=== PATIENT | female | born 1945 | race African-American/Black ===

== ENCOUNTER 2020-03-08 10:22 | Outpatient (CLI) | payer MEDICARE, SELFPAY ==
[2020-03-08 12:00] LABS: Magnesium 2.2 mg/dL (1.6-2.3)
[2020-03-08 12:52] LABS: Free T4 Free Thyroxine 1.04 ng/mL (0.78-2.19)
== END 2020-03-08 10:23 | disposition home or self-care (01) ==
LOC: ANHLAB 10:26
PROVIDERS: PCP Family Medicine; Visit Provider Internal Medicine Cardiovascular Disease
DX: I48.0 Paroxysmal atrial fibrillation (principal); I44.7 Left bundle-branch block, unspecified; I49.3 Ventricular premature depolarization
CPT/HCPCS: 36415; 83735; 84439

== ENCOUNTER 2020-04-05 01:03 | Outpatient (CLI) | payer MEDICARE, MEDICAID, SELFPAY ==
[2020-04-05 18:32] LABS: SARS-CoV-2 RNA PCR Negative
== END 2020-04-05 01:04 | disposition home or self-care (01) ==
LOC: ANHCOVIDDT 01:06
PROVIDERS: PCP Family Medicine; Visit Provider Internal Medicine Gastroenterology
DX: Z01.812 Encounter for preprocedural laboratory examination (principal); Z20.828 Contact with and (suspected) exposure to other viral communicable diseases
CPT/HCPCS: 87635; C9803; U0003

== ENCOUNTER 2020-04-07 01:31 | Day surgery (SDC) | payer MEDICARE, MEDICAID, SELFPAY ==
[2020-03-27 13:25] VITALS: BMI 34.3
[2020-04-07 07:36] VITALS: BP 159/88; PULSE 87; RESP 20; TEMP 36.6; O2SAT 97
[2020-04-07] MEDS: LACTATED RINGERS 1,000 ML 150 ML IV CONT (07:48)
--- NOTE | 2020-04-07 08:26 | PM.HPGS ---
History of Present Illness History of Present Illness Consent: Risks, benefits, and alternatives have been discussed and questions answered. Patient agrees to proceed with procedure. Chief complaint: neoplasm screening Narrative: Kiki Garcia is a 74 year old female here for screening colonoscopy, last one 2013 Review of Systems Constitutional: Constitutional: Denies headache(s) and Denies weakness Eyes: Eyes: Denies blurry vision ENT: Reports Normal hearing present, Denies headache(s) and Denies neck pain Cardiovascular: Cardiovascular: Denies chest pain and Denies dyspnea Respiratory: Respiratory: Denies dyspnea Gastrointestinal: Gastrointestinal: Reports no additional gastrointestinal complaints Genitourinary: Genitourinary: Denies dysuria Musculoskeletal: Musculoskeletal: Denies neck pain Integumentary/Breasts: Skin/Breast: Denies dry skin Neurologic: Reports Normal hearing present, Denies headache(s) and Denies weakness Psychiatric: Psychiatric: Denies anxiety Endocrine: Endocrine: Denies change in body appearance Hematologic/Lymphatic: Hematologic/Lymphatic: Denies easy bleeding Allergic/Immunologic: Allergic/Immunologic: Denies urticaria PMFSH Past Medical History Medical History (Updated 03/06/20 @ 13:39 by Tessa Horner APN-Tommy) Abnormality of gait Back pain with history of spinal surgery Benign essential HTN Chronic constipation Colon polyp Constipation by delayed colonic transit Encounter for screening colonoscopy GERD (gastroesophageal reflux disease) Lumbar spondylosis Obesity (BMI 30.0-34.9) PVC (premature ventricular contraction) Surgical History Surgical History History of back surgery Family History Family History Grandparent Carcinoma of colon Social History Social History Social History: Divorce Smoking status: Never smoker Second hand tobacco smoke exposure: No Alcohol intake: never Substance use: never Substance use type: does not use Living arrangements: with family Gender identity (if verbalized by the patient): Female Spiritual care concerns: No Meds Home Medications and Allergies Home Medications Medication Instructions Recorded Confirmed Type B-complex with vitamin C 1 tablet PO DAILY 01/17/20 03/27/20 History acetaminophen 650 mg 650 mg PO Q12H PRN 01/17/20 03/27/20 History tablet,extended release amlodipine 10 mg tablet 10 mg PO DAILY 01/17/20 03/27/20 History aspirin 325 mg tablet,delayed 325 mg PO DAILY 01/17/20 03/27/20 History release linaclotide 290 mcg capsule 290 mcg PO DAILY PRN 01/17/20 03/27/20 History meclizine 12.5 mg tablet 12.5 mg PO BID PRN 01/17/20 03/27/20 History metoprolol succinate 100 mg 100 mg PO DAILY 01/17/20 03/27/20 History tablet,extended release 24 hr omeprazole 40 mg capsule,delayed 40 mg PO DAILY 01/17/20 03/27/20 History release telmisartan 80 mg tablet 80 mg PO DAILY 01/17/20 03/27/20 History ergocalciferol (vitamin D2) 1,250 1,250 mcg PO WEEKLY #12 cap 02/06/20 03/27/20 Rx mcg (50,000 unit) capsule Allergies Allergy/AdvReac Type Severity Reaction Status Date / Time ibuprofen [From Motrin] Allergy Mild itch and Verified 04/07/20 07:34 hives NSAIDS (Non-Steroidal Allergy Mild itch and Verified 04/07/20 07:34 Anti-Inflamma hives Vital Signs Vital Signs - 24 hr 04/07/20 07:36 Temperature 97.9 F Pulse Rate 87 Respiratory Rate 20 Blood Pressure 159/88 H Pulse Oximetry 97 Exam Const: General: comfortable and no acute distress HENMT: General nose exam: Normal nares present Eyes: General: appearance normal, both eyes and all related structures Neck: Neck: no JVD Resp: Auscultation: clear to auscultation bilaterally Cardio: Rate: regular rate Rhythm: regu
--- NOTE | 2020-04-07 08:27 | WPDANESEPPF ---
Anes - Initial Pre Proc Eval Procedure: Operation Date: 04/07/20 09:00 Proposed Procedures p Screening Colonoscopy - Codey Reyes MD Date/Time: 04/07/20 08:27 Surgeon: Codey Reyes MD Pre Op Diagnosis: neoplasm screening Patient Data Age: 74 Gender: F Height: 5 ft 5.5 in Weight: 95 kg Last Vital Signs Temp 97.9 F 04/07/20 07:36 Pulse 87 04/07/20 07:36 Resp 20 04/07/20 07:36 BP 159/88 H 04/07/20 07:36 Pulse Ox 97 04/07/20 07:36 Allergies Allergy/AdvReac Type Severity Reaction Status Date / Time ibuprofen [From Motrin] Allergy Mild itch and Verified 04/07/20 07:34 hives NSAIDS (Non-Steroidal Allergy Mild itch and Verified 04/07/20 07:34 Anti-Inflamma hives Home Medications Medication Instructions Recorded Confirmed Type B-complex with vitamin C 1 tablet PO DAILY 01/17/20 03/27/20 History acetaminophen 650 mg 650 mg PO Q12H PRN 01/17/20 03/27/20 History tablet,extended release amlodipine 10 mg tablet 10 mg PO DAILY 01/17/20 03/27/20 History aspirin 325 mg tablet,delayed 325 mg PO DAILY 01/17/20 03/27/20 History release linaclotide 290 mcg capsule 290 mcg PO DAILY PRN 01/17/20 03/27/20 History meclizine 12.5 mg tablet 12.5 mg PO BID PRN 01/17/20 03/27/20 History metoprolol succinate 100 mg 100 mg PO DAILY 01/17/20 03/27/20 History tablet,extended release 24 hr omeprazole 40 mg capsule,delayed 40 mg PO DAILY 01/17/20 03/27/20 History release telmisartan 80 mg tablet 80 mg PO DAILY 01/17/20 03/27/20 History ergocalciferol (vitamin D2) 1,250 1,250 mcg PO WEEKLY #12 cap 02/06/20 03/27/20 Rx mcg (50,000 unit) capsule Patient hx anesthesia problems: none Family hx anesthesia problems: none PMFSH Past Medical History Medical History (Updated 03/06/20 @ 13:39 by TessaWILBERT Cassidy) Abnormality of gait Back pain with history of spinal surgery Benign essential HTN Chronic constipation Colon polyp Constipation by delayed colonic transit Encounter for screening colonoscopy GERD (gastroesophageal reflux disease) Lumbar spondylosis Obesity (BMI 30.0-34.9) PVC (premature ventricular contraction) Surgical History Surgical History History of back surgery Family History Family History Grandparent Carcinoma of colon Social History Social History Social History: Divorce Smoking status: Never smoker Second hand tobacco smoke exposure: No Alcohol intake: never Substance use: never Substance use type: does not use Living arrangements: with family Gender identity (if verbalized by the patient): Female Spiritual care concerns: No Anes - Eval Final PreProcedure Day of Procedure 04/07/20 08:27 Patient weight: overweight Heart: regular rate and rhythm Lungs: clear to auscultation Airway: Mallampati scale class III Neurological: alert and oriented Last oral intake: >/= 8 hours ASA classification: III Emergent: no Anesthetic plan: proceed Anesthesia type and monitoring: general GIVS and standard monitoring Informed Consent: The patient's anesthetic plan and its attendant risks and benefits were discussed with the patient/family/POA. Questions were solicited and answers provided to the satisfaction of the patient/family/POA.
[2020-04-07 09:06] VITALS: BP 134/111; PULSE 84; RESP 22; O2SAT 97
[2020-04-07 09:16] VITALS: BP 148/69; PULSE 75; RESP 13; O2SAT 97
[2020-04-07 09:26] VITALS: BP 156/71; PULSE 74; RESP 20; O2SAT 97
[2020-04-07 09:36] VITALS: BP 144/100; PULSE 73; RESP 24; O2SAT 99
== END 2020-04-07 09:59 | disposition home or self-care (01) ==
PROVIDERS: PCP Family Medicine; Visit Provider Internal Medicine Gastroenterology
PROC: 0DJD8ZZ Inspection of Lower Intestinal Tract, Via Natural or Artificial Opening Endoscopic (ICD-10-PCS; CPT 45378; principal; 2020-04-07 09:00)
DX: Z12.11 Encounter for screening for malignant neoplasm of colon (principal); D12.2 Benign neoplasm of ascending colon; K57.30 Diverticulosis of large intestine without perforation or abscess without bleeding; K64.8 Other hemorrhoids; I10 Essential (primary) hypertension; K59.09 Other constipation; K59.01 Slow transit constipation; M47.816 Spondylosis without myelopathy or radiculopathy, lumbar region; K21.9 Gastro-esophageal reflux disease without esophagitis; I49.3 Ventricular premature depolarization
CPT/HCPCS: 45390; 88305; J2704; J7120

== ENCOUNTER 2020-04-08 17:17 | Observation (INO) | payer MEDICARE, MEDICAID, SELFPAY ==
[2020-04-08 17:22] VITALS: BP 146/95; PULSE 103; RESP 16; TEMP 36.9; O2SAT 96
[2020-04-08 17:43] LABS: Basophils Percent Auto 0.3 % (0.2-1.2); Eosinophils Absolute Auto 0.2 K/mm3 (0-0.3); Eosinophils Percent Auto 1.4 % (0-4.4); Hematocrit 35.6 % (37.0-47.0); Hemoglobin 11.6 g/dL (12.0-15.0); Immature Granulocyte Absolute 0.04 K/mm3 (0.00-0.031); Immature Granulocyte Percent A 0.3 % (0-0.5); Lymphocytes Absolute Auto 3.64 K/mm3 (0.9-3.2); Lymphocytes Percent Auto 31.7 % (18.3-44.2); Mean Corpuscular HGB Conc 32.6 g/dl (32-36); Mean Corpuscular Hemoglobin 29.4 pg (26-34); Mean Corpuscular Volume 90.1 fl (80-100); Mean Platelet Volume 11.3 fl (7.4-10.4); Monocytes Absolute Auto 0.6 K/mm3 (0.1-0.6); Neutrophils Percent Auto 61.3 % (45.5-73.1); Platelet Count Result 259 k/mm3 (150-375); Red Blood Count 3.95 M/mm3 (4.2-5.4); Red Cell Distribution Width 14.4 % (11.5-14.5); White Blood Count 11.5 K/mm3 (4.5-10.0)
[2020-04-08 17:57] LABS: Alanine Aminotransferase 13 U/L (4-35); Albumin Level 3.9 g/dL (3.5-5.1); Alkaline Phosphatase 54 U/L (38-126); Anion Gap 8 mmol/L (8-16); Aspartate Amino Transferase 21 U/L (14-36); Bilirubin,Total 0.1 mg/dL (0.2-1.3); Blood Urea Nitrogen 16 mg/dL (7-17); Calcium 8.8 mg/dL (8.4-10.2); Carbon Dioxide 28 mmol/L (22-30); Chloride 105 mmol/L (98-107); Estimated CRCL calculation 59 ml/min; Estimated Glomerular Filt Rate > 60; Glucose 109 mg/dL (65-105); Potassium 3.8 mmol/L (3.4-5.0); Sodium 141 mmol/L (137-145)
[2020-04-08 18:10] LABS: INR 0.9; Prothrombin Time 13.2 Seconds (11.1-14.7)
[2020-04-08 18:11] LABS: Partial Thromboplastin Time 25.2 SECONDS (22.3-36.8)
--- NOTE | 2020-04-08 19:07 | ED.GENADULT ---
HPI - General Adult General Chief complaint: GI Bleed Stated complaint: rectal bleeding, surgery yesterday Time Seen by Provider: 04/08/20 19:01 Source: patient History of Present Illness HPI narrative: Patient is a 74 y/o complaining of heavy rectal bleeding starting 3-4 hours ago. She states that she was sitting on the commode and noticed bright red blood. She then had another episode of rectal bleed. She states she had a colonoscopy and polypectomy yesterday, which may have lead to her bleeding. She has some weakness. She denies abdominal pain, vomiting or diarrhea. Related Data Home Medications Medication Instructions Recorded Confirmed B-complex with vitamin C 1 tablet PO DAILY 01/17/20 04/08/20 acetaminophen 650 mg 650 mg PO Q12H PRN 01/17/20 04/08/20 tablet,extended release amlodipine 10 mg tablet 10 mg PO DAILY 01/17/20 04/08/20 linaclotide 290 mcg capsule 290 mcg PO DAILY PRN 01/17/20 04/08/20 meclizine 12.5 mg tablet 12.5 mg PO BID PRN 01/17/20 04/08/20 metoprolol succinate 100 mg 100 mg PO DAILY 01/17/20 04/08/20 tablet,extended release 24 hr omeprazole 40 mg capsule,delayed 40 mg PO DAILY 01/17/20 04/08/20 release telmisartan 80 mg tablet 80 mg PO DAILY 01/17/20 04/08/20 Adult Low Dose Aspirin 81 mg PO DAILY 04/08/20 04/08/20 Allergies Allergy/AdvReac Type Severity Reaction Status Date / Time ibuprofen [From Motrin] Allergy Mild itch and Verified 04/08/20 22:24 hives Review of Systems Constitutional: Constitutional: Denies chills, Denies fever(s), Denies headache(s) and Denies weakness Eyes: Eyes: Denies blurry vision ENT: Denies headache(s) and Denies neck pain Cardiovascular: Cardiovascular: Denies chest pain and Denies dyspnea Respiratory: Respiratory: Denies cough and Denies dyspnea Gastrointestinal: Gastrointestinal: Denies abdominal pain, Reports hematochezia, Denies diarrhea, Denies nausea and Denies vomiting Genitourinary: Genitourinary: Denies hematuria and Denies dysuria Musculoskeletal: Musculoskeletal: Denies back pain and Denies neck pain Neurologic: Denies headache(s) and Denies weakness [facility] Past Medical History Medical History Abnormality of gait Back pain with history of spinal surgery Benign essential HTN Chronic constipation Colon polyp Constipation by delayed colonic transit Encounter for screening colonoscopy GERD (gastroesophageal reflux disease) Lumbar spondylosis Obesity (BMI 30.0-34.9) PVC (premature ventricular contraction) Surgical History Surgical History History of back surgery Family History Family History Grandparent Carcinoma of colon Social History Social History Social History: Divorce Smoking status: Never smoker Second hand tobacco smoke exposure: No Alcohol intake: former Substance use: never Substance use type: does not use Gender identity (if verbalized by the patient): Female Spiritual care concerns: No Exam Const: General: no acute distress and well developed Orientation/consciousness: oriented to person, oriented to place, oriented to time and patient oriented x3 HENMT: Head: normocephalic Ears: external ears normal General nose exam: Normal external nose present Eyes: General: appearance normal, both eyes and all related structures Conjunctivae: conjunctivae normal Neck: Neck: normal visual inspection and full ROM Chest: Chest palpation & inspection: normal inspection of the chest and no tenderness Resp: Effort & Inspection: normal respiratory effort Auscultation: clear to auscultation bilaterally Cardio: Rate: regular rate Rhythm: regular rhythm GI: GI Palp: No abdominal tenderness and Yes Soft to palpation Skin: General skin exam: normal color and turgor normal Neuro: G
[2020-04-08 19:43] VITALS: BP 179/103; BP 179/113; BP 195/96; PULSE 86; PULSE 88
[2020-04-08 20:12] LABS: Hematocrit 33.6 % (37.0-47.0); Hemoglobin 11.1 g/dL (12.0-15.0)
[2020-04-08 21:30] VITALS: BP 139/104; BP 155/91; PULSE 89; PULSE 91; RESP 18; RESP 20; TEMP 36.3; TEMP 36.7; O2SAT 96; O2SAT 98
--- NOTE | 2020-04-08 21:30 | PC.NURSE ---
This patient, Kiki Garcia, was admitted to [facility] Surg Room 323-01. Patient/family oriented to hospital policies and general routines including ID bracelet, bed and alarms, visiting hours, pain management, procedures, bathroom and other care routines, personal items, smoking policy, room service/diet, and visiting hours. Information on how to activate the Rapid Response Team has been discussed. Patient/Family are encouraged to report perceived risks to care and to ask questions if they do not understand what they are told or what they should do.
[2020-04-09] VITALS: PULSE 83
[2020-04-09 01:52] LABS: Hematocrit 33.4 % (37.0-47.0); Hemoglobin 10.9 g/dL (12.0-15.0)
[2020-04-09 04:00] VITALS: PULSE 83
[2020-04-09 06:00] VITALS: BP 154/69; PULSE 81; RESP 20; TEMP 36.5; O2SAT 100
[2020-04-09 06:55] LABS: Hemoglobin 11.1 g/dL (12.0-15.0)
[2020-04-09 08:00] VITALS: PULSE 70
[2020-04-09 11:38] VITALS: PULSE 70
[2020-04-09] MEDS: amLODIPine BESYLATE 5 MG TABLET 10 MG PO (11:38)
[2020-04-09] MEDS: METOPROLOL SUCCINATE EXT REL 100 MG TABCR PO (11:38)
[2020-04-09] MEDS: TELMISARTAN 40 MG TABLET 80 MG PO (11:38)
[2020-04-09] MEDS: PANTOPRAZOLE SODIUM IV 40 MG VIAL IV PUSH (11:39)
--- NOTE | 2020-04-09 12:48 | WPDGICN ---
Assessment and Plan Assessment and plan (1) Post-polypectomy bleeding: Status: Acute Assessment and Plan: large polyp removed 2 days ago in piece-meal but also deployed clipsx3, I did not see active bleeding after polypectomy. Hb now stable and apparently no more bleeding now. ok to start soft diet and if no more bleeding and she is hemodynamically stable then ok to go home with soft diet for next 2-3 days she will need a colonoscopy in 1 year again to reassess area (2) Rectal bleeding: Code(s): K62.5 - Hemorrhage of anus and rectum Status: Acute Assessment and Plan: hb stable this also was discussed with her daughter by phone. avoid to use any aspirin, nsaid's for 7 days (3) Chronic constipation: Code(s): K59.09 - Other constipation Status: Acute (4) GERD (gastroesophageal reflux disease): Code(s): K21.9 - Gastro-esophageal reflux disease without esophagitis Status: Acute (5) Benign essential HTN: Code(s): I10 - Essential (primary) hypertension Status: Acute GI Consult Note Consult date/time: 04/09/20 12:48 HPI: Kiki Garcia is a 74 year old female with history of AFIB, PVC, LBBB, lumbar spondylosis, constipation who had a colonoscopy by me on 04/07 as outpatient and found a large polyp in ascending colon 2-2.5cm, removed in piecemeal then deployed three clips to prevent delayed bleeding, also had non-bleeding diverticulosis and small hemorrhoids (path report showed adenoma polyp). Yesterday she had two episodes of rectal bleeding, large amount that filled up toilet, denies abdominal pain or fever, then came to ER and admitted for observation. Hb 11.6 and has been relatively stable, she denies any more bleeding since last night. Review of Systems Constitutional: Constitutional: Denies headache(s) and Denies weakness Eyes: Eyes: Denies blurry vision ENT: Reports Normal hearing present, Denies headache(s) and Denies neck pain Cardiovascular: Cardiovascular: Denies chest pain and Denies dyspnea Respiratory: Respiratory: Denies dyspnea Gastrointestinal: Gastrointestinal: Reports no additional gastrointestinal complaints Genitourinary: Genitourinary: Denies dysuria Musculoskeletal: Musculoskeletal: Denies neck pain Integumentary/Breasts: Skin/Breast: Denies dry skin Neurologic: Reports Normal hearing present, Denies headache(s) and Denies weakness Psychiatric: Psychiatric: Denies anxiety Endocrine: Endocrine: Denies change in body appearance Hematologic/Lymphatic: Hematologic/Lymphatic: Denies easy bleeding Allergic/Immunologic: Allergic/Immunologic: Denies urticaria PMFSH Past Medical History Medical History Abnormality of gait Back pain with history of spinal surgery Benign essential HTN Chronic constipation Colon polyp Constipation by delayed colonic transit Encounter for screening colonoscopy GERD (gastroesophageal reflux disease) Lumbar spondylosis Obesity (BMI 30.0-34.9) PVC (premature ventricular contraction) Surgical History Surgical History History of back surgery Family History Family History Grandparent Carcinoma of colon Social History Social History Social History: Divorce Smoking status: Never smoker Second hand tobacco smoke exposure: No Alcohol intake: former Substance use: never Substance use type: does not use Gender identity (if verbalized by the patient): Female Spiritual care concerns: No Meds Home Medications and Allergies Home Medications Medication Instructions Recorded Confirmed Type B-complex with vitamin C 1 tablet PO DAILY 01/17/20 04/08/20 History acetaminophen 650 mg 650 mg PO Q12H PRN 01/17/20 04/08/20 History tablet,extended release amlodipine
--- NOTE | 2020-04-09 13:24 | PM.SD ---
Same Day Admit/Disch: HPI History of Present Illness Chief complaint: rectal bleeding Narrative: Date of Placement to OBS status: 04/08/20 Date and time Patient Seen: 04/09/20 1200 Date of Discharge 04/09/20 The supervising physician for this short stay summary is Dr David Barragan. Ms. Garcia is a very pleasant 74yo F with history of paroxysmal atrial fibrillation, chronic constipation, hypertension, osteoarthritis who presented to the ED for evaluation of rectal bleeding. She had a colonoscopy by Dr. Jimenez 04/07/20 at which time he resected a large polyp, also noted were nonbleeding diverticula and small nonbleeding internal hemorrhoids. She describes that yesterday afternoon she felt the urge to have a bowel movement and once she got to the bathroom she passed a large amount of bright red blood in the toilet. She felt a bit dizzy after this and presented to the ED for evaluation. She has had no further bowel movements or bleeding since that time. Hgb is stable at 11.1. She is hemodynamically stable. She has been seen by Dr. Jimenez this morning who has also agreed with plan for discharge today. Patient was instructed to hold her aspirin and avoid other NSAIDs through Tuesday. Instructed to repeat blood work and follow-up with PCP within 1-2 weeks. We discussed that she may notice a little more bleeding with bowel movements which should resolve on its own and she was educated on return to ER instructions. She verbalizes understanding and is agreeable with plan for discharge today. [facility] Past Medical History Medical History (Updated 04/09/20 @ 18:57 by Breanna March PA-C) Abnormality of gait Back pain with history of spinal surgery Benign essential HTN Chronic constipation Colon polyp Constipation by delayed colonic transit Encounter for screening colonoscopy GERD (gastroesophageal reflux disease) Lumbar spondylosis Obesity (BMI 30.0-34.9) Post-polypectomy bleeding PVC (premature ventricular contraction) Surgical History Surgical History History of back surgery Laminectomy 2017 History of hemorrhoidectomy History of hysterectomy Family History Family History (Updated 04/09/20 @ 18:51 by Breanna March PA-C) Grandparent Carcinoma of colon Mother Acute myocardial infarction Father Acute myocardial infarction Sibling Lung cancer Social History Social History (Updated 04/09/20 @ 18:53 by Breanna March PA-C) Social History: Ms. Garcia lives at home in [place] with her daughter. 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 She denies alcohol, tobacco, or other substance use. She designates her daughter, Luz Maria, to be her surrogate decision maker. PCP: Dr Mia Recinos Code Status: Full Code Smoking status: Never smoker Second hand tobacco smoke exposure: No Alcohol intake: former Substance use: never Substance use type: does not use Gender identity (if verbalized by the patient): Female Spiritual care concerns: No Same Day Admit/Disch: Med Pre-admit Medications Home Medications Medication Instructions Recorded Confirmed Type B-complex with vitamin C 1 tablet PO DAILY 01/17/20 04/08/20 History acetaminophen 650 mg 650 mg PO Q12H PRN 01/17/20 04/08/20 History tablet,extended release amlodipine 10 mg tablet 10 mg PO DAILY 01/17/20 04/08/20 History linaclotide 290 mcg capsule 290 mcg PO DAILY PRN 01/17/20 04/08/20 History meclizine 12.5 mg tablet 12.5 mg PO BID PRN 01/17/20 04/08/20 History metoprolol succinate 100 mg 100 mg PO DAILY 01/17/20 04/08/20 History tablet,extended release 24 hr omeprazole 40 mg capsule,delayed 40 mg PO DAILY 01/17/20 04/08/20 History release telmisartan 80 mg tablet 80 mg PO DAILY 01/17/20 04/08/20 History ergocalciferol (vitamin D2) 1,250 1,250 mcg PO WEEKLY #12 cap 02/06/20 04/08/20 Rx mcg (50,000 unit) capsule Adult Low Dose Aspirin 81 mg PO DAILY 04/08/20
== END 2020-04-09 15:50 | disposition home or self-care (01) ==
LOC: ANHED 19:19 → ANH3MEDSUR 23:41
PROVIDERS: Admitting Provider Internal Medicine; Emergency Provider Emergency Medicine; PCP Family Medicine; Visit Provider Internal Medicine
DX: K91.840 Postprocedural hemorrhage of a digestive system organ or structure following a digestive system procedure (principal); K62.5 Hemorrhage of anus and rectum; K59.09 Other constipation; K21.9 Gastro-esophageal reflux disease without esophagitis; I10 Essential (primary) hypertension; R53.1 Weakness; I49.3 Ventricular premature depolarization; M47.816 Spondylosis without myelopathy or radiculopathy, lumbar region; E66.9 Obesity, unspecified; Z68.34 Body mass index [BMI] 34.0-34.9, adult; Z98.890 Other specified postprocedural states; Z79.899 Other long term (current) drug therapy; Z79.82 Long term (current) use of aspirin; Z86.010 Personal history of colon polyps
CPT/HCPCS: 36415; 80053; 85014; 85018; 85025; 85610; 85730; 86850; 86900; 86901; 96374; 99285; A9270; C9113; G0378

== ENCOUNTER 2020-04-17 09:48 | Outpatient (CLI) | payer MEDICARE, MEDICAID, SELFPAY ==
[2020-04-17 10:38] LABS: Basophils Percent Auto 0.3 % (0.2-1.2); Eosinophils Absolute Auto 0.2 K/mm3 (0-0.3); Eosinophils Percent Auto 2.7 % (0-4.4); Hematocrit 32.6 % (37.0-47.0); Hemoglobin 10.6 g/dL (12.0-15.0); Immature Granulocyte Absolute 0.02 K/mm3 (0.00-0.031); Immature Granulocyte Percent A 0.2 % (0-0.5); Lymphocytes Absolute Auto 2.43 K/mm3 (0.9-3.2); Lymphocytes Percent Auto 28.2 % (18.3-44.2); Mean Corpuscular HGB Conc 32.5 g/dl (32-36); Mean Corpuscular Hemoglobin 29.2 pg (26-34); Mean Corpuscular Volume 89.8 fl (80-100); Mean Platelet Volume 11.5 fl (7.4-10.4); Monocytes Absolute Auto 0.4 K/mm3 (0.1-0.6); Neutrophils Absolute Auto 5.5 K/mm3 (1.3-6.7); Neutrophils Percent Auto 63.6 % (45.5-73.1); Platelet Count Result 254 k/mm3 (150-375); Red Blood Count 3.63 M/mm3 (4.2-5.4); Red Cell Distribution Width 14.6 % (11.5-14.5); White Blood Count 8.6 K/mm3 (4.5-10.0)
== END 2020-04-17 09:49 | disposition home or self-care (01) ==
LOC: ANHLAB 09:56
PROVIDERS: PCP Family Medicine; Visit Provider Physician Assistant
DX: K51.411 Inflammatory polyps of colon with rectal bleeding (principal); Z98.890 Other specified postprocedural states
CPT/HCPCS: 36415; 85025

== ENCOUNTER 2020-06-28 07:42 | Outpatient (CLI) | payer MEDICARE, MEDICAID, SELFPAY ==
--- NOTE | ~2020-06-28 | MR_ITS ---
EXAMINATION: MR lumbar spine wo [facility] EXAM DATE: 06/28/2020 08:45 INDICATION: M47.816 - Spondylosis without myelopathy or radiculopathy, lumbar region . History of charlie k surgery. TECHNIQUE: Multi-sequential, multiplanar MR images of the lumbar spine were obtained without contrast . Sagittal T1, T2, T2 fat saturation images. Axial T2 weighted images. There is no prior study for comparison. FINDINGS: There is mild thoracolumbar dextroscoliosis and lumbar levoscoliosis. There is 3 mm retroli sthesis L3 on L4. Mild to moderate disc disease L2-3 and L3-4, mild at the other lumbar levels. The c onus medullaris terminates at the L1/2 level and has normal signal intensity and morphology. Surgica l changes posterior to L4-5 level. Several small vertebral body hemangiomata. Paraspinal soft tissue is unremarkable. Level by level evaluation: T12-L1: There is a mild to moderate diffuse disc bulge. Facet arthropathy: Mild to moderate. Neural foraminal stenosis: Mild bilateral. Central canal stenosis: Mild. L1-L2: There is a mild diffuse disc bulge. Facet arthropathy: Moderate. Neural foraminal stenosis: Moderate left. Central canal stenosis: Mild. L2-L3: There is a moderate diffuse disc bulge. Facet arthropathy: Moderate to severe . Ligamentum flavum enlargement. Neural foraminal stenosis: Moderate left, mild to moderate right. Central canal stenosis: Mild to moderate. L3-L4: There is a moderate diffuse disc bulge. Facet arthropathy: Severe right, moderate left. Neural foraminal stenosis: Moderate to severe right, moderate left. Central canal stenosis: Moderate. L4-L5: There is a moderate diffuse disc bulge. Facet arthropathy: Severe bilateral. Neural foraminal stenosis: Moderate bilateral. Central canal stenosis: Mild to moderate, posterior laminotomy decompression. L5-S1: There is a mild to moderate diffuse disc bulge. Facet arthropathy: Moderate. Neural foraminal stenosis: Moderate bilateral. Central canal stenosis: Mild. IMPRESSION: 1. Mild to moderate thoracolumbar scoliosis. 2. Overall moderate lumbar spondylosis. Reviewed, dictated and finalized at location A. ARIAL DIRECTOR
== END 2020-06-28 07:43 | disposition home or self-care (01) ==
PROVIDERS: PCP Family Medicine; Visit Provider Family Medicine
DX: M47.817 Spondylosis without myelopathy or radiculopathy, lumbosacral region (principal); M48.07 Spinal stenosis, lumbosacral region; M47.815 Spondylosis without myelopathy or radiculopathy, thoracolumbar region; M48.05 Spinal stenosis, thoracolumbar region; M41.9 Scoliosis, unspecified
CPT/HCPCS: 72148

== ENCOUNTER 2020-09-12 11:57 | Outpatient (CLI) | payer MEDICARE, MEDICAID, SELFPAY ==
--- NOTE | ~2020-09-12 | US_ITS ---
EXAMINATION: US venous doppler LE RT DATE: 09/12/2020 12:44 INDICATION: TECHNIQUE: Chowdary scale images without and with compression and Doppler images of the right lower extre mity veins were obtained. COMPARISON: None FINDINGS: The right common femoral vein, profunda femoral vein, femoral vein, popliteal vein, peronea l trunk, posterior tibial veins, and greater saphenous vein are patent. IMPRESSION: 1. Patent right lower extremity veins. No evidence of deep venous thrombosis. Reviewed, dictated and finalized at location A.
== END 2020-09-12 11:58 | disposition home or self-care (01) ==
PROVIDERS: PCP Family Medicine; Visit Provider Internal Medicine Cardiovascular Disease
DX: M79.604 Pain in right leg (principal)
CPT/HCPCS: 93971

== ENCOUNTER → 2020-09-25 08:53 | Outpatient (CLI) | payer MEDICARE, MEDICAID, SELFPAY ==
[2020-09-25 16:57] LABS: SARS-CoV-2 RNA PCR Negative
== END ==
PROVIDERS: PCP Family Medicine; Visit Provider Physician Assistant
DX: R68.89 Other general symptoms and signs (principal); Z20.822 Contact with and (suspected) exposure to COVID-19
CPT/HCPCS: C9803; U0003; U0005

== ENCOUNTER 2020-10-17 16:00 | Outpatient (CLI) | payer MEDICARE, MEDICAID, SELFPAY ==
--- NOTE | 2020-10-22 16:22 | WPDHOMESLEEP ---
Sleep Study - Home Unattended Date of Study: 10/17/20 Ordering Provider: Leonel Pinto MD Interpreting Provider: Yoli Brandon MD Home Sleep Study Type: Apnea Link Air Height: 1.65 m Weight: 95.254 kg Body Mass Index: 34.9 Neck Circumference (inches): 16 [place]: 7 Reason for Sleep Study Obstructive sleep apnea Sleep History Marion Garcia is a 75 year old female with paroxysmal atrial fibrillation and a history of Obstructive sleep apnea diagnosed 2018 in [place] at [facility], was placed on APAP 5-15 cm and felt better using it with less daytime fatigue and hypersomnolence. She moved to this area in 2019. She has problems with her APAP missing some parts and not working properly. She currently snores, she wakes herself up grunting and has daytime sleepiness with fatigue. She has no morning headaches. She reports a 4 lb weight loss since her last study. She wakes up during the night. She frequently awakens from sleep feeling short of breath. She frequently awakens at night with heartburn, belching and coughing. She always snores loudly enough that others complain. She constantly has trouble sleeping with a cold. She frequently wakes up gasping for breath at night. She frequently has breathing problems at night observed by others. She rarely sweats excessively at night. She frequently notices her heart pounding or beating irregularly night. She occasionally falls asleep during the day, occasionally falls asleep involuntarily. She never falls asleep while driving. She does not have loss of muscle tone with strong emotion. She does not have daytime difficulties due to excessive sleepiness. She does not feel paralyzed on waking or falling asleep. She rarely has vivid dreamlike scenes upon awakening or falling asleep. She never feels afraid to go to sleep. She occasionally has nightmares. She occasionally remembers her dreams. She rarely feels sad, depressed or anxious. She does not have muscular tension. She does not notice parts her body jerking. She rarely kicks at night. She rarely has crawling and aching feelings in her legs at night. She frequently has leg pain during the night. She does not have morning jaw pain and does not grind her teeth during sleep. She occasionally has bothered by pain during the day and occasionally awakened by pain at night. She occasionally wakes up feeling stiff in the morning with sore achy muscles rarely wakes up with pain in the neck and spine. She has fatigue, palpitations, memory problems and she takes antacids regularly. Normal bedtime is 7:00 p.m. falling asleep within 1 hour typically waking 4 or more times at night to urinate and she will also watch TV while she is awake. She wakes at 6:00 a.m. She estimates getting 9 hours or more of sleep at night. She takes naps in the afternoon or evening. A short nap is not refreshing. She is drowsy in the morning. She feels better in the afternoon compared other times a day. Habits: No tobacco. She drinks caffeine, coffee and sodas. No alcohol or recreational drugs. [facility] Past Medical History Medical History Abnormality of gait Back pain with history of spinal surgery Benign essential HTN Chronic constipation Colon polyp Constipation by delayed colonic transit Encounter for screening colonoscopy GERD (gastroesophageal reflux disease) Lumbar spondylosis Obesity (BMI 30.0-34.9) Post-polypectomy bleeding PVC (premature ventricular contraction) Surgical History Surgical History History of back surgery Laminectomy 2017 History of hemorrhoidectomy History of hysterectomy Family History Family History Grandparent Carcinoma of colon Mother Acute myocardial infarction Father Acute myocardial infarction Sibling Lung cancer Social Histor
[2020-10-22 16:24] VITALS: BMI 34.9
== END 2020-10-17 16:08 | disposition home or self-care (01) ==
LOC: ANHCSM 10-20 10:02
PROVIDERS: PCP Family Medicine; Visit Provider Internal Medicine Pulmonary Disease
DX: G47.33 Obstructive sleep apnea (adult) (pediatric) (principal); Z68.34 Body mass index [BMI] 34.0-34.9, adult
CPT/HCPCS: 95806

== ENCOUNTER 2020-12-08 09:23 | Outpatient (CLI) | payer MEDICARE, SELFPAY ==
[2020-12-08 09:54] LABS: Basophils Percent Auto 0.5 % (0.2-1.2); Eosinophils Absolute Auto 0.1 K/mm3 (0-0.3); Eosinophils Percent Auto 1.6 % (0-4.4); Hematocrit 41.1 % (37.0-47.0); Hemoglobin 12.8 g/dL (12.0-15.0); Immature Granulocyte Absolute 0.02 K/mm3 (0.00-0.031); Immature Granulocyte Percent A 0.3 % (0-0.5); Lymphocytes Absolute Auto 2.41 K/mm3 (0.9-3.2); Lymphocytes Percent Auto 30.3 % (18.3-44.2); Mean Corpuscular HGB Conc 31.1 g/dl (32-36); Mean Corpuscular Hemoglobin 28.4 pg (26-34); Mean Corpuscular Volume 91.1 fl (80-100); Monocytes Absolute Auto 0.4 K/mm3 (0.1-0.6); Monocytes Percent Auto 4.4 % (2.6-8.5); Neutrophils Percent Auto 62.9 % (45.5-73.1); Platelet Count Result 240 k/mm3 (150-375); Red Blood Count 4.51 M/mm3 (4.2-5.4); Red Cell Distribution Width 14.5 % (11.5-14.5)
[2020-12-08 10:09] LABS: Alanine Aminotransferase 13 U/L (4-35); Albumin Level 4.1 g/dL (3.5-5.1); Alkaline Phosphatase 58 U/L (38-126); Anion Gap 6 mmol/L (8-16); Aspartate Amino Transferase 20 U/L (14-36); Bilirubin,Total 0.4 mg/dL (0.2-1.3); Blood Urea Nitrogen 8 mg/dL (7-17); Calcium 9.3 mg/dL (8.4-10.2); Carbon Dioxide 28 mmol/L (22-30); Chloride 106 mmol/L (98-107); Cholesterol 230 mg/dL (0-200); Estimated Glomerular Filt Rate > 60; Glucose 106 mg/dL (65-110); HDL Direct 78 mg/dL; Sodium 140 mmol/L (137-145); Triglycerides 81 mg/dL (<150)
[2020-12-08 10:19] LABS: LDL Cholesterol Direct 115 mg/dL
[2020-12-11 11:40] LABS: Vitamin D 1,25 (OH)2 Total 74 pg/mL (18-72); Vitamin D2 1,25 (OH)2 38 pg/mL; Vitamin D3 1,25 (OH)2 36 pg/mL
== END 2020-12-08 09:24 | disposition home or self-care (01) ==
LOC: ANHLAB 09:30
PROVIDERS: PCP Family Medicine; Visit Provider Family Medicine
DX: E55.9 Vitamin D deficiency, unspecified (principal); I10 Essential (primary) hypertension; I48.91 Unspecified atrial fibrillation; I48.92 Unspecified atrial flutter; E78.2 Mixed hyperlipidemia
CPT/HCPCS: 36415; 80053; 80061; 82652; 84443; 85025

== ENCOUNTER 2020-12-11 09:59 | Outpatient (CLI) | payer MEDICARE, SELFPAY ==
--- NOTE | ~2020-12-11 | US_ITS ---
EXAMINATION: US carotid duplex BI DATE: 12/11/2020 10:36 INDICATION: Other specified symptoms and signs involving the circulatory and respiratory systems TECHNIQUE: Grayscale, color Doppler, and pulsed Doppler images of the cervical carotid arteries were obtained. The degree of vessel stenosis is placed in one of the following categories: normal, <50%, 5 0-69%, >=70% but less than near-occlusion, near-occlusion, or total occlusion. Note that percent sten osis relative to normal distal artery lumen diameter is indirectly measured from velocity measurement s as described by Noam, et al. Radiology 2003; 229:[id number]. COMPARISON: None. FINDINGS: RIGHT: The right common carotid artery (CCA) peak systolic velocity (PSV) is 48 cm/s. The right internal car otid artery (ICA) PSV is 72 cm/s. The right ICA end-diastolic velocity (EDV) is 22 cm/s. The right IC A/CCA PSV ratio is 1.5. Grayscale and color Doppler images yield an estimate of <50% diameter reducti on from plaque in the ICA. The external carotid artery (ECA) PSV is 73 cm/s. There is antegrade flow in the right vertebral artery. LEFT: The left CCA PSV is 50 cm/s. The left ICA PSV is 99 cm/s. The left ICA EDV is 23 cm/s. The left ICA/C CA PSV ratio is 2.0. Grayscale and color Doppler images yield an estimate of <50% diameter reduction from plaque in the ICA. The ECA PSV is 67 cm/s. There is antegrade flow in the left vertebral artery. IMPRESSION: 1. <50% stenosis in the right internal carotid artery. 2. <50% stenosis in the left internal carotid artery. 3. Intermittent cardiac arrhythmia is present, potentially related to vagal stimulation. Correlate wi th EKG. Reviewed, dictated and finalized at location A. IMPRESSION: 1. <50% stenosis in the right internal carotid artery. 2. <50% stenosis in the left internal carotid artery. 3. Intermittent cardiac arrhythmia is present, potentially related to vagal sti mulation. Correlate with EKG.
== END 2020-12-11 10:00 | disposition home or self-care (01) ==
LOC: ANHIMG 10:01
PROVIDERS: PCP Family Medicine; Visit Provider Family Medicine
DX: R09.89 Other specified symptoms and signs involving the circulatory and respiratory systems (principal); I65.23 Occlusion and stenosis of bilateral carotid arteries; I49.8 Other specified cardiac arrhythmias
CPT/HCPCS: 93880

== ENCOUNTER 2021-06-28 16:25 | Inpatient (IN) | payer MEDICARE, MEDICAID, SELFPAY ==
[2021-06-28] VITALS (17 sets, daily range): BP systolic 100–133; BP diastolic 77–105; PULSE 36–130; RESP 0–31; TEMP 36.2–36.3; O2SAT 95–99; BMI 33.4
--- NOTE | ~2021-06-28 | US_ITS ---
EXAMINATION: US venous doppler [facility] DATE: 06/29/2021 12:27 INDICATION: Lower limb pain with Homans sign. Atrial fibrillation. TECHNIQUE: Grayscale ultrasound images without and with compression and Doppler ultrasound images of the bilateral lower extremity veins were obtained. COMPARISON: None. FINDINGS: Noncompressible deep venous thrombosis in the right posterior tibial vein. The visualized portions of right common femoral vein, profunda (deep) femoral vein, femoral vein, popliteal vein, peroneal vein s, gastrocnemius vein and greater saphenous vein outflow are patent. Noncompressible deep venous thrombosis in the left posterior tibial vein. The visualized portions of left common femoral vein, profunda femoral vein, femoral vein, popliteal vein, peroneal veins, gastro cnemius vein and greater saphenous vein outflow are patent. IMPRESSION: 1. [id number] deep venous thrombosis at the bilateral posterior tibial veins. Reviewed, dictated and finalized at location A. ING CAPTAIN IMPRESSION: 1. [id number] deep venous thrombosis at the bilateral posterior tibial vei ns.
--- NOTE | ~2021-06-28 | CT_ITS ---
EXAMINATION: CTA chest abdomen pelvis DATE: 06/28/2021 18:19 INDICATION: Shortness of breath. Aneurysm . Metastatic disease. TECHNIQUE: Computed tomographic angiography (CTA) of the chest, abdomen, and pelvis was performed wit hout and with 100 mL Omnipaque-350 intravenous contrast. Volume-rendered 3D-reconstructions of the ao rta and large arteries were constructed by the technologist on a separate workstation. Automated expo sure control and iterative reconstruction technique were employed. The dose-length product was 1328.8 5 mGy-cm. COMPARISON: None FINDINGS: Chest: Mild mosaic attenuation in the bilateral lower lobes consistent with mild dependent atelectasis with small subsegmental regions of air trapping consistent with small airway disease. 3 mm nodule in the s uperior segment of the right lower lobe. No pneumonia, pulmonary edema, pleural effusion or pneumotho rax. Cardiomegaly. Atherosclerotic coronary artery calcifications. Moderate-sized pericardial effusio n. Small sliding-type hiatal hernia. Thoracic aorta is normal in caliber with no aneurysm or dissecti on. No pathologically enlarged thoracic lymphadenopathy. Multinodular goiter with intrathoracic exten adela of a 7.1 x 5.3 x 4.5 cm predominantly cystic mass arising from the lower pole of the right thyro id lobe which accounts for the mass of concern on the prior radiograph. Mild thoracic spondylosis wit h bridging osteophytes at multiple levels consistent with diffuse idiopathic skeletal hyperostosis (D PACO). Abdomen and pelvis: Liver, gallbladder, spleen, pancreas and bilateral adrenal glands are normal. 1.4 similar left renal cyst. Small focus of cortical scarring at the right kidney. There are a few diverticula along the catina cending colon without adjacent inflammatory change to suggest diverticulitis. Normal small bowel and appendix. Bladder is normal. No free intraperitoneal gas or fluid. No pathologically enlarged abdomin al or pelvic lymphadenopathy. Mild atherosclerotic disease along the normal caliber abdominal aorta. No significant stenosis, aneurysm or dissection. Mild S-shaped curvature of the lumbar spine with mod erate spondylosis. IMPRESSION: 1. Multinodular goiter with 7.1 x 5.3 x 4.5 cm predominantly cystic right thyroid mass which extends into the superior mediastinum accounting for the opacity of concern on prior radiographs. 2. Cardiomegaly and moderate-sized pericardial effusion. Reviewed, dictated and finalized at location A. MODEL MAKER IMPRESSION: 1. Multinodular goiter with 7.1 x 5.3 x 4.5 cm predominantly cystic right thyro id mass which extends into the superior mediastinum accounting for the opacity of concern on prior radiographs. 2. Cardiomegaly and moderate-sized pericardial effusion.
--- NOTE | ~2021-06-28 | XR_ITS ---
EXAMINATION: XR chest 2V DATE: 06/28/2021 17:20 INDICATION: Shortness of breath. TECHNIQUE: frontal and lateral views of the chest were obtained. COMPARISON: None FINDINGS: Mild linear atelectasis/scarring at the right costophrenic angle. No other airspace opacities, pulmon anna edema, pleural effusion or pneumothorax. Mild cardiac Megaly. Mediastinal widening particularly o n the right which exerts mass effect upon the trachea. IMPRESSION: 1. Mediastinal widening with right paratracheal mass. Differential would include goiter, primary gilbert gnancy, metastatic disease, lymphoma, aneurysm or tortuous vasculature. Recommend contrast-enhanced C T of the chest for further evaluation. 2. Mild cardiomegaly. Reviewed, dictated and finalized at location A. ME TAX ADJUSTER IMPRESSION: 1. Mediastinal widening with right paratracheal mass. Differential would includ e goiter, primary malignancy, metastatic disease, lymphoma, aneurysm or tortuou s vasculature. Recommend contrast-enhanced CT of the chest for further evaluati on. 2. Mild cardiomegaly.
--- NOTE | 2021-06-28 16:49 | ECG_ITS ---
Measurements Intervals [place] Rate: 126 P: VT: 0 QRS: -34 QRSD: 151 T: 124 QT: 343 QTc: 497 Interpretive Statements ATRIAL FIBRILLATION WITH RAPID VENTRICULAR RESPONSE LEFT AXIS DEVIATION LEFT BUNDLE BRANCH BLOCK ABNORMAL ECG Electronically Signed On 06-28-2021 17:05:34 ANIMAL HERDER by Arnaldo Huizar D.O.
--- NOTE | 2021-06-28 16:55 | ED.SOB ---
HPI - SOB/Dyspnea General Chief Complaint: Shortness of Breath/Dyspnea Stated Complaint: sob Time Seen by Provider: 06/28/21 16:54 History of Present Illness HPI Narrative: 76 year old female presents to the ER with complaints of acute onset of exertional dyspnea she states she noticed this am. Reports having difficulty walking from bedroom to bathroom d/t shortness of breath. Patient has a known history of a-fib, which she says has been managed with metoprolol and ASA. Patient admits to being non-complaint with her metoprolol, stating she occasionally forgets to take the medication. Has taken her metoprolol today, but did not take it the past couple of days. 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 Related Data Home Medications Medication Instructions Recorded Confirmed B-complex with vitamin C 1 tablet PO DAILY 01/17/20 04/23/21 Adult Low Dose Aspirin 81 mg PO DAILY 04/08/20 04/23/21 Allergies Allergy/AdvReac Type Severity Reaction Status Date / Time ibuprofen [From Motrin] Allergy Mild itch and Verified 04/23/21 09:28 hives Review of Systems Review of Systems: CONSTITUTIONAL: Denies fever, chills, or sweats. EYES: Denies visual changes, redness, or discharge. ENT: Denies rhinorrhea, congestion, sore throat, or otalgia. CARDIOVASCULAR: Denies chest pain, palpitations, or edema. RESPIRATORY: Reports dyspnea. GASTROINTESTINAL: Denies abdominal pain, nausea, vomiting, or diarrhea. GENITOURINARY: Denies dysuria or hematuria. SKIN: Denies rash or itching. MUSCULOSKELETAL: Denies back pain, joint pain, or myalgia. NEUROLOGIC: Denies headache, numbness, dizziness, or weakness. PSYCHIATRIC: Denies anxiety or depression. [facility] Past Medical History Medical History Abnormality of gait Back pain with history of spinal surgery Benign essential HTN Chronic constipation Colon polyp Constipation by delayed colonic transit Encounter for screening colonoscopy GERD (gastroesophageal reflux disease) Lumbar spondylosis Obesity (BMI 30.0-34.9) Post-polypectomy bleeding PVC (premature ventricular contraction) Surgical History Surgical History History of back surgery Laminectomy 2017 History of hemorrhoidectomy History of hysterectomy Family History Family History Grandparent Carcinoma of colon Mother Acute myocardial infarction Father Acute myocardial infarction Sibling Lung cancer Social History Social History Social History: Ms. Garcia lives at home in [place] with her daughter. 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 She denies alcohol, tobacco, or other substance use. She designates her daughter, Luz Maria, to be her surrogate decision maker. PCP: Dr Mia Recinos Code Status: Full Code Smoking status: Never smoker Second hand tobacco smoke exposure: No Alcohol intake: never Substance use: never Substance use type: does not use Gender identity (if verbalized by the patient): Female Sexual Orientation (if Verbalized by the Patient): Straight or Heterosexual Spiritual care concerns: No Exam Narrative: GENERAL: Well-appearing, well-nourished, and in no acute distress. HEAD: Normocephalic, atraumatic. EYES: PERRLA and EOMI. ENT: Nares clear, no rhinorrhea or epistaxis. Mucous membranes moist. Oropharynx without tonsillar hypertrophy exudate or other lesions. Bilateral TMs pearly hillman nonbulging NECK: Supple. No adenopathy or masses. No carotid bruits or JVD CHEST: Clear to auscultation. No respiratory distress. No wheezes rales or rhonchi HEART: irregular tachycardic rhythm. No murmur heard. Normal peripheral pulses. ABDOMEN: Soft, nontender, nondistended, normal active bowel sounds. EXTREMITIES: Normal range of motion. No edema. SKIN: Warm, dry, no rash. N
[2021-06-28 17:00] LABS: Basophils Absolute Auto 0.1 K/mm3 (0.0-0.1); Basophils Percent Auto 0.4 % (0.2-1.2); Eosinophils Absolute Auto 0.2 K/mm3 (0-0.3); Eosinophils Percent Auto 1.5 % (0-4.4); Hematocrit 37.3 % (37.0-47.0); Hemoglobin 12.2 g/dL (12.0-15.0); Immature Granulocyte Absolute 0.03 K/mm3 (0.00-0.031); Immature Granulocyte Percent A 0.3 % (0-0.5); Lymphocytes Absolute Auto 3.36 K/mm3 (0.9-3.2); Lymphocytes Percent Auto 28.9 % (18.3-44.2); Mean Corpuscular HGB Conc 32.7 g/dl (32-36); Mean Corpuscular Hemoglobin 30.4 pg (26-34); Mean Platelet Volume 12.1 fl (7.4-10.4); Monocytes Absolute Auto 0.7 K/mm3 (0.1-0.6); Monocytes Percent Auto 5.6 % (2.6-8.5); Neutrophils Absolute Auto 7.4 K/mm3 (1.3-6.7); Neutrophils Percent Auto 63.3 % (45.5-73.1); Platelet Count Result 268 k/mm3 (150-375); Red Blood Count 4.01 M/mm3 (4.2-5.4); Red Cell Distribution Width 14.8 % (11.5-14.5); White Blood Count 11.6 K/mm3 (4.5-10.0)
[2021-06-28 17:13] LABS: Alanine Aminotransferase 14 U/L (4-35); Alkaline Phosphatase 53 U/L (38-126); Anion Gap 7 mmol/L (8-16); Aspartate Amino Transferase 22 U/L (14-36); Bilirubin,Total 0.2 mg/dL (0.2-1.3); Blood Urea Nitrogen 15 mg/dL (7-17); Calcium 9.2 mg/dL (8.4-10.2); Carbon Dioxide 24 mmol/L (22-30); Chloride 107 mmol/L (98-107); Estimated CRCL calculation 52 ml/min; Estimated Glomerular Filt Rate > 60; Glucose 121 mg/dL (65-110); Potassium 3.5 mmol/L (3.4-5.0); Sodium 138 mmol/L (137-145)
--- NOTE | 2021-06-28 19:26 | PM.IMHP ---
H&P: HPI History of Present Illness Date/Time: 06/28/21 19:26 Chief Complaint: Shortness of breath. Narrative: This is a 76-year-old female with past medical history significant for endothoracic goiter, atrial fibrillation, GERD, degenerative joint disease, grade 1 diastolic heart failure, normal systolic function as per echocardiogram from March of 2020 according to records. 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 Yanez in this area. Patient also has not been using her BiPAP machine however according to records is CPAP machine has been without it for over a year. Patient presents to the emergency room with complaints of shortness of breath with minimal exertion at and at rest as well patient uses 3-4 pillows at nighttime due to shortness of breath when laying flat has had some dizziness denies any palpitations, flutter feeling, no syncope or near syncope, no diaphoresis, no chest pain ,no nausea, no vomiting, no abdominal pain, has had some pedal edema, denies any fevers, any rigors, any chills. Preliminary workup was significant for atrial fibrillation with rapid ventricular response on EKG. Patient is been admitted for further evaluation, management and treatment. Review of Systems Review of Systems: Shortness of breath, dizziness, fatigue, PND, orthopnea. Constitutional: Constitutional: Denies chills, Reports fatigue, Denies fever(s), Denies malaise and Denies weakness Eyes: Eyes: Denies change in vision ENT: Denies dysphagia, Reports dizziness, Denies nasal congestion, Denies nasal discharge, Denies nasal obstruction and Denies odynophagia Cardiovascular: Cardiovascular: Denies irregular heart rhythm, Reports leg edema, Reports lightheadedness, Denies radiating jaw, neck or arm pain, Denies palpitations, Reports dyspnea on exertion, Reports orthopnea and Reports paroxysmal nocturnal dyspnea Respiratory: Respiratory: Denies cough, Denies excessive phlegm production and Denies wheezing Gastrointestinal: Gastrointestinal: Denies abdominal pain, Denies dyspepsia, Denies heartburn, Denies diarrhea, Denies nausea and Denies vomiting Genitourinary: Genitourinary: Denies dysuria Musculoskeletal: Musculoskeletal: Denies arthralgias Integumentary/Breasts: Skin/Breast: Denies rash Neurologic: Denies focal weakness and Denies Sensory deficit (Neuro) Psychiatric: Psychiatric: Reports no additional psychiatric complaints and Reports as per HPI Endocrine: Endocrine: Denies cold intolerance, Denies deepening of the voice, Reports fatigue, Denies flushing, Denies heat intolerance, Denies polyphagia, Denies polydipsia and Denies palpitations Hematologic/Lymphatic: Hematologic/Lymphatic: Reports no additional hematologic/lymphatic complaints and Reports as per HPI Allergic/Immunologic: Allergic/Immunologic: Reports no additional allergic/immunologic complaints and Reports as per HPI PMFSH Past Medical History Medical History Abnormality of gait Back pain with history of spinal surgery Benign essential HTN Chronic constipation Colon polyp Constipation by delayed colonic transit Encounter for screening colonoscopy GERD (gastroesophageal reflux disease) Lumbar spondylosis Obesity (BMI 30.0-34.9) Post-polypectomy bleeding PVC (premature ventricular contraction) Surgical History Surgical History History of back surgery Laminectomy 2017 History of hemorrhoidectomy History of hysterectomy Family History Family History Grandparent Carcinoma of colon Mother Acute myocardial infarction Father Acute myocardial infarction Sibling Lung cancer Social History Social History Social History: Ms. Jose brizuela
[2021-06-28] MEDS: dilTIAZem HCl INJ 25 MG/5 ML VIAL 10 MG IV PUSH (19:55)
[2021-06-28] MEDS: dilTIAZem 100 MG/100 ML 100 MG/100 ML BAG IV CONT (19:55)
--- NOTE | 2021-06-28 20:24 | PC.NURSE ---
Patient given food tray and drink.
[2021-06-28 20:52] LABS: SARS-CoV-2 RNA PCR Negative
--- NOTE | 2021-06-28 22:06 | PC.NURSE ---
Patient care report called to JAYCEE Kauffman. All questions answered at this time.
[2021-06-29] VITALS (13 sets, daily range): BP systolic 96–146; BP diastolic 71–86; PULSE 60–133; RESP 16–20; TEMP 36.2–37.2; O2SAT 94–97
--- NOTE | 2021-06-29 | ECHO_ITS ---
Patient Info Name: Kiki Garcia Age: 76 years : 1945 Gender: Female Ht: 66 in Wt: 207 lbs BSA: 2.13 m2 HR: 111 bpm BP: 133 / 85 mmHg Heart Rhythm: Atrial Fibrillation Technical Quality: Fair Exam Date: 06/29/2021 9:32 AM Exam Location: [facility] Patient Status: Inpatient Admit Date: 06/28/2021 Staff Ordering Physician: Katlyn Yeboah MD Coil Cleaner: Bia Mark RDCS Attending Provider: Katlyn Yeboah MD Referring Physician: Edilia APRRA; Exam Type: CA echo doppler color flow Study Info Indications I48.1 - Persistent atrial fibrillation R06.02 - Shortness of breath Complete two-dimensional, color flow and Doppler transthoracic echocardiogram is performed. Summary 1. Complete two-dimensional, color flow and Doppler transthoracic echocardiogram is performed. 2. Left ventricular chamber dimension is mildly enlarged. 3. Left ventricular systolic function is mildly reduced, estimated at 40-45%. 4. There is mild concentric increased left ventricular wall thickness. 5. Left ventricular septal wall motion is abnormal with septal motion related to bundle branch block. 6. Left atrial chamber dimension is moderately enlarged. 7. There is mild aortic valve sclerosis. 8. There is mild mitral valve regurgitation. 9. Technically somewhat challenging exam. 10. Atrial fibrillation. Left Ventricle Left ventricular chamber dimension is mildly enlarged. Left ventricular systolic function is mildly reduced, estimated at 40-45%. There is mild concentric increased left ventricular wall thickness. Left ventricular septal wall motion is abnormal with septal motion related to bundle branch block. The left ventricular diastolic function is indeterminate. Right Ventricle Right ventricular chamber dimension is normal. Left Atria Left atrial chamber dimension is moderately enlarged. Right Atria Right atrial chamber dimension is mildly enlarged. Aortic Valve The aortic valve is trileaflet. There is mild aortic valve sclerosis. Pulmonic Valve The pulmonic valve is not well visualized. Mitral Valve The mitral valve has normal leaflets. There is mild mitral valve regurgitation. Tricuspid Valve The tricuspid valve leaflets are normal. Pericardium/Pleural The pericardium appears normal. Aorta The aortic root size at the sinus of Valsalva is normal. Left Ventricular Outflow Tract Name Value Normal LVOT 2D LVOT Diameter 2.0 cm LVOT Doppler LVOT Peak Gradient 4 mmHg LVOT Mean Gradient 2 mmHg LVOT VTI 17 cm LVOT VTI/AV VTI Ratio 0.6 LVOT Stroke Volume 54 ml Pulmonic Valve Name Value Normal RVOT Doppler RVOT Peak Gradient 1 mmHg PV Doppler
[2021-06-29 01:46] LABS: Troponin I 0.064 ng/mL (0.000-0.034)
[2021-06-29 02:07] LABS: NT Pro B Type Natriuretic Pept 3800 pg/mL (5-100)
--- NOTE | 2021-06-29 04:23 | PCRCNOTE ---
Bipap ordered for patient nocturnally. Therapist spoke with pt about wearing bipap and pt refused. Pt stated she has not worn her home unit in over 1 year and she would not wear one here.
--- NOTE | 2021-06-29 04:49 | ADMGEN ---
This patient, Kiki Garcia, was admitted to IMU Room 205-06/28 at approx 2300. Patient/family oriented to hospital policies and general routines including ID bracelet, bed and alarms, visiting hours, pain management, procedures, bathroom and other care routines, personal items, smoking policy, room service/diet, and visiting hours. Information on how to activate the Rapid Response Team has been discussed. Patient/Family are encouraged to report perceived risks to care and to ask questions if they do not understand what they are told or what they should do.
[2021-06-29 09:21] LABS: Basophils Percent Auto 0.3 % (0.2-1.2); Eosinophils Absolute Auto 0.1 K/mm3 (0-0.3); Eosinophils Percent Auto 0.6 % (0-4.4); Hematocrit 35.4 % (37.0-47.0); Hemoglobin 11.5 g/dL (12.0-15.0); Immature Granulocyte Absolute 0.05 K/mm3 (0.00-0.031); Immature Granulocyte Percent A 0.4 % (0-0.5); Lymphocytes Absolute Auto 1.83 K/mm3 (0.9-3.2); Lymphocytes Percent Auto 14.9 % (18.3-44.2); Mean Corpuscular HGB Conc 32.5 g/dl (32-36); Mean Corpuscular Hemoglobin 29.7 pg (26-34); Mean Corpuscular Volume 91.5 fl (80-100); Mean Platelet Volume 12.1 fl (7.4-10.4); Monocytes Absolute Auto 0.6 K/mm3 (0.1-0.6); Monocytes Percent Auto 5.1 % (2.6-8.5); Neutrophils Absolute Auto 9.7 K/mm3 (1.3-6.7); Neutrophils Percent Auto 78.7 % (45.5-73.1); Platelet Count Result 231 k/mm3 (150-375); Red Blood Count 3.87 M/mm3 (4.2-5.4); Red Cell Distribution Width 14.7 % (11.5-14.5); White Blood Count 12.3 K/mm3 (4.5-10.0)
[2021-06-29 09:35] LABS: Alanine Aminotransferase 23 U/L (4-35); Albumin Level 3.8 g/dL (3.5-5.1); Alkaline Phosphatase 59 U/L (38-126); Anion Gap 9 mmol/L (8-16); Aspartate Amino Transferase 30 U/L (14-36); Bilirubin,Total 0.5 mg/dL (0.2-1.3); Blood Urea Nitrogen 10 mg/dL (7-17); Calcium 9.1 mg/dL (8.4-10.2); Carbon Dioxide 25 mmol/L (22-30); Chloride 107 mmol/L (98-107); Estimated CRCL calculation 58 ml/min; Estimated Glomerular Filt Rate > 60; Glucose 133 mg/dL (65-110); Magnesium 1.9 mg/dL (1.6-2.3); Potassium 3.2 mmol/L (3.4-5.0); Sodium 141 mmol/L (137-145)
[2021-06-29] MEDS: APIXABAN 5 MG TABLET PO (09:58)
[2021-06-29] MEDS: METOPROLOL SUCCINATE EXT REL 100 MG TABCR PO (09:58)
[2021-06-29] MEDS: PANTOPRAZOLE 40 MG TABLET PO ×2 (09:58→21:04)
[2021-06-29 09:59] LABS: Troponin I 0.051 ng/mL (0.000-0.034)
--- NOTE | 2021-06-29 11:00 | PM.CNPUL ---
Assessment and Plan Assessment and plan (1) Atrial fibrillation with rapid ventricular response: Code(s): I48.91 - Unspecified atrial fibrillation Status: Acute (2) Goiter, non-toxic: Code(s): E04.9 - Nontoxic goiter, unspecified Status: Acute Assessment and Plan: Patient has a large intrathoracic goiter with possible tracheal compression. We will obtain flow volume loop on an outpatient basis. (3) WENDY (obstructive sleep apnea): Code(s): G47.33 - Obstructive sleep apnea (adult) (pediatric) Status: Acute Assessment and Plan: this 76-year-old female has had known history of obstructive sleep apnea, which on last apnea leading in October of 2020 she had mild apnea hypopnea index of 14, desaturation 87%. The patient has been non compliant with CPAP treatment. In the past she had refused CPAP titration in the sleep lab. She is supposed to be on APAP 6 cm to 16 cm water pressure. The patient stated that she has not be using the CPAP at night because there is device malfunctioning. Her CPAP device is relatively new as is her sleep apnea diagnosis. Paroxysmal AFib is probably related to untreated sleep disordered breathing. (4) Obesity (BMI 30.0-34.9): Code(s): E66.9 - Obesity, unspecified Status: Acute (5) Lung nodule: Code(s): R91.1 - Solitary pulmonary nodule Status: Acute Assessment and Plan: Patient has a small lung nodule and right lung, measuring less than 4 mm in diameter. She will need repeat chest CT in approximately 1 year. History of Present Illness History of Present Illness Consult date: 06/29/21 Chief complaint: exertional dyspnea, a-fib with RVR Narrative: This 76-year-old female presented with several day history of progressively increasing shortness of breath. The patient has multiple medical problems including history of left ventricular diastolic dysfunction grade 1, history of paroxysmal atrial fibrillation, intrathoracic goiter, GERD, and history of obstructive sleep apnea. The patient has had shortness of breath which has gotten worse over the last several days. She had no fever chills cough wheezing hemoptysis chest pain or palpitations. She has noted increasing lower extremity edema. On admission she was found to have atrial fibrillation with rapid ventricular response. patient has history of obstructive sleep apnea diagnosed in 2018 at [facility] in [place]. The patient is supposed to be on APAP 6 cm to 16 cm water pressure. Patient stated that she has not be using a CPAP over the last year. She has had daytime sleepiness and fatigue. Review of Systems Review of Systems: Patient reports no significant weight changes. She has had chronic orthopnea. She has had history of GERD. She has had history of constipation. She has had some urinary continence. She has joint pain related to DJD. She has had chronic lower extremity edema. The remainder of the 12 point system review is negative [facility] Past Medical History Medical History Abnormality of gait Back pain with history of spinal surgery Benign essential HTN Chronic constipation Colon polyp Constipation by delayed colonic transit Encounter for screening colonoscopy GERD (gastroesophageal reflux disease) Lumbar spondylosis Obesity (BMI 30.0-34.9) Post-polypectomy bleeding PVC (premature ventricular contraction) Surgical History Surgical History History of back surgery Laminectomy 2017 History of hemorrhoidectomy History of hysterectomy Family History Family History Grandparent Carcinoma of colon Mother Acute myocardial infarction Father Acute myocardial infarction Sibling Lung cancer Social History Social History (Reviewed 06/28/21 @ 17:04 by Joseph Johnson AP
--- NOTE | 2021-06-29 16:58 | PM.IMPN ---
Progress Note: A&P Assessment and Plan (1) Atrial fibrillation with rapid ventricular response: Code(s): I48.91 - Unspecified atrial fibrillation Status: Acute Assessment and Plan: Patient presents initially with shortness of breath and found to have AFib with RVR. She has been noncompliant with her metoprolol. She is not on long-term anticoagulation except for aspirin. Her [id number] score is 3. She was started on diltiazem drip. Patient was admitted to IMU. Metoprolol resumed this morning. Echocardiogram shows EF of 40-45%, left ventricular septal wall motion abnormality felt related to the bundle branch block and mild valvular disease. Diastolic function is indeterminate. Heart rate became better controlled so the diltiazem drip was stopped. She was started on Eliquis. Heart rate has increased this afternoon to 120-140 range. Will adjust her medications. Will continue to hold amlodipine to provide more blood pressure to work with. Cardiology has been consulted. (2) Elevated troponin: Code(s): R77.8 - Other specified abnormalities of plasma proteins Status: Acute Assessment and Plan: Troponin elevated 0.064 and already trending downward. EKG shows AFib with RVR, left axis deviation and left bundle branch block. The left bundle branch block is chronic. She had a exercise Lexiscan stress test last September. The myocardial perfusion imaging was abnormal but felt to be breast attenuation; EF was 47%. Overall no significant ischemia noted. Fell the elevated troponins related to the AFib with RVR. (3) DVT (deep venous thrombosis): Code(s): I82.409 - Acute embolism and thrombosis of unspecified deep veins of unspecified lower extremity Status: Acute Assessment and Plan: Patient with complaints of right calf pain with a positive Homans sign. Lower extremity venous Doppler shows bilateral posterior tibial vein below the knee DVTs. CTA does not mention PE but no large or segmental PEs per radiology. She was started on Eliquis for her AFib. Will advance the dose to treatment does for DVT at this time for 7 days before decreasing back to AFib level dosing. (4) WENDY (obstructive sleep apnea): Code(s): G47.33 - Obstructive sleep apnea (adult) (pediatric) Status: Acute Assessment and Plan: Patient has been noncompliant with CPAP treatment. In the past, she has refused CPAP titration in the sleep lab. Pulmonary was consulted and appreciate their input. (5) Goiter, non-toxic: Code(s): E04.9 - Nontoxic goiter, unspecified Status: Acute Assessment and Plan: Chest x-ray showed mediastinal widening. This prompted a CTA of the chest, abdomen and pelvis. This CTA showed a multinodular goiter predominately cystic in the right thyroid mass 7.1cm which extends into the superior mediastinum accounting for the opacity of concern on the x-ray. Chest at cardiomegaly and moderate sized pericardial effusion. Patient denies any odynophagia or dysphagia. TSH is normal. Will defer to outpatient monitoring for this. Pulmonary to perform outpatient flow volume loop. (6) GERD (gastroesophageal reflux disease): Code(s): K21.9 - Gastro-esophageal reflux disease without esophagitis Status: Chronic Assessment and Plan: Stable. Continue omeprazole. Subjective Date/time seen: 06/29/21 16:58 Interval history: 76yo female with hx of AFib, dCHF and goiter here for shortness of breath and found to have AFib/RVR. Assuming care. Chart reviewed. Patient has a history of atrial fibrillation. She has never been on long-term anticoagulation except aspirin. She feels slightly short of breath today but improved overall. No chest pain. She normally is on metoprolol daily but states that she has only been taking 1-2 times per week for unclear reasons. No history of falls. No history of bleeding. Exam Narrative: AF 98.5 125/81 107
--- NOTE | 2021-06-29 18:15 | PCRCNOTE ---
Pt states that she has not worn her cpap for on year and does not want a hospital unit.
[2021-06-29] MEDS: METOPROLOL TARTRATE 25 MG TABLET PO (18:20)
[2021-06-29] MEDS: METOPROLOL TARTRATE TAB 25 MG, METOPROLOL TARTRATE TAB 50 MG 75 MG PO (21:04)
[2021-06-29] MEDS: APIXABAN 5 MG TABLET 10 MG PO (21:06)
[2021-06-30] VITALS (16 sets, daily range): BP systolic 103–125; BP diastolic 66–89; PULSE 80–128; RESP 15–22; TEMP 36.2–37.2; O2SAT 96–98
[2021-06-30 06:24] LABS: Anion Gap 7 mmol/L (8-16); Blood Urea Nitrogen 10 mg/dL (7-17); Calcium 8.4 mg/dL (8.4-10.2); Carbon Dioxide 25 mmol/L (22-30); Chloride 105 mmol/L (98-107); Estimated CRCL calculation 67 ml/min; Estimated Glomerular Filt Rate > 60; Glucose 130 mg/dL (65-110); Magnesium 1.9 mg/dL (1.6-2.3); Sodium 137 mmol/L (137-145)
[2021-06-30] MEDS: dilTIAZem 100 MG/100 ML 100 MG/100 ML BAG IV CONT (06:47)
[2021-06-30] MEDS: METOPROLOL TARTRATE TAB 25 MG, METOPROLOL TARTRATE TAB 50 MG 75 MG PO ×2 (08:28→20:34)
[2021-06-30] MEDS: PANTOPRAZOLE 40 MG TABLET PO ×2 (08:28→20:34)
[2021-06-30] MEDS: APIXABAN 5 MG TABLET 10 MG PO ×2 (08:29→20:35)
--- NOTE | 2021-06-30 09:52 | PM.CNCAR ---
Assessment and Plan Assessment and plan (1) Atrial fibrillation with rapid ventricular response: Code(s): I48.91 - Unspecified atrial fibrillation Status: Acute Assessment and Plan: 76-year-old female with hypertension, PAF, chronic LBBB, PVCs, WENDY noncompliant with CPAP. Patient admitted to the hospital with shortness of breath, calf discomfort. Found to be in atrial fibrillation with RVR; venous duplex showed bilateral DVT. CTA chest negative for central PE; CT chest also showed multinodular goiter. TSH within normal limits. Recent LVEF 40-45%. -patient remains in atrial fibrillation with RVR with heart rates in 110s to 130s. Increase diltiazem GTT with better rate control with close monitoring of heart rate and blood pressure. Instruction given to the staff. Continue metoprolol tartrate. Continue to monitor on telemetry. Need for rhythm control strategy to be determined. -patient has been initiated on anticoagulation for both DVT and atrial fibrillation. Anticoagulation regimen with apixaban 10 mg p.o. b.i.d. x7 days, then 5 mg p.o. b.i.d. indefinitely. -minimal troponin elevation-likely non ACS. Recent LVEF 40-45%. No active ischemic symptoms at present. Patient had MPI in 2020 which did not show ischemia. She reported cardiac catheterization at [facility] few years ago which did not show obstructive CAD as per patient. (2) DVT (deep venous thrombosis): Code(s): I82.409 - Acute embolism and thrombosis of unspecified deep veins of unspecified lower extremity Status: Acute Assessment and Plan: Anticoagulation with apixaban as described above (3) Elevated troponin: Code(s): R77.8 - Other specified abnormalities of plasma proteins Status: Acute Assessment and Plan: Likely non ACS; current LVEF 40-45%. Previous ischemic workup included MPI and cardiac catheterization. (4) LBBB (left bundle branch block): Code(s): I44.7 - Left bundle-branch block, unspecified Status: Acute Assessment and Plan: Chronic LBBB. (5) Goiter: Code(s): E04.9 - Nontoxic goiter, unspecified Status: Acute Assessment and Plan: Multi nodule goiter on CT. Current TSH within normal limits. Management as per primary team. Endocrinology and ENT evaluation recommended. (6) WENDY (obstructive sleep apnea): Code(s): G47.33 - Obstructive sleep apnea (adult) (pediatric) Status: Acute Assessment and Plan: Previously noncompliant with CPAP. Patient has been evaluated by pulmonology and is advised to have outpatient follow-up for management of WEDNY. History of Present Illness History of Present Illness Consult date/time: 06/30/21 09:52 DATE OF CONSULT: 06/30/2021 REASON FOR CONSULT: Atrial fibrillation REQUESTING PHYSICIAN:Katlyn Yeboah MD CHIEF COMPLAINT: Shortness of breath HPI:76-year-old female with hypertension, PAF, chronic LBBB, PVCs, WENDY noncompliant with CPAP. Patient follows up with Dr. Isaac for cardiovascular care. She was last seen in the cardiology clinic on 01/13/2021. Review of old medical records indicate that she had ambulatory ekg monitor in April 2020 which was reported shows sinus rhythm with PVCs with 7% burden. MPI from 09/29/2020 reportedly showed LVEF 47% with segmental wall motion abnormality, no ischemia. Patient states that she had cardiac catheterization done at [facility] in [place] few years ago which went patient did not show any obstructive CAD. She moved to the local area to live close to her daughter. She was admitted to [facility] on 06/28/2021 with 2-3 day history of shortness of breath. Patient states that she about a week ago. Subsequently, she had discomfort in the right calf and shortness of breath. She denies chest pain. She has occasional palpitations without dizziness or syncope. She has sent into lifestyle. No fever, chills or myalgias. EKG on my perso
--- NOTE | 2021-06-30 12:53 | PM.IMPN ---
Progress Note: A&P Assessment and Plan (1) Atrial fibrillation with rapid ventricular response: Code(s): I48.91 - Unspecified atrial fibrillation Status: Acute Assessment and Plan: Patient presents initially with shortness of breath and found to have AFib with RVR. She has been noncompliant with her metoprolol. She is not on long-term anticoagulation except for aspirin. Her [id number] score is 3. She was started on diltiazem drip. Patient was admitted to IMU. Echo shows EF of 40-45%, left ventricular septal wall motion abnormality felt related to the bundle branch block and mild valvular disease. Diastolic function is indeterminate. Home Metoprolol resumed. Heart rate became better controlled so the diltiazem drip was stopped. She was started on Eliquis. Heart rate increased so metoprolol advanced. Cardiology has been consulted. Required Diltiazem drip to be resumed last night. Advance medications per Cardiology (2) Elevated troponin: Code(s): R77.8 - Other specified abnormalities of plasma proteins Status: Acute Assessment and Plan: Troponin elevated 0.064 and already trending downward. EKG shows AFib with RVR, left axis deviation and left bundle branch block. The left bundle branch block is chronic. She had a exercise Lexiscan stress test last September showing the myocardial perfusion imaging was abnormal but felt to be breast attenuation; EF was 47%. Overall no significant ischemia noted. Feel the elevated troponins related to the AFib with RVR. (3) DVT (deep venous thrombosis): Code(s): I82.409 - Acute embolism and thrombosis of unspecified deep veins of unspecified lower extremity Status: Acute Assessment and Plan: Patient with complaints of right calf pain with a positive Homans sign. Lower extremity venous Doppler shows bilateral posterior tibial vein below the knee DVTs. CTA does not mention PE but no large or segmental PEs per radiology. She was started on Eliquis for her AFib but the dose advanced to treatment dose for DVT. recruitment coordinator notified of specialty medciations. (4) WENDY (obstructive sleep apnea): Code(s): G47.33 - Obstructive sleep apnea (adult) (pediatric) Status: Acute Assessment and Plan: Patient has been noncompliant with CPAP treatment. In the past, she has refused CPAP titration in the sleep lab. Pulmonary was consulted and appreciate their input. (5) Goiter, non-toxic: Code(s): E04.9 - Nontoxic goiter, unspecified Status: Acute Assessment and Plan: Chest x-ray showed mediastinal widening. This prompted a CTA of the chest, abdomen and pelvis. This CTA showed a multinodular goiter predominately cystic in the right thyroid mass 7.1cm which extends into the superior mediastinum accounting for the opacity of concern on the x-ray. Chest at cardiomegaly and moderate sized pericardial effusion. Patient denies any odynophagia or dysphagia. TSH is normal. Will defer to outpatient monitoring for this. Pulmonary to perform outpatient flow volume loop. (6) GERD (gastroesophageal reflux disease): Code(s): K21.9 - Gastro-esophageal reflux disease without esophagitis Status: Chronic Assessment and Plan: Stable. Continue omeprazole. Subjective Date/time seen: 06/30/21 12:53 Interval history: 76yo female with hx of AFib, dCHF and goiter here for shortness of breath and found to have AFib/RVR. No palpitations. Denies any further leg pain. No chest pain. She was off the diltiazem this morning because the IV had come out. Exam Narrative: AF 98.9 115/68 125 22 98% ra Gen - NARD Chest -lungs are clear to auscultation bilaterally. CV -irregularly irregular and tachycardic. S1-S2. Telemetry showing atrial fibrillation with RVR. Abd - Soft, NT/ND, Positive BS Ext - No pedal edema Psych - Nml mood and affect Skin - Warm and dry Objective Data Vital Signs Vital Sign
[2021-06-30] MEDS: POTASSIUM CHLORIDE 20 MEQ TABLET 40 MEQ PO (15:10)
[2021-06-30] MEDS: MAGNESIUM SULF 1 GM/D5W 100 ML 1 GM/100 ML BAG IVPB (15:11)
--- NOTE | 2021-06-30 16:29 | PM.PNPUL ---
Progress Note: A&P Assessment and Plan (1) Atrial fibrillation with rapid ventricular response: Code(s): I48.91 - Unspecified atrial fibrillation Status: Acute (2) WENDY (obstructive sleep apnea): Code(s): G47.33 - Obstructive sleep apnea (adult) (pediatric) Status: Acute Assessment and Plan: this 76-year-old female has had known history of obstructive sleep apnea, which on last apnea leading in October of 2020 she had mild apnea hypopnea index of 14, desaturation 87%. The patient has been non compliant with CPAP treatment. In the past she had refused CPAP titration in the sleep lab. She is supposed to be on APAP 6 cm to 16 cm water pressure. The patient stated that she has not be using the CPAP at night because of device malfunctioning. Her CPAP device is relatively new as is her sleep apnea diagnosis. Paroxysmal AFib is probably related to untreated sleep disordered breathing. patient used to live in the [place] area and her [employer] company could not provide patient with new device. We are working through her [employer] company to get account transfer to a local [employer] company so that she can get a new CPAP device to use at night. I advised the patient to return to Pulmonary Clinic for follow-up both for her sleep apnea and also to undergo flow volume loop to exclude upper airway obstruction related to intrathoracic goiter. (3) DVT (deep venous thrombosis): Qualifiers: DVT location: lower extremity Affected thrombotic vein of extremity: other lower extremity vein Chronicity: unspecified Laterality: unspecified laterality Qualified Code(s): I82.499 - Acute embolism and thrombosis of other specified deep vein of unspecified lower extremity Code(s): I82.409 - Acute embolism and thrombosis of unspecified deep veins of unspecified lower extremity Status: Acute (4) Goiter: Code(s): E04.9 - Nontoxic goiter, unspecified Status: Acute Subjective Date/time seen: 06/30/21 16:29 Patient doing better. No shortness of breath at rest. Remains on room air. No other respiratory symptoms. Receiving treatment for AFib. Was found to have below-knee DVT and the anticoagulation was changed to cover for acute DVT. Review of Systems Review of Systems: Patient reports no significant weight changes. She has had chronic orthopnea. She has had history of GERD. She has had history of constipation. She has had some urinary continence. She has joint pain related to DJD. She has had chronic lower extremity edema. The remainder of the 12 point system review is negative Exam Narrative: GENERAL APPEARANCE: Well developed, well nourished, alert and cooperative, and appears to be in no acute distress while breathing ambient air SKIN: Inspection of the skin reveals no rashes, ulcerations or petechiae. HEENT: Sclerae anicteric and conjunctivae pink and moist. Extraocular movements were intact and pupils were equal, round. NECK: Supple. There was no thyroid enlargement, and no tenderness, or masses were felt. CHEST: Normal AP diameter and normal contour without any kyphoscoliosis. LUNGS: Auscultation of the lungs revealed normal breath sounds without any other adventitious sounds or rubs. CARDIAC: There was irregular rate and rhythm without any murmurs, gallops, rubs. ABDOMEN: Soft and nontender with normal bowel sounds. There was no organomegaly. LYMPH NODES: No lymphadenopathy was appreciated in the neck. EXTREMITIES: No cyanosis, clubbing; trace LE edema. NEUROLOGIC: Alert and oriented x 3. Normal affect. Objective Data Vital Signs Vital Signs: Vital Signs - 24 hr 06/29/21 17:30 06/29/21 18:20 06/29/21 20:00 Temperature 36.2 C L Pulse Rate 125 H 121 H Respiratory Rate 18 Blood Pressure 120/78 96/71 L Pulse Oximetry 96 06/29/21 21:04 06/29/21 22:00 06/29/21 23:32 Temperature 36.8 C Pulse Rate 130 H 122 H 133 H Respiratory Rate 16 Blood Pressure 112/78 Pulse Oxim
[2021-07-01] VITALS (16 sets, daily range): BP systolic 114–130; BP diastolic 52–87; PULSE 67–125; RESP 16–18; TEMP 36.6–37.2; O2SAT 95–99
[2021-07-01] MEDS: dilTIAZem 100 MG/100 ML 100 MG/100 ML BAG 10 MG IV CONT (05:21)
[2021-07-01 05:24] LABS: Anion Gap 5 mmol/L (8-16); Blood Urea Nitrogen 11 mg/dL (7-17); Calcium 8.2 mg/dL (8.4-10.2); Carbon Dioxide 27 mmol/L (22-30); Chloride 106 mmol/L (98-107); Estimated CRCL calculation 59 ml/min; Estimated Glomerular Filt Rate > 60; Glucose 134 mg/dL (65-110); Magnesium 2.2 mg/dL (1.6-2.3); Potassium 3.4 mmol/L (3.4-5.0); Sodium 138 mmol/L (137-145)
[2021-07-01] MEDS: PANTOPRAZOLE 40 MG TABLET PO ×2 (09:37→21:41)
[2021-07-01] MEDS: METOPROLOL TARTRATE TAB 25 MG, METOPROLOL TARTRATE TAB 50 MG 75 MG PO ×3 (09:37→21:42)
[2021-07-01] MEDS: APIXABAN 5 MG TABLET 10 MG PO ×2 (09:37→21:42)
--- NOTE | 2021-07-01 09:37 | PM.PNCARD ---
Progress Note: A&P Assessment and Plan (1) Atrial fibrillation with rapid ventricular response: Code(s): I48.91 - Unspecified atrial fibrillation Status: Acute Assessment and Plan: 76-year-old female with hypertension, PAF, chronic LBBB, PVCs, WENDY noncompliant with CPAP. Patient admitted to the hospital with shortness of breath, calf discomfort. Found to be in atrial fibrillation with RVR; venous duplex showed bilateral DVT. CTA chest negative for central PE; CT chest also showed multinodular goiter. TSH within normal limits. Recent LVEF 40-45%. patient remains in atrial fibrillation with RVR with heart rates in 110s to 130s. Continue diltiazem infusion at 10 mg/hr for better rate control with close monitoring of heart rate and blood pressure. Increase metoprolol tartrate to 75mg p.o. 8qh Continue to monitor on telemetry. Need for rhythm control strategy to be determined - since she is currently asymptomatic despite not being optimally rate controlled would probably favor continuing to control her rate. She is noncomplaint with CPAP so unlikely that DCCV would be of much benefit. patient has been initiated on anticoagulation for both DVT and atrial fibrillation. Anticoagulation regimen with apixaban 10 mg p.o. b.i.d. x7 days, then 5 mg p.o. b.i.d. indefinitely. (2) DVT (deep venous thrombosis): Qualifiers: Affected thrombotic vein of extremity: other lower extremity vein Chronicity: unspecified DVT location: lower extremity Laterality: unspecified laterality Qualified Code(s): I82.499 - Acute embolism and thrombosis of other specified deep vein of unspecified lower extremity Code(s): I82.409 - Acute embolism and thrombosis of unspecified deep veins of unspecified lower extremity Status: Acute Assessment and Plan: Anticoagulation with apixaban as described above (3) Elevated troponin: Code(s): R77.8 - Other specified abnormalities of plasma proteins Status: Acute Assessment and Plan: Minimal troponin elevation-likely non ACS. Recent LVEF 40-45%. No active ischemic symptoms at present. Patient had MPI in 2020 which did not show ischemia. She reported cardiac catheterization at [facility] few years ago which did not show obstructive CAD as per patient. (4) LBBB (left bundle branch block): Code(s): I44.7 - Left bundle-branch block, unspecified Status: Acute Assessment and Plan: Chronic LBBB. (5) Goiter: Code(s): E04.9 - Nontoxic goiter, unspecified Status: Acute Assessment and Plan: Multi nodule goiter on CT. Current TSH within normal limits. Management as per primary team. Endocrinology and ENT evaluation recommended. (6) WENDY (obstructive sleep apnea): Code(s): G47.33 - Obstructive sleep apnea (adult) (pediatric) Status: Acute Assessment and Plan: Previously noncompliant with CPAP. Patient has been evaluated by pulmonology and is advised to have outpatient follow-up for management of WENDY. Subjective Date/time seen: 07/01/21 09:37 Cardiology follow up for Afib She feels well today. Endorses some mild shortness of breath but has no other complaints. She remains in atrial fibrillation rate is geneerally not adequately controlled but she is asymptomatic. Review of Systems Review of Systems: All systems reviewed & are unremarkable except as noted in HPI and below Exam Narrative: PHYSICAL EXAMINATION: GENERAL: Alert, oriented, no acute distress MENTAL STATUS: affect appropriate to mood EYES: Extraocular movements intact, no pallor EARS: External ears appear normal, hearing grossly normal NOSE: Normal and patent, no discharge MOUTH: Mucous membranes moist, tongue normal NECK: Supple, no JVD; goiter present CHEST: Good respiratory effort, clear to auscultation HEART: Tachycardia, irregularly irregular rhythm ABDOMEN: Soft, nontender NEUROLOGICAL: Alert, o
--- NOTE | 2021-07-01 11:53 | PM.IMPN ---
Progress Note: A&P Assessment and Plan (1) Atrial fibrillation with rapid ventricular response: Code(s): I48.91 - Unspecified atrial fibrillation Status: Acute Assessment and Plan: Patient presents initially with shortness of breath and found to have AFib with RVR. She has been noncompliant with her metoprolol. She is not on long-term anticoagulation except for aspirin. Her [id number] score is 3. She was started on diltiazem drip. Patient was admitted to IMU. Echo shows EF of 40-45%, left ventricular septal wall motion abnormality felt related to the bundle branch block and mild valvular disease. Diastolic function is indeterminate. CT scan showing moderate sized pericardial effusion but not seen by Echo. Home Metoprolol resumed. Heart rate became better controlled so the diltiazem drip was stopped. She was started on Eliquis. Heart rate increased so metoprolol advanced and then had to go back on the Diltiazem drip. Cardiology has been consulted. Diltiazem drip advanced last night. metoprolol advanced today. Watch BP. Wean of Diltiazem drip. (2) Elevated troponin: Code(s): R77.8 - Other specified abnormalities of plasma proteins Status: Acute Assessment and Plan: Troponin elevated 0.064 and already trending downward. EKG shows AFib with RVR, left axis deviation and left bundle branch block. The left bundle branch block is chronic. She had a exercise Lexiscan stress test last September showing the myocardial perfusion imaging was abnormal but felt to be breast attenuation; EF was 47%. Overall no significant ischemia noted. Feel the elevated troponins related to the AFib with RVR. (3) DVT (deep venous thrombosis): Qualifiers: Affected thrombotic vein of extremity: other lower extremity vein Chronicity: unspecified DVT location: lower extremity Laterality: unspecified laterality Qualified Code(s): I82.499 - Acute embolism and thrombosis of other specified deep vein of unspecified lower extremity Code(s): I82.409 - Acute embolism and thrombosis of unspecified deep veins of unspecified lower extremity Status: Acute Assessment and Plan: Patient with complaints of right calf pain with a positive Homans sign. Lower extremity venous Doppler shows bilateral posterior tibial vein below the knee DVTs. CTA does not mention PE but no large or segmental PEs per radiology. She was started on Eliquis for her AFib but the dose advanced to treatment dose for DVT. change coordinator notified of specialty medciations. (4) WENDY (obstructive sleep apnea): Code(s): G47.33 - Obstructive sleep apnea (adult) (pediatric) Status: Acute Assessment and Plan: Patient has been noncompliant with CPAP treatment. In the past, she has refused CPAP titration in the sleep lab. Pulmonary was consulted and appreciate their input. (5) Goiter, non-toxic: Code(s): E04.9 - Nontoxic goiter, unspecified Status: Acute Assessment and Plan: Chest x-ray showed mediastinal widening. This prompted a CTA of the chest, abdomen and pelvis. This CTA showed a multinodular goiter predominately cystic in the right thyroid mass 7.1cm which extends into the superior mediastinum accounting for the opacity of concern on the x-ray. Patient denies any odynophagia or dysphagia. TSH is normal. Will defer to outpatient monitoring for this. Pulmonary to perform outpatient flow volume loop. (6) GERD (gastroesophageal reflux disease): Code(s): K21.9 - Gastro-esophageal reflux disease without esophagitis Status: Chronic Assessment and Plan: Stable. Continue omeprazole. Subjective Date/time seen: 07/01/21 11:53 Interval history: 76yo female with hx of AFib, dCHF and goiter here for shortness of breath and found to have AFib/RVR. Slept poorly due to interruptions. Eating well. no CP or SOB. No n/v. Exam Narrative: AF 97.8 120/61 75 16 95% ra Gen - N
[2021-07-01] MEDS: dilTIAZem 100 MG/100 ML 100 MG/100 ML BAG IV CONT (16:45)
[2021-07-02] VITALS (12 sets, daily range): BP systolic 138–154; BP diastolic 76–97; PULSE 79–129; RESP 16–20; TEMP 36.6–37.2; O2SAT 96–100
[2021-07-02] MEDS: METOPROLOL TARTRATE TAB 25 MG, METOPROLOL TARTRATE TAB 50 MG 75 MG PO ×2 (05:48→15:38)
[2021-07-02] MEDS: PANTOPRAZOLE 40 MG TABLET PO (09:48)
[2021-07-02] MEDS: APIXABAN 5 MG TABLET 10 MG PO (09:49)
--- NOTE | 2021-07-02 11:14 | PM.PNCARD ---
Progress Note: A&P Assessment and Plan (1) Atrial fibrillation with rapid ventricular response: Code(s): I48.91 - Unspecified atrial fibrillation Status: Acute Assessment and Plan: 76-year-old female with hypertension, PAF, chronic LBBB, PVCs, WENDY noncompliant with CPAP. Patient admitted to the hospital with shortness of breath, calf discomfort. Found to be in atrial fibrillation with RVR; venous duplex showed bilateral DVT. CTA chest negative for central PE; CT chest also showed multinodular goiter. TSH within normal limits. Recent LVEF 40-45%. Continue metoprolol tartrate to 75mg p.o. 8qh. Should be shifted to succinate at discharge Continue to monitor on telemetry. Need for rhythm control strategy to be determined - since she is currently asymptomatic despite not being optimally rate controlled would probably favor continuing to control her rate. She is noncomplaint with CPAP so unlikely that DCCV would be of much benefit. patient has been initiated on anticoagulation for both DVT and atrial fibrillation. Anticoagulation regimen with apixaban 10 mg p.o. b.i.d. x7 days, then 5 mg p.o. b.i.d. indefinitely. (2) DVT (deep venous thrombosis): Qualifiers: Affected thrombotic vein of extremity: other lower extremity vein Chronicity: unspecified DVT location: lower extremity Laterality: unspecified laterality Qualified Code(s): I82.499 - Acute embolism and thrombosis of other specified deep vein of unspecified lower extremity Code(s): I82.409 - Acute embolism and thrombosis of unspecified deep veins of unspecified lower extremity Status: Acute Assessment and Plan: Anticoagulation with apixaban as described above (3) Elevated troponin: Code(s): R77.8 - Other specified abnormalities of plasma proteins Status: Acute Assessment and Plan: Minimal troponin elevation-likely non ACS. Recent LVEF 40-45%. No active ischemic symptoms at present. Patient had MPI in 2020 which did not show ischemia. She reported cardiac catheterization at [facility] few years ago which did not show obstructive CAD as per patient. (4) LBBB (left bundle branch block): Code(s): I44.7 - Left bundle-branch block, unspecified Status: Acute Assessment and Plan: Chronic LBBB. (5) Goiter: Code(s): E04.9 - Nontoxic goiter, unspecified Status: Acute Assessment and Plan: Multi nodule goiter on CT. Current TSH within normal limits. Management as per primary team. Endocrinology and ENT evaluation recommended. (6) WENDY (obstructive sleep apnea): Code(s): G47.33 - Obstructive sleep apnea (adult) (pediatric) Status: Acute Assessment and Plan: Previously noncompliant with CPAP. Patient has been evaluated by pulmonology and is advised to have outpatient follow-up for management of WENDY. Subjective Date/time seen: 07/02/21 11:14 Cardiology follow up for Afib Feels good today. No complaints. Wants to go home. Review of Systems Review of Systems: All systems reviewed & are unremarkable except as noted in HPI and below Exam Narrative: PHYSICAL EXAMINATION: GENERAL: Alert, oriented, no acute distress MENTAL STATUS: affect appropriate to mood EYES: Extraocular movements intact, no pallor EARS: External ears appear normal, hearing grossly normal NOSE: Normal and patent, no discharge MOUTH: Mucous membranes moist, tongue normal NECK: Supple, no JVD; goiter present CHEST: Good respiratory effort, clear to auscultation HEART: Tachycardia, irregularly irregular rhythm ABDOMEN: Soft, nontender NEUROLOGICAL: Alert, oriented, normal speech, no gross motor deficits MUSCULOSKELETAL: No major deformity, no amputation; mild calf tenderness EXTREMITIES: No pedal edema, no clubbing, no cyanosis SKIN: no rash on the exposed area, no cyanosis PSYCHIATRIC: Normal mood, appropriate affect Objective Data Vi
--- NOTE | 2021-07-02 16:09 | PM.DS ---
DS: Admitting Diagnosis Discharge Date 07/02/21 Admitting Diagnosis Shortness of breath DS: Discharge Diagnosis Discharge Diagnosis (1) Atrial fibrillation with rapid ventricular response: Code(s): I48.91 - Unspecified atrial fibrillation Status: Acute Assessment and Plan: Patient presents initially with shortness of breath and found to have AFib with RVR. She has been noncompliant with her metoprolol. She is not on long-term anticoagulation except for aspirin. Her [id number]-Hiet score is 3. She was started on diltiazem drip. Patient was admitted to IMU. Echo shows EF of 40-45%, left ventricular septal wall motion abnormality felt related to the bundle branch block and mild valvular disease. Diastolic function is indeterminate. CT scan showing moderate sized pericardial effusion but not seen by Echo. Home Metoprolol was resumed then advanced to try to control her rate. Heart rate became better controlled so the diltiazem drip was stopped. Oral Diltiazem added. She was started on Eliquis. Cardiology was consulted. Heart rate remained stable. She was able to be discharged home on 07/02/21. (2) Elevated troponin: Code(s): R77.8 - Other specified abnormalities of plasma proteins Status: Acute Assessment and Plan: Troponin elevated 0.064 and already trending downward. EKG shows AFib with RVR, left axis deviation and left bundle branch block. The left bundle branch block is chronic. She had a exercise Lexiscan stress test last September showing the myocardial perfusion imaging was abnormal but felt to be breast attenuation; EF was 47%. Overall no significant ischemia noted by that stres test. Collins the elevated troponins related to the AFib with RVR. (3) DVT (deep venous thrombosis): Qualifiers: Affected thrombotic vein of extremity: other lower extremity vein Chronicity: unspecified DVT location: lower extremity Laterality: unspecified laterality Qualified Code(s): I82.499 - Acute embolism and thrombosis of other specified deep vein of unspecified lower extremity Code(s): I82.409 - Acute embolism and thrombosis of unspecified deep veins of unspecified lower extremity Status: Acute Assessment and Plan: Patient with complaints of right calf pain with a positive Homans sign. Lower extremity venous Doppler shows bilateral posterior tibial vein below the knee DVTs. CTA does not mention PE but no large or segmental PEs per radiology. She was started on Eliquis for her AFib but the dose was advanced to treatment dose for DVT. Risks/benefits discussed with the patient. (4) WENDY (obstructive sleep apnea): Code(s): G47.33 - Obstructive sleep apnea (adult) (pediatric) Status: Acute Assessment and Plan: Patient has been noncompliant with CPAP treatment. In the past, she has refused CPAP titration in the sleep lab. Pulmonary was consulted and appreciate their input. (5) Goiter, non-toxic: Code(s): E04.9 - Nontoxic goiter, unspecified Status: Acute Assessment and Plan: Chest x-ray showed mediastinal widening. This prompted a CTA of the chest, abdomen and pelvis. This CTA showed a multinodular goiter predominately cystic in the right thyroid mass 7.1cm which extends into the superior mediastinum accounting for the opacity of concern on the x-ray. Patient denies any odynophagia or dysphagia. TSH is normal. Will defer to outpatient monitoring for this. Pulmonary to perform outpatient flow volume loop. (6) GERD (gastroesophageal reflux disease): Code(s): K21.9 - Gastro-esophageal reflux disease without esophagitis Status: Chronic Assessment and Plan: Stable. We continued her omeprazole. DS: Summary Hospital Course Reason for hospitalization: 76yo female with hx of AFib, dCHF and goiter here for shortness of breath and found to have AFib/RVR. Please see H&P for details Hospital Course: Please see above for d
== END 2021-07-02 17:46 | disposition home or self-care (01) | DRG 309 ==
LOC: ANHED 19:24 → ANHIMU 06-29 15:22
PROVIDERS: Emergency Medicine; Admitting Provider Internal Medicine; Emergency Provider Nurse Practitioner Family; PCP Family Medicine; Visit Provider Internal Medicine
DX: I48.0 Paroxysmal atrial fibrillation (principal); I50.32 Chronic diastolic (congestive) heart failure; I82.443 Acute embolism and thrombosis of tibial vein, bilateral; I11.0 Hypertensive heart disease with heart failure; Z91.14 Patient's other noncompliance with medication regimen; Z20.822 Contact with and (suspected) exposure to COVID-19; I44.7 Left bundle-branch block, unspecified; G47.33 Obstructive sleep apnea (adult) (pediatric); K21.9 Gastro-esophageal reflux disease without esophagitis; E04.9 Nontoxic goiter, unspecified; M19.90 Unspecified osteoarthritis, unspecified site; M47.896 Other spondylosis, lumbar region; R91.1 Solitary pulmonary nodule; E66.9 Obesity, unspecified; Z68.34 Body mass index [BMI] 34.0-34.9, adult; Z91.19 Patient's noncompliance with other medical treatment and regimen; Z90.710 Acquired absence of both cervix and uterus
CPT/HCPCS: 36415; 71046; 71275; 74174; 80048; 80053; 83735; 83880; 84443; 84484; 85025; 93005; 93306; 93970; 99285; A9270; C9803; J3475; Q9967; U0003; U0005

== ENCOUNTER 2021-07-24 10:07 | Outpatient (CLI) | payer MEDICARE, MEDICAID, SELFPAY ==
[2021-07-24 11:40] LABS: Basophils Percent Auto 0.4 % (0.2-1.2); Eosinophils Absolute Auto 0.1 K/mm3 (0-0.3); Eosinophils Percent Auto 1.4 % (0-4.4); Hematocrit 38.3 % (37.0-47.0); Hemoglobin 12.1 g/dL (12.0-15.0); Immature Granulocyte Absolute 0.02 K/mm3 (0.00-0.031); Immature Granulocyte Percent A 0.2 % (0-0.5); Lymphocytes Absolute Auto 2.54 K/mm3 (0.9-3.2); Lymphocytes Percent Auto 29.8 % (18.3-44.2); Mean Corpuscular HGB Conc 31.6 g/dl (32-36); Mean Corpuscular Hemoglobin 29.3 pg (26-34); Mean Corpuscular Volume 92.7 fl (80-100); Monocytes Absolute Auto 0.4 K/mm3 (0.1-0.6); Monocytes Percent Auto 4.8 % (2.6-8.5); Neutrophils Absolute Auto 5.4 K/mm3 (1.3-6.7); Neutrophils Percent Auto 63.4 % (45.5-73.1); Platelet Count Result 241 k/mm3 (150-375); Red Blood Count 4.13 M/mm3 (4.2-5.4); Red Cell Distribution Width 14.6 % (11.5-14.5); White Blood Count 8.5 K/mm3 (4.5-10.0)
[2021-07-24 12:08] LABS: Iron 92 ug/dL (37-170)
[2021-07-24 12:13] LABS: Vitamin D 25 Hydroxy 17.3 ng/mL
[2021-07-24 12:18] LABS: Percent Iron Saturation 32 % (20-50)
[2021-07-24 12:22] LABS: Thyroid Stimulating Hormone 0.299 uIU/mL (0.465-4.680)
[2021-07-24 12:27] LABS: Free T4 Free Thyroxine 1.24 ng/mL (0.78-2.19)
[2021-07-24 12:58] LABS: Folic Acid 7.5 ng/mL (2.76->20)
[2021-07-28 04:23] LABS: Thyroglobulin 108.5 ng/mL (2.8-40.9); Thyroglobulin Antibodies <1 IU/mL (<=1); Thyroid Peroxidase Antibodies <1 IU/mL (<9)
[2021-07-28 14:12] LABS: Thyroid Stimulating Immunoglob <89 % baseline (<140)
[2021-07-31 07:28] LABS: Triiodothyronine T3 Free 3.3 pg/mL (2.3-4.2)
== END 2021-07-24 10:08 | disposition home or self-care (01) ==
PROVIDERS: PCP Family Medicine
DX: E04.9 Nontoxic goiter, unspecified (principal); R53.83 Other fatigue; D64.9 Anemia, unspecified; E55.9 Vitamin D deficiency, unspecified
CPT/HCPCS: 36415; 82306; 82607; 82728; 82746; 83540; 83550; 84432; 84439; 84443; 84445; 84481; 85025; 86376; 86800

== ENCOUNTER 2021-07-31 11:11 | Outpatient (CLI) | payer MEDICARE, MEDICAID, SELFPAY ==
--- NOTE | ~2021-07-31 | US_ITS ---
EXAMINATION: US thyroid EXAM DATE: 07/31/2021 12:13 INDICATION: Nontoxic goiter. TECHNIQUE: Multiple grayscale and Doppler images of the thyroid were obtained (by a technologist who performed the scan) and subsequently reviewed. Individual nodules and recommendations may be reporte d in accordance with TI-RADS system as designated by the 2017 ACR White Paper TI-RADS committee. The re is no prior study for comparison. FINDINGS: The right thyroid lobe measures 8.7 x 3.2 x 2.8 cm, the left measuring 5.8 x 2.8 x 2.6 cm. There are numerous thyroid nodules within both thyroid lobes. Typically when thyroid gland is replaced predomin antly by nodules, ultrasound guided biopsy is less effective. Could consider Ultrasound-guided FNA of the largest right thyroid lobe category TR 4 nodule measuring 3.6 x 1.8 x 2.2 cm, next largest categ ory TR 4 in the right thyroid lobe measuring 2.8 x 2.8 x 2.6. IMPRESSION: Multinodular goiter. Optional FNA of the largest right thyroid lobe nodules. Reviewed, dictated and finalized at location G.
== END 2021-07-31 11:12 | disposition home or self-care (01) ==
PROVIDERS: PCP Family Medicine; Visit Provider Nurse Practitioner
DX: E04.2 Nontoxic multinodular goiter (principal)
CPT/HCPCS: 76536

== ENCOUNTER 2021-09-02 10:18 | Outpatient (CLI) | payer MEDICARE, MEDICAID, SELFPAY ==
[2021-09-02 11:09] LABS: Alanine Aminotransferase 14 U/L (4-35); Albumin Level 4.2 g/dL (3.5-5.1); Alkaline Phosphatase 58 U/L (38-126); Anion Gap 5 mmol/L (8-16); Aspartate Amino Transferase 22 U/L (14-36); Bilirubin,Total 0.5 mg/dL (0.2-1.3); Blood Urea Nitrogen 11 mg/dL (7-17); Calcium 8.9 mg/dL (8.4-10.2); Carbon Dioxide 31 mmol/L (22-30); Chloride 104 mmol/L (98-107); Estimated Glomerular Filt Rate > 60; Glucose 110 mg/dL (65-110); Potassium 3.6 mmol/L (3.4-5.0); Sodium 140 mmol/L (137-145)
[2021-09-02 11:39] LABS: Thyroid Stimulating Hormone 0.836 uIU/mL (0.465-4.680); Total Triiodothyronine (T3) 1.23 NG/ML (0.97-1.69)
[2021-09-02 11:51] LABS: Free T4 Free Thyroxine 1.17 ng/mL (0.78-2.19)
== END 2021-09-02 10:19 | disposition home or self-care (01) ==
LOC: ANHLAB 10:21
PROVIDERS: PCP Family Medicine; Visit Provider Family Medicine
DX: E04.9 Nontoxic goiter, unspecified (principal); I10 Essential (primary) hypertension
CPT/HCPCS: 36415; 80053; 84439; 84443; 84480

== ENCOUNTER 2021-12-09 09:58 | Emergency (ER) | payer MEDICARE, MEDICAID, SELFPAY ==
--- NOTE | ~2021-12-09 | CT_ITS ---
EXAMINATION: CTA chest PE protocol DATE: 12/09/2021 12:15 INDICATION: Shortness of breath, dizziness. History of deep venous thrombosis. TECHNIQUE: Computed tomography angiography (CTA) of the chest was performed with 100 mL Omnipaque-350 intravenous contrast timed to evaluate the pulmonary arteries. Coronal maximum intensity projection 3D-reconstructions were created by the technologist. Automated exposure control and iterative reconst ruction technique were employed. Exam dose: 673.60 mGy-cm total exam DLP. COMPARISON: 12/09/2021 portable AP chest FINDINGS: There is diagnostic contrast enhancement of the pulmonary arteries and no evidence of pulmo nary embolism. Mild primarily dependent bilateral lower lobe atelectasis. Prominent thyroid goiter, particularly large right thyroid goiter extension into the superior mediast inum and right paratracheal space, with some compression of the trachea. Otherwise no hilar or medias tinal mass lesion or lymphadenopathy. Cardiomegaly. Small pericardial effusion. Prominent coronary artery calcification. Thoracic aortic calcification and ectasia. No apparent thoracic aortic dissection. Small sliding hiatal hernia. Diffuse idiopathic skeletal hyperostosis of the thoracic spine Prominent degenerative disc disease at C6-7. No suspicious osteolytic or osteoblastic lesions are not ed. IMPRESSION: No evidence of pulmonary embolism Prominent thyroid goiter Cardiomegaly, small pericardial effusion Small sliding hiatal hernia Reviewed, dictated and finalized at Location A. 06/28/2021 CTA chest abdomen pelvis Reviewed, dictated and finalized at location B.
--- NOTE | ~2021-12-09 | XR_ITS ---
EXAMINATION: XR chest 1V portable DATE: 12/09/2021 10:19 INDICATION: Dizziness. TECHNIQUE: A single frontal view of the chest was obtained. COMPARISON: Chest 2 views 06/28/2021, chest CT 06/28/2021 FINDINGS: There is no pneumonia, pleural effusion, or pneumothorax. Cardiomegaly is noted. There is c hronic right paratracheal widening correlating with an intrathoracic goiter by CT. IMPRESSION: 1. Cardiomegaly. 2. Goiter. Reviewed, dictated and finalized at location A. IMPRESSION: 1. Cardiomegaly. 2. Goiter.
[2021-12-09 09:57] VITALS: BP 191/105; PULSE 96; RESP 16; TEMP 36.8; O2SAT 96
--- NOTE | 2021-12-09 10:01 | ECG_ITS ---
Measurements Intervals [place] Rate: 84 P: 44 MN: 190 QRS: -20 QRSD: 154 T: 132 QT: 421 QTc: 498 Interpretive Statements SINUS RHYTHM WITH OCCASIONAL SUPRAVENTRICULAR PREMATURE COMPLEXES LEFT BUNDLE BRANCH BLOCK ABNORMAL ECG COMPARED TO ECG 06/28/2021 16:35:41 SINUS RHYTHM HAS REPLACED ATRIAL FIBRILLATION Electronically Signed On 12-09-2021 12:55:32 CDT by Blair Marshall M.D.
--- NOTE | 2021-12-09 10:23 | ED.DIZZY ---
HPI - Dizziness General Chief Complaint: Dizziness Stated Complaint: dizzy, increased weakness Time Seen by Provider: 12/09/21 10:01 Source: patient Mode of arrival: EMS Limitations: no limitations History of Present Illness HPI Narrative: This is a 76 year old female that presents to the ER for dizziness present this morning. Reports upon awakening she felt room spinning dizziness. Associated with shortness of breath, and palpitations. Reports still feeling mildly lightheaded. She has had similar episodes of dizziness in the past, did not take her medication she has for this. Reports her is currently COVID +. Denies fever, cough or chest pain. Related Data Home Medications Medication Instructions Recorded Confirmed omeprazole 40 mg capsule,delayed 40 mg PO DAILY 06/28/21 09/01/21 release Allergies Allergy/AdvReac Type Severity Reaction Status Date / Time ibuprofen [From Motrin] Allergy Mild itch and Verified 09/01/21 13:07 hives Review of Systems Review of Systems: CONSTITUTIONAL: Denies fever EYES: Denies visual changes CARDIOVASCULAR: Reports palpitations. Denies chest pain RESPIRATORY: Reports dyspnea. Denies cough GASTROINTESTINAL: Denies nausea, vomiting NEUROLOGIC: Reports generalized weakness. All systems reviewed & are unremarkable except as noted in HPI and below PMFSH Past Medical History Medical History Abnormality of gait Back pain with history of spinal surgery Benign essential HTN Chronic constipation Colon polyp Constipation by delayed colonic transit Encounter for screening colonoscopy GERD (gastroesophageal reflux disease) Lumbar spondylosis Obesity (BMI 30.0-34.9) Post-polypectomy bleeding PVC (premature ventricular contraction) Surgical History Surgical History History of back surgery Laminectomy 2017 History of hemorrhoidectomy History of hysterectomy Family History Family History Grandparent Carcinoma of colon Mother Acute myocardial infarction Father Acute myocardial infarction Sibling Lung cancer Social History Social History (Updated 09/01/21 @ 13:14 by Paula Rojo) Social History: Ms. Garcia lives at home in [place] with her daughter. 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 She denies alcohol, tobacco, or other substance use. She designates her daughter, Luz Maria, to be her surrogate decision maker. PCP: Dr Mia Recinos Code Status: Full Code Smoking status: Never smoker Second hand tobacco smoke exposure: No Alcohol intake: former Substance use: never Substance use type: does not use Gender identity (if verbalized by the patient): Female Sexual Orientation (if Verbalized by the Patient): Straight or Heterosexual Spiritual care concerns: No Exam Narrative: GENERAL: Elderly, well-nourished, and in no acute distress. HEAD: Normocephalic, atraumatic. EYES: EOMI. ENT: Nares clear, no rhinorrhea or epistaxis. Mucous membranes moist. Oropharynx without tonsillar hypertrophy exudate or other lesions. Bilateral TMs pearly hillman non-bulging NECK: Supple. No adenopathy or masses. CHEST: Clear to auscultation. No respiratory distress. No wheezes rales or rhonchi HEART: Regular rate and rhythm. No murmur heard. Normal peripheral pulses. EXTREMITIES: Normal range of motion. No edema. SKIN: Warm, dry, no rash. NEURO: No focal deficits. Alert and oriented x3. PSYCH: Normal mood and affect Course Consultations Consultation #1: Spoke with patient's primary on-call about work-up who will follow-up in clinic Date: 12/09/21 Time: 14:30 Vital Signs Vital signs: Vital Signs Temperature 98.2 F 12/09/21 09:57 Pulse Rate 96 12/09/21 09:57 Respiratory Rate 16 12/09/21 09:57 Blood Pressure 191/105 H 12/09/21 09:57 Pulse Oximetry 96 12/09/21 09:57 Temp
[2021-12-09] MEDS: MECLIZINE HCL 25 MG TABLET PO (11:06)
[2021-12-09] MEDS: SODIUM CHLORIDE 0.9% IV 500 ML 999 ML IV CONT (11:06)
[2021-12-09] MEDS: ONDANSETRON INJ 4 MG/2 ML VIAL IV PUSH (11:06)
[2021-12-09 11:10] LABS: Basophils Percent Auto 0.2 % (0.2-1.2); Eosinophils Percent Auto 0.3 % (0-4.4); Hematocrit 40.4 % (37.0-47.0); Hemoglobin 12.8 g/dL (12.0-15.0); Immature Granulocyte Absolute 0.03 K/mm3 (0.00-0.031); Immature Granulocyte Percent A 0.3 % (0-0.5); Lymphocytes Percent Auto 15.9 % (18.3-44.2); Mean Corpuscular HGB Conc 31.7 g/dl (32-36); Mean Corpuscular Hemoglobin 29.2 pg (26-34); Mean Platelet Volume 11.6 fl (7.4-10.4); Monocytes Absolute Auto 0.3 K/mm3 (0.1-0.6); Monocytes Percent Auto 3.3 % (2.6-8.5); Platelet Count Result 261 k/mm3 (150-375); Red Blood Count 4.39 M/mm3 (4.2-5.4); Red Cell Distribution Width 14.3 % (11.5-14.5); White Blood Count 8.8 K/mm3 (4.5-10.0)
[2021-12-09 11:11] LABS: Appearance Urine Clear (Clear); Bilirubin Urine Negative (Negative); Color Urine Yellow (Yellow); Glucose Urine UA Negative (Negative); Ketones Urine Negative (Negative); Leukocyte Esterase Ur Negative LEU/UL (Negative); Nitrate Urine Negative (Negative); Protein Urine Negative (Negative); Specific Grav Ur 1.015 (1.001-1.035); Urobilinogen Urine 0.2 mg/dL (<2.0); pH Urine 7.5 (5.0-9.0)
[2021-12-09 11:17] LABS: Add Urine Microscopic? YES; Blood Urine Trace-Intact (Negative)
[2021-12-09 11:21] LABS: Bacteria Urine Trace /hpf; Squamous Epithelial Cell Urine Occasional /hpf (Few); WBC Urine 0-3 /hpf
[2021-12-09 11:21] LABS: SARS-CoV-2 RNA PCR Negative
[2021-12-09 11:21] LABS: Partial Thromboplastin Time 27.4 SECONDS (22.3-36.8)
[2021-12-09 11:24] LABS: Lactic Acid Reflex 1.3 mmol/L (0.7-2.0)
[2021-12-09 11:25] LABS: Alanine Aminotransferase 14 U/L (6-35); Albumin Level 4.4 g/dL (3.5-5.1); Alkaline Phosphatase 58 U/L (38-126); Anion Gap 9 mmol/L (8-16); Aspartate Amino Transferase 24 U/L (14-36); Bilirubin,Total 0.6 mg/dL (0.2-1.3); Blood Urea Nitrogen 9 mg/dL (7-17); Carbon Dioxide 27 mmol/L (22-30); Chloride 101 mmol/L (98-107); Estimated CRCL calculation 73 ml/min; Estimated Glomerular Filt Rate > 60; Glucose 141 mg/dL (65-110); Potassium 4.1 mmol/L (3.4-5.0); Sodium 137 mmol/L (137-145)
[2021-12-09 11:27] LABS: CRP 0.9 mg/dL (<1.0); Lactate Dehydrogenase 576 U/L (313-618)
[2021-12-09 11:38] LABS: Platelet Estimate Adequate (Adequate)
[2021-12-09 11:39] LABS: Ovalocytes 1+ (NORMAL); Stomatocytes 1+ (NORMAL)
[2021-12-09 12:23] VITALS: BP 162/87; PULSE 92; RESP 18; O2SAT 97
[2021-12-09 14:32] VITALS: BP 143/88; PULSE 79; RESP 16; TEMP 36.8; O2SAT 100
== END 2021-12-09 14:43 | disposition home or self-care (01) ==
PROVIDERS: Physician Assistant; Emergency Provider Emergency Medicine; PCP Family Medicine
DX: R42 Dizziness and giddiness (principal); Z20.822 Contact with and (suspected) exposure to COVID-19; I10 Essential (primary) hypertension; K21.9 Gastro-esophageal reflux disease without esophagitis; R06.02 Shortness of breath; E66.9 Obesity, unspecified; Z68.32 Body mass index [BMI] 32.0-32.9, adult; I44.7 Left bundle-branch block, unspecified; I49.1 Atrial premature depolarization; Z86.010 Personal history of colon polyps
CPT/HCPCS: 36415; 71045; 71275; 80053; 81001; 82728; 83605; 83615; 85025; 85610; 85730; 86140; 93005; 96361; 96374; 99284; A9270; C9803; J2405; J7040; Q9967; U0003; U0005

== ENCOUNTER 2022-02-01 11:44 | Outpatient (CLI) | payer MEDICARE, MEDICAID, SELFPAY ==
--- NOTE | ~2022-02-01 | CT_ITS ---
EXAMINATION: CT brain wo con DATE: 02/01/2022 11:29 INDICATION: Dizziness. TECHNIQUE: Computed tomography (CT) of the head was performed without intravenous contrast. The dose- length product was 908.00 mGy-cm. COMPARISON: CT dated 02/01/2022 FINDINGS: Brain parenchymal volume is normal. There are scattered moderate periventricular and subcor tical white matter changes, most likely related to small vessel ischemic disease (microangiopathy). N o acute intracranial hemorrhage, infarction, mass or mass effect. Paranasal sinuses and mastoids are pneumatized. No depressed skull fractures. IMPRESSION: 1. No acute intracranial abnormality. 2: Chronic age-related findings Reviewed, dictated and finalized at location B.
[2022-02-01 12:02] LABS: Basophils Percent Auto 0.3 % (0.2-1.2); Eosinophils Percent Auto 0.3 % (0-4.4); Hematocrit 41.2 % (37.0-47.0); Immature Granulocyte Absolute 0.03 K/mm3 (0.00-0.031); Immature Granulocyte Percent A 0.3 % (0-0.5); Lymphocytes Absolute Auto 1.62 K/mm3 (0.9-3.2); Lymphocytes Percent Auto 17.4 % (18.3-44.2); Mean Corpuscular HGB Conc 31.6 g/dl (32-36); Mean Corpuscular Hemoglobin 29.2 pg (26-34); Mean Corpuscular Volume 92.6 fl (80-100); Mean Platelet Volume 11.5 fl (7.4-10.4); Monocytes Absolute Auto 0.3 K/mm3 (0.1-0.6); Monocytes Percent Auto 3.3 % (2.6-8.5); Neutrophils Absolute Auto 7.3 K/mm3 (1.3-6.7); Neutrophils Percent Auto 78.4 % (45.5-73.1); Platelet Count Result 257 k/mm3 (150-375); Red Blood Count 4.45 M/mm3 (4.2-5.4); Red Cell Distribution Width 14.4 % (11.5-14.5); White Blood Count 9.3 K/mm3 (4.5-10.0)
[2022-02-01 12:12] LABS: Alanine Aminotransferase 16 U/L (6-35); Albumin Level 4.2 g/dL (3.5-5.1); Alkaline Phosphatase 68 U/L (38-126); Anion Gap 7 mmol/L (8-16); Aspartate Amino Transferase 20 U/L (14-36); Bilirubin,Total 0.4 mg/dL (0.2-1.3); Blood Urea Nitrogen 10 mg/dL (7-17); Calcium 9.4 mg/dL (8.4-10.2); Carbon Dioxide 30 mmol/L (22-30); Chloride 102 mmol/L (98-107); Estimated Glomerular Filt Rate > 60; Glucose 127 mg/dL (65-110); Potassium 3.9 mmol/L (3.4-5.0); Sodium 139 mmol/L (137-145)
[2022-02-01 12:43] LABS: Thyroid Stimulating Hormone 0.519 uIU/mL (0.465-4.680); Total Triiodothyronine (T3) 1.28 NG/ML (0.97-1.69)
[2022-02-01 12:56] LABS: Free T4 Free Thyroxine 1.27 ng/mL (0.78-2.19)
== END 2022-02-01 11:45 | disposition home or self-care (01) ==
PROVIDERS: PCP Family Medicine; Visit Provider Nurse Practitioner Gerontology
DX: R55 Syncope and collapse (principal); I10 Essential (primary) hypertension; E04.9 Nontoxic goiter, unspecified; I65.29 Occlusion and stenosis of unspecified carotid artery; D64.9 Anemia, unspecified
CPT/HCPCS: 36415; 70450; 80053; 82607; 84439; 84443; 84480; 85025

== ENCOUNTER 2022-02-05 09:49 | Outpatient (CLI) | payer MEDICARE, MEDICAID, SELFPAY ==
--- NOTE | ~2022-02-05 | US_ITS ---
US thyroid INDICATION: Thyroid goiter. Multiple thyroid masses seen on prior study. TECHNIQUE: Real-time sonographic images of the thyroid gland were obtained. COMPARISON: 07/31/2021 FINDINGS: The right thyroid lobe measures 7.1 x 2.5 x 3.2 cm. The left thyroid lobe measures 5.9 x 3 x 3.2 cm. The thyroid gland is diffusely heterogeneous and contains multiple ill-defined masses. Lar gest mass in the right lobe measures 3.4 x 1.6 x 2.2 cm compared with 3.6 x 1.8 x 2.2 cm on prior exa mination. This mass is mixed solid and cystic, hypoechoic, wider than tall, smoothly marginated witho ut internal calcifications, TR 3. Inferiorly in the right lobe there is an almost completely solid, h ypoechoic mass that is taller than wide, ill-defined margins and no internal echogenic foci measuring 4.1 x 3.3 x 3.9 cm, TR 5. In the left lobe there is a almost completely solid hyperechoic mass measu ring 2.2 x 1.8 x 2.2 cm which is wider than tall, irregular margins without echogenic foci, TR 4. Thi s is not significantly changed from prior examination allowing for differences of technique. IMPRESSION: 1. Diffusely enlarged heterogeneous thyroid gland with multiple bilateral masses, most of which are stable. There is a mass anteriorly in the right lobe measuring up to 4.1 cm, TR 5. This was not defin itely seen on prior examination. Ultrasound-guided fine-needle aspiration biopsy recommended. Reviewed, dictated and finalized at location B. IMPRESSION: 1. Diffusely enlarged heterogeneous thyroid gland with multiple bilateral mass es, most of which are stable. There is a mass anteriorly in the right lobe mamadou uring up to 4.1 cm, TR 5. This was not definitely seen on prior examination. Ul trasound-guided fine-needle aspiration biopsy recommended.
--- NOTE | ~2022-02-05 | US_ITS ---
EXAMINATION: US carotid duplex BI DATE: 02/05/2022 11:42 INDICATION: Carotid occlusion. Carotid stenosis. TECHNIQUE: Grayscale, color Doppler, and pulsed Doppler images of the cervical carotid arteries were obtained. The degree of vessel stenosis is placed in one of the following categories: normal, <50%, 5 0-69%, >=70% but less than near-occlusion, near-occlusion, or total occlusion. Note that percent sten osis relative to normal distal artery lumen diameter is indirectly measured from velocity measurement s as described by Noam, et al. Radiology 2003; 229:340-346. Notes: Normal: Peak systolic velocity <125 centimeters/sec and no plaque <50%. Peak systolic velocity <125 ( EDV <40; ICA/CCA PSV ratio <2.0; used these factors only a tandem lesions or low cardiac output or co ntralateral disease) 50-69 %: PSV 125-230 (EDV 40-100; ratio 2-4) >= 70% but less than near occlusion: PSV greater than 230 (EDV > 100; ratio> 4.0) Near Occlusion: PSV that is variable; markedly narrowed lumen Occlusion: Absent flow on color/spectral Doppler and no lumen on hillman scale. COMPARISON: None. FINDINGS: RIGHT: The right common carotid artery (CCA) peak systolic velocity (PSV) is 73 cm/s. The right internal car otid artery (ICA) PSV is 35 cm/s. The right ICA end-diastolic velocity (EDV) is 7 cm/s. The right ICA /CCA PSV ratio is 1.6. The external carotid artery (ECA) PSV is 37 cm/s. There is retrograde flow in the right vertebral artery. LEFT: The left CCA PSV is 89 cm/s. The left ICA PSV is 44 cm/s. The left ICA EDV is 11 cm/s. The left ICA/C CA PSV ratio is 0.8. The ECA PSV is 93 cm/s. There is antegrade flow in the left vertebral artery. IMPRESSION: 1. Less than 50% stenosis in the right internal carotid artery by sonographic criteria. 2. Less than 50% stenosis in the left internal carotid artery by sonographic criteria. 3: Retrograde flow in the right vertebral artery. Reviewed, dictated and finalized at location B. IMPRESSION: 1. Less than 50% stenosis in the right internal carotid artery by sonographic c riteria. 2. Less than 50% stenosis in the left internal carotid artery by sonographic cr iteria. 3: Retrograde flow in the right vertebral artery.
== END 2022-02-05 09:50 | disposition home or self-care (01) ==
PROVIDERS: PCP Family Medicine; Visit Provider Nurse Practitioner Gerontology
DX: E04.9 Nontoxic goiter, unspecified (principal); I65.23 Occlusion and stenosis of bilateral carotid arteries
CPT/HCPCS: 76536; 93880

== ENCOUNTER 2022-02-15 12:56 | Outpatient (CLI) | payer MEDICARE, MEDICAID, SELFPAY ==
--- NOTE | ~2022-02-15 | US_ITS ---
EXAMINATION: US FNA w image guidance DATE: 02/15/2022 14:34 INDICATION: Nontoxic single thyroid nodule. TECHNIQUE: The procedure and its benefits and risks were discussed with the patient. Risks specifically discusse d included bleeding. The patient verbalized understanding of the risks and agreed to proceed. The nec k was prepped and draped in the usual sterile manner. 1% lidocaine was used for local anesthesia. 6 passes were made with a 25G needle into the lesion under ultrasound guidance. There were no immedia te complications. FINDINGS: Grayscale ultrasound images demonstrate needles advanced into a 4.1 cm nodule in right thyroid lobe f or biopsy. IMPRESSION: 1. Ultrasound-guided fine needle aspiration of a right thyroid nodule. Reviewed, dictated and finalized at location A.
== END 2022-02-15 12:57 | disposition home or self-care (01) ==
PROVIDERS: PCP Family Medicine; Visit Provider Physician Assistant
DX: E04.1 Nontoxic single thyroid nodule (principal)
CPT/HCPCS: 10005; 88173; 88305

== ENCOUNTER 2022-03-23 06:32 | Outpatient (RCR) | payer MEDICARE, MEDICAID, SELFPAY ==
--- NOTE | 2022-02-24 10:05 | PCPTNOTE ---
Patient called to reschedule appt to 03/23/22 secondary to having a vertigo spell today.
== END 2022-06-21 23:59 | disposition home or self-care (01) ==
LOC: ANHGOSHPT 06:32
PROVIDERS: PCP Family Medicine; Visit Provider Otolaryngology
DX: H81.10 Benign paroxysmal vertigo, unspecified ear (principal)
CPT/HCPCS: 99199

== ENCOUNTER 2022-06-25 09:01 | Outpatient (CLI) | payer MEDICARE, SELFPAY ==
[2022-06-25 10:10] LABS: Basophils Percent Auto 0.4 % (0.2-1.2); Eosinophils Absolute Auto 0.1 K/mm3 (0-0.3); Eosinophils Percent Auto 1.3 % (0-4.4); Hematocrit 38.7 % (37.0-47.0); Hemoglobin 12.1 g/dL (12.0-15.0); Immature Granulocyte Absolute 0.02 K/mm3 (0.00-0.031); Immature Granulocyte Percent A 0.3 % (0-0.5); Immature Platelet Fraction Pct 15.9 % (0.9-11.2); Lymphocytes Absolute Auto 1.65 K/mm3 (0.9-3.2); Lymphocytes Percent Auto 22.1 % (18.3-44.2); Mean Corpuscular HGB Conc 31.3 g/dl (32-36); Mean Corpuscular Hemoglobin 29.1 pg (26-34); Mean Platelet Volume 13.3 fl (7.4-10.4); Monocytes Absolute Auto 0.4 K/mm3 (0.1-0.6); Monocytes Percent Auto 5.1 % (2.6-8.5); Neutrophils Absolute Auto 5.3 K/mm3 (1.3-6.7); Neutrophils Percent Auto 70.8 % (45.5-73.1); Platelet Count Result 183 k/mm3 (150-375); Red Blood Count 4.16 M/mm3 (4.2-5.4); Red Cell Distribution Width 14.4 % (11.5-14.5); White Blood Count 7.5 K/mm3 (4.5-10.0)
[2022-06-25 10:25] LABS: Alanine Aminotransferase 18 U/L (6-35); Albumin Level 4.1 g/dL (3.5-5.1); Alkaline Phosphatase 55 U/L (38-126); Anion Gap 7 mmol/L (8-16); Aspartate Amino Transferase 20 U/L (14-36); Bilirubin,Total 0.6 mg/dL (0.2-1.3); Blood Urea Nitrogen 11 mg/dL (7-17); Calcium 8.8 mg/dL (8.4-10.2); Carbon Dioxide 23 mmol/L (22-30); Chloride 110 mmol/L (98-107); Estimated Glomerular Filt Rate > 60; Glucose 108 mg/dL (65-110); Potassium 3.5 mmol/L (3.4-5.0); Sodium 140 mmol/L (137-145)
== END 2022-06-25 09:02 | disposition home or self-care (01) ==
PROVIDERS: PCP Family Medicine; Visit Provider Nurse Practitioner Gerontology
DX: E53.8 Deficiency of other specified B group vitamins (principal); I10 Essential (primary) hypertension
CPT/HCPCS: 36415; 80053; 82607; 85025; 85055

== ENCOUNTER 2022-07-21 14:19 | Inpatient (IN) | payer MEDICARE, MEDICAID, SELFPAY ==
[2022-07-21] VITALS (27 sets, daily range): BP systolic 106–160; BP diastolic 82–119; PULSE 75–109; RESP 16–20; TEMP 36.3–37.1; O2SAT 95–98; BMI 34.4
--- NOTE | ~2022-07-21 | CT_ITS ---
EXAMINATION: CTA chest PE protocol DATE: 07/21/2022 16:43 INDICATION: Dyspnea. TECHNIQUE: Computed tomography angiography (CTA) of the chest was performed with 100 mL Omnipaque-350 intravenous contrast timed to evaluate the pulmonary arteries. Coronal maximum intensity projection 3D-reconstructions were created by the technologist. Automated exposure control and iterative reconst ruction technique were employed. The dose-length product was 499.48 mGy-cm. COMPARISON: Chest CT 12/09/2021 FINDINGS: There are small pleural effusions. There is smooth septal thickening in the lungs, consiste nt with mild pulmonary edema. There is mild atelectasis bilaterally. There is an intrathoracic goiter . Cardiomegaly is noted. There are coronary artery calcifications. There are calcifications of the ao rtic valve. There are pulmonary emboli in right middle lobe and right lower lobe. There is a small sl iding hiatal hernia. There is ectasia of ascending aorta measuring 4.2 cm. There is mild thoracic spo ndylosis. IMPRESSION: 1. Acute pulmonary emboli in right middle lobe and right lower lobe. I called this result to Dr. Ledy bruno 2. Mild pulmonary edema with small pleural effusions. 3. Cardiomegaly. 4. Small pericardial effusion. Reviewed, dictated and finalized at location A. IMPRESSION: 1. Acute pulmonary emboli in right middle lobe and right lower lobe. I called t his result to Dr. Duarte. 2. Mild pulmonary edema with small pleural effusions. 3. Cardiomegaly. 4. Small pericardial effusion.
--- NOTE | ~2022-07-21 | US_ITS ---
EXAMINATION: US venous doppler [facility] DATE: 07/22/2022 10:41 INDICATION: Lower limb edema. TECHNIQUE: Grayscale ultrasound images without and with compression and Doppler ultrasound images of the bilateral lower extremity veins were obtained. COMPARISON: Ultrasound 06/29/2021 FINDINGS: The visualized portions of right common femoral vein, profunda (deep) femoral vein, femoral vein, pop liteal vein, peroneal veins, posterior tibial veins, and greater saphenous vein outflow are patent. The visualized portions of left common femoral vein, profunda femoral vein, femoral vein, popliteal v ein, peroneal veins, posterior tibial veins, and greater saphenous vein outflow are patent. IMPRESSION: 1. No deep venous thrombosis. Reviewed, dictated and finalized at location A.
--- NOTE | ~2022-07-21 | XR_ITS ---
EXAMINATION: XR chest 2V DATE: 07/21/2022 14:59 INDICATION: Chest pain. Shortness of breath. TECHNIQUE: Frontal and lateral views of the chest were obtained. COMPARISON: Chest single view 12/09/2021, chest CT 12/09/2021, 06/28/21 FINDINGS: There is a diffuse interstitial pattern, consistent with pulmonary edema. No pleural effusi on or pneumothorax. There is enlargement of the cardiac silhouette. There is an intrathoracic goiter. IMPRESSION: 1. Mild pulmonary edema. 2. Stable enlargement of the cardiac silhouette, likely a combination of cardiomegaly and pericardial effusion as seen on the prior CT. 3. Intrathoracic goiter. Reviewed, dictated and finalized at location A. IMPRESSION: 1. Mild pulmonary edema. 2. Stable enlargement of the cardiac silhouette, likely a combination of cardio megaly and pericardial effusion as seen on the prior CT. 3. Intrathoracic goiter.
--- NOTE | 2022-07-21 14:22 | ECG_ITS ---
Measurements Intervals [place] Rate: 88 P: 56 OH: 175 QRS: 0 QRSD: 168 T: 120 QT: 413 QTc: 500 Interpretive Statements SINUS RHYTHM ATRIAL PREMATURE COMPLEX LEFT BUNDLE BRANCH BLOCK ABNORMAL ECG COMPARED TO ECG 12/09/2021 10:52:34 NO SIGNIFICANT CHANGES Electronically Signed On 07-21-2022 14:44:57 CDT by Arnaldo Huizar D.O.
--- NOTE | 2022-07-21 14:53 | ED.SOB ---
HPI - SOB/Dyspnea General Chief Complaint: Shortness of Breath/Dyspnea Stated Complaint: dyspnea Time Seen by Provider: 07/21/22 14:23 History of Present Illness HPI Narrative: Patient with h/o DVT on eliquis, afib, p/w increased dyspnea worse with lying flat or exertion. Has been on lasix many years ago but not currently. Just realized that she has been taking half the dose of eliquis she is supposed to be taking. No chest pain, cough, fevers/chills, back pain. Related Data Allergies Allergy/AdvReac Type Severity Reaction Status Date / Time ibuprofen [From Motrin] Allergy Mild itch and Verified 05/25/22 10:58 hives phentyol AdvReac Severe Vomiting Uncoded 05/25/22 10:58 Review of Systems Review of Systems: CONST: No fever. HEENT: No sore throat C/V: No chest pain RESP: No cough; dyspnea GI: No abdominal pain : No dysuria. M/S: No joint pain. SKIN: No rash. NEURO: [No headache or focal numbness or weakness] PSYCH: [No depression] [facility] Past Medical History Medical History (Updated 07/21/22 @ 17:09 by Rafia Duarte MD) Abnormality of gait Back pain with history of spinal surgery Benign essential HTN BPPV (benign paroxysmal positional vertigo) Chronic constipation Colon polyp Constipation by delayed colonic transit Dementia Encounter for screening colonoscopy GERD (gastroesophageal reflux disease) Lumbar spondylosis Obesity (BMI 30.0-34.9) Post-polypectomy bleeding PVC (premature ventricular contraction) Surgical History Surgical History History of back surgery Laminectomy 2017 History of hemorrhoidectomy History of hysterectomy Family History Family History Grandparent Carcinoma of colon Mother Acute myocardial infarction Father Acute myocardial infarction Sibling Lung cancer Social History Social History (Updated 07/21/22 @ 17:02 by Isabel Walden NP) Social History: Ms. Garcia lives at home in [place] with her daughter. 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 She denies alcohol, tobacco, or other substance use. She designates her daughter, Luz Maria, to be her surrogate decision maker. 3 children PCP: Dr Mia Recinos Code Status: Full Code Smoking status: Never smoker Second hand tobacco smoke exposure: No Alcohol intake: former Substance use: never Substance use type: does not use Living arrangements: with family Occupation/Education: retired Gender identity (if verbalized by the patient): Female Sexual Orientation (if Verbalized by the Patient): Straight or Heterosexual Spiritual care concerns: No Exam Narrative: EXAMINATION OF ORGAN SYSTEMS/BODY AREAS: Constitutional: Vital signs per nursing GENERAL:[No acute distress, non-toxic appearing.] HEAD: Normal with no signs of head trauma. EYES: EOMI, conjunctiva normal ENT: Hearing grossly intact LUNGS: Nonlabored breathing. HEART: [Regular rate and rhythm] ABD: [Soft], [nontender to palpation] EXT: Normal range of motion SKIN: [No rashes or lesions.] NEURO: [Alert and oriented x 3. No gross focal sensory or strength deficits.] PSYCH: Normal affect Course Vital Signs Vital signs: Vital Signs Temperature 98.7 F 07/21/22 14:17 Pulse Rate 92 07/21/22 14:17 Respiratory Rate 18 07/21/22 14:17 Blood Pressure 106/82 07/21/22 14:17 Pulse Oximetry 96 07/21/22 14:17 Temperature 98.7 F 07/21/22 14:17 Pulse Rate 81 07/21/22 17:31 Respiratory Rate 18 07/21/22 14:17 Blood Pressure 160/103 H 07/21/22 17:31 Pulse Oximetry 97 07/21/22 17:31 Oxygen Delivery Room Air 07/21/22 15:54 MDM - SOB/Dyspnea MDM Narrative Medical decision making narrative: Patient with history of A-fib presenting with increasing difficulty breathing over the last few days, vital signs stable here, pulmonary embolism she does admit she may have missed some doses of her blood thi
[2022-07-21 15:42] LABS: Basophils Percent Auto 0.4 % (0.2-1.2); Eosinophils Absolute Auto 0.1 K/mm3 (0-0.3); Eosinophils Percent Auto 1.5 % (0-4.4); Hematocrit 37.7 % (37.0-47.0); Immature Granulocyte Absolute 0.02 K/mm3 (0.00-0.031); Immature Granulocyte Percent A 0.2 % (0-0.5); Immature Platelet Fraction Pct 12.4 % (0.9-11.2); Lymphocytes Absolute Auto 1.83 K/mm3 (0.9-3.2); Lymphocytes Percent Auto 20.1 % (18.3-44.2); Mean Corpuscular HGB Conc 31.8 g/dl (32-36); Mean Corpuscular Hemoglobin 28.9 pg (26-34); Mean Corpuscular Volume 90.8 fl (80-100); Mean Platelet Volume 13.1 fl (7.4-10.4); Monocytes Absolute Auto 0.5 K/mm3 (0.1-0.6); Monocytes Percent Auto 5.5 % (2.6-8.5); Neutrophils Absolute Auto 6.6 K/mm3 (1.3-6.7); Neutrophils Percent Auto 72.3 % (45.5-73.1); Platelet Count Result 237 k/mm3 (150-375); Red Blood Count 4.15 M/mm3 (4.2-5.4); Red Cell Distribution Width 14.9 % (11.5-14.5); White Blood Count 9.1 K/mm3 (4.5-10.0)
[2022-07-21 15:51] LABS: Alanine Aminotransferase 21 U/L (6-35); Alkaline Phosphatase 54 U/L (38-126); Anion Gap 5 mmol/L (8-16); Aspartate Amino Transferase 24 U/L (14-36); Bilirubin,Total 0.6 mg/dL (0.2-1.3); Blood Urea Nitrogen 9 mg/dL (7-17); Calcium 9.1 mg/dL (8.4-10.2); Carbon Dioxide 27 mmol/L (22-30); Chloride 104 mmol/L (98-107); Estimated CRCL calculation 65 ml/min; Estimated Glomerular Filt Rate > 60; Glucose 114 mg/dL (65-110); Potassium 3.8 mmol/L (3.4-5.0); Sodium 136 mmol/L (137-145)
[2022-07-21 16:03] LABS: NT Pro B Type Natriuretic Pept 4740 pg/mL (19.9-100); Troponin I 0.025 ng/mL (0.000-0.034)
[2022-07-21 16:09] LABS: D Dimer 1.27 ug/mL (<0.48)
[2022-07-21] MEDS: FUROSEMIDE INJ 40 MG/4 ML VIAL IV PUSH (16:43)
--- NOTE | 2022-07-21 16:57 | PM.IMHP ---
H&P: HPI History of Present Illness Date/Time: 07/21/22 16:57 Chief Complaint: Shortness of breath Narrative: This is a 77-year-old female patient who has a history of congestive heart failure and atrial fibrillation. The patient is noncompliant with her medications sometimes. The patient is on Eliquis for her AFib but has only taken her Eliquis once a day. She has had a history of DVTs in the past. The patient stated that she has been more short of breath with lying flat or with exertion. However this is a different type of shortness of breath in which she usually exhibits with congestive heart failure. Her D-dimer was found to be 1.27. Sodium 136. Her BNP is 4740. Chest x-ray was read as mild pulmonary edema. Stable enlargement of cardiac silhouette likely combination cardiomegaly and pericardial effusion intrathoracic goiter. Chest CTA was read as the following. Acute pulmonary emboli in right middle lobe and right lower lobe. I called this result to Dr. Duarte. 2. Mild pulmonary edema with small pleural effusions. 3. Cardiomegaly. 4. Small pericardial effusion. The patient has already been on Eliquis but was only taking the dose once a day. The patient was given Lasix in the emergency room x1. The patient is being admitted to inpatient status on the date of service of 07/21/2022. Review of Systems Review of Systems: All systems reviewed & are unremarkable except as noted in HPI and below Constitutional: Constitutional: Reports as per HPI and Reports no additional constitutional complaints Eyes: Eyes: Reports as per HPI and Reports no additional eye complaints ENT: Reports system reviewed and no additional complaints, except as documented and Reports Normal hearing present Cardiovascular: Cardiovascular: Reports no additional cardiovascular complaints Respiratory: Respiratory: Reports no additional respiratory complaints and Reports no additional respiratory complaints Gastrointestinal: Gastrointestinal: Reports as per HPI and Reports no additional gastrointestinal complaints Musculoskeletal: Musculoskeletal: Reports no additional musculoskeletal complaints Integumentary/Breasts: Skin/Breast: Reports system reviewed and no additional complaints, except as docu and Reports as per HPI Neurologic: Reports system reviewed and no additional complaints, except as documented, Reports as per HPI and Reports Normal hearing present Psychiatric: Psychiatric: Reports no additional psychiatric complaints and Reports as per HPI Endocrine: Endocrine: Reports no additional endocrine complaints Hematologic/Lymphatic: Hematologic/Lymphatic: Reports no additional hematologic/lymphatic complaints Allergic/Immunologic: Allergic/Immunologic: Reports no additional allergic/immunologic complaints [facility] Past Medical History Medical History (Updated 07/21/22 @ 20:29 by Isabel Walden NP) Abnormality of gait Atrial fibrillation Back pain with history of spinal surgery Benign essential HTN BPPV (benign paroxysmal positional vertigo) CHF (congestive heart failure), NYHA class I Chronic constipation Colon polyp Constipation by delayed colonic transit Dementia Encounter for screening colonoscopy GERD (gastroesophageal reflux disease) Lumbar spondylosis Obesity (BMI 30.0-34.9) Post-polypectomy bleeding PVC (premature ventricular contraction) Surgical History Surgical History (Updated 07/21/22 @ 20:19 by Isabel Walden NP) H/O colonoscopy with polypectomy History of back surgery Laminectomy 2017 History of hemorrhoidectomy History of hysterectomy Family History Family History Grandparent Carcinoma of colon Mother Acute myocardial infarction Father Acute myocardial infarction Sibling Lung cancer Social History Social History (Updated 07/21/22 @ 20:21 by Isabel Walden NP) Social History: Ms. Garcia lives at home in [place] with her daughter
--- NOTE | 2022-07-21 18:45 | ADMGEN ---
This patient, Kiki Garcia, was admitted to [facility] Surg Room 317-02. Patient/family oriented to hospital policies and general routines including ID bracelet, bed and alarms, visiting hours, pain management, procedures, bathroom and other care routines, personal items, smoking policy, room service/diet, and visiting hours. Information on how to activate the Rapid Response Team has been discussed. Patient/Family are encouraged to report perceived risks to care and to ask questions if they do not understand what they are told or what they should do.
[2022-07-21 19:50] LABS: Appearance Urine Clear (Clear); Bacteria Urine None Seen /hpf; Bilirubin Urine Negative (Negative); Blood Urine 1+ (Negative); Color Urine Yellow (Yellow); Glucose Urine UA Negative (Negative); Ketones Urine Negative (Negative); Leukocyte Esterase Ur Negative LEU/UL (Negative); Nitrate Urine Negative (Negative); Non Pathogenic Casts 0-2; Protein Urine Negative (Negative); Specific Grav Ur 1.019 (1.001-1.035); Squamous Epithelial Cell Urine None seen /hpf (Few); Urobilinogen Urine 0.2 mg/dL (<2.0); WBC Urine 0-5 /hpf
[2022-07-21 19:52] LABS: Add Urine Microscopic? YES
[2022-07-21] MEDS: METOPROLOL TARTRATE 25 MG TABLET 75 MG PO (20:52)
[2022-07-21] MEDS: PANTOPRAZOLE 40 MG TABLET PO (20:54)
[2022-07-21] MEDS: APIXABAN 5 MG TABLET PO (21:01)
[2022-07-21 21:34] LABS: Influenza A QL RT-PCR Negative (Negative); Influenza B QL RT-PCR Negative (Negative); RSV RNA, RT-PCR Negative (Negative); SARS-CoV-2 RNA PCR Negative
[2022-07-22] VITALS: PULSE 92
--- NOTE | 2022-07-22 | ECHO_ITS ---
Patient Info Name: Kiki Garcia Age: 77 years : 1945 Gender: Female Ht: 65 in Wt: 207 lbs BSA: 2.11 m2 HR: 82 bpm BP: 150 / 111 mmHg Heart Rhythm: Left Bundle Branch Block Exam Date: 07/22/2022 11:56 AM Exam Location: [facility] Patient Status: Inpatient Admit Date: 07/21/2022 Staff Ordering Physician: Isabel Walden NP Senior Market Research Analyst: Keshawn Magana RDCS, RT Attending Provider: Chandana Moss MD Referring Physician: Iram BOSS; Exam Type: CA echo doppler color flow Study Info Indications I50.9 - Heart failure, unspecified Complete two-dimensional, color flow and Doppler transthoracic echocardiogram is performed. Strain analysis performed. Summary 1. Complete two-dimensional, color flow and Doppler transthoracic echocardiogram is performed. 2. Left ventricular chamber dimension is normal. 3. Left ventricular systolic function is moderately reduced, estimated at 30-35%. 4. There is moderately increased left ventricular wall thickness. 5. Left ventricular septal wall motion is abnormal with septal motion related to bundle branch block. 6. The left ventricular diastolic function is grade I diastolic dysfunction. 7. Global longitudinal strain is abnormal at -7 %. 8. Right ventricular chamber dimension is normal. 9. Right ventricular systolic function is normal. 10. There is moderate aortic valve sclerosis. 11. There is mild to moderate aortic valve regurgitation. 12. There is moderate mitral valve regurgitation. 13. There is mild tricuspid valve regurgitation. 14. There is mild pulmonic regurgitation. 15. Dilated inferior vena cava with >50% collapse upon inspiration consistent with elevated right atrial pressure, 8 mmHg. 16. There is small anterior pericardial effusion. There is systolic collapse of the right atrium, consistent with increased intrapericardial pressures. Left Ventricle Left ventricular chamber dimension is normal. Left ventricular systolic function is moderately reduced, estimated at 30-35%. There is moderately increased left ventricular wall thickness. Left ventricular septal wall motion is abnormal with septal motion related to bundle branch block. The left ventricular diastolic function is grade I diastolic dysfunction. Global longitudinal strain is abnormal at -7 %. Right Ventricle Right ventricular chamber dimension is normal. Right ventricular systolic function is normal. Left Atria Left atrial chamber dimension is normal. Right Atria Right atrial chamber dimension is normal. Atrial Septum Intact interatrial septum visualized by color flow imaging. Aortic Valve There is moderate aortic valve sclerosis. There is no aortic valve stenosis. There is mild to moderate aortic valve regurgitation. There is mild aortic valve calcification. Pulmonic Valve The pulmonic valve is not well visualized. There is mild pulmonic regurgitation. Mitral Valve The mitral valve has normal leaflets. There is no mitral valve stenosis. There is moderate mitral valve regurgitation. The mitral valve annulus is mildly calcified. Tricuspid Valve There is mild tricuspid valve regurgitation. Pericardium/Pleural There is small anterior pericardial effusion. There is systolic collapse of the right atrium, consistent with increased intrapericardial pressures. Inferior Vena Cava Dilated inferior vena cava with >50% collapse upon inspiration consistent with elevated right atrial pressure, 8 mmHg. Aorta Th
[2022-07-22 04:00] VITALS: PULSE 85
[2022-07-22 07:24] LABS: Basophils Absolute Auto 0.1 K/mm3 (0.0-0.1); Basophils Percent Auto 0.7 % (0.2-1.2); Eosinophils Absolute Auto 0.1 K/mm3 (0-0.3); Eosinophils Percent Auto 1.5 % (0-4.4); Hematocrit 38.4 % (37.0-47.0); Immature Granulocyte Absolute 0.04 K/mm3 (0.00-0.031); Immature Granulocyte Percent A 0.5 % (0-0.5); Lymphocytes Absolute Auto 1.64 K/mm3 (0.9-3.2); Lymphocytes Percent Auto 19.4 % (18.3-44.2); Mean Corpuscular HGB Conc 31.3 g/dl (32-36); Mean Corpuscular Volume 92.8 fl (80-100); Monocytes Absolute Auto 0.5 K/mm3 (0.1-0.6); Monocytes Percent Auto 5.8 % (2.6-8.5); Neutrophils Absolute Auto 6.1 K/mm3 (1.3-6.7); Neutrophils Percent Auto 72.1 % (45.5-73.1); Platelet Count Result 199 k/mm3 (150-375); Red Blood Count 4.14 M/mm3 (4.2-5.4); Red Cell Distribution Width 14.8 % (11.5-14.5); White Blood Count 8.4 K/mm3 (4.5-10.0)
[2022-07-22 07:44] LABS: Alanine Aminotransferase 19 U/L (6-35); Albumin Level 3.8 g/dL (3.5-5.1); Alkaline Phosphatase 58 U/L (38-126); Anion Gap 7 mmol/L (8-16); Aspartate Amino Transferase 20 U/L (14-36); Bilirubin,Total 0.7 mg/dL (0.2-1.3); Blood Urea Nitrogen 9 mg/dL (7-17); Calcium 8.6 mg/dL (8.4-10.2); Carbon Dioxide 26 mmol/L (22-30); Chloride 107 mmol/L (98-107); Estimated CRCL calculation 64 ml/min; Estimated Glomerular Filt Rate > 60; Glucose 112 mg/dL (65-110); Lactate Dehydrogenase 185 U/L (120-246); Magnesium 2.1 mg/dL (1.6-2.3); Potassium 3.2 mmol/L (3.4-5.0); Sodium 140 mmol/L (137-145)
[2022-07-22] MEDS: APIXABAN 5 MG TABLET PO ×2 (08:34→11:46)
[2022-07-22] MEDS: PANTOPRAZOLE 40 MG TABLET PO (08:34)
[2022-07-22] MEDS: FUROSEMIDE INJ 40 MG/4 ML VIAL IV PUSH (08:34)
[2022-07-22 08:45] VITALS: PULSE 66
--- NOTE | 2022-07-22 09:59 | PM.CNCAR ---
Assessment and Plan Assessment and plan (1) Acute pulmonary embolism: Code(s): I26.99 - Other pulmonary embolism without acute cor pulmonale Status: Acute Assessment and Plan: As patient was noncompliant with her Eliquis, recommend the acute DVT/PE dosing of Eliquis rather than the atrial fibrillation dosing. Echocardiogram and venous Duplex pending. Recommendations discussed with the Hospitalist, Dr. Moss. (2) Acute on chronic heart failure: Code(s): I50.9 - Heart failure, unspecified Status: Acute Assessment and Plan: Continue IV diuresis for today, should be able to transition to PO tomorrow. Echocardiogram is pending. Continue beta tricia. (3) Atrial fibrillation: Code(s): I48.91 - Unspecified atrial fibrillation Status: Acute Assessment and Plan: Continue beta tricia, anticoagulation with Eliquis History of Present Illness History of Present Illness Consult date/time: 07/22/22 09:59 Requesting physician: Rafia Duarte MD Consult reason: congestive heart failure Reason For Visit: NEW ONSET CHF,CHF EXACERBATION Narrative: We are consulted for heart failure exacerbation. This is a 77-year-old female who follows with Dr. Yanez. Has a history of HFmrEF, atrial fibrillation, history of DVTs. Last seen in our office back in February 2022 where she was doing well at that time but was noted to be noncompliant with her Eliquis (didn't realize it was a BID medication and was only taking it once day). Patient presented to [facility] for shortness of breath that began around Tuesday. Gets short of breath with walking or when laying flat. BNP found to be 4740. EKG without ischemic changes. D-dimer elevated, therefore, CTA was obtained which showed acute PE in the right middle lobe and right lower lobe. Also noted to have mild pulmonary edema with small pleural effusions, small pericardial effusion. Patient started on IV Lasix. Review of Systems Review of Systems: All systems reviewed & are unremarkable except as noted in HPI and below (HPI) [facility] Past Medical History Medical History Abnormality of gait Atrial fibrillation Back pain with history of spinal surgery Benign essential HTN BPPV (benign paroxysmal positional vertigo) CHF (congestive heart failure), NYHA class I Chronic constipation Colon polyp Constipation by delayed colonic transit Dementia Encounter for screening colonoscopy GERD (gastroesophageal reflux disease) Lumbar spondylosis Obesity (BMI 30.0-34.9) Post-polypectomy bleeding PVC (premature ventricular contraction) Surgical History Surgical History H/O colonoscopy with polypectomy History of back surgery Laminectomy 2017 History of hemorrhoidectomy History of hysterectomy Family History Family History Grandparent Carcinoma of colon Mother Acute myocardial infarction Father Acute myocardial infarction Sibling Lung cancer Social History Social History Social History: Ms. Garcia lives at home in [place] with her daughter and . 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 She denies alcohol, tobacco, or other substance use. She designates her daughter, Luz Maria, to be her surrogate decision maker. She has 3 children. She has home health care PCP: Dr Mia Recinos Code Status: Full Code Smoking status: Never smoker Second hand tobacco smoke exposure: No Alcohol intake: never Substance use: never Substance use type: does not use Lack of Transportation: No Lack of Food: Never True Current Housing: I Have Housing Concerned About Future Housing: No Difficulty Paying Gas/Electric Bills: No Difficulty Paying for Meds: No Currently Unemployed: No Education: Associate Degree Difficulty w/ Chil
[2022-07-22] MEDS: POTASSIUM CHLORIDE 20 MEQ TABLET 40 MEQ PO (11:46)
[2022-07-22 12:00] VITALS: PULSE 70
[2022-07-22 12:55] VITALS: BMI 34.4
[2022-07-22 14:00] VITALS: BP 119/68; PULSE 70; RESP 16; TEMP 36.2; O2SAT 100
[2022-07-22 16:00] VITALS: PULSE 105
--- NOTE | 2022-07-22 16:38 | PM.DS ---
DS: Admitting Diagnosis Discharge Date 07/22/22 Admitting Diagnosis Shortness of breath DS: Discharge Diagnosis Discharge Diagnosis (1) Pulmonary emboli: Code(s): I26.99 - Other pulmonary embolism without acute cor pulmonale Status: Acute (2) CHF (congestive heart failure), NYHA class I: Code(s): I50.9 - Heart failure, unspecified Status: Acute (3) Atrial fibrillation: Code(s): I48.91 - Unspecified atrial fibrillation Status: Acute (4) WENDY (obstructive sleep apnea): Code(s): G47.33 - Obstructive sleep apnea (adult) (pediatric) Status: Acute (5) Benign essential HTN: Code(s): I10 - Essential (primary) hypertension Status: Chronic DS: Summary Hospital Course Reason for hospitalization: 77yo female with CHF and AFib here for shortness of breath. Please see H&P for details. Hospital Course: The patient is on Eliquis for her AFib but was only taken her Eliquis once a day.? She has had a history of DVTs in the past.? The patient was more short of breath.? Her D-dimer was 1.27.?BNP is 4740.? Chest x-ray was read as mild pulmonary edema.?CTA chest showing acute PE in RML and RLL with mild pulmonary edema. She was given Lasix IV once. She was started on Eliquis therapeutic dosing for PE. Cardiology consulted. Influenza, RSV and COVID swab were negative. Lower extremity venous Dopplers were negative for DVT. Echocardiogram showed EF of 30-35%, septal wall motion abnormalities consistent with bundle branch block, grade 1 diastolic dysfunction, mild-moderate AI with moderate MR. There was a small anterior pericardial effusion with findings consistent with increased intra pericardial pressures. Discussed with Cardiology who felt patient could be safely discharged home with therapeutic doses of Eliquis. Discussed with the patient about the benefits of being compliant with her treatment. Family was in the room and discharge instructions were discussed at length (with patient permission). Entresto was added to her medical regimen. Patient will follow-up with her director of technology after discharge. All questions were answered. She overall did well was able be discharged home on 07/22/2022. Status at Discharge Cognitive/behavioral status at discharge: Stable Time Spent with Patient Time attestation: Total time spent providing and/or coordinating discharge services: 35 minutes Time spent: Greater than 30 minutes Exam Narrative: AF 97.2 119/68 70 16 100% ra Gen - NARD Chest - CTA bilaterally, nml RR CV - irregularly irregular; Tele showing BBB and Afib. Abd - Soft, NT/ND, Positive BS Ext - No pedal edema. Negative [place] Neuro - Alert and oriented. Psych - Nml mood and affect Skin - Warm and dry DS: Data Data Completed and Pending Labs on day of discharge: Labs from last 24 hours 07/22/22 07/22/22 07/22/22 06:44 06:44 06:44 WBC 8.4 RBC 4.14 L Hgb 12.0 Hct 38.4 MCV 92.8 MCH 29.0 MCHC 31.3 L RDW 14.8 H Plt Count 199 MPV 13.0 H Immature Gran % (Auto) 0.5 Neut % (Auto) 72.1 Lymph % (Auto) 19.4 [place] % (Auto) 5.8 Eos % (Auto) 1.5 Baso % (Auto) 0.7 Lymph # (Auto) 1.64 [place] # (Auto) 0.5 Eos # (Auto) 0.1 Baso # (Auto) 0.1 Abs Immat Gran (auto) 0.04 H Absolute Neuts (auto) 6.1 Absolute Nucleated RBC 0.0 Nucleated RBC % 0.0 Sodium 140 Potassium 3.2 L Chloride 107 Carbon Dioxide 26 Anion Gap 7 L BUN 9 Creatinine 0.70 Estim Creat Clear Calc 64 Estimated GFR > 60 Glucose 112 H Calcium 8.6 Magnesium 2.1 Total Bilirubin 0.7 AST 20 ALT 19 Alkaline Phosphatase 58 Lactate Dehydrogenase 185 Total Protein 6.0 L Albumin 3.8 TSH (Reflex) 1.790 Urine Color Urine Appearance Urine pH Ur Specific [place] Urine Protein Urine Glucose (UA) Urine Ketones Ur Blood (Man) Urine Nitrate U
== END 2022-07-22 17:20 | disposition home or self-care (01) | DRG 175 ==
LOC: ANHED 17:46 → ANH3MEDSUR 17:48
PROVIDERS: Nurse Practitioner; Admitting Provider Internal Medicine; Emergency Provider Emergency Medicine; PCP Internal Medicine Cardiovascular Disease; Visit Provider Internal Medicine
DX: I26.99 Other pulmonary embolism without acute cor pulmonale (principal); I50.23 Acute on chronic systolic (congestive) heart failure; I48.91 Unspecified atrial fibrillation; E66.9 Obesity, unspecified; R26.9 Unspecified abnormalities of gait and mobility; K59.09 Other constipation; F03.90 Unspecified dementia, unspecified severity, without behavioral disturbance, psychotic disturbance, mood disturbance, and anxiety; I11.0 Hypertensive heart disease with heart failure; L21.9 Seborrheic dermatitis, unspecified; M47.816 Spondylosis without myelopathy or radiculopathy, lumbar region; Z68.34 Body mass index [BMI] 34.0-34.9, adult; Z90.710 Acquired absence of both cervix and uterus; Z91.14 Patient's other noncompliance with medication regimen; Z20.822 Contact with and (suspected) exposure to COVID-19; Z86.718 Personal history of other venous thrombosis and embolism; Z79.01 Long term (current) use of anticoagulants
CPT/HCPCS: 36415; 71046; 71275; 80053; 81001; 83615; 83735; 83880; 84443; 84484; 85025; 85055; 85380; 87637; 93005; 93306; 93970; 99285; A9270; J1940; Q9967

== ENCOUNTER 2022-09-06 12:35 | Inpatient (IN) | payer MEDICARE, MEDICAID, SELFPAY ==
[2022-09-06] VITALS (33 sets, daily range): BP systolic 140–175; BP diastolic 66–97; PULSE 74–105; RESP 15–31; TEMP 36.2–36.8; O2SAT 93–98; BMI 31.1
--- NOTE | ~2022-09-06 | XR_ITS ---
EXAMINATION: XR chest 2V DATE: 09/06/2022 13:13 INDICATION: Dyspnea. Congestive heart failure. TECHNIQUE: Frontal and lateral views of the chest were obtained. COMPARISON: Chest 2 views 07/21/2022 FINDINGS: There are airspace and interstitial opacities in the mid and lower lung zones. There are sm all pleural effusions. No pneumothorax. Cardiomegaly is noted. IMPRESSION: 1. Airspace and interstitial opacities in the mid and lower lung zones, consistent with mild pulmonar y edema and basilar atelectasis versus pneumonia. 2. Small pleural effusions. 3. Cardiomegaly. Reviewed, dictated and finalized at location A. IMPRESSION: 1. Airspace and interstitial opacities in the mid and lower lung zones, consist ent with mild pulmonary edema and basilar atelectasis versus pneumonia. 2. Small pleural effusions. 3. Cardiomegaly.
--- NOTE | ~2022-09-06 | CT_ITS ---
EXAMINATION: CTA chest PE protocol DATE: 09/07/2022 17:58 INDICATION: HX of PE TECHNIQUE: Computed tomography angiography (CTA) of the chest was performed with 100 mL Omnipaque-350 intravenous contrast timed to evaluate the pulmonary arteries. Coronal maximum intensity projection 3D-reconstructions were created by the technologist. The dose-length product (DLP) was 550.35 mGy-cm. Automated exposure control and iterative reconstruction technique were employed. COMPARISON: CTPA 07/21/2022; x-ray chest 09/06/2022. FINDINGS: Lung parenchyma and airways: Scattered sub-6 mm pulmonary nodules. Dependent atelectasis. Calcified l ingular granuloma. Patent airways. Pleura: Small right and trace left pleural effusions. Thoracic inlet, axillae and chest wall: Intrathoracic goiter. Thoracic aorta: Moderate ectasia and arch calcification. Mediastinum: Small hiatal hernia. Heart and pericardium: Moderate volume pericardial fluid, unchanged. Cardiomegaly. Aortic valve calci fication. Coronary artery calcifications: Moderate. Upper abdomen: No significant finding. Bones: No acute osseous finding. Pulmonary arteries: Study quality: Adequate. Persistent filling defects in subsegmental branches of p osterior right lower lobe segments. No other chronic emboli detected. No acute pulmonary emboli detec parris. IMPRESSION: No CT evidence of acute pulmonary embolus. Chronic subsegmental pulmonary embolus in posterior segmen ts of the right lower lobe. Stable moderate pericardial effusion. Small right and trace left pleural effusions. Scattered sub-6 mm pulmonary nodules, which require no additional workup unless the patien t is at high risk, in which case consider an optional CT at 12 months. Reviewed, dictated and finalized at location K. IMPRESSION: No CT evidence of acute pulmonary embolus. Chronic subsegmental pulmonary embol us in posterior segments of the right lower lobe. Stable moderate pericardial e ffusion. Small right and trace left pleural effusions. Scattered sub-6 mm pulmo nary nodules, which require no additional workup unless the patient is at high risk, in which case consider an optional CT at 12 months.
--- NOTE | ~2022-09-06 | US_ITS ---
EXAMINATION: US venous doppler [facility] DATE: 09/07/2022 10:17 INDICATION: Pulmonary emboli. TECHNIQUE: Grayscale ultrasound images without and with compression and Doppler ultrasound images of the bilateral lower extremity veins were obtained. COMPARISON: None. FINDINGS: The visualized portions of right common femoral vein, profunda (deep) femoral vein, femoral vein, pop liteal vein, peroneal veins, posterior tibial veins, and greater saphenous vein outflow are patent. The visualized portions of left common femoral vein, profunda femoral vein, femoral vein, popliteal v ein, peroneal veins, posterior tibial veins, and greater saphenous vein outflow are patent. IMPRESSION: 1. No deep venous thrombosis. Reviewed, dictated and finalized at location A.
--- NOTE | 2022-09-06 12:47 | ECG_ITS ---
Measurements Intervals [place] Rate: 100 P: 59 MO: 184 QRS: -4 QRSD: 153 T: 120 QT: 386 QTc: 499 Interpretive Statements SINUS TACHYCARDIA VENTRICULAR PREMATURE COMPLEXES LEFT BUNDLE BRANCH BLOCK BASELINE ARTIFACT- I, II, AVR, AVL, AVF ABNORMAL ECG COMPARED TO ECG 07/21/2022 14:29:48 SINUS TACHYCARDIA NOW PRESENT Electronically Signed On 09-06-2022 13:10:07 CDT by Arnaldo Huizar D.O.
[2022-09-06 13:52] LABS: Basophils Percent Auto 0.4 % (0.2-1.2); Eosinophils Absolute Auto 0.1 K/mm3 (0-0.3); Eosinophils Percent Auto 0.6 % (0-4.4); Hematocrit 39.6 % (37.0-47.0); Hemoglobin 12.5 g/dL (12.0-15.0); Immature Granulocyte Absolute 0.04 K/mm3 (0.00-0.031); Immature Granulocyte Percent A 0.4 % (0-0.5); Lymphocytes Absolute Auto 1.66 K/mm3 (0.9-3.2); Lymphocytes Percent Auto 16.1 % (18.3-44.2); Mean Corpuscular HGB Conc 31.6 g/dl (32-36); Mean Corpuscular Hemoglobin 29.3 pg (26-34); Mean Platelet Volume 12.4 fl (7.4-10.4); Monocytes Absolute Auto 0.5 K/mm3 (0.1-0.6); Monocytes Percent Auto 4.7 % (2.6-8.5); Neutrophils Percent Auto 77.8 % (45.5-73.1); Platelet Count Result 220 k/mm3 (150-375); Red Blood Count 4.26 M/mm3 (4.2-5.4); Red Cell Distribution Width 15.2 % (11.5-14.5); White Blood Count 10.3 K/mm3 (4.5-10.0)
[2022-09-06] MEDS: FUROSEMIDE INJ 40 MG/4 ML VIAL IV PUSH (14:03)
[2022-09-06 14:08] LABS: Prothrombin Time 13.3 Seconds (11.1-14.7)
[2022-09-06 14:11] LABS: Alanine Aminotransferase 50 U/L (6-35); Albumin Level 4.2 g/dL (3.5-5.1); Alkaline Phosphatase 58 U/L (38-126); Anion Gap 7 mmol/L (8-16); Aspartate Amino Transferase 45 U/L (14-36); Bilirubin,Total 0.8 mg/dL (0.2-1.3); Blood Urea Nitrogen 11 mg/dL (7-17); Calcium 8.7 mg/dL (8.4-10.2); Carbon Dioxide 24 mmol/L (22-30); Chloride 108 mmol/L (98-107); Estimated CRCL calculation 72 ml/min; Estimated Glomerular Filt Rate > 60; Glucose 119 mg/dL (65-110); Potassium 3.8 mmol/L (3.4-5.0); Sodium 139 mmol/L (137-145)
[2022-09-06 14:27] LABS: NT Pro B Type Natriuretic Pept 11500 pg/mL (19.9-100)
--- NOTE | 2022-09-06 15:36 | PM.IMHP ---
H&P: HPI History of Present Illness Date/Time: 09/06/22 15:36 Chief Complaint: Shortness of breath Narrative: This is a 77-year-old female patient who was discharged from this hospital on 07/22/2022. The patient was treated for pulmonary emboli and congestive heart failure at that time. The patient had been on Lasix here but was not discharged home with any Lasix. She had been started on Eliquis. She was started on metoprolol succinate and Entresto. The patient stated that she did follow-up with her detective investigator. No new medications were ordered at that time. The patient came to the emergency room today because she was complaining of more difficulty with breathing. She had increased swelling to her lower extremities. Her white count was noted to be 10.3. Her troponin was noted to be 0.050 and her BNP is 11,500. Chest x-ray was read as?Airspace and interstitial opacities in the mid and lower lung zones, consistent with mild pulmonary edema and basilar atelectasis versus pneumonia. 2. Small pleural effusions. 3. Cardiomegaly. The patient was given IV Lasix in the emergency room. The patient is currently on room air. The patient is being admitted to observation status on the date of service of 09/06/2022 Review of Systems Review of Systems: All systems reviewed & are unremarkable except as noted in HPI and below Constitutional: Constitutional: Reports as per HPI and Reports no additional constitutional complaints Eyes: Eyes: Reports as per HPI and Reports no additional eye complaints ENT: Reports system reviewed and no additional complaints, except as documented and Reports Normal hearing present Cardiovascular: Cardiovascular: Reports no additional cardiovascular complaints Respiratory: Respiratory: Reports no additional respiratory complaints and Reports no additional respiratory complaints Gastrointestinal: Gastrointestinal: Reports as per HPI and Reports no additional gastrointestinal complaints Musculoskeletal: Musculoskeletal: Reports no additional musculoskeletal complaints Integumentary/Breasts: Skin/Breast: Reports system reviewed and no additional complaints, except as docu and Reports as per HPI Neurologic: Reports system reviewed and no additional complaints, except as documented, Reports as per HPI and Reports Normal hearing present Psychiatric: Psychiatric: Reports no additional psychiatric complaints and Reports as per HPI Endocrine: Endocrine: Reports no additional endocrine complaints Hematologic/Lymphatic: Hematologic/Lymphatic: Reports no additional hematologic/lymphatic complaints Allergic/Immunologic: Allergic/Immunologic: Reports no additional allergic/immunologic complaints [facility] Past Medical History Medical History Abnormality of gait Atrial fibrillation Back pain with history of spinal surgery Benign essential HTN BPPV (benign paroxysmal positional vertigo) CHF (congestive heart failure), NYHA class I Chronic constipation Colon polyp Constipation by delayed colonic transit Dementia Encounter for screening colonoscopy GERD (gastroesophageal reflux disease) Lumbar spondylosis Obesity (BMI 30.0-34.9) Post-polypectomy bleeding PVC (premature ventricular contraction) Surgical History Surgical History H/O colonoscopy with polypectomy History of back surgery Laminectomy 2017 History of hemorrhoidectomy History of hysterectomy Family History Family History Grandparent Carcinoma of colon Mother Acute myocardial infarction Father Acute myocardial infarction Sibling Lung cancer Social History Social History Social History: Ms. Garcia lives at home in [place] with her daughter and . 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 She denies alcohol, tobacco, or other substance
--- NOTE | 2022-09-06 15:59 | ED.SOB ---
HPI - SOB/Dyspnea General Chief Complaint: Shortness of Breath/Dyspnea Stated Complaint: shortness of breath Time Seen by Provider: 09/06/22 13:31 History of Present Illness HPI Narrative: Patient with history of CHF presents because she has been having more difficulty breathing, especially with exertion, and lower extremity edema. This feels like the last time she had a heart failure exacerbation was admitted here few months ago. Not currently on any diuretics. Related Data Home Medications Medication Instructions Recorded Confirmed omeprazole 40 mg capsule,delayed 40 mg PO DAILY 07/21/22 07/21/22 release Allergies Allergy/AdvReac Type Severity Reaction Status Date / Time ibuprofen [From Motrin] Allergy Mild itch and Verified 07/21/22 19:08 hives phentyol AdvReac Severe Vomiting Uncoded 07/21/22 19:08 Review of Systems Review of Systems: CONST: No fever. HEENT: No sore throat C/V: No chest pain RESP: Shortness of breath GI: No nausea or vomiting : No dysuria. M/S: Bilateral lower extremity edema SKIN: No rash. NEURO: [No headache or focal numbness or weakness] PSYCH: [No depression] [facility] Past Medical History Medical History Abnormality of gait Atrial fibrillation Back pain with history of spinal surgery Benign essential HTN BPPV (benign paroxysmal positional vertigo) CHF (congestive heart failure), NYHA class I Chronic constipation Colon polyp Constipation by delayed colonic transit Dementia Encounter for screening colonoscopy GERD (gastroesophageal reflux disease) Lumbar spondylosis Obesity (BMI 30.0-34.9) Post-polypectomy bleeding PVC (premature ventricular contraction) Surgical History Surgical History H/O colonoscopy with polypectomy History of back surgery Laminectomy 2017 History of hemorrhoidectomy History of hysterectomy Family History Family History Grandparent Carcinoma of colon Mother Acute myocardial infarction Father Acute myocardial infarction Sibling Lung cancer Social History Social History Social History: Ms. Garcia lives at home in [place] with her daughter and . 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 She denies alcohol, tobacco, or other substance use. She designates her daughter, Luz Maria, to be her surrogate decision maker. She has 3 children. She has home health care PCP: Dr Mia Recinos Code Status: Full Code Smoking status: Never smoker Second hand tobacco smoke exposure: No Alcohol intake: never Substance use: never Substance use type: does not use Lack of Transportation: No Lack of Food: Never True Current Housing: I Have Housing Concerned About Future Housing: No Difficulty Paying Gas/Electric Bills: No Difficulty Paying for Meds: No Currently Unemployed: No Education: Associate Degree Difficulty w/ Childcare or Family Care: No Living arrangements: with family Occupation/Education: retired Gender identity (if verbalized by the patient): Female Sexual Orientation (if Verbalized by the Patient): Straight or Heterosexual Spiritual care concerns: No Exam Narrative: EXAMINATION OF ORGAN SYSTEMS/BODY AREAS: Constitutional: Vital signs per nursing GENERAL:[No acute distress, non-toxic appearing.] HEAD: Normal with no signs of head trauma. EYES: EOMI, conjunctiva normal ENT: Hearing grossly intact LUNGS: Nonlabored breathing. Crackles bilaterally HEART: [Regular rate and rhythm] ABD: [Soft], [nontender to palpation] EXT: Normal range of motion, bilateral lower extremity edema SKIN: [No rashes or lesions.] NEURO: [Alert and oriented x 3. No gross focal sensory or strength deficits.] PSYCH: Normal affect Course Vital Signs Vital signs: Vital Signs Temperature 98.3
--- NOTE | 2022-09-06 18:45 | ADMGEN ---
This patient, Kiki Garcia, was admitted to IMU Room 211-01 on 09/06/22 at 1840. Patient/family oriented to hospital policies and general routines including ID bracelet, bed and alarms, visiting hours, pain management, procedures, bathroom and other care routines, personal items, smoking policy, room service/diet, and visiting hours. Information on how to activate the Rapid Response Team has been discussed. Patient/Family are encouraged to report perceived risks to care and to ask questions if they do not understand what they are told or what they should do.
[2022-09-06] MEDS: SACUBITRIL/VALSARTAN 24-26 MG TABLET 1 TAB PO (21:50)
[2022-09-06] MEDS: ACETAMINOPHEN 500 MG TABLET PO (22:08)
[2022-09-06 22:57] LABS: Troponin I 0.058 ng/mL (0.000-0.034)
[2022-09-07] VITALS (17 sets, daily range): BP systolic 101–137; BP diastolic 66–93; PULSE 56–89; RESP 14–20; TEMP 36.3–37.1; O2SAT 93–100
[2022-09-07 04:53] LABS: Basophils Percent Auto 0.5 % (0.2-1.2); Eosinophils Absolute Auto 0.2 K/mm3 (0-0.3); Eosinophils Percent Auto 2.2 % (0-4.4); Hematocrit 36.6 % (37.0-47.0); Hemoglobin 11.5 g/dL (12.0-15.0); Immature Granulocyte Absolute 0.02 K/mm3 (0.00-0.031); Immature Granulocyte Percent A 0.3 % (0-0.5); Lymphocytes Absolute Auto 2.08 K/mm3 (0.9-3.2); Mean Corpuscular HGB Conc 31.4 g/dl (32-36); Mean Corpuscular Hemoglobin 28.5 pg (26-34); Mean Corpuscular Volume 90.6 fl (80-100); Mean Platelet Volume 12.6 fl (7.4-10.4); Monocytes Absolute Auto 0.4 K/mm3 (0.1-0.6); Monocytes Percent Auto 5.9 % (2.6-8.5); Neutrophils Absolute Auto 4.7 K/mm3 (1.3-6.7); Neutrophils Percent Auto 63.1 % (45.5-73.1); Platelet Count Result 187 k/mm3 (150-375); Red Blood Count 4.04 M/mm3 (4.2-5.4); Red Cell Distribution Width 14.7 % (11.5-14.5); White Blood Count 7.4 K/mm3 (4.5-10.0)
[2022-09-07 05:08] LABS: Alanine Aminotransferase 36 U/L (6-35); Albumin Level 3.6 g/dL (3.5-5.1); Alkaline Phosphatase 50 U/L (38-126); Anion Gap 5 mmol/L (8-16); Aspartate Amino Transferase 30 U/L (14-36); Bilirubin,Total 0.9 mg/dL (0.2-1.3); Blood Urea Nitrogen 10 mg/dL (7-17); Calcium 8.4 mg/dL (8.4-10.2); Carbon Dioxide 29 mmol/L (22-30); Chloride 106 mmol/L (98-107); Estimated CRCL calculation 74 ml/min; Estimated Glomerular Filt Rate > 60; Glucose 101 mg/dL (65-110); Potassium 3.1 mmol/L (3.4-5.0); Sodium 140 mmol/L (137-145)
[2022-09-07 05:09] LABS: Lactic Acid Reflex 1.1 mmol/L (0.7-2.0)
--- NOTE | 2022-09-07 08:49 | PCRCNOTE ---
Patient has CPAP order in but states she does not want to use in house unit.
[2022-09-07] MEDS: FUROSEMIDE INJ 40 MG/4 ML VIAL IV PUSH (09:06)
[2022-09-07] MEDS: SACUBITRIL/VALSARTAN 24-26 MG TABLET 1 TAB PO ×2 (09:12→20:29)
[2022-09-07] MEDS: PANTOPRAZOLE 40 MG TABLET PO ×2 (09:12→18:17)
[2022-09-07] MEDS: METOPROLOL SUCCINATE EXT REL 25 MG TABCR 75 MG PO (09:12)
[2022-09-07 09:36] LABS: Troponin I 0.046 ng/mL (0.000-0.034)
[2022-09-07] MEDS: POTASSIUM CHLORIDE 20 MEQ TABLET 40 MEQ PO ×2 (11:10→18:45)
--- NOTE | 2022-09-07 16:16 | PM.IMPN ---
Progress Note: A&P Assessment and Plan (1) Acute exacerbation of CHF (congestive heart failure): Code(s): I50.9 - Heart failure, unspecified Status: Acute Assessment and Plan: Echo from 07/22/2022 was read as the following1. Complete two-dimensional, color flow and Doppler transthoracic echocardiogram is performed. ? 2. Left ventricular chamber dimension is normal. ? 3. Left ventricular systolic function is moderately reduced, estimated at 30-35%. ? 4. There is moderately increased left ventricular wall thickness. ? 5. Left ventricular septal wall motion is abnormal with septal motion related to bundle branch block. ? 6. The left ventricular diastolic function is grade I diastolic dysfunction. ? 7. Global longitudinal strain is abnormal at -7 %. ? 8. Right ventricular chamber dimension is normal. ? 9. Right ventricular systolic function is normal. ? 10. There is moderate aortic valve sclerosis. ? 11. There is mild to moderate aortic valve regurgitation. ? 12. There is moderate mitral valve regurgitation. ? 13. There is mild tricuspid valve regurgitation. ? 14. There is mild pulmonic regurgitation. ? 15. Dilated inferior vena cava with >50% collapse upon inspiration consistent with elevated right atrial pressure, 8 mmHg. ? 16. There is small anterior pericardial effusion. There is systolic collapse of the right atrium, consistent with increased intrapericardial pressures. The patient has seen the heart care in the past. Continue with Entresto and metoprolol. Recently she was changed from metoprolol tartrate to metoprolol succinate. Her troponin was mildly elevated but I suspect this is due to her congestive heart failure. Repeat troponin. 09/07/2022 interval history: Patient is 7-year-old female with history of moderate reduced ejection fraction 35-40% presented with complaint of shortness of breath and lower extremity edema patient was started on IV Lasix patient states her symptoms are improving most likely patient acute on chronic systolic congestive Heart failure, continue to diurese the and monitor, patient has elevated tropes mild and flat, most likely demand ischemia due to exacerbation of congestive heart failure unlikely acute coronary syndrome, lower extremity Doppler are negative for DVT, a PT OT evaluate the and further recommendation to follow. (2) Atrial fibrillation: Code(s): I48.91 - Unspecified atrial fibrillation Status: Acute Assessment and Plan: The patient is on metoprolol and Xarelto. (3) Pulmonary emboli: Code(s): I26.99 - Other pulmonary embolism without acute cor pulmonale Status: Acute Assessment and Plan: Continue with Xarelto. (4) WENDY (obstructive sleep apnea): Code(s): G47.33 - Obstructive sleep apnea (adult) (pediatric) Status: Acute Assessment and Plan: Home settings for CPAP/BiPAP (5) Benign essential HTN: Code(s): I10 - Essential (primary) hypertension Status: Chronic Assessment and Plan: Continue with metoprolol and she is on Entresto. Subjective Date/time seen: 09/07/22 16:16 Interval history: Shortness of breath HPI: Narrative: This is a 77-year-old female patient who was discharged from this hospital on 07/22/2022.? The patient was treated for pulmonary emboli and congestive heart failure at that time.? The patient had been on Lasix here but was not discharged home with any Lasix.? She had been started on Eliquis.? She was started on metoprolol succinate and Entresto.? The patient stated that she did follow-up with her journey lineman.? No new medications were ordered at that time. The patient came to the emergency room today because she was complaining of more difficulty with breathing.? She had increased swelling to her lower extremities.? Her white count was noted to be 10.3.? Her troponin was noted to be 0.050 and her BNP is 11,500. Chest x-ray was read as?Airspace and interstitial opacities in the
[2022-09-07 16:53] LABS: Magnesium 2.1 mg/dL (1.6-2.3); Potassium 3.3 mmol/L (3.4-5.0)
[2022-09-07] MEDS: RIVAROXABAN 20 MG TABLET PO (18:17)
[2022-09-08] VITALS (7 sets, daily range): BP systolic 126–139; BP diastolic 82–89; PULSE 68–92; RESP 20; TEMP 36.4; O2SAT 95–96
[2022-09-08 05:23] LABS: Anion Gap 4 mmol/L (8-16); Blood Urea Nitrogen 10 mg/dL (7-17); Calcium 8.3 mg/dL (8.4-10.2); Carbon Dioxide 27 mmol/L (22-30); Chloride 105 mmol/L (98-107); Estimated CRCL calculation 65 ml/min; Estimated Glomerular Filt Rate > 60; Glucose 113 mg/dL (65-110); Potassium 3.7 mmol/L (3.4-5.0); Sodium 136 mmol/L (137-145)
[2022-09-08] MEDS: SACUBITRIL/VALSARTAN 24-26 MG TABLET 1 TAB PO (09:30)
[2022-09-08] MEDS: PANTOPRAZOLE 40 MG TABLET PO (09:30)
[2022-09-08] MEDS: FUROSEMIDE INJ 40 MG/4 ML VIAL IV PUSH (09:31)
--- NOTE | 2022-09-08 11:30 | PM.DS ---
DS: Admitting Diagnosis Discharge Date September 08, 2022 Admitting Diagnosis Acute on chronic CHF exacerbation. Systolic. DS: Discharge Diagnosis Discharge Diagnosis (1) Acute exacerbation of CHF (congestive heart failure): Code(s): I50.9 - Heart failure, unspecified Status: Acute Assessment and Plan: Echo from 07/22/2022 was read as the following1. Complete two-dimensional, color flow and Doppler transthoracic echocardiogram is performed. ? 2. Left ventricular chamber dimension is normal. ? 3. Left ventricular systolic function is moderately reduced, estimated at 30-35%. ? 4. There is moderately increased left ventricular wall thickness. ? 5. Left ventricular septal wall motion is abnormal with septal motion related to bundle branch block. ? 6. The left ventricular diastolic function is grade I diastolic dysfunction. ? 7. Global longitudinal strain is abnormal at -7 %. ? 8. Right ventricular chamber dimension is normal. ? 9. Right ventricular systolic function is normal. ? 10. There is moderate aortic valve sclerosis. ? 11. There is mild to moderate aortic valve regurgitation. ? 12. There is moderate mitral valve regurgitation. ? 13. There is mild tricuspid valve regurgitation. ? 14. There is mild pulmonic regurgitation. ? 15. Dilated inferior vena cava with >50% collapse upon inspiration consistent with elevated right atrial pressure, 8 mmHg. ? 16. There is small anterior pericardial effusion. There is systolic collapse of the right atrium, consistent with increased intrapericardial pressures. The patient has seen the heart care in the past. Continue with Entresto and metoprolol. Recently she was changed from metoprolol tartrate to metoprolol succinate. Her troponin was mildly elevated but I suspect this is due to her congestive heart failure. Repeat troponin. 09/07/2022 interval history: Patient is 7-year-old female with history of moderate reduced ejection fraction 35-40% presented with complaint of shortness of breath and lower extremity edema patient was started on IV Lasix patient states her symptoms are improving most likely patient acute on chronic systolic congestive Heart failure, continue to diurese the and monitor, patient has elevated tropes mild and flat, most likely demand ischemia due to exacerbation of congestive heart failure unlikely acute coronary syndrome, lower extremity Doppler are negative for DVT, a PT OT evaluate the and further recommendation to follow. (2) Atrial fibrillation: Code(s): I48.91 - Unspecified atrial fibrillation Status: Acute Assessment and Plan: The patient is on metoprolol and Xarelto. (3) Pulmonary emboli: Code(s): I26.99 - Other pulmonary embolism without acute cor pulmonale Status: Acute Assessment and Plan: Continue with Xarelto. (4) WENDY (obstructive sleep apnea): Code(s): G47.33 - Obstructive sleep apnea (adult) (pediatric) Status: Acute Assessment and Plan: Home settings for CPAP/BiPAP (5) Benign essential HTN: Code(s): I10 - Essential (primary) hypertension Status: Chronic Assessment and Plan: Continue with metoprolol and she is on Entresto. DS: Summary Hospital Course Hospital Course: Patient was admitted for mild exacerbation of systolic CHF. Patient was started on IV diuretic therapy. Did exceptionally well, ambulating without any issues and not requiring oxygen. Will need follow-up with Cardiology, started on furosemide 40mg and potassium. Otherwise she is on all the appropriate cardiac medications and can be discharged. Time Spent with Patient Time attestation: Total time spent providing and/or coordinating discharge services: Exam Narrative: Morbidly obese Patient is comfortable, NAD HEENT: eyes are clear and none icteric LUNGS: Bilateral fair entry with rales and rhonchi HEART: RR S1S2 ABD: Obese distended Lower extremities: edema SKIN: nonjaundiced Neur
== END 2022-09-08 12:22 | disposition home or self-care (01) | DRG 291 ==
LOC: ANHED 16:02 → ANHIMU 16:31
PROVIDERS: Nurse Practitioner; Admitting Provider Family Medicine; Emergency Provider Emergency Medicine; PCP Family Medicine; Referring Provider Internal Medicine Cardiovascular Disease; Visit Provider Chiropractor
DX: I11.0 Hypertensive heart disease with heart failure (principal); I50.23 Acute on chronic systolic (congestive) heart failure; I24.8 Other forms of acute ischemic heart disease; G47.33 Obstructive sleep apnea (adult) (pediatric); F03.90 Unspecified dementia, unspecified severity, without behavioral disturbance, psychotic disturbance, mood disturbance, and anxiety; K21.9 Gastro-esophageal reflux disease without esophagitis; M47.816 Spondylosis without myelopathy or radiculopathy, lumbar region; I48.91 Unspecified atrial fibrillation; E66.9 Obesity, unspecified; Z68.31 Body mass index [BMI] 31.0-31.9, adult; Z90.710 Acquired absence of both cervix and uterus; Z86.711 Personal history of pulmonary embolism
CPT/HCPCS: 36415; 71046; 71275; 80048; 80053; 83605; 83735; 83880; 84132; 84484; 85025; 85610; 85730; 93005; 93970; 96374; 96376; 99285; A9270; G0378; J1940; Q9967

== ENCOUNTER 2022-11-23 12:05 | Observation (INO) | payer MEDICARE, MEDICAID, SELFPAY ==
[2022-11-23] VITALS (16 sets, daily range): BP systolic 125–157; BP diastolic 78–109; PULSE 48–118; RESP 14–20; TEMP 36.1–37.1; O2SAT 97–100; BMI 32.8
--- NOTE | ~2022-11-23 | CT_ITS ---
CT ANGIOGRAM NECK AND HEAD History: Vertigo. Technique: Axial noncontrast imaging of the brain was performed. Serial spiral axial images through t he head and neck were then obtained during arterial phase IV injection of 100 cc of Omnipaque 350. 3- D postprocessing and MIP images were then reconstructed on the remote workstation. Dose reduction marino hnique was used on this scan by utilizing automated exposure control and iterative reconstruction marino hnique. The dose-length product (DLP) was 1916.16 mGy-cm. COMPARISON: 02/01/2022 CTA neck findings: Bilateral vertebral arteries are patent. Bilateral common carotid, internal carot id, and external carotid arteries are patent. No large vessel occlusion. No stenosis or aneurysm. The proximal right internal carotid artery demonstrates 0% stenosis relative to the normal distal artery lumen diameter. The proximal left internal carotid artery demonstrates 0% stenosis relative to the n ormal distal artery lumen diameter. There is probable partially imaged pericardial effusion. Marked enlargement of the right thyroid lobe is present, with extensive substernal/mediastinal extension, similar to prior chest CT dated . Large cystic/necrotic nodule in the mediastinum to the right of trachea measures up to approximate ly 5 cm in diameter. CTA head findings: Distal vertebral arteries, basilar artery, and posterior cerebral arteries are pat ent. Distal internal carotid arteries, middle cerebral arteries, and anterior cerebral arteries are p atent. No large vessel occlusion. No stenosis or aneurysm. Axial noncontrast imaging of the brain demonstrates no acute infarct, intracranial hemorrhage, or mas s lesion. There are chronic microvascular ischemic changes in the periventricular white matter bilate rally. Ventricles and subarachnoid spaces are nondilated. Impression: No significant vascular abnormality identified. Large substernal extension of the right thyroid lobe with large cystic or possibly necrotic nodule. A ppearance overall is similar to prior chest CT dated 09/07/2022. Probable partially imaged pericardial effusion. Reviewed, dictated and finalized at location M. Impression: No significant vascular abnormality identified. Large substernal extension of the right thyroid lobe with large cystic or possi chichi necrotic nodule. Appearance overall is similar to prior chest CT dated 2022. Probable partially imaged pericardial effusion.
--- NOTE | ~2022-11-23 | XR_ITS ---
Clinical Indication: Shortness of breath AP and lateral views of the chest: Comparison: 09/06/2022 Findings: The lungs are clear, without evidence of focal consolidation or pleural effusion. Cardiome diastinal silhouette is stable, enlarged. Bones and soft tissues are unremarkable. Impression: Clear lungs. Stable cardiomegaly. Reviewed, dictated and finalized at location . Impression: Clear lungs. Stable cardiomegaly.
--- NOTE | 2022-11-23 12:13 | PC.NURSE ---
To rm 1 per wc with c/o dizziness since waking up this am. Daughter states that pt is not compliant with her meds.
--- NOTE | 2022-11-23 12:15 | ECG_ITS ---
Measurements Intervals [place] Rate: 91 P: VT: 0 QRS: -17 QRSD: 157 T: 136 QT: 393 QTc: 485 Interpretive Statements SINUS RHYTHM ATRIAL COUPLET, ATRIAL AND VENTRICULAR PREMATURE COMPLEXES LEFT BUNDLE BRANCH BLOCK BASELINE ARTIFACT- I, II, III, AVR, AVL, AVF ABNORMAL ECG COMPARED TO ECG 09/06/2022 12:59:05 NO SIGNIFICANT CHANGES Electronically Signed On 11-23-2022 12:49:20 CDT by Arnaldo Huizar D.O.
[2022-11-23 12:28] LABS: Basophils Absolute Auto 0.1 K/mm3 (0.0-0.1); Basophils Percent Auto 0.6 % (0.2-1.2); Eosinophils Percent Auto 0.3 % (0-4.4); Hematocrit 41.2 % (37.0-47.0); Hemoglobin 13.3 g/dL (12.0-15.0); Immature Granulocyte Absolute 0.02 K/mm3 (0.00-0.031); Immature Granulocyte Percent A 0.2 % (0-0.5); Lymphocytes Absolute Auto 1.62 K/mm3 (0.9-3.2); Lymphocytes Percent Auto 18.5 % (18.3-44.2); Mean Corpuscular HGB Conc 32.3 g/dl (32-36); Mean Corpuscular Hemoglobin 29.5 pg (26-34); Mean Corpuscular Volume 91.4 fl (80-100); Monocytes Absolute Auto 0.3 K/mm3 (0.1-0.6); Monocytes Percent Auto 3.4 % (2.6-8.5); Neutrophils Absolute Auto 6.7 K/mm3 (1.3-6.7); Platelet Count Result 255 k/mm3 (150-375); Red Blood Count 4.51 M/mm3 (4.2-5.4); Red Cell Distribution Width 14.6 % (11.5-14.5); White Blood Count 8.8 K/mm3 (4.5-10.0)
--- NOTE | 2022-11-23 12:32 | ED.DIZZY ---
HPI - Dizziness General Chief Complaint: Dizziness Stated Complaint: dizziness, BLE swelling Time Seen by Provider: 11/23/22 12:22 History of Present Illness HPI Narrative: Patient is a 77-year-old female with a history of A-fib on Xarelto, CHF, hypertension, GERD presenting with near syncope. Patient states that she woke in the middle of the night and felt very lightheaded. States that she did have a bit of vertigo as well. Reports having some substernal pain that she attributed to GERD as well as shortness of breath. She was able to go back to bed but then she mention this to her family who brought her in for evaluation. According to family, she has been struggling with symptoms related to her A-fib including lightheadedness and shortness of breath. 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 Currently, the patient states that she feels generally weak but she otherwise denies acute complaints. No pain or current lightheadedness. Related Data Home Medications Medication Instructions Recorded Confirmed omeprazole 40 mg capsule,delayed 40 mg PO DAILY 07/21/22 11/23/22 release acetaminophen 500 mg tablet 500 mg PO Q6H PRN Pain (Scale 09/06/22 11/23/22 (Tylenol Extra Strength) Score 1-3) rivaroxaban 20 mg tablet (Xarelto) 20 mg PO QPM 09/06/22 11/23/22 hydrocodone 5 mg-acetaminophen 325 1 tablet PO Q8H PRN Pain (Scale 11/23/22 11/23/22 mg tablet Score 7-10) metoprolol succinate 25 mg 25 mg PO QAM 11/23/22 11/23/22 tablet,extended release 24 hr (Toprol XL) polyethylene glycol 3350 17 gram 17 g PO DAILY 11/23/22 11/23/22 oral powder packet (Miralax) sacubitril 49 mg-valsartan 51 mg 1 tablet PO Q12H 11/23/22 11/23/22 tablet (Entresto) Allergies Allergy/AdvReac Type Severity Reaction Status Date / Time ibuprofen [From Motrin] Allergy Mild itch and Verified 11/23/22 12:16 hives phentyol AdvReac Severe Vomiting Uncoded 11/23/22 12:16 Review of Systems Review of Systems: All systems reviewed & are unremarkable except as noted in HPI and below PMFSH Past Medical History Medical History (Updated 12/02/22 @ 14:52 by Ingrid Wang MD) Abnormality of gait Atrial fibrillation Back pain with history of spinal surgery Benign essential HTN BPPV (benign paroxysmal positional vertigo) CHF (congestive heart failure), NYHA class I Chronic constipation Colon polyp Constipation by delayed colonic transit Encounter for screening colonoscopy GERD (gastroesophageal reflux disease) Lumbar spondylosis Obesity (BMI 30.0-34.9) Post-polypectomy bleeding PVC (premature ventricular contraction) Syncope Surgical History Surgical History H/O colonoscopy with polypectomy History of back surgery Laminectomy 2017 History of hemorrhoidectomy History of hysterectomy Family History Family History Grandparent Carcinoma of colon Mother Acute myocardial infarction Father Acute myocardial infarction Sibling Lung cancer Social History Social History (Updated 11/23/22 @ 23:38 by Isabel Walden NP) Social History: Ms. Garcia lives at home in [place] with her daughter and X . 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 She denies alcohol, tobacco, or other substance use. She designates her daughter, Luz Maria, to be her surrogate decision maker. She has 3 children. She has home health care PCP: Dr Mia Recinos Code Status: Full Code Years smoked: 30 Smoking status: Former smoker Tobacco type: cigarettes Second hand tobacco smoke exposure: No Alcohol intake: never Substance use: never Substance use type: does not use Lack of Transportation: No Lack of Food: Never True Current Housing: I Have Housing Concerned About Future Housing: No Difficulty Paying Gas/Electric Bills: No Difficulty Paying for Meds: No Currently Unemployed: No Educat
[2022-11-23 12:52] LABS: INR 0.9; Prothrombin Time 12.6 Seconds (11.1-14.7)
[2022-11-23 12:53] LABS: Partial Thromboplastin Time 25.9 SECONDS (22.3-36.8)
[2022-11-23 12:55] LABS: Platelet Estimate Adequate (Adequate)
[2022-11-23 12:56] LABS: Ovalocytes 1+ (NORMAL)
[2022-11-23 12:57] LABS: Anisocytosis 1+ (NORMAL); Schistocytes None Seen (NORMAL)
[2022-11-23 13:13] LABS: Alanine Aminotransferase 16 U/L (6-35); Alkaline Phosphatase 44 U/L (38-126); Anion Gap 7 mmol/L (8-16); Aspartate Amino Transferase 22 U/L (14-36); Bilirubin,Total 0.6 mg/dL (0.2-1.3); Blood Urea Nitrogen 12 mg/dL (7-17); Calcium 8.7 mg/dL (8.4-10.2); Carbon Dioxide 28 mmol/L (22-30); Chloride 104 mmol/L (98-107); Estimated CRCL calculation 73 ml/min; Estimated Glomerular Filt Rate > 60; Glucose 127 mg/dL (65-110); Lipase 28 U/L (23-300); Magnesium 1.8 mg/dL (1.6-2.3); Potassium 3.7 mmol/L (3.4-5.0); Sodium 139 mmol/L (137-145)
[2022-11-23 13:18] LABS: NT Pro B Type Natriuretic Pept 3860 pg/mL (19.9-100)
[2022-11-23 13:20] LABS: NT Pro B Type Natriuretic Pept 3890 pg/mL (19.9-100); Troponin I 0.012 ng/mL (0.000-0.034)
[2022-11-23 13:43] LABS: Influenza A QL RT-PCR Negative (Negative); Influenza B QL RT-PCR Negative (Negative); SARS-CoV-2 RNA PCR Negative (Negative)
[2022-11-23 14:13] LABS: Appearance Urine Clear (Clear); Bacteria Urine None Seen /hpf; Bilirubin Urine Negative (Negative); Blood Urine 2+ (Negative); Color Urine Yellow (Yellow); Glucose Urine UA Negative (Negative); Ketones Urine Negative (Negative); Leukocyte Esterase Ur Negative LEU/UL (Negative); Nitrate Urine Negative (Negative); Non Pathogenic Casts 0-2; Protein Urine Negative (Negative); RBC Urine 21-50 /hpf (0-2); Specific Grav Ur 1.017 (1.001-1.035); Squamous Epithelial Cell Urine None seen /hpf (Few); WBC Urine 0-5 /hpf; pH Urine 6.5 (5.0-9.0)
[2022-11-23 14:34] LABS: Add Urine Microscopic? YES
--- NOTE | 2022-11-23 17:06 | ADMGEN ---
This patient, Kiki Garcia, was admitted to IMU Room 209-01 @ 1650. Patient oriented to hospital policies and general routines including ID bracelet, bed and alarms, visiting hours, pain management, procedures, bathroom and other care routines, personal items, smoking policy, room service/diet, and visiting hours. Information on how to activate the Rapid Response Team has been discussed. Patient encouraged to report perceived risks to care and to ask questions if they do not understand what they are told or what they should do.
--- NOTE | 2022-11-23 19:06 | PM.IMHP ---
H&P: HPI History of Present Illness Date/Time: 11/23/22 19:06 Chief Complaint: Dizziness Narrative: This is a 77-year-old female patient who does have a history of AFib on Xarelto, CHF hypertension GERD and benign postural vertigo. The patient had a near syncopal episode today. The patient woke up in the middle night felt very lightheaded. I also ambulated the patient to the bathroom and she having ataxia as well. The patient was also having some substernal pain that she attributed to acid reflux. She also developed some shortness of breath. The patient stated that she did go back to bed and the Ramírez night. However the patient's family stated she needed to come in to be evaluated today because of her chest pain and dizziness. The patient stated that she felt very weak. Her blood sugar was only elevated to 127. Troponin negative x2. BNP 3860. Influenza a B and COVID her own negative. Chest x-ray was read as clear lungs stable cardiomegaly. Head neck CTANo significant vascular abnormality identified. Large substernal extension of the right thyroid lobe with large cystic or possibly necrotic nodule. Appearance overall is similar to prior chest CT dated 09/07/2022. Probable partially imaged pericardial effusion. The patient is being admitted to observation status on the date of service is 11/23/2022. Review of Systems Review of Systems: All systems reviewed & are unremarkable except as noted in HPI and below Constitutional: Constitutional: Reports as per HPI and Reports no additional constitutional complaints Eyes: Eyes: Reports as per HPI and Reports no additional eye complaints ENT: Reports system reviewed and no additional complaints, except as documented and Reports Normal hearing present Cardiovascular: Cardiovascular: Reports no additional cardiovascular complaints Respiratory: Respiratory: Reports no additional respiratory complaints and Reports no additional respiratory complaints Gastrointestinal: Gastrointestinal: Reports as per HPI and Reports no additional gastrointestinal complaints Musculoskeletal: Musculoskeletal: Reports no additional musculoskeletal complaints Integumentary/Breasts: Skin/Breast: Reports system reviewed and no additional complaints, except as docu and Reports as per HPI Neurologic: Reports system reviewed and no additional complaints, except as documented, Reports as per HPI and Reports Normal hearing present Psychiatric: Psychiatric: Reports no additional psychiatric complaints and Reports as per HPI Endocrine: Endocrine: Reports no additional endocrine complaints Hematologic/Lymphatic: Hematologic/Lymphatic: Reports no additional hematologic/lymphatic complaints Allergic/Immunologic: Allergic/Immunologic: Reports no additional allergic/immunologic complaints [facility] Past Medical History Medical History (Updated 11/23/22 @ 23:46 by Isabel Walden NP) Abnormality of gait Atrial fibrillation Back pain with history of spinal surgery Benign essential HTN BPPV (benign paroxysmal positional vertigo) CHF (congestive heart failure), NYHA class I Chronic constipation Colon polyp Constipation by delayed colonic transit Encounter for screening colonoscopy GERD (gastroesophageal reflux disease) Lumbar spondylosis Obesity (BMI 30.0-34.9) Post-polypectomy bleeding PVC (premature ventricular contraction) Syncope Surgical History Surgical History H/O colonoscopy with polypectomy History of back surgery Laminectomy 2017 History of hemorrhoidectomy History of hysterectomy Family History Family History Grandparent Carcinoma of colon Mother Acute myocardial infarction Father Acute myocardial infarction Sibling Lung cancer Social History Social History (Updated 11/23/22 @ 23:38 by Isabel Walden NP) Social History: Ms. Garcia lives at home in [place]
[2022-11-23 19:27] LABS: Troponin I 0.019 ng/mL (0.000-0.034)
[2022-11-23] MEDS: SACUBITRIL/VALSARTAN 49-51 MG TABLET 1 TABLET PO (22:23)
[2022-11-23] MEDS: RIVAROXABAN 20 MG TABLET PO (22:23)
[2022-11-24] VITALS (7 sets, daily range): BP systolic 114–154; BP diastolic 74–99; PULSE 87–110; RESP 18–20; TEMP 36–36.6; O2SAT 95–99
--- NOTE | 2022-11-24 01:28 | PCRCNOTE ---
Pt declines use of our hospital bipap/cpap unit at this time. Pt in no distress
[2022-11-24 04:48] LABS: Basophils Percent Auto 0.5 % (0.2-1.2); Eosinophils Absolute Auto 0.2 K/mm3 (0-0.3); Eosinophils Percent Auto 2.1 % (0-4.4); Hematocrit 38.2 % (37.0-47.0); Hemoglobin 12.1 g/dL (12.0-15.0); Immature Granulocyte Absolute 0.02 K/mm3 (0.00-0.031); Immature Granulocyte Percent A 0.2 % (0-0.5); Lymphocytes Absolute Auto 2.23 K/mm3 (0.9-3.2); Mean Corpuscular HGB Conc 31.7 g/dl (32-36); Mean Corpuscular Hemoglobin 28.9 pg (26-34); Mean Corpuscular Volume 91.4 fl (80-100); Mean Platelet Volume 12.1 fl (7.4-10.4); Monocytes Absolute Auto 0.5 K/mm3 (0.1-0.6); Monocytes Percent Auto 6.1 % (2.6-8.5); Neutrophils Absolute Auto 5.6 K/mm3 (1.3-6.7); Neutrophils Percent Auto 65.1 % (45.5-73.1); Platelet Count Result 219 k/mm3 (150-375); Red Blood Count 4.18 M/mm3 (4.2-5.4); Red Cell Distribution Width 14.7 % (11.5-14.5); White Blood Count 8.6 K/mm3 (4.5-10.0)
[2022-11-24 04:57] LABS: Lactic Acid Reflex 1.3 mmol/L (0.7-2.0)
[2022-11-24 04:58] LABS: Alanine Aminotransferase 15 U/L (6-35); Albumin Level 3.8 g/dL (3.5-5.1); Alkaline Phosphatase 57 U/L (38-126); Anion Gap 7 mmol/L (8-16); Aspartate Amino Transferase 19 U/L (14-36); Bilirubin,Total 0.4 mg/dL (0.2-1.3); Blood Urea Nitrogen 10 mg/dL (7-17); Calcium 8.7 mg/dL (8.4-10.2); Carbon Dioxide 26 mmol/L (22-30); Chloride 107 mmol/L (98-107); Estimated CRCL calculation 62 ml/min; Estimated Glomerular Filt Rate > 60; Glucose 118 mg/dL (65-110); Magnesium 1.9 mg/dL (1.6-2.3); Potassium 3.1 mmol/L (3.4-5.0); Sodium 140 mmol/L (137-145)
[2022-11-24] MEDS: polyethylene glycoL 3350 17 GM POWD.PACK PO (08:10)
[2022-11-24] MEDS: POTASSIUM CHLORIDE 20 MEQ ER TABLET PO ×2 (08:11→10:13)
[2022-11-24] MEDS: PANTOPRAZOLE 40 MG TABLET PO (08:11)
[2022-11-24] MEDS: FUROSEMIDE 40 MG TABLET PO (08:11)
[2022-11-24] MEDS: METOPROLOL SUCCINATE EXT REL 25 MG TABCR PO (08:12)
[2022-11-24] MEDS: SACUBITRIL/VALSARTAN 49-51 MG TABLET 1 TABLET PO (08:12)
--- NOTE | 2022-11-24 10:01 | PM.DS ---
DS: Admitting Diagnosis Discharge Date 11/24/2022 Admitting Diagnosis Dizziness DS: Discharge Diagnosis Discharge Diagnosis (1) CHF (congestive heart failure), NYHA class I: Qualifiers: Congestive heart failure type: combined Congestive heart failure chronicity: chronic Qualified Code(s): I50.42 - Chronic combined systolic (congestive) and diastolic (congestive) heart failure Code(s): I50.9 - Heart failure, unspecified Status: Acute (2) Atrial fibrillation: Qualifiers: Atrial fibrillation type: paroxysmal Qualified Code(s): I48.0 - Paroxysmal atrial fibrillation Code(s): I48.91 - Unspecified atrial fibrillation Status: Acute (3) BPPV (benign paroxysmal positional vertigo): Code(s): H81.10 - Benign paroxysmal vertigo, unspecified ear Status: Acute DS: Summary Hospital Course Hospital Course: This is a 77-year-old female patient who does have a history of AFib on Xarelto, CHF hypertension GERD and benign postural vertigo.? The patient had a near syncopal episode today.? Her blood sugar was only elevated to 127.? Troponin negative x2.? BNP 3860.? Influenza a B and COVID her own negative.? Chest x-ray was read as clear lungs stable cardiomegaly.? Head neck CTA: No significant vascular abnormality identified. Large substernal extension of the right thyroid lobe with large cystic or possibly necrotic nodule. Appearance overall is similar to prior chest CT dated 09/07/2022. Probable partially imaged pericardial effusion.? Patient was admitted for overnight observation. This morning she is stable. Has no dizziness. She has a history of BPPV which is what she had this time. Will consult PT for Cesar-Hallpike maneuver and then discharge the patient home Time Spent with Patient Time attestation: Total time spent providing and/or coordinating discharge services: DS: Data Data Completed and Pending Labs on day of discharge: Labs from last 24 hours 11/24/22 11/23/22 11/23/22 03:50 18:48 15:48 WBC 8.6 RBC 4.18 L Hgb 12.1 Hct 38.2 MCV 91.4 MCH 28.9 MCHC 31.7 L RDW 14.7 H Plt Count 219 MPV 12.1 H Immature Gran % (Auto) 0.2 Neut % (Auto) 65.1 Lymph % (Auto) 26.0 Lawrence % (Auto) 6.1 Eos % (Auto) 2.1 Baso % (Auto) 0.5 Lymph # (Auto) 2.23 Lawrence # (Auto) 0.5 Eos # (Auto) 0.2 Baso # (Auto) 0.0 Abs Immat Gran (auto) 0.02 Absolute Neuts (auto) 5.6 Absolute Nucleated RBC 0.0 Nucleated RBC % 0.0 Platelet Estimate Anisocytosis Ovalocytes Schistocytes PT INR APTT Sodium 140 Potassium 3.1 L Chloride 107 Carbon Dioxide 26 Anion Gap 7 L BUN 10 Creatinine 0.70 Estim Creat Clear Calc 62 Estimated GFR > 60 Glucose 118 H Lactic Acid 1.3 Calcium 8.7 Magnesium 1.9 Total Bilirubin 0.4 AST 19 ALT 15 Alkaline Phosphatase 57 Troponin I 0.019 D Cancelled NT-Pro-B Natriuret Pep Total Protein 7.0 Albumin 3.8 Lipase TSH (Reflex) 1.170 Urine Color Urine Appearance Urine pH Ur Specific [place] Urine Protein Urine Glucose (UA) Urine Ketones Ur Blood (Man) Urine Nitrate Urine Bilirubin Urine Urobilinogen Leukocyte Esterase Rfl Urine RBC Urine WBC Ur Squamous Epith Cells Urine Bacteria Urine Casts Influenza A (RT-PCR) Influenza B (RT-PCR) SARS-CoV-2 RNA (RT-PCR) 11/23/22 11/23/22 11/23/22 13:46 12:49 12:49 WBC RBC Hgb Hct MCV MCH MCHC RDW Plt Count MPV Immature Gran % (Auto) Neut % (Auto) Lymph % (Auto) Lawrence % (Auto) Eos % (Auto) Baso % (Auto) Lymph # (Auto) Lawrence # (Auto) Eos # (Auto) Baso # (Auto) Abs Immat Gran (auto) Absolute Neuts (auto) Absolute Nucleated RBC Nucleated RBC % Platelet Estimate Anisocytosis Ovalocytes Schistocytes PT
--- NOTE | 2022-11-24 10:26 | PCPTNOTE ---
received PT orders. Met with pt, she reports only time she had dizziness was when she came to ER, other than that, head is fine now. She has had out pt PT in the past for dizziness and wants to do out pt therapy. At this time, she does not want the BPPV test, feeling good now and do not want to stir up any dizziness, is going home soon. Discussed pt with Cait CHAMPION, she will contact dr and request out pt PT for vestibular therapy for BPPV Discussed with pt that if she is feeling well and no further issues with dizziness, she does not have to come in for treatment. She knows safety techniques of holding position and keeping eyes open. She has had dizziness in the past and has meclazine at home and knows how to handle acute episodes. PT eval was not performed due to above.
--- NOTE | 2022-11-24 11:34 | PC.NURSE ---
called Dr. Dong informed that pt wants to vestibular study as outpt. also informed waiting for cardiology to see pt before discharge- informed to cancel consult and discharge pt home
== END 2022-11-24 12:02 | disposition home or self-care (01) ==
LOC: ANHED 13:46 → ANHIMU 16:15
PROVIDERS: Nurse Practitioner; Admitting Provider Student in an Organized Health Care Education/Training Program; Emergency Provider Emergency Medicine; PCP Family Medicine; Visit Provider Hospitalist
DX: I11.0 Hypertensive heart disease with heart failure (principal); I50.42 Chronic combined systolic (congestive) and diastolic (congestive) heart failure; I48.0 Paroxysmal atrial fibrillation; H81.10 Benign paroxysmal vertigo, unspecified ear; R27.0 Ataxia, unspecified; I49.3 Ventricular premature depolarization; R55 Syncope and collapse; I44.7 Left bundle-branch block, unspecified; R00.0 Tachycardia, unspecified; R94.31 Abnormal electrocardiogram [ECG] [EKG]; I26.99 Other pulmonary embolism without acute cor pulmonale; K21.9 Gastro-esophageal reflux disease without esophagitis; R06.02 Shortness of breath; Z20.822 Contact with and (suspected) exposure to COVID-19; R07.9 Chest pain, unspecified; I08.3 Combined rheumatic disorders of mitral, aortic and tricuspid valves; E04.1 Nontoxic single thyroid nodule; R53.1 Weakness; G47.33 Obstructive sleep apnea (adult) (pediatric); Z99.89 Dependence on other enabling machines and devices; K59.09 Other constipation; F03.90 Unspecified dementia, unspecified severity, without behavioral disturbance, psychotic disturbance, mood disturbance, and anxiety; E66.9 Obesity, unspecified; Z68.32 Body mass index [BMI] 32.0-32.9, adult; Z87.891 Personal history of nicotine dependence; Z79.1 Long term (current) use of non-steroidal anti-inflammatories (NSAID); Z79.01 Long term (current) use of anticoagulants; Z79.891 Long term (current) use of opiate analgesic; Z79.899 Other long term (current) drug therapy
CPT/HCPCS: 36415; 70496; 70498; 71046; 80053; 81001; 83605; 83690; 83735; 83880; 84443; 84484; 85025; 85610; 85730; 87636; 93005; 99285; A9270; G0378; Q9967

== ENCOUNTER 2022-12-15 10:06 | Outpatient (CLI) | payer MEDICARE, MEDICAID, SELFPAY ==
[2022-12-15 11:25] LABS: Anion Gap 5 mmol/L (8-16); Blood Urea Nitrogen 14 mg/dL (7-17); Calcium 8.7 mg/dL (8.4-10.2); Carbon Dioxide 27 mmol/L (22-30); Chloride 104 mmol/L (98-107); Estimated Glomerular Filt Rate > 60; Glucose 101 mg/dL (65-110); Potassium 3.5 mmol/L (3.4-5.0); Sodium 136 mmol/L (137-145)
[2022-12-15 11:34] LABS: NT Pro B Type Natriuretic Pept 2060 pg/mL (19.9-100)
== END 2022-12-15 10:07 | disposition home or self-care (01) ==
LOC: ANHLAB 10:07
PROVIDERS: PCP Family Medicine; Visit Provider Family Medicine
DX: I42.9 Cardiomyopathy, unspecified (principal); E87.6 Hypokalemia; I50.9 Heart failure, unspecified; R79.89 Other specified abnormal findings of blood chemistry
CPT/HCPCS: 36415; 80048; 83880

== ENCOUNTER 2022-12-28 11:23 | Outpatient (CLI) | payer MEDICARE, MEDICAID, SELFPAY ==
[2022-12-28 13:36] LABS: Anion Gap 3 mmol/L (8-16); Blood Urea Nitrogen 10 mg/dL (7-17); Calcium 8.8 mg/dL (8.4-10.2); Carbon Dioxide 32 mmol/L (22-30); Chloride 103 mmol/L (98-107); Estimated Glomerular Filt Rate > 60; Glucose 105 mg/dL (65-110); Potassium 3.7 mmol/L (3.4-5.0); Sodium 138 mmol/L (137-145)
== END 2022-12-28 11:24 | disposition home or self-care (01) ==
PROVIDERS: PCP Family Medicine; Visit Provider Internal Medicine Cardiovascular Disease
DX: I10 Essential (primary) hypertension (principal)
CPT/HCPCS: 36415; 80048

== ENCOUNTER 2023-04-29 10:44 | Outpatient (CLI) | payer MEDICARE, MEDICAID, SELFPAY | END 2023-04-29 10:45 | disposition home or self-care (01) | LOC: ANHAUDASC 10:45 | PROVIDERS: PCP Family Medicine; Visit Provider Otolaryngology | DX: H90.3 Sensorineural hearing loss, bilateral (principal) | CPT/HCPCS: 92557; 92567 ==

== ENCOUNTER 2023-06-14 10:31 | Outpatient (CLI) | payer MEDICARE, MEDICAID, SELFPAY ==
[2023-06-14 11:01] LABS: Basophils Percent Auto 0.5 % (0.2-1.2); Eosinophils Absolute Auto 0.1 K/mm3 (0-0.3); Eosinophils Percent Auto 1.6 % (0-4.4); Hematocrit 39.2 % (37.0-47.0); Hemoglobin 12.1 g/dL (12.0-15.0); Immature Granulocyte Absolute 0.04 K/mm3 (0.00-0.031); Immature Granulocyte Percent A 0.5 % (0-0.5); Lymphocytes Absolute Auto 2.28 K/mm3 (0.9-3.2); Lymphocytes Percent Auto 26.2 % (18.3-44.2); Mean Corpuscular HGB Conc 30.9 g/dl (32-36); Mean Corpuscular Hemoglobin 28.9 pg (26-34); Mean Corpuscular Volume 93.6 fl (80-100); Mean Platelet Volume 12.2 fl (7.4-10.4); Monocytes Absolute Auto 0.5 K/mm3 (0.1-0.6); Monocytes Percent Auto 5.4 % (2.6-8.5); Neutrophils Absolute Auto 5.7 K/mm3 (1.3-6.7); Neutrophils Percent Auto 65.8 % (45.5-73.1); Platelet Count Result 216 k/mm3 (150-375); Red Blood Count 4.19 M/mm3 (4.2-5.4); Red Cell Distribution Width 14.8 % (11.5-14.5); White Blood Count 8.7 K/mm3 (4.5-10.0)
[2023-06-14 11:14] LABS: Alanine Aminotransferase 19 U/L (6-35); Alkaline Phosphatase 56 U/L (38-126); Anion Gap 5 mmol/L (8-16); Aspartate Amino Transferase 28 U/L (14-36); Bilirubin,Total 0.7 mg/dL (0.2-1.3); Blood Urea Nitrogen 11 mg/dL (7-17); Calcium 9.3 mg/dL (8.4-10.2); Carbon Dioxide 29 mmol/L (22-30); Chloride 106 mmol/L (98-107); Estimated Glomerular Filt Rate > 60; Glucose 110 mg/dL (65-110); Potassium 4.1 mmol/L (3.4-5.0); Sodium 140 mmol/L (137-145)
[2023-06-14 11:20] LABS: NT Pro B Type Natriuretic Pept 5810 pg/mL (19.9-100)
== END 2023-06-14 10:32 | disposition home or self-care (01) ==
LOC: ANHLAB 10:34
PROVIDERS: PCP Family Medicine; Visit Provider Family Medicine
DX: I13.0 Hypertensive heart and chronic kidney disease with heart failure and stage 1 through stage 4 chronic kidney disease, or unspecified chronic kidney disease (principal); I50.40 Unspecified combined systolic (congestive) and diastolic (congestive) heart failure; I10 Essential (primary) hypertension
CPT/HCPCS: 36415; 80053; 83880; 85025

== ENCOUNTER 2023-07-13 11:56 | Inpatient (IN) | payer MEDICARE, MEDICAID, SELFPAY ==
[2023-07-13] VITALS (7 sets, daily range): BP systolic 120–144; BP diastolic 72–107; PULSE 80–107; RESP 18–25; TEMP 36.5–37.1; O2SAT 96–98; BMI 30.5
--- NOTE | ~2023-07-13 | XR_ITS ---
EXAMINATION: XR chest 2V DATE: 07/13/2023 12:57 INDICATION: Shortness of breath TECHNIQUE: PA and lateral views of the chest are obtained. COMPARISON: 11/23/2022 FINDINGS: Cardiomegaly is noted. There are minimal airspace opacities of the left lung base. There ap pears to be a small left pleural effusion. No pneumothorax is identified. There is moderate thoracic spondylosis. IMPRESSION: 1. Cardiomegaly. 2. Minimal left basilar airspace opacity, consistent with atelectasis versus pneumonia. 3. Probable small left pleural effusion. Reviewed, dictated and finalized at location B. ISITION MARKETING MANAGER IMPRESSION: 1. Cardiomegaly. 2. Minimal left basilar airspace opacity, consistent with atelectasis versus pn eumonia. 3. Probable small left pleural effusion.
--- NOTE | ~2023-07-13 | CT_ITS ---
EXAMINATION: CTA chest PE protocol DATE: 07/13/2023 14:59 INDICATION: Shortness of breath. TECHNIQUE: Computed tomography angiography (CTA) of the chest was performed with 100 mL Omnipaque-350 intravenous contrast timed to evaluate the pulmonary arteries. Coronal maximum intensity projection 3D-reconstructions were created by the technologist. Automated exposure control and iterative reconst ruction technique were employed. The dose-length product was 395.43 mGy-cm. COMPARISON: Chest CT 09/07/2022 FINDINGS: The lungs demonstrate mild atelectasis. There are small pleural effusions. There is a goite r that extends into the superior mediastinum on the right. Cardiomegaly is noted. There is a small pe ricardial effusion. There are coronary artery calcifications. There are pulmonary emboli in right upp er lobe, right middle lobe, and right lower lobe. There is a 15 mm cyst in left kidney. There is mild thoracic spondylosis. IMPRESSION: 1. Acute right-sided pulmonary emboli. I called this result to Dr. Guardado. 2. Small pleural effusions. 3. Cardiomegaly. 4. Small pericardial effusion. 5. 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 Reviewed, dictated and finalized at location E. HOUSE ASSOCIATE
--- NOTE | ~2023-07-13 | US_ITS ---
EXAMINATION: US venous doppler [facility] DATE: 07/13/2023 20:00 INDICATION: Acute pulmonary emboli. TECHNIQUE: Grayscale ultrasound images without and with compression and Doppler ultrasound images of the bilateral lower extremity veins were obtained. COMPARISON: None. FINDINGS: The visualized portions of right common femoral vein, profunda (deep) femoral vein, femoral vein, pop liteal vein, peroneal veins, posterior tibial veins, and greater saphenous vein outflow are patent. The visualized portions of left common femoral vein, profunda femoral vein, femoral vein, popliteal v ein, peroneal veins, posterior tibial veins, and greater saphenous vein outflow are patent. IMPRESSION: 1. No deep venous thrombosis. Reviewed, dictated and finalized at location E. AR BASTER
--- NOTE | 2023-07-13 12:05 | ECG_ITS ---
Measurements Intervals [place] Rate: 91 P: 67 PA: 192 QRS: -16 QRSD: 165 T: 134 QT: 407 QTc: 502 Interpretive Statements SINUS RHYTHM LEFT BUNDLE BRANCH BLOCK ABNORMAL ECG COMPARED TO ECG 11/23/2022 12:19:49 NO SIGNIFICANT CHANGES Electronically Signed On 07-13-2023 12:24:39 SLEEVE FIXER by Arnaldo Huizar D.O.
--- NOTE | 2023-07-13 12:40 | ED.SOB ---
HPI - SOB/Dyspnea General Chief Complaint: Shortness of Breath/Dyspnea <Sandra Grossman PA-C - Last Filed: 07/15/23 17:35> Stated Complaint: SOB, htn <Sandra Grossman PA-C - Last Filed: 07/15/23 17:35> Time Seen by Provider: 07/13/23 12:40 <Sandra Grossman PA-C - Last Filed: 07/15/23 17:35> Focused HPI: This is a 78 year old female that presents to the ER for shortness of breath ongoing since yesterday. Reports lower extremity edema ongoing over the last week. Denies fever, cough, chest pain. GENERAL: Well-appearing, well-nourished, and in no acute distress. HEAD: Normocephalic, atraumatic. CHEST: Clear to auscultation. ?No respiratory distress. HEART: Regular rate and rhythm.? NEURO: ?Alert and oriented x3. Patient screened in triage and initial orders placed.? ?Additional care and disposition to be based upon?diagnostic testing and treatment. <Sandra Grossman PA-C - Last Filed: 07/15/23 17:35> History of Present Illness HPI Narrative: Patient is an 78-year-old female with history of CHF, HTN, prior DVT, AFib on Xarelto 20 mg, GERD here with shortness of breath. Patient lives with her daughter and has been having some increased confusion lately due to her dementia. They are unsure if she has been taking all her medications as prescribed including her diuretics and her anticoagulation. She notes she has had increased leg swelling over the last few days. Overnight last night she was woken up from sleep with shortness of breath. She notes that she was unable to get back to sleep because of her shortness of breath and had significant shortness of breath in attempting to walk around the house today. This prompted them to come in for evaluation. She denies any chest pain. Continues to have shortness of breath on exertion but feels okay at rest. No cough, congestion, fever, chills. <Ibis Guardado MD - Last Filed: 07/13/23 15:44> Related Data Home Medications: Home Medications Medication Instructions Recorded Confirmed omeprazole 40 mg capsule,delayed 40 mg PO DAILY 07/21/22 07/13/23 release acetaminophen 500 mg tablet 500 mg PO Q6H PRN Pain (Scale 09/06/22 07/13/23 (Tylenol Extra Strength) Score 1-3) meclizine 25 mg tablet See Rx Instructions .Route .COMPLEX 07/13/23 07/13/23 sacubitril 49 mg-valsartan 51 mg 1 tablet PO BID 07/13/23 07/13/23 tablet (Entresto) <Sandra Grossman PA-C - Last Filed: 07/15/23 17:35> Allergies/Adverse Reactions: Allergies Allergy/AdvReac Type Severity Reaction Status Date / Time ibuprofen [From Motrin] Allergy Mild itch and Verified 07/13/23 14:08 hives fentanyl Allergy Unknown Vomiting Verified 07/13/23 14:08 phentyol AdvReac Severe Vomiting Uncoded 06/10/23 13:03 <Sandra Grossman PA-C - Last Filed: 07/15/23 17:35> Review of Systems Review of Systems: All systems reviewed & are unremarkable except as noted in HPI and below <Ibis Guardado MD - Last Filed: 07/13/23 15:44> [facility] Past Medical History Medical History: Medical History (Updated 07/13/23 @ 17:38 by Mira Rosen PA-C) Chronic anticoagulation Chronic constipation Colon polyp Combined systolic and diastolic congestive heart failure Echo in July 2022: Moderately reduced LV systolic function with an EF estimated 30 to 35% and grade 1 diastolic dysfunction. Gastroesophageal reflux disease Hypertension Lumbar spondylosis Mild cognitive impairment with memory loss Obesity (BMI 30.0-34.9) Obstructive sleep apnea does not use CPAP Paroxysmal atrial fibrillation Syncope <Sandra Grossman PA-C - Last Filed: 07/15/23 17:35> Surgical History Surgical History: Surgical History (Updated 07/13/23 @ 17:34 by Mira Rosen PA-C) History of colonoscopy with polypectomy History of hemorrhoidectomy History of hysterectomy History of lumbar laminectomy (2016) <Sandra Grossman PA-C - Last Filed: 07/15/23 17:35> Family History Family History: Family
[2023-07-13 12:57] LABS: Basophils Percent Auto 0.5 % (0.2-1.2); Eosinophils Absolute Auto 0.1 K/mm3 (0-0.3); Eosinophils Percent Auto 1.5 % (0-4.4); Hematocrit 36.7 % (37.0-47.0); Hemoglobin 11.8 g/dL (12.0-15.0); Immature Granulocyte Absolute 0.02 K/mm3 (0.00-0.031); Immature Granulocyte Percent A 0.3 % (0-0.5); Lymphocytes Absolute Auto 1.43 K/mm3 (0.9-3.2); Lymphocytes Percent Auto 18.1 % (18.3-44.2); Mean Corpuscular HGB Conc 32.2 g/dl (32-36); Mean Corpuscular Hemoglobin 29.6 pg (26-34); Mean Corpuscular Volume 92.2 fl (80-100); Mean Platelet Volume 12.4 fl (7.4-10.4); Monocytes Absolute Auto 0.4 K/mm3 (0.1-0.6); Monocytes Percent Auto 4.4 % (2.6-8.5); Neutrophils Absolute Auto 5.9 K/mm3 (1.3-6.7); Neutrophils Percent Auto 75.2 % (45.5-73.1); Platelet Count Result 187 k/mm3 (150-375); Red Blood Count 3.98 M/mm3 (4.2-5.4); Red Cell Distribution Width 14.6 % (11.5-14.5); White Blood Count 7.9 K/mm3 (4.5-10.0)
[2023-07-13 13:07] LABS: Alanine Aminotransferase 27 U/L (6-35); Albumin Level 4.1 g/dL (3.5-5.1); Alkaline Phosphatase 60 U/L (38-126); Anion Gap 5 mmol/L (8-16); Aspartate Amino Transferase 30 U/L (14-36); Bilirubin,Total 0.6 mg/dL (0.2-1.3); Blood Urea Nitrogen 10 mg/dL (7-17); Calcium 9.4 mg/dL (8.4-10.2); Carbon Dioxide 28 mmol/L (22-30); Chloride 107 mmol/L (98-107); Estimated CRCL calculation 70 ml/min; Estimated Glomerular Filt Rate > 60; Glucose 128 mg/dL (65-110); Potassium 3.8 mmol/L (3.4-5.0); Sodium 140 mmol/L (137-145)
[2023-07-13 13:09] LABS: Hypochromasia 1+ (NORMAL); Platelet Estimate Adequate (Adequate); Schistocytes None Seen (NORMAL)
[2023-07-13 13:13] LABS: Prothrombin Time 13.5 Seconds (11.1-14.7)
[2023-07-13 13:14] LABS: Partial Thromboplastin Time 23.8 SECONDS (22.3-36.8)
[2023-07-13 13:19] LABS: NT Pro B Type Natriuretic Pept 10200 pg/mL (19.9-100)
[2023-07-13] MEDS: FUROSEMIDE INJ 40 MG/4 ML VIAL IV PUSH ×2 (15:47→23:00)
[2023-07-13] MEDS: RIVAROXABAN 20 MG TABLET PO (15:47)
--- NOTE | 2023-07-13 16:03 | PC.NURSE ---
Purewick placed by pt request
--- NOTE | 2023-07-13 17:26 | ECG_ITS ---
Measurements Intervals [place] Rate: 93 P: 59 MN: 199 QRS: 0 QRSD: 169 T: 156 QT: 415 QTc: 516 Interpretive Statements SINUS RHYTHM LEFT BUNDLE BRANCH BLOCK BASELINE ARTIFACT- I, II ABNORMAL ECG COMPARED TO ECG 07/13/2023 12:08:18 NO SIGNIFICANT CHANGES Electronically Signed On 07-13-2023 20:02:37 RESEARCH NUTRITIONIST by Arnaldo Huizar D.O.
--- NOTE | 2023-07-13 17:30 | PM.IMHP ---
H&P: HPI History of Present Illness Date/Time: 07/13/23 18:00 Chief Complaint: Shortness of breath. Narrative: This is a very pleasant 78-year-old female with mild cognitive impairment, pulmonary embolism, deep venous thrombosis, combined systolic and diastolic congestive heart failure, paroxysmal atrial fibrillation, and hypertension who presented to the emergency department for evaluation of shortness of breath. The patient provides the following history and her provides additional information, with the patient's permission. For at least the last week or more she has noticed an increase in lower extremity edema and she reports increasing dyspnea on lesser and lesser exertion. She has orthopnea as well and occasional paroxysmal nocturnal dyspnea. Last night she seemed to be increasingly short of breath and family members encouraged her to come in for evaluation. Family members are concerned as she apparently forgets to take her medication on a regular basis. Her children and spouse have tried to help her with her medications however she becomes frustrated with them and has not allowed them to help. She denies fever, chills, sweats, syncope, near syncope, exertional chest pain, chest and pleuritic pain, palpitations, sensations of racing heart, nausea, vomiting, and calf pain. In the ED: She was afebrile on arrival with stable vital signs. Labs were significant for hemoglobin 11.8, D-dimer 3.70, troponin 0.019, proBNP 45000. 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 EKG showed sinus rhythm with left bundle branch block which is chronic. She was given a dose of her Xarelto and 40 mg IV furosemide she is being admitted in this setting. She has put out quite a bit urine and reports feeling somewhat better already. Review of Systems Review of Systems: Twelve systems were reviewed and are negative except for as per HPI. [facility] Past Medical History Medical History (Updated 07/13/23 @ 17:38 by Mira Rosen PA-C) Chronic anticoagulation Chronic constipation Colon polyp Combined systolic and diastolic congestive heart failure Echo in July 2022: Moderately reduced LV systolic function with an EF estimated 30 to 35% and grade 1 diastolic dysfunction. Gastroesophageal reflux disease Hypertension Lumbar spondylosis Mild cognitive impairment with memory loss Obesity (BMI 30.0-34.9) Obstructive sleep apnea does not use CPAP Paroxysmal atrial fibrillation Syncope Surgical History Surgical History (Updated 07/13/23 @ 17:34 by Mira Rosen PA-C) History of colonoscopy with polypectomy History of hemorrhoidectomy History of hysterectomy History of lumbar laminectomy (2017) Family History Family History Grandparent Carcinoma of colon Mother Acute myocardial infarction Father Acute myocardial infarction Sibling Lung cancer Social History Social History (Updated 07/13/23 @ 17:35 by Mira Rosen PA-C) Social History: Surrogate medical decision maker: Luz Mariavinny. Code Status: Full Code Smoking packs per day: 1 Smoking cigarettes per day: 20.0 Years smoked: 30 Smoking pack-years: 30.00 Smoking status: Former smoker Tobacco type: cigarettes Second hand tobacco smoke exposure: No Alcohol intake: never Substance use: never Substance use type: does not use Do You Feel Safe in your Home?: Yes Lack of Transportation: No Lack of Food: Never True Current Housing: I Have Housing Concerned About Future Housing: No Difficulty Paying Gas/Electric Bills: No Difficulty Paying for Meds: No Currently Unemployed: No Education: Associate Degree Difficulty w/ Childcare or Family Care: No Living arrangements: with family Additional living arrangements comments: Lives wi
[2023-07-13 18:30] LABS: Troponin I 0.037 ng/mL (0.000-0.034)
--- NOTE | 2023-07-13 18:47 | ADMGEN ---
This patient, Kiki Garcia, was admitted to Medical Room 253-01. Patient/family oriented to hospital policies and general routines including ID bracelet, bed and alarms, visiting hours, pain management, procedures, bathroom and other care routines, personal items, smoking policy, room service/diet, and visiting hours. Information on how to activate the Rapid Response Team has been discussed. Patient/Family are encouraged to report perceived risks to care and to ask questions if they do not understand what they are told or what they should do.
[2023-07-14] VITALS (13 sets, daily range): BP systolic 93–132; BP diastolic 47–95; PULSE 68–106; RESP 16–18; TEMP 36.5–36.8; O2SAT 93–98
--- NOTE | 2023-07-14 | ECHO_ITS ---
Patient Info Name: Kiki Garcia Age: 78 years : 1945 Gender: Female Ht: 65 in Wt: 190 lbs BSA: 2.02 m2 HR: 86 bpm BP: 129 / 95 mmHg Heart Rhythm: Left Bundle Branch Block Technical Quality: Fair Exam Date: 07/14/2023 10:29 AM Exam Location: Echo Lab Patient Status: Inpatient Admit Date: 07/13/2023 Staff Ordering Physician: Elisabeth Hurt APRN Electronic Device Monitor: Ray Goddard RDCS Attending Provider: Abilio Burger MD Referring Physician: Blu DE LA PAZ; Exam Type: CA echo dop color flow w con Study Info Indications - chf/a fib Complete two-dimensional, color flow and Doppler transthoracic echocardiogram is performed with contrast to opacify the left ventricle and to improve the deliniation of the left ventricle endocardial borders. Contrast/Agitated Saline Contrast/Ag. Saline: Definity Amount: 3.00 ml Summary 1. Left ventricular chamber dimension is moderately enlarged. 2. Left ventricular systolic function is moderately reduced, estimated at 20-25%. 3. There is mildly increased left ventricular wall thickness. 4. Left ventricular septal wall motion is abnormal with septal motion related to bundle branch block. 5. The left ventricular diastolic function is grade I diastolic dysfunction. 6. Right ventricular chamber dimension is normal. 7. Right ventricular systolic function is normal. 8. Left atrial chamber dimension is moderately enlarged. 9. There is mild aortic valve regurgitation. 10. There is mild mitral valve regurgitation. 11. There is mild tricuspid valve regurgitation. 12. There is moderate anterior pericardial effusion with echogenic material. There is systolic collapseof the right atrium, consistent with increased intrapericardial pressures. No echocardiographic evidence of tamponade.. Left Ventricle Left ventricular chamber dimension is moderately enlarged. Left ventricular systolic function is moderately reduced, estimated at 20-25%. There is mildly increased left ventricular wall thickness. Left ventricular septal wall motion is abnormal with septal motion related to bundle branch block. The left ventricular diastolic function is grade I diastolic dysfunction. Right Ventricle Right ventricular chamber dimension is normal. Right ventricular systolic function is normal. Left Atria Left atrial chamber dimension is moderately enlarged. Right Atria Right atrial chamber dimension is normal. Atrial Septum Intact interatrial septum visualized by color flow imaging. Aortic Valve The aortic valve is not well visualized. There is no aortic valve stenosis. There is mild aortic valve regurgitation. There is moderate aortic valve calcification. Pulmonic Valve The pulmonic valve is not well visualized. Mitral Valve There is mild mitral valve regurgitation. There is mild mitral valve calcification. Tricuspid Valve There is mild tricuspid valve regurgitation. Pericardium/Pleural There is moderate anterior pericardial effusion with echogenic material. There is systolic collapseof the right atrium, consistent with increased intrapericardial pressures. No echocardiographic evidence of tamponade.. Inferior Vena Cava Inferior vena cava is not well visualized. Aorta The aortic root size at the sinus of Valsalva is normal. Left Ventricular Outflow Tract Name Value Normal LVOT 2D
[2023-07-14 06:10] LABS: Anion Gap 7 mmol/L (8-16); Blood Urea Nitrogen 13 mg/dL (7-17); Calcium 9.1 mg/dL (8.4-10.2); Carbon Dioxide 28 mmol/L (22-30); Chloride 104 mmol/L (98-107); Estimated CRCL calculation 54 ml/min; Estimated Glomerular Filt Rate > 60; Glucose 120 mg/dL (65-110); Magnesium 2.1 mg/dL (1.6-2.3); Potassium 3.3 mmol/L (3.4-5.0); Sodium 139 mmol/L (137-145)
[2023-07-14 07:36] LABS: Alanine Aminotransferase 22 U/L (6-35); Albumin Level 3.9 g/dL (3.5-5.1); Alkaline Phosphatase 59 U/L (38-126); Anion Gap 7 mmol/L (8-16); Aspartate Amino Transferase 40 U/L (14-36); Bilirubin,Total 0.6 mg/dL (0.2-1.3); Blood Urea Nitrogen 13 mg/dL (7-17); Calcium 9.3 mg/dL (8.4-10.2); Carbon Dioxide 27 mmol/L (22-30); Chloride 104 mmol/L (98-107); Cholesterol 207 mg/dL (0-200); Estimated CRCL calculation 61 ml/min; Estimated Glomerular Filt Rate > 60; Glucose 118 mg/dL (65-110); HDL Direct 58 mg/dL; Potassium 3.2 mmol/L (3.4-5.0); Sodium 138 mmol/L (137-145); Triglycerides 72 mg/dL (<150)
[2023-07-14 07:40] LABS: Hematocrit 38.6 % (37.0-47.0); Hemoglobin 12.1 g/dL (12.0-15.0); Immature Platelet Fraction Pct 14.3 % (0.9-11.2); Mean Corpuscular HGB Conc 31.3 g/dl (32-36); Mean Corpuscular Hemoglobin 29.2 pg (26-34); Mean Platelet Volume 13.6 fl (7.4-10.4); Platelet Count Result 190 k/mm3 (150-375); Red Blood Count 4.15 M/mm3 (4.2-5.4); Red Cell Distribution Width 14.5 % (11.5-14.5); White Blood Count 7.9 K/mm3 (4.5-10.0)
--- NOTE | 2023-07-14 07:40 | P.PNIM_ITS ---
Progress Note: A&P Assessment and Plan (1) Acute pulmonary embolism: Qualifiers: Acute cor pulmonale presence: unspecified Pulmonary embolism type: unspecified Qualified Code(s): I26.99 - Other pulmonary embolism without acute cor pulmonale Code(s): I26.99 - Other pulmonary embolism without acute cor pulmonale Status: Acute (2) Combined systolic and diastolic congestive heart failure: Code(s): I50.40 - Unspecified combined systolic (congestive) and diastolic (congestive) heart failure Status: Acute (3) Variable compliance with medication therapy: Code(s): Z91.148 - Patient's other noncompliance with medication regimen for other reason Status: Acute (4) Chronic anticoagulation: Code(s): Z79.01 - intermediate card 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 (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) use of anticoagulants Status: Acute (5) Paroxysmal atrial fibrillation: Code(s): I48.0 - Paroxysmal atrial fibrillation Status: Acute (6) Thyroid goiter: Code(s): E04.9 - Nontoxic goiter, unspecified Status: Acute Plan Pulmonary Embolism * Chronic AC patient has been non-compliant with medication at per family * CTA shows PE RT upper, middle, and lower lobes * Resumed patient Xarelto * will need to discuss the need for compliance * monitor H&H * Venous doppler BLE negative * Oxygen PRN currently on RA * ECHO pending Acute on chronic combined diastolic and systolic heart failure * BNP >11224 * cardiology consulted * IV Lasix b.i.d. * monitor renal function during diuresis * previous echocardiogram results:07/2022 EF 35%, moderate AR, moderate MR, mild TR * echocardiogram pending * EKG Sr w/ BBB * chest x-ray cardiomegaly * Lipid panel * Resumed BB, entresto and spironolactone * Daily weight. 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 Time Spent With Patient Time with patient: 25 - 35 minutes Subjective Date/time seen: 07/14/23 07:40 Interval history: 07/12: (Medical Record) Chief Complaint: Shortness of breath. Narrative: This is a very pleasant 78-year-old female with mild cognitive impairment, pulmonary embolism, deep venous thrombosis, combined systolic and diastolic congestive heart failure, paroxysmal atrial fibrillation, and hypertension who presented to the emergency department for evaluation of shortness of breath. The patient provides the following history and her provides additional in formation, with the patient's permission. For at least the last week or more she has noticed an increase in lower extremity edema and she reports increasing dyspnea on lesser and lesser exertion. She has orthopnea as well and occasional paroxysmal nocturnal dyspnea. Last night she seemed to be increasingly short of breath and family members encouraged her to come in for evaluation. Family members are concerned as she apparently forgets to take her medication on a re
--- NOTE | 2023-07-14 07:40 | PM.IMPN ---
Progress Note: A&P Assessment and Plan (1) Acute pulmonary embolism: Qualifiers: Acute cor pulmonale presence: unspecified Pulmonary embolism type: unspecified Qualified Code(s): I26.99 - Other pulmonary embolism without acute cor pulmonale Code(s): I26.99 - Other pulmonary embolism without acute cor pulmonale Status: Acute (2) Combined systolic and diastolic congestive heart failure: Code(s): I50.40 - Unspecified combined systolic (congestive) and diastolic (congestive) heart failure Status: Acute (3) Variable compliance with medication therapy: Code(s): Z91.148 - Patient's other noncompliance with medication regimen for other reason Status: Acute (4) Chronic anticoagulation: Code(s): Z79.01 - detention officer (current) use of anticoagulants Status: Acute (5) Paroxysmal atrial fibrillation: Code(s): I48.0 - Paroxysmal atrial fibrillation Status: Acute (6) Thyroid goiter: Code(s): E04.9 - Nontoxic goiter, unspecified Status: Acute Plan Pulmonary Embolism Chronic AC patient has been non-compliant with medication at per family CTA shows PE RT upper, middle, and lower lobes Resumed patient Osmin will need to discuss the need for corporate compliance manager H&H Venous doppler BLE negative Oxygen PRN currently on RA ECHO pending Acute on chronic combined diastolic and systolic heart failure BNP >23127 cardiology consulted IV Lasix b.i.d. monitor renal function during diuresis previous echocardiogram results:07/2022 EF 35%, moderate AR, moderate MR, mild TR echocardiogram pending EKG Sr w/ BBB chest x-ray cardiomegaly Lipid panel Resumed BB, entresto and spironolactone Daily weight. fluid restriction elevate/Elliott wrap legs if needed Resumed Xarelto Goiter Thyroid Goiter extending to the superior mediastinum Asymptomatic TSH pending Code status: Full code per patient DVT prophylaxis: Xarelto Stress ulcer prophylaxis: Protonix 40 daily PT/OT notes: PT/OT pending Disposition: Patient continues admissions to telemetry unit for further treatment acute CHF exacerbation, pulmonary emboli, noncompliance with home medications being PT/OT pending her evaluation and recommendations will need to speak with family regarding the need for assistance with medication compliance patient would likely benefit from either SNF or home. Time Spent With Patient Time with patient: 25 - 35 minutes Subjective Date/time seen: 07/14/23 07:40 Interval history: 07/12: (Medical Record) Chief Complaint: Shortness of breath. Narrative: This is a very pleasant 78-year-old female with mild cognitive impairment, pulmonary embolism, deep venous thrombosis, combined systolic and diastolic congestive heart failure, paroxysmal atrial fibrillation, and hypertension who presented to the emergency department for evaluation of shortness of breath. The patient provides the following history and her provides additional information, with the patient's permission. For at least the last week or more she has noticed an increase in lower extremity edema and she reports increasing dyspnea on lesser and lesser exertion. She has orthopnea as well and occasional paroxysmal nocturnal dyspnea. Last night she seemed to be increasingly short of breath and family members encouraged her to come in for evaluation. Family members are concerned as she apparently forgets to take her medication on a regular basis. Her children and spouse have tried to help her with her medications however she becomes frustrated with them and has not allowed them to help. She denies fever, chills, sweats, syncope, near syncope, exertional chest pain, chest and pleuritic pain, palpitations, sensations of racing heart, nausea, vomiting, and calf pain. In the ED: She was afebrile on arrival with stable vital signs. Labs were significant for hemoglobin 11.8, D-dimer 3.70, tr
[2023-07-14 07:46] LABS: LDL Cholesterol Direct 116 mg/dL
[2023-07-14] MEDS: FUROSEMIDE INJ 40 MG/4 ML VIAL IV PUSH ×2 (08:53→16:48)
[2023-07-14] MEDS: SACUBITRIL/VALSARTAN 49-51 MG TABLET 1 TABLET PO ×2 (08:54→21:47)
[2023-07-14] MEDS: POTASSIUM CHLORIDE 20 MEQ ER TABLET 40 MEQ PO (08:54)
[2023-07-14] MEDS: METOPROLOL SUCCINATE EXT REL 25 MG TABCR PO (08:54)
[2023-07-14] MEDS: SPIRONOLACTONE 25 MG TABLET PO (08:55)
[2023-07-14] MEDS: PANTOPRAZOLE 40 MG TABLET PO ×2 (08:55→21:47)
[2023-07-14] MEDS: PERFLUTREN LIPID MICROSPHERES 1.5 ML VIAL DILUTED TO 10 ML TOTAL VOLUME IV PUSH (11:00)
--- NOTE | 2023-07-14 11:37 | IVDEFINITY ---
Prior to administration of IV Definity the patient was educated on the risks and benefits of the imaging enhancing agent including potential adverse side effects. The patient verbalized understanding. Allergies were verified. No exclusion criteria were identified and at least one of the following inclusion criteria were met: 1) physician request, 2) patient technically difficult to image (per the [place] [employer] of Echocardiography guidelines of two or more segments not discernable within the apical view), or 3) questionable left ventricular function. ?
[2023-07-14] MEDS: RIVAROXABAN 20 MG TABLET PO (17:20)
[2023-07-15] VITALS: PULSE 85; O2SAT 94
[2023-07-15 04:00] VITALS: PULSE 82
[2023-07-15 05:22] LABS: Hematocrit 40.1 % (37.0-47.0); Hemoglobin 12.6 g/dL (12.0-15.0); Mean Corpuscular HGB Conc 31.4 g/dl (32-36); Mean Corpuscular Volume 92.4 fl (80-100); Mean Platelet Volume 12.9 fl (7.4-10.4); Platelet Count Result 200 k/mm3 (150-375); Red Blood Count 4.34 M/mm3 (4.2-5.4); Red Cell Distribution Width 14.3 % (11.5-14.5); White Blood Count 9.2 K/mm3 (4.5-10.0)
[2023-07-15 05:37] LABS: Alanine Aminotransferase 19 U/L (6-35); Albumin Level 3.7 g/dL (3.5-5.1); Alkaline Phosphatase 58 U/L (38-126); Anion Gap 8 mmol/L (8-16); Aspartate Amino Transferase 24 U/L (14-36); Bilirubin,Total 0.8 mg/dL (0.2-1.3); Blood Urea Nitrogen 14 mg/dL (7-17); Carbon Dioxide 27 mmol/L (22-30); Chloride 103 mmol/L (98-107); Estimated CRCL calculation 61 ml/min; Estimated Glomerular Filt Rate > 60; Glucose 127 mg/dL (65-110); Potassium 3.2 mmol/L (3.4-5.0); Sodium 138 mmol/L (137-145)
[2023-07-15 06:00] VITALS: BP 122/62; PULSE 66; RESP 18; TEMP 36.9; O2SAT 95
--- NOTE | 2023-07-15 07:41 | P.PNIM_ITS ---
Progress Note: A&P Assessment and Plan (1) Acute pulmonary embolism: Qualifiers: Acute cor pulmonale presence: unspecified Pulmonary embolism type: unspecified Qualified Code(s): I26.99 - Other pulmonary embolism without acute cor pulmonale Code(s): I26.99 - Other pulmonary embolism without acute cor pulmonale Status: Acute (2) Combined systolic and diastolic congestive heart failure: Code(s): I50.40 - Unspecified combined systolic (congestive) and diastolic (congestive) heart failure Status: Acute (3) Variable compliance with medication therapy: Code(s): Z91.148 - Patient's other noncompliance with medication regimen for other reason Status: Acute (4) Chronic anticoagulation: Code(s): Z79.01 - terminal carman (current) use of anticoagulants Status: Acute (5) Paroxysmal atrial fibrillation: Code(s): I48.0 - Paroxysmal atrial fibrillation Status: Acute (6) Thyroid goiter: Code(s): E04.9 - Nontoxic goiter, unspecified Status: Acute Plan Pulmonary Embolism * Chronic AC patient has been non-compliant with medication at per family * CTA shows PE RT upper, middle, and lower lobes * Resumed patient Xarelto * will need to discuss the need for compliance * monitor H&H * Venous doppler BLE negative * Oxygen PRN currently on RA * ECHO pending Acute on chronic combined diastolic and systolic heart failure * BNP >81527 * cardiology consulted * IV Lasix b.i.d. * monitor renal function during diuresis * previous echocardiogram results:07/2022 EF 35%, moderate AR, moderate MR, mild TR * echocardiogram Worsening EF of 20-25% likely due to non-compliance of recommended medication regiment (Entresto, lasix, spironolactone) * EKG Sr w/ BBB * chest x-ray cardiomegaly * Lipid panel * Resumed BB, entresto and spironolactone * Daily weight. 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 Time Spent With Patient Time with patient: 15 - 25 minutes Subjective Date/time seen: 07/15/23 07:41 Interval history: 07/12: (Medical Record) Chief Complaint: Shortness of breath. Narrative: This is a very pleasant 78-year-old female with mild cognitive impairment, pulmonary embolism, deep venous thrombosis, combined systolic and diastolic congestive heart failure, paroxysmal atrial fibrillation, and hypertension who presented to the emergency department for evaluation of shortness of breath. The patient provides the following history and her provides additional information, with the patient's permission. For at least the last week or more she has noticed an increase in lower extremity edema and she reports increasing dyspnea on lesser and lesser exertion. She has orthopnea as well and occasional paroxysmal nocturnal dyspnea. Last night she seemed to be increasingly short of breath and family members encouraged
--- NOTE | 2023-07-15 07:41 | PM.IMPN ---
Progress Note: A&P Assessment and Plan (1) Acute pulmonary embolism: Qualifiers: Acute cor pulmonale presence: unspecified Pulmonary embolism type: unspecified Qualified Code(s): I26.99 - Other pulmonary embolism without acute cor pulmonale Code(s): I26.99 - Other pulmonary embolism without acute cor pulmonale Status: Acute (2) Combined systolic and diastolic congestive heart failure: Code(s): I50.40 - Unspecified combined systolic (congestive) and diastolic (congestive) heart failure Status: Acute (3) Variable compliance with medication therapy: Code(s): Z91.148 - Patient's other noncompliance with medication regimen for other reason Status: Acute (4) Chronic anticoagulation: Code(s): Z79.01 - 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 (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) use of anticoagulants Status: Acute (5) Paroxysmal atrial fibrillation: Code(s): I48.0 - Paroxysmal atrial fibrillation Status: Acute (6) Thyroid goiter: Code(s): E04.9 - Nontoxic goiter, unspecified Status: Acute Plan Pulmonary Embolism Chronic AC patient has been non-compliant with medication at per family CTA shows PE RT upper, middle, and lower lobes Resumed patient Osmin will need to discuss the need for senior compliance officer H&H Venous doppler BLE negative Oxygen PRN currently on RA ECHO pending Acute on chronic combined diastolic and systolic heart failure BNP >62094 cardiology consulted IV Lasix b.i.d. monitor renal function during diuresis previous echocardiogram results:07/2022 EF 35%, moderate AR, moderate MR, mild TR echocardiogram Worsening EF of 20-25% likely due to non-compliance of recommended medication regiment (Entresto, lasix, spironolactone) EKG Sr w/ BBB chest x-ray cardiomegaly Lipid panel Resumed BB, entresto and spironolactone Daily weight. fluid restriction elevate/Elliott wrap legs if needed Resumed Xarelto Goiter Thyroid Goiter extending to the superior mediastinum Asymptomatic TSH pending Code status: Full code per patient DVT prophylaxis: Xarelto Stress ulcer prophylaxis: Protonix 40 daily PT/OT notes: PT/OT pending Disposition: Patient continues admissions to telemetry unit for further treatment acute CHF exacerbation, pulmonary emboli, noncompliance with home medications being PT/OT pending her evaluation and recommendations will need to speak with family regarding the need for assistance with medication compliance patient would likely benefit from either SNF or home health. Time Spent With Patient Time with patient: 15 - 25 minutes Subjective Date/time seen: 07/15/23 07:41 Interval history: 07/12: (Medical Record) Chief Complaint: Shortness of breath. Narrative: This is a very pleasant 78-year-old female with mild cognitive impairment, pulmonary embolism, deep venous thrombosis, combined systolic and diastolic congestive heart failure, paroxysmal atrial fibrillation, and hypertension who presented to the emergency department for evaluation of shortness of breath. The patient provides the following history and her provides additional information, with the patient's permission. For at least the last week or more she has noticed an increase in lower extremity edema and she reports increasing dyspnea on lesser and lesser exertion. She has orthopnea as well and occasional paroxysmal nocturnal dyspnea. Last night she seemed to be increasingly short of breath and family members encouraged her to come in for evaluation. Family members are concerned as she apparently forgets to take her medication on a regular basis. Her children and spouse have tried to help her with her medications however she becomes frustrated with them and has not allowed them to help. She denies fever, chills, sweats, syncope, near syncope, exertional chest pain, chest and pleuritic pain, palpitations, sensations of racing heart, nausea, vomiting, and calf pain. In th
[2023-07-15 08:00] VITALS: PULSE 99
[2023-07-15 08:32] VITALS: PULSE 100
[2023-07-15] MEDS: PANTOPRAZOLE 40 MG TABLET PO (08:32)
[2023-07-15] MEDS: SPIRONOLACTONE 25 MG TABLET PO (08:32)
[2023-07-15] MEDS: METOPROLOL SUCCINATE EXT REL 25 MG TABCR PO (08:32)
[2023-07-15] MEDS: FUROSEMIDE INJ 40 MG/4 ML VIAL IV PUSH (08:33)
[2023-07-15] MEDS: SACUBITRIL/VALSARTAN 49-51 MG TABLET 1 TABLET PO (08:33)
--- NOTE | 2023-07-15 08:47 | PM.CNCAR ---
Assessment and Plan Assessment and plan (1) Variable compliance with medication therapy: Code(s): Z91.148 - Patient's other noncompliance with medication regimen for other reason Status: Acute (2) Acute exacerbation of CHF (congestive heart failure): Qualifiers: Heart failure type: unspecified Qualified Code(s): I50.9 - Heart failure, unspecified Code(s): I50.9 - Heart failure, unspecified Status: Acute Plan 78-year-old lady with well-established diagnosis of nonischemic cardiomyopathy and chronic left bundle branch block. She presents with an exacerbation of her CHF which is likely related to noncompliance with her medical regimen. She says that she lives with her daughter and I would hope that they can come up with a reliable mechanism for this lady to remain on her medication as this according to the chart has been an issue for a number of years. In addition to this the fact that her sleep apnea remains untreated is likely related to this difficulties as well. I will transition her back to her oral furosemide after this morning's injection which has already been received since by exam she is euvolemic. The remainder of her medical regimen is appropriate and does not have to be adjusted her titrated at this time. Since she appears to be euvolemic she can be discharged from my perspective I will insure that timely follow-up in our office is scheduled/arranged. Leonel Mcarthur MD [facility] History of Present Illness History of Present Illness Consult date/time: 07/15/23 08:47 Reason For Visit: chf exacerbation,acute pe Narrative: This is an 78-year-old woman who is unknown to me but follows regularly with my partner, Dr. Yanez. She has a nonischemic cardiomyopathy, paroxysmal atrial fibrillation, chronic left bundle branch block and sleep apnea. She was admitted to [facility] 2 days ago with symptoms of dyspnea increasing edema orthopnea and PND. She was found to have an exacerbation of biventricular heart failure and admitted to the hospitalist service. In the last 48 hours she has been receiving her standard medical regimen for her heart failure including some intravenous furosemide and at the yesterday and today states that she feels much better and she is no longer experiencing shortness of breath. She does not have any chest pain pressure or heaviness she does not have any palpitations or symptoms of lightheadedness or near syncope. She has a history of a nonischemic cardiomyopathy dating back to a number of years ago when she will the lived up in the [place] area. She had a breakfast and room attendant at [facility] was managing this and she did have a negative coronary angiogram at the time of her diagnosis. She has been following in our office for about [address] Yanez and has been essentially stable however she does have episodes where she has increasing shortness of breath which is related to noncompliance with her medication. The patient is alert and appears to understand all of this but states that she does forget to take her medications and again on this admission she admits to not taking her medication reliably. For her cardiomyopathy she is prescribed an excellent medical regimen including Entresto, metoprolol, spironolactone and furosemide. She has a history of P AFib as mentioned above and for that is also prescribed Xarelto. Her echocardiogram was repeated by the hospitalist during this hospitalization and is read by Dr. Scanlon as showing an ejection fraction of 20-25%. It is also important to note that she has established diagnosis of sleep apnea which is untreated since she says she is not able to tolerate her CPAP I asked her if she has spoken to her PCP about alternative to this or referring her to a sleep physician and it sounds like that has not occurred. Review of Systems Constitutional: Constitutional: Reports lethargy Eyes: Eyes: Reports no additional eye com
[2023-07-15] MEDS: POTASSIUM CHLORIDE 20 MEQ ER TABLET 40 MEQ PO (09:22)
[2023-07-15 12:00] VITALS: PULSE 85
--- NOTE | 2023-07-15 12:23 | PM.DS ---
DS: Admitting Diagnosis Discharge Date 07/15/2023 Admitting Diagnosis Combined congestive heart failure exacerbation/pulmonary emboli DS: Discharge Diagnosis Discharge Diagnosis (1) Acute pulmonary embolism: Qualifiers: Acute cor pulmonale presence: unspecified Pulmonary embolism type: unspecified Qualified Code(s): I26.99 - Other pulmonary embolism without acute cor pulmonale Code(s): I26.99 - Other pulmonary embolism without acute cor pulmonale Status: Acute (2) Combined systolic and diastolic congestive heart failure: Code(s): I50.40 - Unspecified combined systolic (congestive) and diastolic (congestive) heart failure Status: Acute (3) Variable compliance with medication therapy: Code(s): Z91.148 - Patient's other noncompliance with medication regimen for other reason Status: Acute (4) Chronic anticoagulation: Code(s): Z79.01 - intermediate card tender (current) use of anticoagulants Status: Acute (5) Paroxysmal atrial fibrillation: Code(s): I48.0 - Paroxysmal atrial fibrillation Status: Acute (6) Thyroid goiter: Code(s): E04.9 - Nontoxic goiter, unspecified Status: Acute Plan Plan Pulmonary Embolism Chronic AC patient has been non-compliant with medication at per family CTA shows PE RT upper, middle, and lower lobes Resumed patient Osmin will need to discuss the need for quality compliance coordinator H&H Venous doppler BLE negative Oxygen PRN currently on RA ECHO pending Acute on chronic combined diastolic and systolic heart failure ?BNP >20799 cardiology consulted IV Lasix b.i.d. monitor renal function during diuresis previous echocardiogram results:07/2022 EF 35%, moderate AR, moderate MR, mild TR echocardiogram pending? EKG Sr w/ BBB chest x-ray cardiomegaly Lipid panel Resumed BB, entresto and spironolactone Daily weight. fluid restriction elevate/Elliott wrap legs if needed Resumed Xarelto Disposition:? Patient discharged to home with family and has home health already set-up. Will have a scheduled follow-up with cardiology. DS: Summary Hospital Course Reason for hospitalization: Combined CHF/Pulmonary Embolism Hospital Course: 07/12:? (Medical Record) Chief Complaint: Shortness of breath. Narrative: This is a very pleasant 78-year-old female with mild cognitive impairment, pulmonary embolism, deep venous thrombosis, combined systolic and diastolic congestive heart failure, paroxysmal atrial fibrillation, and hypertension who presented to the emergency department for evaluation of shortness of breath. The patient provides the following history and her provides additional information, with the patient's permission. For at least the last week or more she has noticed an increase in lower extremity edema and she reports increasing dyspnea on lesser and lesser exertion. She has orthopnea as well and occasional paroxysmal nocturnal dyspnea. Last night she seemed to be increasingly short of breath and family members encouraged her to come in for evaluation. Family members are concerned as she apparently forgets to take her medication on a regular basis. Her children and spouse have tried to help her with her medications however she becomes frustrated with them and has not allowed them to help. She denies fever, chills, sweats, syncope, near syncope, exertional chest pain, chest and pleuritic pain, palpitations, sensations of racing heart, nausea, vomiting, and calf pain. In the ED: She was afebrile on arrival with stable vital signs. Labs were significant for hemoglobin 11.8, D-dimer 3.70, troponin 0.019, proBNP 30770. 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 EKG showed sinus rhythm with left bundle branch block which is chronic. She was given a dose of her Xarelto and 40 mg IV fur
== END 2023-07-15 13:35 | disposition home or self-care (01) | DRG 175 ==
LOC: ANHED 15:44 → ANH2MED 16:03
PROVIDERS: Nurse Practitioner Family; Physician Assistant; Admitting Provider Internal Medicine; Emergency Provider Student in an Organized Health Care Education/Training Program; PCP Family Medicine; Visit Provider Internal Medicine
DX: I26.99 Other pulmonary embolism without acute cor pulmonale (principal); I50.43 Acute on chronic combined systolic (congestive) and diastolic (congestive) heart failure; I42.8 Other cardiomyopathies; I11.0 Hypertensive heart disease with heart failure; I48.0 Paroxysmal atrial fibrillation; E04.9 Nontoxic goiter, unspecified; K21.9 Gastro-esophageal reflux disease without esophagitis; K59.00 Constipation, unspecified; G47.33 Obstructive sleep apnea (adult) (pediatric); G31.84 Mild cognitive impairment of uncertain or unknown etiology; M47.816 Spondylosis without myelopathy or radiculopathy, lumbar region; Z86.010 Personal history of colon polyps; Z79.01 Long term (current) use of anticoagulants; Z86.718 Personal history of other venous thrombosis and embolism; Z87.891 Personal history of nicotine dependence; Z91.148 Patient's other noncompliance with medication regimen for other reason
CPT/HCPCS: 36415; 71046; 71275; 80048; 80053; 80061; 83735; 83880; 84443; 84484; 85025; 85027; 85055; 85380; 85610; 85730; 93005; 93970; 96374; 97161; 97165; 99291; A9270; C8929; J1940; Q9957; Q9967

== ENCOUNTER 2023-11-11 11:45 | Outpatient (CLI) | payer MEDICARE, MEDICAID, SELFPAY ==
[2023-11-11 12:31] LABS: Alanine Aminotransferase 13 U/L (6-35); Alkaline Phosphatase 48 U/L (38-126); Anion Gap 5 mmol/L (4-12); Aspartate Amino Transferase 22 U/L (14-36); Bilirubin,Total 0.6 mg/dL (0.2-1.3); Blood Urea Nitrogen 9 mg/dL (7-17); Calcium 9.1 mg/dL (8.4-10.2); Carbon Dioxide 28 mmol/L (22-30); Chloride 107 mmol/L (98-107); Estimated Glomerular Filt Rate > 60; Glucose 114 mg/dL (65-110); Sodium 140 mmol/L (137-145)
[2023-11-11 13:01] LABS: Thyroid Stimulating Hormone 0.351 uIU/mL (0.465-4.680)
== END 2023-11-11 11:46 | disposition home or self-care (01) ==
PROVIDERS: PCP Family Medicine; Visit Provider Internal Medicine Cardiovascular Disease
DX: I49.3 Ventricular premature depolarization (principal); I49.9 Cardiac arrhythmia, unspecified
CPT/HCPCS: 36415; 80053; 84443

== ENCOUNTER 2023-11-17 12:40 | Outpatient (CLI) | payer MEDICARE, MEDICAID, SELFPAY ==
[2023-11-17 14:18] LABS: Free T4 Free Thyroxine 1.29 ng/mL (0.78-2.19)
== END 2023-11-17 12:41 | disposition home or self-care (01) ==
LOC: ANHLAB 12:45
PROVIDERS: PCP Family Medicine; Visit Provider Internal Medicine Cardiovascular Disease
DX: R79.89 Other specified abnormal findings of blood chemistry (principal); E05.90 Thyrotoxicosis, unspecified without thyrotoxic crisis or storm
CPT/HCPCS: 36415; 84439

== ENCOUNTER 2024-02-09 11:24 | Outpatient (CLI) | payer MEDICARE, MEDICAID, SELFPAY ==
[2024-02-09 12:04] LABS: Basophils Percent Auto 0.4 % (0.2-1.2); Eosinophils Absolute Auto 0.1 K/mm3 (0-0.3); Eosinophils Percent Auto 1.6 % (0-4.4); Hematocrit 38.5 % (37.0-47.0); Hemoglobin 11.9 g/dL (12.0-15.0); Immature Granulocyte Absolute 0.02 K/mm3 (0.00-0.031); Immature Granulocyte Percent A 0.2 % (0-0.5); Lymphocytes Absolute Auto 1.55 K/mm3 (0.9-3.2); Lymphocytes Percent Auto 18.8 % (18.3-44.2); Mean Corpuscular HGB Conc 30.9 g/dl (32-36); Mean Corpuscular Hemoglobin 28.7 pg (26-34); Mean Corpuscular Volume 92.8 fl (80-100); Mean Platelet Volume 12.4 fl (7.4-10.4); Monocytes Absolute Auto 0.5 K/mm3 (0.1-0.6); Monocytes Percent Auto 5.7 % (2.6-8.5); Neutrophils Absolute Auto 6.1 K/mm3 (1.3-6.7); Neutrophils Percent Auto 73.3 % (45.5-73.1); Platelet Count Result 175 k/mm3 (150-375); Red Blood Count 4.15 M/mm3 (4.2-5.4); Red Cell Distribution Width 14.6 % (11.5-14.5); White Blood Count 8.3 K/mm3 (4.5-10.0)
[2024-02-09 12:09] LABS: Alanine Aminotransferase 16 U/L (6-35); Albumin Level 4.1 g/dL (3.5-5.1); Alkaline Phosphatase 49 U/L (38-126); Anion Gap 6 mmol/L (4-12); Aspartate Amino Transferase 24 U/L (14-36); Bilirubin,Total 0.6 mg/dL (0.2-1.3); Blood Urea Nitrogen 9 mg/dL (7-17); Calcium 8.9 mg/dL (8.4-10.2); Carbon Dioxide 29 mmol/L (22-30); Chloride 106 mmol/L (98-107); Estimated Glomerular Filt Rate > 60; Glucose 110 mg/dL (65-110); Potassium 3.6 mmol/L (3.4-5.0); Sodium 141 mmol/L (137-145)
[2024-02-09 12:38] LABS: Thyroid Stimulating Hormone 0.805 uIU/mL (0.465-4.680)
[2024-02-09 13:28] LABS: Free T4 Free Thyroxine 1.22 ng/mL (0.78-2.19)
== END 2024-02-09 11:25 | disposition home or self-care (01) ==
LOC: ANHLAB 11:28
PROVIDERS: PCP Family Medicine; Visit Provider Family Medicine
DX: I50.40 Unspecified combined systolic (congestive) and diastolic (congestive) heart failure (principal); E04.9 Nontoxic goiter, unspecified; I48.91 Unspecified atrial fibrillation
CPT/HCPCS: 36415; 80053; 84439; 84443; 85025

== ENCOUNTER 2024-02-20 16:24 | Inpatient (IN) | payer MEDICARE, MEDICAID, SELFPAY ==
--- NOTE | ~2024-02-20 | CT_ITS ---
EXAMINATION: CTA chest PE protocol DATE: 02/20/2024 19:50 INDICATION: Shortness of breath. TECHNIQUE: Computed tomography angiography (CTA) of the chest was performed with 100 mL Omnipaque-350 intravenous contrast timed to evaluate the pulmonary arteries. Coronal maximum intensity projection 3D-reconstructions were created by the technologist. Automated exposure control and iterative reconst ruction technique were employed. The dose-length product was 414.83 mGy-cm. COMPARISON: Chest CT 07/13/2023 FINDINGS: The lungs demonstrate mild atelectasis. There is septal thickening bilaterally, consistent with mild pulmonary edema. There are small pleural effusions. Cardiomegaly is noted. There is a small pericardial effusion. There are coronary artery calcifications. The central pulmonaries are enlarged , consistent with pulmonary arterial hypertension. There is no pulmonary embolus. There is an intrath oracic goiter. There is a left chest pacer with leads in region, right ventricle, and coronary sinus. There is mild thoracic spondylosis. IMPRESSION: 1. No pulmonary embolus. 2. Mild pulmonary edema. 3. Small pleural effusions. 4. Small pericardial effusion. 5. Intrathoracic goiter. Reviewed, dictated and finalized at location A.
--- NOTE | ~2024-02-20 | XR_ITS ---
EXAMINATION: XR chest 2V DATE: 02/20/2024 17:40 INDICATION: Shortness of breath. TECHNIQUE: Frontal and lateral views of the chest were obtained. COMPARISON: Chest 2 views 07/13/2023, chest CT 07/13/2023 FINDINGS: There are Jose B-lines, consistent with mild pulmonary edema. No pleural effusion or pneu mothorax. Cardiomegaly is noted. There is chronic right paratracheal widening, consistent with an int rathoracic goiter. There is a left chest pacer/defibrillator with leads in right atrium, right ventri roberto, and coronary sinus. IMPRESSION: 1. Mild pulmonary edema. 2. Cardiomegaly. 3. Intrathoracic goiter. Reviewed, dictated and finalized at location A.
--- NOTE | ~2024-02-20 | US_ITS ---
EXAMINATION: US venous doppler [facility] DATE: 02/20/2024 20:57 INDICATION: Lower limb swelling. TECHNIQUE: Grayscale ultrasound images without and with compression and Doppler ultrasound images of the bilateral lower extremity veins were obtained. COMPARISON: Ultrasound 07/13/2023 FINDINGS: The visualized portions of right common femoral vein, profunda (deep) femoral vein, femoral vein, pop liteal vein, peroneal veins, and greater saphenous vein outflow are patent. There is thrombus in the right posterior tibial veins. The visualized portions of left common femoral vein, profunda femoral vein, femoral vein, popliteal v ein, and greater saphenous vein outflow are patent. There is thrombus in left posterior tibial and pe roneal veins. IMPRESSION: 1. Deep vein thrombosis involving the right posterior tibial veins and left posterior tibial and per villar veins. Reviewed, dictated and finalized at location A. IMPRESSION: 1. Deep vein thrombosis involving the right posterior tibial veins and left po sterior tibial and peroneal veins.
[2024-02-20 16:38] VITALS: BP 173/86; PULSE 100; RESP 18; TEMP 36.8; O2SAT 99
--- NOTE | 2024-02-20 16:44 | ECG_ITS ---
Test Date: 2024-02-20 16:54:07 Measurements Intervals [place] Rate: 116 P: 66 IA: 143 QRS: -52 QRSD: 140 T: 55 QT: 395 QTc: 549 Interpretive Statements ELECTRONIC VENTRICULAR PACEMAKER PVCS No previous ECG available for comparison Electronically Signed On 02-21-2024 11:59:16 CDT by Columba Scanlon M.D.
[2024-02-20 17:20] LABS: Basophils Percent Auto 0.5 % (0.2-1.2); Eosinophils Absolute Auto 0.1 K/mm3 (0-0.3); Eosinophils Percent Auto 1.4 % (0-4.4); Hematocrit 36.7 % (37.0-47.0); Hemoglobin 11.8 g/dL (12.0-15.0); Immature Granulocyte Absolute 0.02 K/mm3 (0.00-0.031); Immature Granulocyte Percent A 0.3 % (0-0.5); Lymphocytes Absolute Auto 1.55 K/mm3 (0.9-3.2); Lymphocytes Percent Auto 20.2 % (18.3-44.2); Mean Corpuscular HGB Conc 32.2 g/dl (32-36); Mean Corpuscular Hemoglobin 29.3 pg (26-34); Mean Corpuscular Volume 91.1 fl (80-100); Mean Platelet Volume 12.9 fl (7.4-10.4); Monocytes Absolute Auto 0.5 K/mm3 (0.1-0.6); Monocytes Percent Auto 6.4 % (2.6-8.5); Neutrophils Absolute Auto 5.5 K/mm3 (1.3-6.7); Neutrophils Percent Auto 71.2 % (45.5-73.1); Platelet Count Result 159 k/mm3 (150-375); Red Blood Count 4.03 M/mm3 (4.2-5.4); Red Cell Distribution Width 14.6 % (11.5-14.5); White Blood Count 7.7 K/mm3 (4.5-10.0)
[2024-02-20 17:31] LABS: Alanine Aminotransferase 15 U/L (6-35); Albumin Level 3.9 g/dL (3.5-5.1); Alkaline Phosphatase 57 U/L (38-126); Anion Gap 8 mmol/L (4-12); Aspartate Amino Transferase 21 U/L (14-36); Bilirubin,Total 0.7 mg/dL (0.2-1.3); Blood Urea Nitrogen 10 mg/dL (7-17); Calcium 8.8 mg/dL (8.4-10.2); Carbon Dioxide 27 mmol/L (22-30); Chloride 104 mmol/L (98-107); Estimated CRCL calculation 60 ml/min; Estimated Glomerular Filt Rate > 60; Glucose 111 mg/dL (65-110); Potassium 3.3 mmol/L (3.4-5.0); Sodium 139 mmol/L (137-145)
[2024-02-20 17:41] LABS: INR 1.1; Prothrombin Time 14.5 Seconds (11.1-14.7)
[2024-02-20 17:42] LABS: Partial Thromboplastin Time 24.4 Seconds (22.3-36.8)
[2024-02-20 17:44] LABS: NT Pro B Type Natriuretic Pept 13200 pg/mL (19.9-100)
[2024-02-20 17:46] LABS: Troponin I 0.055 ng/mL (0.000-0.034)
[2024-02-20 17:56] LABS: Influenza A QL RT-PCR Negative (Negative); Influenza B QL RT-PCR Negative (Negative); RSV RNA, RT-PCR Negative (Negative); SARS-CoV-2 RNA PCR Negative (Negative)
[2024-02-20] MEDS: POTASSIUM CHLORIDE 20 MEQ ER TABLET PO (18:03)
--- NOTE | 2024-02-20 18:17 | ED.SOB ---
HPI - SOB/Dyspnea General Chief Complaint: Shortness of Breath/Dyspnea <ALEX Toribio Last Filed: 02/20/24 22:05> Stated Complaint: SHORTNESS OF BREATH <ALEX Toribio Last Filed: 02/20/24 22:05> Time Seen by Provider: 02/20/24 17:01 <ALEX Toribio Last Filed: 02/20/24 22:05> Source: patient and old records reviewed <ALEX Toribio Last Filed: 02/20/24 22:05> Mode of arrival: ambulatory <ALEX Toribio Last Filed: 02/20/24 22:05> Limitations: no limitations <ALEX Toribio Last Filed: 02/20/24 22:05> History of Present Illness HPI Narrative: Patient is an 78-year-old female, with past medical history of CHF, CAD, DVT, pAFIB on Xarelto, who presents to the ED with c/o SOB. Patient reports having increased shortness breath over the last 3 days. States it is worse with exertion. States she can hardly walk around her house without becoming winded. She has also had some swelling in her lower extremities. Denies pain in the lower extremities. She denies significant cough, congestion, rhinorrhea. Denies chest pain. Denies fevers. Family does report that patient is frequently noncompliance with her medications, particularly her Xarelto. <ALEX Toribio Last Filed: 02/20/24 22:05> Related Data Home Medications: Home Medications Medication Instructions Recorded Confirmed acetaminophen 500 mg tablet 500 mg PO Q6H PRN Pain (Scale 09/06/22 02/20/24 (Tylenol Extra Strength) Score 1-3) sacubitril 49 mg-valsartan 51 mg 1 tablet PO BID 07/13/23 02/20/24 tablet (Entresto) <ALEX Toribio Last Filed: 02/20/24 22:05> Allergies/Adverse Reactions: Allergies Allergy/AdvReac Type Severity Reaction Status Date / Time ibuprofen [From Motrin] Allergy Mild itch and Verified 02/20/24 22:22 hives fentanyl Allergy Unknown Vomiting Verified 02/20/24 22:22 phentyol AdvReac Severe Vomiting Uncoded 02/20/24 22:22 <Laurie Huerta PA-C - Last Filed: 02/20/24 22:05> Review of Systems Review of Systems: All systems reviewed & are unremarkable except as noted in HPI. <Laurie Huerta PA-C - Last Filed: 02/20/24 22:05> All systems reviewed & are unremarkable except as noted in HPI and below <Laurie Huerta PA-C - Last Filed: 02/20/24 22:05> [facility] Past Medical History Medical History: Medical History Chronic anticoagulation Chronic constipation Colon polyp Combined systolic and diastolic congestive heart failure Echo in July 2022: Moderately reduced LV systolic function with an EF estimated 30 to 35% and grade 1 diastolic dysfunction. Gastroesophageal reflux disease Hypertension Lumbar spondylosis Mild cognitive impairment with memory loss Obesity (BMI 30.0-34.9) Obstructive sleep apnea does not use CPAP Paroxysmal atrial fibrillation Syncope <Laurie Huerta PA-C - Last Filed: 02/20/24 22:05> Surgical History Surgical History: Surgical History History of colonoscopy with polypectomy History of hemorrhoidectomy History of hysterectomy History of lumbar laminectomy (2016) <Laurie Huerta PA-C - Last Filed: 02/20/24 22:05> Family History Family History: Family History Grandparent Carcinoma of colon Mother Acute myocardial infarction Father Acute myocardial infarction Sibling Lung cancer <Laurie Huerta PA-C - Last Filed: 02/20/24 22:05> Social History Social History: Social History Social History: Surrogate medical decision maker: Luz Maria, daughter. Code Status: Full Code Smoking packs per day: 1 Smoking cigarettes per day: 20.
[2024-02-20 19:02] VITALS: BP 153/102; PULSE 96; RESP 22; O2SAT 98
[2024-02-20 19:16] LABS: D Dimer 6.82 ug/mL (<0.48)
[2024-02-20] MEDS: FUROSEMIDE INJ 40 MG/4 ML VIAL IV PUSH (19:26)
--- NOTE | 2024-02-20 20:09 | ECG_ITS ---
Test Date: 2024-02-20 20:19:03 Measurements Intervals [place] Rate: 104 P: 57 TN: 154 QRS: -76 QRSD: 145 T: 67 QT: 408 QTc: 539 Interpretive Statements ELECTRONIC VENTRICULAR PACEMAKER PVCS Compared to ECG 02/20/2024 16:54:07 NO SIGNIFICANT CHANGES Electronically Signed On 02-21-2024 12:01:00 CDT by Columba Scanlon M.D.
[2024-02-20 20:58] LABS: Troponin I 0.065 ng/mL (0.000-0.034)
[2024-02-20 22:38] VITALS: BP 168/116; PULSE 110; RESP 16; O2SAT 96
--- NOTE | 2024-02-20 22:39 | PC.NURSE ---
Per provider approval pt given a turkey sandwich and something to drink. Pt at bedside also given food and drink.
--- NOTE | 2024-02-20 22:39 | PC.NURSE ---
Pt and pt frustrated about length of time without being admitted. Process and delay explained by this RN. Pt at bedside still verbalizing confusion and frustrated. JOANN Sullivan to bedside to offer further explanation. This RN and Laurie apologetic for delay and verbalized to pt and our appreciation for their patience.
[2024-02-20 22:55] VITALS: BP 139/98; PULSE 120; RESP 18; TEMP 36.7; O2SAT 95; BMI 28.5
--- NOTE | 2024-02-20 22:55 | ADMGEN ---
This patient, Kiki Garcia, was admitted to IMU Room 206-02. Patient/family oriented to hospital policies and general routines including ID bracelet, bed and alarms, visiting hours, pain management, procedures, bathroom and other care routines, personal items, smoking policy, room service/diet, and visiting hours. Information on how to activate the Rapid Response Team has been discussed. Patient/Family are encouraged to report perceived risks to care and to ask questions if they do not understand what they are told or what they should do.
[2024-02-20] MEDS: RIVAROXABAN 15 MG TABLET PO (23:27)
[2024-02-20 23:35] VITALS: PULSE 120; RESP 18; O2SAT 95
[2024-02-20 23:45] LABS: Troponin I 0.063 ng/mL (0.000-0.034)
[2024-02-21] VITALS (20 sets, daily range): BP systolic 128–174; BP diastolic 62–103; PULSE 84–111; RESP 18–24; TEMP 36.4–36.7; O2SAT 93–98
--- NOTE | 2024-02-21 07:46 | PM.IMHP ---
H&P: HPI History of Present Illness Date/Time: 02/21/24 07:46 Chief Complaint: Shortness of breath and leg swelling Narrative: 78-year-old female with past medical history of mild cognitive impairment, prior pulmonary embolism, prior DVTs in the distant past, combined systolic and diastolic heart failure, paroxysmal atrial fibrillation and essential hypertension who presented to the ER with shortness of breath and leg swelling. Source of information is patient and past medical records and ER records. The patient herself is a fair historian but has poor short-term memory. The patient reports that she has been short of breath for a couple of days. She admits that she feels like her blood pressures have been low frequently and makes her feel funny if she is getting up and around. However she cannot come help lower blood pressures are. But it sounds like she has been skipping some of her home medications. She also reports that if she does not get all of her medications taken before 19:00 that she frequently forgets them because that is when her memory is worse. She reports that are used to help her with her meds more but her daughter is been drawn into other family matters and has not been there is much to remind her. There was an ER note states that the patient's was with her in the ER and was upset the patient had not been admitted up stairs yet. However patient states that she is not she is and not with her . She states that there is no one else to help her with her medications. She reports that she has chronic urinary frequency and urgency. She has chronic intermittent urinary incontinence and has to wear to depends at home. She denies any changes in her bowel habits. She diet denies any chest pain. She denies any recent sensation of palpitations. Her dyspnea is worse with exertion. Patient is alert oriented x3 but it took her quite some to remember what month it was. Review of Systems Review of Systems: 12 systems were reviewed with pertinent positives and negatives per HPI. Except as documented in the HPI, all other systems were reviewed and are negative. [facility] Past Medical History Medical History Chronic anticoagulation Chronic constipation Colon polyp Combined systolic and diastolic congestive heart failure Echo in July 2022: Moderately reduced LV systolic function with an EF estimated 30 to 35% and grade 1 diastolic dysfunction. Gastroesophageal reflux disease Hypertension Lumbar spondylosis Mild cognitive impairment with memory loss Obesity (BMI 30.0-34.9) Obstructive sleep apnea does not use CPAP Paroxysmal atrial fibrillation Syncope Surgical History Surgical History History of colonoscopy with polypectomy History of hemorrhoidectomy History of hysterectomy History of lumbar laminectomy (2017) Family History Family History Grandparent Carcinoma of colon Mother Acute myocardial infarction Father Acute myocardial infarction Sibling Lung cancer Social History Social History Social History: Surrogate medical decision maker: Luz Maria, vinny. 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
[2024-02-21] MEDS: SACUBITRIL/VALSARTAN 49-51 MG TABLET 1 TABLET PO ×2 (09:06→17:44)
[2024-02-21] MEDS: POTASSIUM CHLORIDE 20 MEQ ER TABLET PO (09:06)
[2024-02-21] MEDS: FUROSEMIDE INJ 40 MG/4 ML VIAL IV PUSH ×2 (09:19→17:44)
[2024-02-21] MEDS: RIVAROXABAN 15 MG TABLET PO ×2 (09:19→20:46)
[2024-02-21 09:30] LABS: Anion Gap 5 mmol/L (4-12); Blood Urea Nitrogen 10 mg/dL (7-17); Calcium 9.3 mg/dL (8.4-10.2); Carbon Dioxide 33 mmol/L (22-30); Chloride 102 mmol/L (98-107); Estimated CRCL calculation 59 ml/min; Estimated Glomerular Filt Rate > 60; Glucose 147 mg/dL (65-110); Potassium 3.5 mmol/L (3.4-5.0); Sodium 140 mmol/L (137-145)
--- NOTE | 2024-02-21 13:03 | PM.IMPN ---
Progress Note: A&P Assessment and Plan (1) Acute bilateral deep vein thrombosis (DVT) of popliteal veins: Code(s): I82.433 - Acute embolism and thrombosis of popliteal vein, bilateral Status: Acute Assessment and Plan: 02/21/24: likely secondary to noncompliance with Xarelto for her AFib CTA of chest was negative for PE venous Doppler study showed DVT involving the right posterior tibial veins in left posterior tibial and peroneal veins patient started on High-dose Xarelto (2) Acute exacerbation of CHF (congestive heart failure): Qualifiers: Heart failure type: unspecified Qualified Code(s): I50.9 - Heart failure, unspecified Code(s): I50.9 - Heart failure, unspecified Status: Acute Assessment and Plan: 02/21/24: chest x-ray showing mild pulmonary edema with cardiomegaly proBNP 12,200 Lasix 40 mg IV push given while in the ED dietitian consult (3) Elevated troponin: Code(s): R79.89 - Other specified abnormal findings of blood chemistry Status: Acute Assessment and Plan: 02/21/24: troponin 0.055> 0.063 likely demand ischemia due to acute exacerbation of CHF Time Spent With Patient Time with patient: 25 - 35 minutes Subjective Date/time seen: 02/21/24 13:03 Interval history: interval history: This is an 78-year-old female who presented to the hospital on 02/21/2024 with shortness of breath and leg swelling. Workup in the hospital included a chest x-ray which showed mild pulmonary edema, cardiomegaly, intrathoracic goiter. Chest CTA was negative for PE, showed mild pulmonary edema, small pleural effusions, small pericardial effusion, intrathoracic goiter. Venous Doppler study showing deep vein thrombosis involving the right posterior tibial veins and left posterior tibial and peroneal veins. Initial labs shown a normal white blood cell count of 7.7, hemoglobin 11.8, D-dimer 6.82, potassium 3.3, troponin 0.055> 0.063, proBNP 24853. Respiratory panel was negative for influenza a and B, RSV, COVID. Patient was given 40 mg IV push Lasix, started on Xarelto, and given 20 mEq of potassium while in the ED. subjective: patient denies any fever, chills, nausea, vomiting, diarrhea, abdominal pain, chest pain. patient endorses shortness of breath with exertion and bilateral lower extremity swelling. patient does admit to not taking her Xarelto at home for her AFib on a regular basis. She also does not follow a cardiac diet. According to the patient often skips days with her medications and has been noncompliant with most of her medications. she does state that she is feeling much better since receiving IV Lasix this morning. labs and imaging reviewed. Review of Systems Review of Systems: All systems reviewed & are unremarkable except as noted in HPI and below Constitutional: Constitutional: Reports as per HPI and Reports no additional constitutional complaints Eyes: Eyes: Reports as per HPI and Reports no additional eye complaints ENT: Reports system reviewed and no additional complaints, except as documented and Reports as per HPI Cardiovascular: Cardiovascular: Reports as per HPI and Reports no additional cardiovascular complaints Respiratory: Respiratory: Reports as per HPI and Reports no additional respiratory complaints Gastrointestinal: Gastrointestinal: Reports as per HPI and Reports no additional gastrointestinal complaints Genitourinary: Genitourinary: Reports no additional female genitourinary complaints and Reports as per HPI Musculoskeletal: Musculoskeletal: Reports no additional musculoskeletal complaints and Reports as per HPI Integumentary/Breasts: Skin/Breast: Reports system reviewed and no additional complaints, except as docu and Reports as per HPI Neurologic: Reports system reviewed and no additional complaints, except as documented and Reports as per HPI Psychiatric: Psychiatric: Reports no additional ps
--- NOTE | 2024-02-21 14:09 | PC.NURSE ---
Dr. Flaherty notified pt having asymptomatic runs of VTach and tachycardia. Will continue to monitor
[2024-02-21] MEDS: SPIRONOLACTONE 25 MG TABLET PO (17:44)
[2024-02-21] MEDS: METOPROLOL SUCCINATE EXT REL 25 MG TABCR PO (20:46)
[2024-02-22] VITALS (11 sets, daily range): BP systolic 127–139; BP diastolic 66–81; PULSE 80–109; RESP 18–20; TEMP 36.4–36.9; O2SAT 93–98
[2024-02-22 04:19] LABS: Basophils Absolute Auto 0.1 K/mm3 (0.0-0.1); Basophils Percent Auto 0.6 % (0.2-1.2); Eosinophils Absolute Auto 0.2 K/mm3 (0-0.3); Eosinophils Percent Auto 2.4 % (0-4.4); Hematocrit 41.6 % (37.0-47.0); Hemoglobin 13.5 g/dL (12.0-15.0); Immature Granulocyte Absolute 0.04 K/mm3 (0.00-0.031); Immature Granulocyte Percent A 0.5 % (0-0.5); Lymphocytes Absolute Auto 2.45 K/mm3 (0.9-3.2); Lymphocytes Percent Auto 29.4 % (18.3-44.2); Mean Corpuscular HGB Conc 32.5 g/dl (32-36); Mean Corpuscular Volume 89.3 fl (80-100); Mean Platelet Volume 12.8 fl (7.4-10.4); Monocytes Absolute Auto 0.5 K/mm3 (0.1-0.6); Monocytes Percent Auto 6.2 % (2.6-8.5); Neutrophils Absolute Auto 5.1 K/mm3 (1.3-6.7); Neutrophils Percent Auto 60.9 % (45.5-73.1); Platelet Count Result 170 k/mm3 (150-375); Red Blood Count 4.66 M/mm3 (4.2-5.4); Red Cell Distribution Width 14.4 % (11.5-14.5); White Blood Count 8.3 K/mm3 (4.5-10.0)
[2024-02-22 04:31] LABS: Alanine Aminotransferase 13 U/L (6-35); Albumin Level 3.7 g/dL (3.5-5.1); Alkaline Phosphatase 51 U/L (38-126); Anion Gap 8 mmol/L (4-12); Aspartate Amino Transferase 20 U/L (14-36); Bilirubin,Total 0.8 mg/dL (0.2-1.3); Blood Urea Nitrogen 13 mg/dL (7-17); Carbon Dioxide 31 mmol/L (22-30); Chloride 98 mmol/L (98-107); Estimated CRCL calculation 47 ml/min; Estimated Glomerular Filt Rate > 60; Glucose 107 mg/dL (65-110); Sodium 137 mmol/L (137-145)
[2024-02-22] MEDS: FUROSEMIDE INJ 40 MG/4 ML VIAL IV PUSH (08:51)
[2024-02-22] MEDS: SACUBITRIL/VALSARTAN 49-51 MG TABLET 1 TABLET PO (08:52)
[2024-02-22] MEDS: RIVAROXABAN 15 MG TABLET PO (08:52)
[2024-02-22] MEDS: POTASSIUM CHLORIDE 20 MEQ ER TABLET PO (08:52)
--- NOTE | 2024-02-22 10:23 | PM.DS ---
DS: Admitting Diagnosis Discharge Date 02/22/24 Admitting Diagnosis Acute bilateral DVT of popliteal veins Heart failure Elevated troponin DS: Discharge Diagnosis Discharge Diagnosis (1) Acute bilateral deep vein thrombosis (DVT) of popliteal veins: Code(s): I82.433 - Acute embolism and thrombosis of popliteal vein, bilateral Status: Acute (2) Acute exacerbation of CHF (congestive heart failure): Qualifiers: Heart failure type: unspecified Qualified Code(s): I50.9 - Heart failure, unspecified Code(s): I50.9 - Heart failure, unspecified Status: Acute (3) Elevated troponin: Code(s): R79.89 - Other specified abnormal findings of blood chemistry Status: Acute DS: Summary Hospital Course Reason for hospitalization: Acute bilateral DVT of popliteal veins Heart failure Elevated troponin Hospital Course: This is an 78-year-old female who presented to the hospital on 02/21/2024 with shortness of breath and leg swelling. Workup in the hospital included a chest x-ray which showed mild pulmonary edema, cardiomegaly, intrathoracic goiter. Chest CTA was negative for PE, showed mild pulmonary edema, small pleural effusions, small pericardial effusion, intrathoracic goiter. Venous Doppler study showing deep vein thrombosis involving the right posterior tibial veins and left posterior tibial and peroneal veins. Initial labs shown a normal white blood cell count of 7.7, hemoglobin 11.8, D-dimer 6.82, potassium 3.3, troponin 0.055> 0.063, proBNP 72069. Respiratory panel was negative for influenza a and B, RSV, COVID. Patient was given 40 mg IV push Lasix, started on Xarelto, and given 20 mEq of potassium while in the ED. Extensively discussed compliance with medications at home as well as a heart healthy diet. Patient was admitted in July of this year with a pulmonary embolism and now is here with DVT. She has not been compliant at home with her Xarelto and her last prescription was filled back in June which was a 90 day supply. Spoke with her primary care physician office about her complaints issues and new DVTs. Dietitian was also consulted while she was here and discussed heart healthy diet options. Patient was given Lasix 40 mg IV push b.i.d. while inpatient and is feeling much better. She is stable for discharge at this time. She will need to follow up in 1 week with her primary care physician. Final diagnosis: Acute bilateral DVT of popliteal vein, acute exacerbation congestive heart failure Status at Discharge Cognitive/behavioral status at discharge: Alert oriented x4 Functional status at discharge: independent ambulation Overall status at discharge: patient is progressing back to baseline Time Spent with Patient Time attestation: Total time spent providing and/or coordinating discharge services: Time spent: Greater than 30 minutes Exam Narrative: General: In no acute distress, well nourished Cardiac: Normal S1 and S2. No murmur, gallops or friction rubs, peripheral pulses intact. Respiratory: Lungs clear to auscultation, no adventitious lung sounds, currently on room air Gastrointestinal: soft, non-distended, non-tender, normoactive bowel sounds. : voiding without difficulty. Neuro: Alert and oriented x4 DS: Data Data Completed and Pending Completed studies during hospitalization: Chest x-ray Chest CTA Venous Doppler study Pending studies at discharge: None Labs on day of discharge: Labs from last 24 hours 02/22/24 03:50 WBC 8.3 RBC 4.66 Hgb 13.5 Hct 41.6 MCV 89.3 MCH 29.0 MCHC 32.5 RDW 14.4 Plt Count 170 MPV 12.8 H Immature Gran % (Auto) 0.5 Neut % (Auto) 60.9 Lymph % (Auto) 29.4 [place] % (Auto) 6.2 Eos % (Auto) 2.4 Baso % (Auto) 0.6 Lymph # (Auto) 2.45 [place] # (Auto) 0.5 Eos # (Auto) 0.2 Baso # (Auto) 0.1 Abs Immat Gran (auto) 0.04 H Absolute Neuts (auto) 5.1 Absolute Nucleated RBC 0.000 Nucleated RBC % 0.0 S
== END 2024-02-22 14:16 | disposition home health service (06) | DRG 299 ==
LOC: ANHED 22:05 → ANHIMU 22:22
PROVIDERS: Emergency Medicine; Admitting Provider Internal Medicine; Emergency Provider Physician Assistant; PCP Family Medicine; Visit Provider Nurse Practitioner Acute Care
DX: I82.443 Acute embolism and thrombosis of tibial vein, bilateral (principal); I50.43 Acute on chronic combined systolic (congestive) and diastolic (congestive) heart failure; I82.452 Acute embolism and thrombosis of left peroneal vein; I48.0 Paroxysmal atrial fibrillation; I25.10 Atherosclerotic heart disease of native coronary artery without angina pectoris; I11.0 Hypertensive heart disease with heart failure; E66.9 Obesity, unspecified; G47.33 Obstructive sleep apnea (adult) (pediatric); K21.9 Gastro-esophageal reflux disease without esophagitis; Z79.01 Long term (current) use of anticoagulants; Z86.718 Personal history of other venous thrombosis and embolism; Z91.148 Patient's other noncompliance with medication regimen for other reason; M47.816 Spondylosis without myelopathy or radiculopathy, lumbar region; Z68.30 Body mass index [BMI] 30.0-30.9, adult; Z87.891 Personal history of nicotine dependence; Z86.711 Personal history of pulmonary embolism; Z28.21 Immunization not carried out because of patient refusal; Z20.822 Contact with and (suspected) exposure to COVID-19
CPT/HCPCS: 36415; 71046; 71275; 80048; 80053; 83735; 83880; 84484; 85025; 85380; 85610; 85730; 87637; 93005; 93970; 96374; 99285; A9270; G0378; J1940; Q9967

== ENCOUNTER 2024-03-25 21:55 | Inpatient (IN) | payer MEDICARE, MEDICAID, SELFPAY ==
[2024-03-25] VITALS (7 sets, daily range): BP systolic 96–132; BP diastolic 77–113; PULSE 123–174; RESP 16–23; TEMP 37; O2SAT 95–96
--- NOTE | ~2024-03-25 | US_ITS ---
EXAMINATION: US arterial duplex UE DATE: 03/27/2024 17:43 INDICATION: Discordant blood pressures in the upper limbs. TECHNIQUE: Multiple grayscale and Doppler ultrasound images of the bilateral upper limb arteries were obtained. COMPARISON: CTA neck 11/23/2022 FINDINGS: On the right, peak systolic velocity is 55 cm/s in the subclavian artery, 44 cm/s in axilla ry artery, 95 cm/s in brachial artery, 67 cm/s in radial artery, and 73 cm/s in ulnar artery. There i s no significant visible plaque. On the left, peak systolic velocity is 109 cm/s in subclavian artery, 55 cm/s in axillary artery, 73 cm/s in brachial artery, 131 cm/s in radial artery, and 71 cm/s in ulnar artery. There is no signific ant visible plaque. IMPRESSION: 1. No significant arterial occlusive disease. Reviewed, dictated and finalized at location A. ING FACULTY
--- NOTE | ~2024-03-25 | XR_ITS ---
Portable chest x-ray Comparison: 02/20/2024 Clinical History: Palpitations Findings: Lungs are clear, without focal consolidation or pleural effusion. Cardiomediastinal silho uette is stable, with pacemaker device. Bones and soft tissues are unremarkable. Impression: Clear lungs. Stable cardiomegaly with pacemaker device. Reviewed, dictated and finalized at location . UELS PROCESSING TECHNICIAN Impression: Clear lungs. Stable cardiomegaly with pacemaker device.
--- NOTE | 2024-03-25 21:53 | ECG_ITS ---
Test Date: 2024-03-25 22:03:44 Measurements Intervals [place] Rate: 170 P: 0 [place]: 0 QRS: -14 QRSD: 157 T: 157 QT: 290 QTc: 489 Interpretive Statements ATRIAL FIBRILLATION WITH RAPID VENTRICULAR RESPONSE LEFT BUNDLE BRANCH BLOCK ABNORMAL ECG No previous ECG available for comparison Electronically Signed On 03-26-2024 06:25:17 PHYSICIAN OFFICE SPECIALIST by Arnaldo Huizar D.O.
[2024-03-25] MEDS: METOPROLOL TARTRATE INJ 5 MG/5 ML VIAL IV PUSH ×3 (22:10→23:38)
--- NOTE | 2024-03-25 22:10 | PC.NURSE ---
RN gave 5mg of Metoprolol via PIV. Patient heart rate now 140.
[2024-03-25 22:20] LABS: Basophils Percent Auto 0.3 % (0.2-1.2); Eosinophils Absolute Auto 0.1 K/mm3 (0-0.3); Eosinophils Percent Auto 1.5 % (0-4.4); Hematocrit 38.5 % (37.0-47.0); Hemoglobin 12.5 g/dL (12.0-15.0); Immature Granulocyte Absolute 0.02 K/mm3 (0.00-0.031); Immature Granulocyte Percent A 0.2 % (0-0.5); Lymphocytes Absolute Auto 2.91 K/mm3 (0.9-3.2); Lymphocytes Percent Auto 30.7 % (18.3-44.2); Mean Corpuscular HGB Conc 32.5 g/dl (32-36); Mean Corpuscular Hemoglobin 29.8 pg (26-34); Mean Corpuscular Volume 91.7 fl (80-100); Mean Platelet Volume 12.1 fl (7.4-10.4); Monocytes Absolute Auto 0.6 K/mm3 (0.1-0.6); Monocytes Percent Auto 5.9 % (2.6-8.5); Neutrophils Absolute Auto 5.8 K/mm3 (1.3-6.7); Neutrophils Percent Auto 61.4 % (45.5-73.1); Platelet Count Result 213 k/mm3 (150-375); Red Cell Distribution Width 14.9 % (11.5-14.5); White Blood Count 9.5 K/mm3 (4.5-10.0)
--- NOTE | 2024-03-25 22:28 | ED_ITS ---
HPI - General Adult General Chief complaint: Arrhythmia/Palpitations Stated complaint: palpations Time Seen by Provider: 03/25/24 22:06 History of Present Illness HPI narrative: Patient 78-year-old female who presents emergency department with chief complaint of nausea vomiting and palpitations. The patient states she felt as though her heart was beating fast reports felt as though she was nauseated this as well. Patient reports not having any chest pain not having shortness of jennifer ath. EMS noted the patient's heart rate to be fast and gave the patient IV fluids. The patient does have history of congestive heart failure and has an AICD in place Related Data Home Medications Medication Instructions Recorded Confirmed acetaminophen 500 mg tablet 500 mg PO Q6H PRN Pain (Scale 09/06/22 02/20/24 (Tylenol Extra Strength) Score 1-3) sacubitril 49 mg-valsartan 51 mg 1 tablet PO BID 07/13/23 02/20/24 tablet (Entresto) Allergies Allergy/AdvReac Type Severity Reaction Status Date / Time ibuprofen [From Motrin] Allergy Mild itch and Verified 02/20/24 22:22 hives fentanyl Allergy Unknown Vomiting Verified 02/20/24 22:22 phentyol AdvReac Severe Vomiting Uncoded 02/20/24 22:22 Review of Systems Review of Systems: A 10 system review of systems was completed on the patient and is negative except for what is stated in the HPI. Nursing and ancillary documentation was reviewed. [facility] Past Medical History Medical History Chronic anticoagulation Chronic constipation Colon polyp Combined systolic and diastolic congestive heart failure Echo in July 2022: Moderately reduced LV systolic function with an EF estimated 30 to 35% and grade 1 diastolic dysfunction. Gastroesophageal reflux disease Hypertension Lumbar spondylosis Mild cognitive impairment with memory loss Obesity (BMI 30.0-34.9) Obstructive sleep apnea does not use CPAP Paroxysmal atrial fibrillation Syncope Surgical History Surgical History History of colonoscopy with polypectomy History of hemorrhoidectomy History of hysterectomy History of lumbar laminectomy (2016) Family History Family History Grandparent Carcinoma of colon Mother Acute myocardial infarction Father Acute myocardial infarction Sibling Lung cancer Social History Social History Social History: Surrogate medical decision maker: vinny Loera. Code Status: Full Code Smoking packs per day: 1 Smoking cigarettes per day: 20.0 Years smoked: 30 Smoking pack-years: 30.00 Smoking status: Former smoker Tobacco type: cigarettes Second hand tobacco smoke exposure: No Alcohol intake: never Substance use: never Substance use type: does not use Do You Feel Safe in your Home?: Yes Lack of Transportation: No Lack of Food: Never True Current Housing: I Have Housing Concerned About Future Housing: No Difficulty Paying Gas/Electric Bills: No Difficulty Paying for Meds: No Currently Unemployed: No Education: Associate Degree Difficulty w/ Childcare or Family Care: No Living arrangements: with family Additional living arrangements comments: Lives with children. 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: No Exam Narrative: GENERAL: Well-appearing, well-nourished, and in no acute distress. HEAD: Normocephalic, atraumatic. EYES: PERRLA and EOMI. ENT: Nares clear, no rhinorrhea or epistaxis. Mucous membranes moist. NECK: Supple. CHEST: Clear to auscultation. No respiratory distress. HEART: Tachycardic rate and rhythm. No murmur heard. Normal peripheral pulses. ABDOMEN: Soft, nontender, nondistended, normal active bowel sounds. EXTREMITIES: Normal range of motion. No edema. SKIN: Warm, dry, no rash. NEURO: No focal deficits. Alert and oriented x3. PSYCH: Normal mood and affect. Course Vital Signs Vital signs: Vital Signs Temperature 37.0 C 03/25/24 22:01 Pulse Rate 174 H 03/25/24 22:01 Respiratory Rate 23 H 03/25/24 22:01 Blood Pressure 132/107 H 03/25/24 22:01 Pulse Oximetry 96 03/25/24 22:01 Oxygen Delivery Room Air 03/25/24 22:01 Temperature 37.0 C 03/25/24 22:01 Pulse Rate 89 03/26/24 01:05 Respiratory Rate 16 03/26/24 01:05 Blood Pressure 129/89 03/26/24 01:05 Pulse Oximetry 96 03/26/24 01:05 Oxygen Delivery Room Air 03/25/24 22:01 Medical Decision Making MDM Narrative Medical decision making narrative: Differential diagnosis includes noncompliance, electrolyte abnormality, CHF, Vital Signs Vital Signs: Vital Signs Temperature 37.0 C 03/25/24 22:01 Pulse Rate 174 H 03/25/24 22:01 Respiratory Rate 23 H 03/25/24 22:01 Blood Pressure 132/107 H 03/25/24 22:01 Pulse Oximetry 96 03/25/24 22:01 Oxygen Delivery Room Air 03/25/24 22:01 Temperature 37.0 C 03/25/24 22:01 Pulse Rate 89 03/26/24 01:05 Respiratory Rate 16 03/26/24 01:05 Blood Pressure 129/89 03/26/24 01:05 Pulse Oximetry 96 03/26/24 01:05 Oxygen Delivery Room Air 03/25/24 22:01 Lab Data 03/25/24 22:13 03/25/24 22:13 Labs: Lab Results 03/25/24 03/25/24 03/26/24 Range/Units 22:12 22:13 00:15 WBC 9.5 (4.5-10.0) K/mm3 RBC 4.20 (4.2-5.4) M/mm3 Hgb 12.5 (12.0-15.0) g/dL Hct 38.5 (37.0-47.0) % MCV 91.7 (80-100) fl MCH 29.8 (26-34) pg MCHC 32.5 (32-36) g/dl RDW 14.9 H (11.5-14.5) % Plt Count 213 (150-375) k/mm3 MPV 12.1 H (7.4-10.4) fl Immature Gran % (Auto) 0.2 (0-0.5) % Neut % (Auto) 61.4 (45.5-73.1) % Lymph % (Auto) 30.7 (18.3-44.2) % [place] % (Auto) 5.9 (2.6-8.5) % Eos % (Auto) 1.5 (0-4.4) % Baso % (Auto) 0.3 (0.2-1.2) % Lymph # (Auto) 2.91 (0.9-3.2) K/mm3 [place] # (Auto) 0.6 (0.1-0.6) K/mm3 Eos # (Auto) 0.1 (0-0.3) K/mm3 Baso # (Auto) 0.0 (0.0-0.1) K/mm3 Abs Immat Gran (auto) 0.02 (0.00-0.031) K/mm3 Absolute Neuts (auto) 5.8 (1.3-6.7) K/mm3 Absolute Nucleated RBC 0.000 (0.0-0.012) K/mm3 Nucleated RBC % 0.0 (0.0-0.2) % PT 13.4 (11.1-14.7) Seconds INR 1.0 APTT 24.6 (22.3-36.8) Seconds Sodium 139 (137-145) mmol/L Potassium 3.7 (3.4-5.0) mmol/L Chloride 107 (98-107) mmol/L Carbon Dioxide 24 (22-30) mmol/L Anion Gap 8 (4-12) mmol/L BUN 16 (7-17) mg/dL Creatinine 0.90 (0.7-1.0) mg/dL Estim Creat Clear Calc 48 ml/min Estimated GFR > 60 (59 - ) Glucose 127 H (65-110) mg/dL Lactic Acid 1.5 (0.7-2.0) mmol/L Calcium 9.0 (8.4-10.2) mg/dL Magnesium 2.0 (1.6-2.3) mg/dL Total Bilirubin 0.3 (0.2-1.3) mg/dL AST 21 (14-36) U/L ALT 11 (6-35) U/L Alkaline Phosphatase 53 (38-126) U/L Troponin I 0.025 (0.000-0.034) ng/mL NT-Pro-B Natriuret Pep 3210 H TNP (19.9-100) pg/mL Total Protein 7.0 (6.3-8.2) g/dL Albumin 3.9 (3.5-5.1) g/dL Lipase 83 (23-300) U/L Urine Color Yellow (Yellow) Urine Appearance Cloudy H (Clear) Urine pH 5.5 (5.0-9.0) Ur Specific [place] 1.029 (1.001-1.035) Urine Protein 1+ H (Negative) mg/dL Urine Glucose (UA) Negative (Negative) mg/dL Urine Ketones Trace H (Negative) mg/dL Ur Blood (Man) Non-hemolyzed trace H (Negative) Urine Nitrate Negative (Negative) Urine Bilirubin Negative (Negative) Urine Urobilinogen 1.0 (<2.0) mg/dL Leukocyte Esterase Rfl Negative (Negative) SEBASTIAN/UL Urine RBC 6-10 H (0-2) /hpf Urine WBC 0-5 (0-3) /hpf Ur Squamous Epith Cells Few (Few) /hpf Urine Bacteria Rare /hpf Urine Casts 0-2 Influenza A (RT-PCR) Negative (Negative) Influenza B (RT-PCR) Negative (Negative) RSV (RT-PCR) Negative (Negative) SARS-CoV-2 RNA (RT-PCR) Negative (Negative) Critical Care Time Critical Care Time Critical Care Time: Yes Total Critical Care Time: 30 Discharge Plan Discharge Clinical Impression: Atrial fibrillation with RVR Patient Disposition: Still a Patient Condition: Stable Prescriptions: No Action acetaminophen-codeine 300-30 mg tablet 1 tablet PO Q8H PRN (Reason: pain) Qty: 60 0RF lactulose 20 gram/30 mL solution 20 g PO BID Qty: 3000 0RF potassium chloride 20 mEq tablet extended release 20 meq PO DAILY Qty: 135 2RF furosemide 40 mg tablet 40 mg PO DAILY Qty: 90 1RF Xarelto 20 mg tablet 20 mg PO QPM Qty: 100 2RF Hold Instructions: Resume on 03/13/24. Ok to resume on this date after completing higher dosage. Xarelto 15 mg Tablet 15 mg PO Q12HR Qty: 41 0RF acetaminophen [Tylenol Extra Strength] 500 mg Tablet 500 mg PO Q6H PRN (Reason: Pain (Scale Score 1-3)) Entresto 49-51 mg tablet 1 tablet PO BID spironolactone 25 mg tablet 25 mg PO QPM Qty: 90 1RF metoprolol succinate [Toprol XL] 25 mg tablet extended release 24 hr 25 mg PO HS Qty: 180 2RF Rx Instructions: may add another if HR above 80 omeprazole 40 mg capsule,delayed release(DR/EC) See Rx Instructions .ROUTE .COMPLEX Qty: 90 0RF Dose Instruction: Take 1 capsule by mouth once daily Rx Instructions: Take 1 capsule by mouth once daily Follow-up/Referrals: Mia Recinos MD [Primary Care Provider] - Time of Disposition: 01:10
[2024-03-25 22:34] LABS: Alanine Aminotransferase 11 U/L (6-35); Albumin Level 3.9 g/dL (3.5-5.1); Alkaline Phosphatase 53 U/L (38-126); Anion Gap 8 mmol/L (4-12); Aspartate Amino Transferase 21 U/L (14-36); Bilirubin,Total 0.3 mg/dL (0.2-1.3); Blood Urea Nitrogen 16 mg/dL (7-17); Carbon Dioxide 24 mmol/L (22-30); Chloride 107 mmol/L (98-107); Estimated CRCL calculation 48 ml/min; Estimated Glomerular Filt Rate > 60; Glucose 127 mg/dL (65-110); Potassium 3.7 mmol/L (3.4-5.0); Sodium 139 mmol/L (137-145)
[2024-03-25 22:40] LABS: Prothrombin Time 13.4 Seconds (11.1-14.7)
[2024-03-25 22:41] LABS: Partial Thromboplastin Time 24.6 Seconds (22.3-36.8)
--- NOTE | 2024-03-25 22:46 | PC.NURSE ---
RN has SETVI reader trying to obtain reader at this time.
[2024-03-25 22:51] LABS: Lactic Acid Reflex 1.5 mmol/L (0.7-2.0)
[2024-03-25 22:55] LABS: Lipase 83 U/L (23-300)
[2024-03-25 23:03] LABS: Influenza A QL RT-PCR Negative (Negative); Influenza B QL RT-PCR Negative (Negative); RSV RNA, RT-PCR Negative (Negative); SARS-CoV-2 RNA PCR Negative (Negative)
--- NOTE | 2024-03-25 23:04 | PC.NURSE ---
RN attempting to call each place to complete interrogation.
[2024-03-25 23:07] LABS: Troponin I 0.025 ng/mL (0.000-0.034)
[2024-03-25] MEDS: dilTIAZem 100 MG/100 ML 100 MG/100 ML BAG IV CONT (23:56)
[2024-03-26] VITALS (29 sets, daily range): BP systolic 78–158; BP diastolic 52–104; PULSE 42–120; RESP 15–24; TEMP 36.3–37.1; O2SAT 95–100; BMI 30.4
[2024-03-26] MEDS: dilTIAZem HCl INJ 25 MG/5 ML VIAL 10 MG IV PUSH (00:11)
--- NOTE | 2024-03-26 00:21 | PC.NURSE ---
Had difficulty finding supplier for patient defibrillator. RN had to call several places to obtain correct place. Found [facility]. Interrogation completed by patients interrogation phone. of the patient went to their home to obtain phone and Card. This RN contacted [facility] for interrogation to be sent to [place] via fax at [phone]. RN started Cardizem and had another RN verify pump. 1st RN Jose, 2nd RN Marilee. Pts labs/ urine sent to laboratory at this time. Pts is resting on ER stretcher with at bedside.
[2024-03-26 00:26] LABS: Add Urine Microscopic? YES; Appearance Urine Cloudy (Clear); Bacteria Urine Rare /hpf; Bilirubin Urine Negative (Negative); Blood Urine Non-Hemolyzed Trace (Negative); Color Urine Yellow (Yellow); Glucose Urine UA Negative (Negative); Ketones Urine Trace mg/dL (Negative); Leukocyte Esterase Ur Negative LEU/UL (Negative); Nitrate Urine Negative (Negative); Non Pathogenic Casts 0-2; Protein Urine 1+ mg/dL (Negative); Specific Grav Ur 1.029 (1.001-1.035); Squamous Epithelial Cell Urine Few /hpf (Few); WBC Urine 0-5 /hpf (0-3); pH Urine 5.5 (5.0-9.0)
--- NOTE | 2024-03-26 00:32 | PC.NURSE ---
lara called from [facility]. She informs that the patient has had 1 shock, with noted RVR/ Afib. They are faxing over report. (OVER 200 pages). Will give to MD. Patient has a HR at this time of 96. Remains on site monitor.
--- NOTE | 2024-03-26 00:58 | PC.NURSE ---
RN informed MD of BP of 78/52. Verbal order given to cycle b/p every 10 minutes and decrease Cardizem to 2.5.
--- NOTE | 2024-03-26 01:00 | PC.NURSE ---
it is noted that patient is in a paced rhythm at this time.
[2024-03-26 01:01] LABS: NT Pro B Type Natriuretic Pept 3210 pg/mL (19.9-100)
--- NOTE | 2024-03-26 01:20 | PC.NURSE ---
interrogation given to JONNY ERNANDEZ at this time.
[2024-03-26] MEDS: METOPROLOL SUCCINATE EXT REL 25 MG TABCR PO (01:53)
--- NOTE | 2024-03-26 02:03 | PC.NURSE ---
it is noted that the patient is in Afib at this time per monitor.
--- NOTE | 2024-03-26 02:06 | PC.NURSE ---
Report received from ER nurse Stu CHAMPION.
--- NOTE | 2024-03-26 02:20 | ADMGEN ---
This patient, Kiki Garcia, was admitted to IMU Room 212-01. Patient/family oriented to hospital policies and general routines including ID bracelet, bed and alarms, visiting hours, pain management, procedures, bathroom and other care routines, personal items, smoking policy, room service/diet, and visiting hours. Information on how to activate the Rapid Response Team has been discussed. Patient/Family are encouraged to report perceived risks to care and to ask questions if they do not understand what they are told or what they should do.
[2024-03-26 05:08] LABS: Troponin I 0.945 ng/mL (0.000-0.034)
[2024-03-26] MEDS: dilTIAZem 100 MG/100 ML 100 MG/100 ML BAG IV CONT ×2 (06:00→10:08)
--- NOTE | 2024-03-26 14:36 | PM.CNCAR ---
Assessment and Plan Assessment and plan (1) Atrial fibrillation with RVR: Code(s): I48.91 - Unspecified atrial fibrillation Status: Acute (2) Non compliance w medication regimen: Code(s): Z91.148 - Patient's other noncompliance with medication regimen for other reason Status: Acute (3) Hypertension: Code(s): I10 - Essential (primary) hypertension Status: Acute (4) Combined systolic and diastolic congestive heart failure: Qualifiers: Heart failure chronicity: chronic Qualified Code(s): I50.42 - Chronic combined systolic (congestive) and diastolic (congestive) heart failure Code(s): I50.40 - Unspecified combined systolic (congestive) and diastolic (congestive) heart failure Status: Acute (5) Cardiomyopathy: Qualifiers: Cardiomyopathy type: other Qualified Code(s): I42.8 - Other cardiomyopathies Code(s): I42.9 - Cardiomyopathy, unspecified Status: Acute (6) Ventricular tachycardia: Code(s): I47.20 - Ventricular tachycardia, unspecified Status: Acute Plan 1. Chronic compensated Systolic HF NYHA II-III, Stage C NICM TTE (07/2023) ef 20-25% S/p ICD 2. Monomorphic VT s/p ICD firing 3. Afib/RVR 4. HTN 5. Dementia 6. Degenerative joint ds - Discussed compliance with her and her daughter. Her daughter will ensure compliance with meds - Will DC diltiazem infusion - Amiodarone infusion, will transition to oral amiodarone tomorrow. prison amiodarone can be discussed with her outpatient pest control service technician - Restart Toprol-Xl, can be optimized based on HR and BP - Continue Entresto - MRA and SGLT2 based on compliance on current meds as an outpatient - AC to continue History of Present Illness History of Present Illness Consult date/time: 03/26/24 14:36 Consult reason: atrial fibrillation Reason For Visit: Atrial fibrillation with rapid ventricular respons Narrative: 78 y.o.? AAF? with chronic hypertensive heart disease with? heart failure, cardiomyopathy, PAF, on l/t a/coagulation, dementia , degenerative spine disease. She lives with her daughter , not very compliant with diet and at times with her medications. Not very steady, ambulate with? cane, very sedentary., biventricular [facility] admissions 2022 for uncontrolled HTN, worsening cardiomyopathy, PAF, on a/coagulation and Entresto since 2022. Remained non-compliant with her meds, not taking her diuretic as ordered. Hospital admission 07/27/23 with acute PE, biventricular PE, non-compliance . Was in acute rehab , remained not very compliant with her meds. 10/31/23 hospital admission for MANAGER ENGINE D implantation She was admitted with palpitations, fast heart rate and her ICD firing. ICD was interrogated which showed several episodes of NSVT,, VT and VF Since December 2023 she had 5 episodes i the VF zone and 1 episode in the VT zone. 4 were treated with ATP and one required shock. She w found to in AfibR>VR when she came to the ED Currently on diltiazem infusion. Compliance is still an issue. Daughter feels she may not be taking her BB. She was on 25 mg Toprol_Xl Review of Systems Review of Systems: A 10 system review of systems was completed on the patient and is negative except for what is stated in the HPI. Nursing and ancillary documentation was reviewed. [facility] Past Medical History Medical History Chronic anticoagulation Chronic constipation Colon polyp Combined systolic and diastolic congestive heart failure Echo in July 2022: Moderately reduced LV systolic function with an EF estimated 30 to 35% and grade 1 diastolic dysfunction. Gastroesophageal reflux disease Hypertension Lumbar spondylosis Mild cognitive impairment with memory loss Obesity (BMI 30.0-34.9) Obstructive sleep apnea does not use CPAP Paroxysmal atrial fibrillation Syncope Surgical History Surgical History History of colonoscopy with polypectomy History of hemorrhoidectomy History of hysterectomy History of lumbar laminectomy (2016) Family History Family History Grandparent Carcinoma of colon Mother Acute myocardial infarction Father Acute myocardial infarction Sibling Lung cancer Social History Social History Social History: Surrogate medical decision maker: Luz Maria, vinny. Code Status: Full Code Smoking packs per day: 1 Smoking cigarettes per day: 20.0 Years smoked: 30 Smoking pack-years: 30.00 Smoking status: Former smoker Second hand tobacco smoke exposure: No Alcohol intake: never Substance use: never Substance use type: does not use Do You Feel Safe in your Home?: Yes Lack of Transportation: No Lack of Food: Never True Current Housing: I Have Housing Concerned About Future Housing: No Difficulty Paying Gas/Electric Bills: No Difficulty Paying for Meds: No Currently Unemployed: No Education: Associate Degree Difficulty w/ Childcare or Family Care: No Living arrangements: with family Additional living arrangements comments: Lives with children. 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: No Meds Home Medications and Allergies Home Medications Medication Instructions Recorded Confirmed Type acetaminophen 500 mg tablet 500 mg PO Q6H PRN Pain (Scale 09/06/22 03/26/24 History (Tylenol Extra Strength) Score 1-3) furosemide 40 mg tablet 40 mg PO DAILY #90 tabs 06/11/23 03/26/24 Rx potassium chloride 20 mEq 20 meq PO DAILY #135 tabs 06/11/23 03/26/24 Rx tablet,extended release rivaroxaban 20 mg tablet (Xarelto) 20 mg PO QPM #100 tabs 06/11/23 03/26/24 Rx sacubitril 49 mg-valsartan 51 mg 1 tablet PO BID 07/13/23 03/26/24 History tablet (Entresto) spironolactone 25 mg tablet 25 mg PO QPM #90 tabs 07/15/23 03/26/24 Rx acetaminophen 300 mg-codeine 30 mg 1 tablet PO Q8H PRN pain #60 tabs 02/09/24 03/26/24 Rx tablet metoprolol succinate 25 mg 25 mg PO QNOON 03/26/24 03/26/24 History tablet,extended release 24 hr (Toprol XL) omeprazole 40 mg capsule,delayed 40 mg PO DAILY 03/26/24 03/26/24 History release Allergies Allergy/AdvReac Type Severity Reaction Status Date / Time ibuprofen [From Motrin] Allergy Mild itch and Verified 03/26/24 01:20 hives fentanyl Allergy Unknown Vomiting Verified 03/26/24 01:20 phentyol AdvReac Severe Vomiting Uncoded 03/26/24 01:20 Vital Signs Vital Signs - 24 hr 03/25/24 22:01 03/25/24 22:10 03/25/24 22:16 Temperature 37.0 C Pulse Rate 174 H 140 H 128 H Respiratory Rate 23 H Blood Pressure 132/107 H Pulse Oximetry 96 Oxygen Delivery Room Air 03/25/24 22:35 03/25/24 22:48 03/25/24 23:38 Temperature Pulse Rate 151 H 124 H 123 H Respiratory Rate 16 Blood Pressure 126/113 H Pulse Oximetry 95 Oxygen Delivery 03/25/24 23:56 03/26/24 00:12 03/26/24 00:50 Temperature Pulse Rate 138 H 99 86 Respiratory Rate 23 H 23 H Blood Pressure 96/77 L 141/96 H 78/52 L Pulse Oximetry 97 97 Oxygen Delivery 03/26/24 00:55 03/26/24 01:05 03/26/24 01:20 Temperature Pulse Rate 88 89 84 Respiratory Rate 16 20 Blood Pressure 108/79 129/89 111/80 Pulse Oximetry 96 99 Oxygen Delivery 03/26/24 01:33 03/26/24 01:53 03/26/24 02:25 Temperature 36.7 C Pulse Rate 103 H 104 H 120 H Respiratory Rate 15 18 Blood Pressure 117/84 110/80 Pulse Oximetry 98 97 Oxygen Delivery 03/26/24 02:25 03/26/24 02:30 03/26/24 03:08 Temperature Pulse Rate 120 H Respiratory Rate Blood Pressure 110/80 Pulse Oximetry Oxygen Delivery Room Air Room Air 03/26/24 03:17 03/26/24 04:00 03/26/24 04:00 Temperature 36.8 C Pulse Rate 94 102 H 102 H Respiratory Rate 18 Blood Pressure 118/64 121/83 121/83 Pulse Oximetry 99 Oxygen Delivery 03/26/24 04:00 03/26/24 06:00 03/26/24 06:00 Temperature Pulse Rate 92 102 H 99 Respiratory Rate Blood Pressure 116/88 Pulse Oximetry Oxygen Delivery 03/26/24 08:00 03/26/24 08:00 03/26/24 10:00 Temperature 36.9 C Pulse Rate 98 105 H 100 Respiratory Rate 20 Blood Pressure 138/91 H Pulse Oximetry 100 Oxygen Delivery 03/26/24 10:08 03/26/24 10:08 03/26/24 10:00 Temperature 36.3 C L Pulse Rate 98 98 42 L Respiratory Rate 20 Blood Pressure 115/104 H Pulse Oximetry 97 Oxygen Delivery 03/26/24 08:00 03/26/24 10:00 03/26/24 11:49 Temperature 36.8 C Pulse Rate 94 93 86 Respiratory Rate 24 H Blood Pressure 130/96 H Pulse Oximetry 98 Oxygen Delivery 03/26/24 12:00 03/26/24 14:00 03/26/24 14:00 Temperature Pulse Rate 102 H 96 89 Respiratory Rate 20 Blood Pressure 135/57 L Pulse Oximetry 98 Oxygen Delivery 03/26/24 14:00 Temperature Pulse Rate 92 Respiratory Rate Blood Pressure Pulse Oximetry Oxygen Delivery Exam Narrative: GENERAL: Well-appearing, well-nourished, and in no acute distress. HEAD: Normocephalic, atraumatic. EYES: PERRLA and EOMI. ENT: Nares clear, no rhinorrhea or epistaxis. Mucous membranes moist. NECK: Supple. CHEST: Clear to auscultation. No respiratory distress. HEART: Tachycardic rate and rhythm. No murmur heard. Normal peripheral pulses. ABDOMEN: Soft, nontender, nondistended, normal active bowel sounds. EXTREMITIES: Normal range of motion. No edema. SKIN: Warm, dry, no rash. NEURO: No focal deficits. Alert and oriented x3. PSYCH: Normal mood and affect. Results Labs and Meds 03/25/24 22:13 03/25/24 22:13 Lab results: Cardiac Enzymes 03/25/24 03/25/24 03/26/24 Range/Units 22:12 22:13 04:05 AST 21 (14-36) U/L Troponin I 0.025 0.945 H* D (0.000-0.034) ng/mL Coagulation 03/25/24 Range/Units 22:12 PT 13.4 (11.1-14.7) Seconds APTT 24.6 (22.3-36.8) Seconds CBC 03/25/24 Range/Units 22:13 WBC 9.5 (4.5-10.0) K/mm3 RBC 4.20 (4.2-5.4) M/mm3 Hgb 12.5 (12.0-15.0) g/dL Hct 38.5 (37.0-47.0) % Plt Count 213 (150-375) k/mm3 Lymph # (Auto) 2.91 (0.9-3.2) K/mm3 [place] # (Auto) 0.6 (0.1-0.6) K/mm3 Eos # (Auto) 0.1 (0-0.3) K/mm3 Baso # (Auto) 0.0 (0.0-0.1) K/mm3 Comprehensive Metabolic Panel 03/25/24 Range/Units 22:13 Sodium 139 (137-145) mmol/L Potassium 3.7 (3.4-5.0) mmol/L Chloride 107 (98-107) mmol/L Carbon Dioxide 24 (22-30) mmol/L BUN 16 (7-17) mg/dL Creatinine 0.90 (0.7-1.0) mg/dL Glucose 127 H (65-110) mg/dL Calcium 9.0 (8.4-10.2) mg/dL AST 21 (14-36) U/L ALT 11 (6-35) U/L Alkaline Phosphatase 53 (38-126) U/L Total Protein 7.0 (6.3-8.2) g/dL Albumin 3.9 (3.5-5.1) g/dL Intake and Output 03/25/24 03/26/24 03/26/24 23:59 07:59 15:59 Intake Total 16.6 160.0 Output Total 300 Balance -283.4 160.0 Intake: IV 16.6 40.0 dilTIAZem 100 MG/100 ML 100 mg 16.6 40.0 In 100 ml @ 5 MG/HR 5 mls/hr IV CONT .Q20H [facility] Rx#:[id number] Oral 0 120 Output: Urine 300 Patient Weight 03/26/24 23:59 Weight 83.1 kg
[2024-03-26] MEDS: AMIODARONE 150 MG/D5W 100 ML 150 MG/100 ML BAG 600 MG IV CONT (14:54)
[2024-03-26] MEDS: AMIODARONE 360 MG/D5W 200 ML 360 MG/200 ML BAG 33.33 MG IV CONT (15:11)
--- NOTE | 2024-03-26 18:24 | PM.IMHP ---
H&P: HPI History of Present Illness Date/Time: 03/26/24 18:24 Chief Complaint: Vomiting and discharge of defibrillator. Narrative: 78 y.o.? AAF? with chronic hypertensive heart disease with? heart failure, cardiomyopathy, PAF, on l/t a/coagulation, dementia , degenerative spine disease, hypertension, DVT and defibrillator who presented to the ER following discharge of defibrillator. With concern for noncompliance. Patient states she was in her usual state of health until yesterday when she started vomiting have 2 episodes of vomiting followed by discharged with defibrillator which prompted presentation to the ER for proper evaluation and care. Denies any chest pain shortness for breath no diarrhea no abdominal pain no dysuria no focal symptoms no loss of consciousness. Patient reports that she struggles with constipation. ER evaluation notable for pulse rate was 74, respiratory 23, blood pressure 132/107, saturating 96% on room air. EKG showed atrial fibrillation with rapid ventricular response. Labs notable for potassium of 3.7, creatinine 0.9, magnesium 2.0. Initial troponin 0.063 repeat 0.025. Chest x-ray unremarkable. Pacemaker interrogation noted patient having multiple episodes of atrial fibrillation ventricular fibrillation ventricular tachycardia. Cardiology was consulted and patient was started on amiodarone infusion. Review of Systems Review of Systems: All other systems were reviewed and negative except as noted in history above. [facility] Past Medical History Medical History Chronic anticoagulation Chronic constipation Colon polyp Combined systolic and diastolic congestive heart failure Echo in July 2022: Moderately reduced LV systolic function with an EF estimated 30 to 35% and grade 1 diastolic dysfunction. Gastroesophageal reflux disease Hypertension Lumbar spondylosis Mild cognitive impairment with memory loss Obesity (BMI 30.0-34.9) Obstructive sleep apnea does not use CPAP Paroxysmal atrial fibrillation Syncope Surgical History Surgical History History of colonoscopy with polypectomy History of hemorrhoidectomy History of hysterectomy History of lumbar laminectomy (2016) Family History Family History Grandparent Carcinoma of colon Mother Acute myocardial infarction Father Acute myocardial infarction Sibling Lung cancer Social History Social History Social History: Surrogate medical decision maker: Luz Maria, daughter. Code Status: Full Code Smoking packs per day: 1 Smoking cigarettes per day: 20.0 Years smoked: 30 Smoking pack-years: 30.00 Smoking status: Former smoker Second hand tobacco smoke exposure: No Alcohol intake: never Substance use: never Substance use type: does not use Do You Feel Safe in your Home?: Yes Lack of Transportation: No Lack of Food: Never True Current Housing: I Have Housing Concerned About Future Housing: No Difficulty Paying Gas/Electric Bills: No Difficulty Paying for Meds: No Currently Unemployed: No Education: Associate Degree Difficulty w/ Childcare or Family Care: No Living arrangements: with family Additional living arrangements comments: Lives with children. 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: No Meds Home Medications and Allergies Home Medications Medication Instructions Recorded Confirmed Type acetaminophen 500 mg tablet 500 mg PO Q6H PRN Pain (Scale 09/06/22 03/26/24 History (Tylenol Extra Strength) Score 1-3) furosemide 40 mg tablet 40 mg PO DAILY #90 tabs 06/11/23 03/26/24 Rx potassium chloride 20 mEq 20 meq PO DAILY #135 tabs 06/11/23 03/26/24 Rx tablet,extended release rivaroxaban 20 mg tablet (Xarelto) 20 mg PO QPM #100 tabs 06/11/23 03/26/24 Rx sacubitril 49 mg-valsartan 51 mg 1 tablet PO BID 07/13/23 03/26/24 History tablet (Entresto) spironolactone 25 mg tablet 25 mg PO QPM #90 tabs 07/15/23 03/26/24 Rx acetaminophen 300 mg-codeine 30 mg 1 tablet PO Q8H PRN pain #60 tabs 02/09/24 03/26/24 Rx tablet metoprolol succinate 25 mg 25 mg PO QNOON 03/26/24 03/26/24 History tablet,extended release 24 hr (Toprol XL) omeprazole 40 mg capsule,delayed 40 mg PO DAILY 03/26/24 03/26/24 History release Allergies Allergy/AdvReac Type Severity Reaction Status Date / Time ibuprofen [From Motrin] Allergy Mild itch and Verified 03/26/24 01:20 hives fentanyl Allergy Unknown Vomiting Verified 03/26/24 01:20 phentyol AdvReac Severe Vomiting Uncoded 03/26/24 01:20 Vital Signs Vital Signs - 24 hr 03/25/24 22:01 03/25/24 22:10 03/25/24 22:16 Temperature 98.6 F Pulse Rate 174 H 140 H 128 H Respiratory Rate 23 H Blood Pressure 132/107 H Pulse Oximetry 96 Oxygen Delivery Room Air 03/25/24 22:35 03/25/24 22:48 03/25/24 23:38 Temperature Pulse Rate 151 H 124 H 123 H Respiratory Rate 16 Blood Pressure 126/113 H Pulse Oximetry 95 Oxygen Delivery 03/25/24 23:56 03/26/24 00:12 03/26/24 00:50 Temperature Pulse Rate 138 H 99 86 Respiratory Rate 23 H 23 H Blood Pressure 96/77 L 141/96 H 78/52 L Pulse Oximetry 97 97 Oxygen Delivery 03/26/24 00:55 03/26/24 01:05 03/26/24 01:20 Temperature Pulse Rate 88 89 84 Respiratory Rate 16 20 Blood Pressure 108/79 129/89 111/80 Pulse Oximetry 96 99 Oxygen Delivery 03/26/24 01:33 03/26/24 01:53 03/26/24 02:25 Temperature 98.1 F Pulse Rate 103 H 104 H 120 H Respiratory Rate 15 18 Blood Pressure 117/84 110/80 Pulse Oximetry 98 97 Oxygen Delivery 03/26/24 02:25 03/26/24 02:30 03/26/24 03:08 Temperature Pulse Rate 120 H Respiratory Rate Blood Pressure 110/80 Pulse Oximetry Oxygen Delivery Room Air Room Air 03/26/24 03:17 03/26/24 04:00 03/26/24 04:00 Temperature 98.2 F Pulse Rate 94 102 H 102 H Respiratory Rate 18 Blood Pressure 118/64 121/83 121/83 Pulse Oximetry 99 Oxygen Delivery 03/26/24 04:00 03/26/24 06:00 03/26/24 06:00 Temperature Pulse Rate 92 102 H 99 Respiratory Rate Blood Pressure 116/88 Pulse Oximetry Oxygen Delivery 03/26/24 08:00 03/26/24 08:00 03/26/24 10:00 Temperature 98.4 F Pulse Rate 98 105 H 100 Respiratory Rate 20 Blood Pressure 138/91 H Pulse Oximetry 100 Oxygen Delivery 03/26/24 10:08 03/26/24 10:08 03/26/24 10:00 Temperature 97.4 F L Pulse Rate 98 98 42 L Respiratory Rate 20 Blood Pressure 115/104 H Pulse Oximetry 97 Oxygen Delivery 03/26/24 08:00 03/26/24 10:00 03/26/24 11:49 Temperature 98.3 F Pulse Rate 94 93 86 Respiratory Rate 24 H Blood Pressure 130/96 H Pulse Oximetry 98 Oxygen Delivery 03/26/24 12:00 03/26/24 14:00 03/26/24 14:00 Temperature Pulse Rate 102 H 96 89 Respiratory Rate 20 Blood Pressure 135/57 L Pulse Oximetry 98 Oxygen Delivery 03/26/24 14:00 03/26/24 14:54 03/26/24 15:11 Temperature Pulse Rate 92 95 98 Respiratory Rate Blood Pressure 135/57 L Pulse Oximetry Oxygen Delivery 03/26/24 16:00 03/26/24 16:00 03/26/24 16:00 Temperature 98.4 F Pulse Rate 75 87 96 Respiratory Rate 24 H Blood Pressure 131/92 H Pulse Oximetry 98 Oxygen Delivery 03/26/24 17:22 03/26/24 17:23 03/26/24 18:00 Temperature Pulse Rate 105 H 105 H Respiratory Rate Blood Pressure 109/79 Pulse Oximetry Oxygen Delivery 03/26/24 18:00 03/26/24 18:10 Temperature Pulse Rate 105 H 99 Respiratory Rate Blood Pressure Pulse Oximetry Oxygen Delivery Exam Narrative: General: alert and comfortable Eyes: EOMI, PERRLA ENNT External ears normal, Neck is supple, no masses, Respiratory systems: Clear to auscultation Cardiovascular S1, S2, normal rhythm, no murmur, rub, or gallop; no thrill or palpable murmurs on palpation. Gastrointestinal: soft, non-tender, and non-distended abdomen with no masses; BS present Skin: no rash, lesions, ulcerations, subcutaneous nodules or induration Musculoskeletal: no abnormality and no tenderness, normal ROM Neurologic: Alert and oriented x3, non focal Mental Status Exam: normal affect H&P: Results Labs Labs: Short CBC 03/25/24 Range/Units 22:13 WBC 9.5 (4.5-10.0) K/mm3 Hgb 12.5 (12.0-15.0) g/dL Hct 38.5 (37.0-47.0) % Plt Count 213 (150-375) k/mm3 BMP 03/25/24 22:13 Sodium 139 Potassium 3.7 Chloride 107 Carbon Dioxide 24 BUN 16 Creatinine 0.90 Glucose 127 H Calcium 9.0 Cardiac Enzymes 03/25/24 03/26/24 Range/Units 22:12 04:05 Troponin I 0.025 0.945 H* D (0.000-0.034) ng/mL Liver Function 03/25/24 Range/Units 22:13 Total Bilirubin 0.3 (0.2-1.3) mg/dL AST 21 (14-36) U/L ALT 11 (6-35) U/L Alkaline Phosphatase 53 (38-126) U/L Albumin 3.9 (3.5-5.1) g/dL Urine 03/26/24 Range/Units 00:15 Urine Color Yellow (Yellow) Urine Appearance Cloudy H (Clear) Urine pH 5.5 (5.0-9.0) Ur Specific [place] 1.029 (1.001-1.035) Urine Protein 1+ H (Negative) mg/dL Urine Glucose (UA) Negative (Negative) mg/dL Assessment and Plan Assessment and plan (1) Ventricular tachycardia: Code(s): I47.20 - Ventricular tachycardia, unspecified Status: Acute (2) Atrial fibrillation with RVR: Code(s): I48.91 - Unspecified atrial fibrillation Status: Acute Plan Ventricular fibrillation and tachycardia Atrial fibrillation rapid ventricular response Patient presented to discharge defibrillator Echo pending, troponin initially admitted to tachycardia repeat is normal Continue condition home Continue rivaroxaban Potassium >4, Mag >2 Cardiology following. Hypertension Titrate her medications clinical course. 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 History of DVT Continue rivaroxaban. Dementia Continue home medications. DVT prophylaxis patient on rivaroxaban Patient is full code. Surrogate decision maker is vinny [facility] Advance Care Plan I have confirmed that the patient's Advanced Care Plan is present, code status is documented, or surrogate decision maker is listed in patient medical record.: Yes Medication Reconciliation I have utilized all available resources to obtain, update and review the patients current medications (includes all prescriptions, OTC, herbals, cannabis, and nutritional supplements).: Yes
[2024-03-26] MEDS: SPIRONOLACTONE 25 MG TABLET PO (18:55)
[2024-03-26] MEDS: RIVAROXABAN 20 MG TABLET PO (18:55)
[2024-03-26] MEDS: SACUBITRIL/VALSARTAN 49-51 MG TABLET 1 TABLET PO (20:22)
[2024-03-26] MEDS: AMIODARONE 360 MG/D5W 200 ML 360 MG/200 ML BAG 16.67 MG IV CONT (21:05)
[2024-03-27] VITALS (21 sets, daily range): BP systolic 102–142; BP diastolic 63–94; PULSE 68–114; RESP 16–24; TEMP 36.6–37; O2SAT 95–99
[2024-03-27] MEDS: AMIODARONE 360 MG/D5W 200 ML 360 MG/200 ML BAG 16.67 MG IV CONT (02:56)
[2024-03-27 05:13] LABS: Basophils Percent Auto 0.3 % (0.2-1.2); Eosinophils Absolute Auto 0.1 K/mm3 (0-0.3); Eosinophils Percent Auto 1.4 % (0-4.4); Hemoglobin 11.7 g/dL (12.0-15.0); Immature Granulocyte Absolute 0.02 K/mm3 (0.00-0.031); Immature Granulocyte Percent A 0.2 % (0-0.5); Lymphocytes Absolute Auto 2.11 K/mm3 (0.9-3.2); Lymphocytes Percent Auto 22.4 % (18.3-44.2); Mean Corpuscular HGB Conc 31.6 g/dl (32-36); Mean Corpuscular Hemoglobin 28.7 pg (26-34); Mean Corpuscular Volume 90.9 fl (80-100); Mean Platelet Volume 12.5 fl (7.4-10.4); Monocytes Absolute Auto 0.6 K/mm3 (0.1-0.6); Monocytes Percent Auto 5.9 % (2.6-8.5); Neutrophils Absolute Auto 6.6 K/mm3 (1.3-6.7); Neutrophils Percent Auto 69.8 % (45.5-73.1); Platelet Count Result 189 k/mm3 (150-375); Red Blood Count 4.07 M/mm3 (4.2-5.4); Red Cell Distribution Width 15.1 % (11.5-14.5); White Blood Count 9.4 K/mm3 (4.5-10.0)
[2024-03-27 05:25] LABS: Alanine Aminotransferase 14 U/L (6-35); Albumin Level 3.6 g/dL (3.5-5.1); Alkaline Phosphatase 53 U/L (38-126); Anion Gap 9 mmol/L (4-12); Aspartate Amino Transferase 26 U/L (14-36); Bilirubin,Total 0.3 mg/dL (0.2-1.3); Blood Urea Nitrogen 11 mg/dL (7-17); Calcium 8.8 mg/dL (8.4-10.2); Carbon Dioxide 24 mmol/L (22-30); Chloride 107 mmol/L (98-107); Estimated CRCL calculation 68 ml/min; Estimated Glomerular Filt Rate > 60; Glucose 116 mg/dL (65-110); Potassium 3.5 mmol/L (3.4-5.0); Sodium 140 mmol/L (137-145)
[2024-03-27 05:57] LABS: Potassium 3.6 mmol/L (3.4-5.0); Thyroid Stimulating Hormone 0.473 uIU/mL (0.465-4.680)
--- NOTE | 2024-03-27 08:22 | P.PNCA_ITS ---
Progress Note: A&P Assessment and Plan (1) Atrial fibrillation with RVR: Code(s): I48.91 - Unspecified atrial fibrillation Status: Acute (2) Non compliance w medication regimen: Code(s): Z91.148 - Patient's other noncompliance with medication regimen for other reason Status: Acute (3) Hypertension: Code(s): I10 - Essential (primary) hypertension Status: Acute (4) Combined systolic and diastolic congestive heart failure: Qualifiers: Heart failure chronicity: chronic Qualified Code(s): I50.42 - Chronic combined systolic (congestive) and diastolic (congestive) heart failure Code(s): I50.40 - Unspecified combined systolic (congestive) and diastolic (congestive) heart failure Status: Acute (5) Cardiomyopathy: Qualifiers: Cardiomyopathy type: other Qualified Code(s): I42.8 - Other cardiomyopathies Code(s): I42.9 - Cardiomyopathy, unspecified Status: Acute (6) Ventricular tachycardia: Code(s): I47.20 - Ventricular tachycardia, unspecified Status: Acute Plan 1. Chronic compensated Systolic HF NYHA II-III, Stage C NICM TTE (07/2023) ef 20-25% S/p ICD 2. Monomorphic VT s/p ICD firing 3. Afib/RVR 4. HTN 5. Dementia 6. Degenerative joint ds - Discussed compliance with her and her daughter. Her daughter will ensure compliance with meds - Amiodarone infusion, will transition to oral amiodarone today afternoon. 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 Nursing and ancillary documentation was reviewed. Exam Narrative: GENERAL: Well-appearing, well-nourished, and in no acute distress. HEAD: Normocephalic, atraumatic. EYES: PERRLA and EOMI. ENT: Nares clear, no rhinorrhea or epistaxis. Mucous membranes moist. NECK: Supple. CHEST: Clear to auscultation. No respiratory distress. HEART: Tachycardic rate and rhythm. No murmur heard. Normal peripheral pulses. ABDOMEN: Soft, nontender, nondistended, normal active bowel sounds. EXTREMITIES: Normal range of motion. No edema. SKIN: Warm, dry, no rash. NEURO: No focal deficits. Alert and oriented x3. PSYCH: Normal mood and affect. Objective Data Vital Signs Vital Signs: Vital Signs - 24 hr 03/26/24 10:00 03/26/24 10:08 03/26/24 10:08 Temperature Pulse Rate 100 98 98 Respiratory Rate Blood Pressure Pulse Oximetry Oxygen Delivery 03/26/24 10:00 03/26/24 10:00 03/26/24 11:49 Temperature 36.3 C L 36.8 C Pulse Rate 42 L 93 86 Respiratory Rate 20 24 H Blood Pressure 115/104 H 130/96 H Pulse Oximetry 97 98 Oxygen Delivery 03/26/24 12:00 03/26/24 14:00 03/26/24 14:00 Temperature Pulse Rate 102 H 96 89 Respiratory Rate 20 Blood Pressure 135/57 L Pulse Oximetry 98 Oxygen Delivery 03/26/24 14:00 03/26/24 14:54 03/26/24 15:11 Temperature Pulse Rate 92 95 98 Respiratory Rate Blood Pressure 135/57 L Pulse Oximetry Oxygen Delivery 03/26/24 16:00 03/26/24 16:00 03/26/24 16:00 Temperature 36.9 C Pulse Rate 75 87 96 Respiratory Rate 24 H Blood Pressure 131/92 H Pulse Oximetry 98 Oxygen Delivery 03/26/24 17:22 03/26/24 17:23 03/26/24 18:00 Temperature Pulse Rate 105 H 105 H Respiratory Rate Blood Pressure 109/79 Pulse Oximetry Oxygen Delivery 03/26/24 18:00 03/26/24 18:10 03/26/24 20:00 Temperature 36.7 C Pulse Rate 105 H 99 100 Respiratory Rate 18 Blood Pressure 117/74 Pulse Oximetry 95 Oxygen Delivery 03/26/24 20:00 03/26/24 21:00 03/26/24 21:05 Temperature Pulse Rate 100 98 110 H Respiratory Rate Blood Pressure 117/74 137/98 H 137/98 H Pulse Oximetry Oxygen Delivery 03/26/24 20:00 03/26/24 20:00 03/26/24 22:00 Temperature Pulse Rate 95 99 Respiratory Rate Blood Pressure 158/91 H Pulse Oximetry Oxygen Delivery Room Air 03/26/24 22:00 03/26/24 22:00 03/26/24 23:48 Temperature 37.1 C Pulse Rate 99 99 111 H Respiratory Rate 18 Blood Pressure 158/91 H 138/90 Pulse Oximetry 95 Oxygen Delivery 03/27/24 00:00 03/27/24 00:00 03/27/24 00:00 Temperature Pulse Rate 103 H 103 H Respiratory Rate Blood Pressure 138/90 Pulse Oximetry Oxygen Delivery Room Air 03/27/24 01:57 03/27/24 02:00 03/27/24 02:00 Temperature Pulse Rate 101 H 102 H 111 H Respiratory Rate Blood Pressure 111/93 H 111/93 H Pulse Oximetry Oxygen Delivery 03/27/24 02:56 03/27/24 02:56 03/27/24 03:50 Temperature 37.0 C Pulse Rate 106 H 106 H 106 H Respiratory Rate 18 Blood Pressure 102/74 Pulse Oximetry 99 Oxygen Delivery 03/27/24 04:00 03/27/24 04:00 03/27/24 04:00 Temperature Pulse Rate 104 H 114 H Respiratory Rate Blood Pressure 102/74 Pulse Oximetry Oxygen Delivery Room Air 03/27/24 06:00 03/27/24 06:00 03/27/24 06:00 Temperature Pulse Rate 101 H 101 H 101 H Respiratory Rate Blood Pressure 134/76 134/76 Pulse Oximetry Oxygen Delivery 03/27/24 08:00 Temperature 36.7 C Pulse Rate 95 Respiratory Rate 16 Blood Pressure 124/63 Pulse Oximetry 97 Oxygen Delivery Intake/Output Intake/Output: Intake & Output 03/24/24 03/25/24 03/26/24 03/27/24 23:59 23:59 23:59 23:59 Intake Total 1175.8 383.3 Output Total 400 700 Balance 775.8 -316.7 Meds/Results Medications: Active Medications Generic Name Dose Route Start Last Admin Trade Name Freq PRN Reason Stop Dose Admin Acetaminophen 650 mg 03/26/24 01:10 Acetaminophen 325 Mg Tablet PO Q4H PRN Mild Pain (1-3) or Fever Bisacodyl 5 mg 03/27/24 09:00 Bisacodyl 5 Mg Tablet Ec PO QAM [facility] Furosemide 40 mg 03/27/24 09:00 Furosemide 40 Mg Tablet PO DAILY [facility] Amiodarone HCl/Dextrose 360 mg in 200 mls @ 16.667 mls/hr 03/26/24 20:10 03/27/24 06:00 Nexterone 360 Mg/D5w 200 Ml IV CONT 0.5 mg/min .Q12H CHAD 16.67 mls/hr Infusion 0.5 MG/MIN Lactulose 20 gm 03/27/24 09:00 Lactulose 20 Gm/30 Ml Udc PO QAM [facility] Metoprolol Succinate 50 mg 03/27/24 09:00 Metoprolol Succinate Ext Rel 50 Mg Tabcr PO QAM [facility] Potassium Chloride 20 meq 03/27/24 09:00 Potassium Chloride 20 Meq Er Tablet PO DAILY [facility] Rivaroxaban 20 mg 03/26/24 18:30 03/26/24 18:55 Rivaroxaban 20 Mg Tablet PO 20 mg QPM CHAD Administration Sacubitril/Valsartan 1 tablet 03/26/24 21:00 03/26/24 20:22 Sacubitril/Valsartan 49-51 Mg Tablet PO 1 tablet Q12HR CHAD Administration Spironolactone 25 mg 03/26/24 18:30 03/26/24 18:55 Spironolactone 25 Mg Tablet PO 25 mg QPM CHAD Administration Radiology Results: ITS Impressions Chest X-Ray 03/26/24 05:59 Impression: Clear lungs. Stable cardiomegaly with pacemaker device. Labs Labs: Laboratory Results - last 24 hr 03/27/24 03/27/24 04:33 04:33 WBC 9.4 RBC 4.07 L Hgb 11.7 L Hct 37.0 MCV 90.9 MCH 28.7 MCHC 31.6 L RDW 15.1 H Plt Count 189 MPV 12.5 H Immature Gran % (Auto) 0.2 Neut % (Auto) 69.8 Lymph % (Auto) 22.4 [place] % (Auto) 5.9 Eos % (Auto) 1.4 Baso % (Auto) 0.3 Lymph # (Auto) 2.11 [place] # (Auto) 0.6 Eos # (Auto) 0.1 Baso # (Auto) 0.0 Abs Immat Gran (auto) 0.02 Absolute Neuts (auto) 6.6 Absolute Nucleated RBC 0.000 Nucleated RBC % 0.0 Sodium 140 Potassium 3.6 3.5 Chloride 107 Carbon Dioxide 24 Anion Gap 9 BUN 11 D Creatinine 0.60 L Estim Creat Clear Calc 68 Estimated GFR > 60 Glucose 116 H Calcium 8.8 Magnesium 2.0 Total Bilirubin 0.3 AST 26 ALT 14 Alkaline Phosphatase 53 Total Protein 6.0 L Albumin 3.6 TSH 0.473
[2024-03-27] MEDS: FUROSEMIDE 40 MG TABLET PO (08:37)
[2024-03-27] MEDS: METOPROLOL SUCCINATE EXT REL 50 MG TABCR PO (08:38)
[2024-03-27] MEDS: LACTULOSE 20 GM/30 ML UDC PO (08:38)
[2024-03-27] MEDS: BISACODYL 5 MG TABLET EC PO (08:38)
[2024-03-27] MEDS: SACUBITRIL/VALSARTAN 49-51 MG TABLET 1 TABLET PO ×2 (08:38→20:55)
[2024-03-27] MEDS: POTASSIUM CHLORIDE 20 MEQ ER TABLET PO (08:38)
[2024-03-27] MEDS: AMIODARONE HCL 200 MG TABLET PO (14:58)
--- NOTE | 2024-03-27 18:08 | P.PN_ITS ---
Progress Note: A&P Assessment and Plan (1) Ventricular tachycardia: Code(s): I47.20 - Ventricular tachycardia, unspecified Status: Acute (2) Atrial fibrillation with RVR: Code(s): I48.91 - Unspecified atrial fibrillation Status: Acute Plan Ventricular fibrillation and tachycardia Atrial fibrillation rapid ventricular response Patient presented to discharge defibrillator Echo pending, troponin initially admitted to tachycardia repeat is normal Continue condition home Continue rivaroxaban Potassium >4, Mag >2 Cardiology following. Hypertension Titrate her medications clinical course. 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 History of DVT Continue rivaroxaban. Dementia Continue home medications. No acute events overnight, patient was seen by her flatwork supervisor suspect is not taking her medications as prescribed and not following dietary restrictions, has sedentary life style, started the patient on Amiodarone infusion, will switch over to oral later today. patient with cardiomyopathy with EF 20-25% being treated with increased dose of Toprol xl 50mg qd and continued Entersto. patient is also found to have discrepancy in blood pressure reading both arms discussed with the flatwork supervisor recommended to order upper extremities arterial dopplor which is pending. . DVT prophylaxis patient on rivaroxaban Patient is full code. Surrogate decision maker is vinny Loera Subjective Date/time seen: 03/27/24 18:08 Interval history: Feels better Sitting in the bed, patient and daughter are present. No acute events overnight, patient was seen by her flatwork supervisor suspect is not taking her medications as prescribed and not following dietary restrictions, has sedentary life style, started the patient on Amiodarone infusion, will switch over to oral later today. patient with cardiomyopathy with EF 20-25% being treated with increased dose of Toprol xl 50mg qd and continued Entersto. patient is also found to have discrepancy in blood pressure reading both arms discussed with the flatwork supervisor recommended to order upper extremities arterial dopplor which is pending. . Review of Systems Review of Systems: All other systems were reviewed and negative except as noted in history above. Exam Narrative: Patient is comfortable, NAD HEENT: eyes are clear and none icteric LUNGS:CTA HEART: RR S1S2 ABD: BS+, Soft and nontender Lower extremities: no edema SKIN: nonjaundiced Neuro: grossly intact. Objective Data Vital Signs Vital Signs: Vital Signs - 24 hr 03/26/24 18:10 03/26/24 20:00 03/26/24 20:00 Temperature 36.7 C Pulse Rate 99 100 100 Respiratory Rate 18 Blood Pressure 117/74 117/74 Pulse Oximetry 95 Oxygen Delivery Fraction of Inspired Oxygen 03/26/24 21:00 03/26/24 21:05 03/26/24 20:00 Temperature Pulse Rate 98 110 H Respiratory Rate Blood Pressure 137/98 H 137/98 H Pulse Oximetry Oxygen Delivery Room Air Fraction of Inspired Oxygen 03/26/24 20:00 03/26/24 22:00 03/26/24 22:00 Temperature Pulse Rate 95 99 99 Respiratory Rate Blood Pressure 158/91 H 158/91 H Pulse Oximetry Oxygen Delivery Fraction of Inspired Oxygen 03/26/24 22:00 03/26/24 23:48 03/27/24 00:00 Temperature 37.1 C Pulse Rate 99 111 H Respiratory Rate 18 Blood Pressure 138/90 Pulse Oximetry 95 Oxygen Delivery Room Air Fraction of Inspired Oxygen 03/27/24 00:00 03/27/24 00:00 03/27/24 01:57 Temperature Pulse Rate 103 H 103 H 101 H Respiratory Rate Blood Pressure 138/90 111/93 H Pulse Oximetry Oxygen Delivery Fraction of Inspired Oxygen 03/27/24 02:00 03/27/24 02:00 03/27/24 02:56 Temperature Pulse Rate 102 H 111 H 106 H Respiratory Rate Blood Pressure 111/93 H Pulse Oximetry Oxygen Delivery Fraction of Inspired Oxygen 03/27/24 02:56 03/27/24 03:50 03/27/24 04:00 Temperature 37.0 C Pulse Rate 106 H 106 H 104 H Respiratory Rate 18 Blood Pressure 102/74 102/74 Pulse Oximetry 99 Oxygen Delivery Fraction of Inspired Oxygen 03/27/24 04:00 03/27/24 04:00 03/27/24 06:00 Temperature Pulse Rate 114 H 101 H Respiratory Rate Blood Pressure Pulse Oximetry Oxygen Delivery Room Air Fraction of Inspired Oxygen 03/27/24 06:00 03/27/24 06:00 03/27/24 08:00 Temperature 36.7 C Pulse Rate 101 H 101 H 95 Respiratory Rate 16 Blood Pressure 134/76 134/76 124/63 Pulse Oximetry 97 Oxygen Delivery Fraction of Inspired Oxygen 03/27/24 08:38 03/27/24 09:07 03/27/24 10:00 Temperature 36.7 C Pulse Rate 105 H 96 Respiratory Rate 20 Blood Pressure 114/76 Pulse Oximetry 97 98 Oxygen Delivery Room Air Fraction of Inspired Oxygen 21 03/27/24 11:59 03/27/24 14:58 03/27/24 16:00 Temperature 36.6 C 36.8 C Pulse Rate 97 82 81 Respiratory Rate 24 H 20 Blood Pressure 133/89 142/86 H Pulse Oximetry 98 95 Oxygen Delivery Fraction of Inspired Oxygen 03/27/24 16:28 Temperature Pulse Rate Respiratory Rate Blood Pressure 113/94 H Pulse Oximetry Oxygen Delivery Fraction of Inspired Oxygen Intake/Output Intake/Output: Intake & Output 03/24/24 03/25/24 03/26/24 03/27/24 23:59 23:59 23:59 23:59 Intake Total 1175.8 623.3 Output Total 400 700 Balance 775.8 -76.7 Meds/Results Medications: Active Medications Generic Name Dose Route Start Last Admin Trade Name Freq PRN Reason Stop Dose Admin Acetaminophen 650 mg 03/26/24 01:10 Acetaminophen 325 Mg Tablet PO Q4H PRN Mild Pain (1-3) or Fever Amiodarone HCl 200 mg 03/27/24 15:00 03/27/24 14:58 Amiodarone Hcl 200 Mg Tablet PO 200 mg DAILY@0800 CHAD Administration Bisacodyl 5 mg 03/27/24 09:00 03/27/24 08:38 Bisacodyl 5 Mg Tablet Ec PO 5 mg QAM CHAD Administration Furosemide 40 mg 03/27/24 09:00 03/27/24 08:37 Furosemide 40 Mg Tablet PO 40 mg DAILY CHAD Administration Lactulose 20 gm 03/27/24 09:00 03/27/24 08:38 Lactulose 20 Gm/30 Ml Udc PO 20 gm QAM CHAD Administration Metoprolol Succinate 50 mg 03/27/24 09:00 03/27/24 08:38 Metoprolol Succinate Ext Rel 50 Mg Tabcr PO 50 mg QAM CHAD Administration Potassium Chloride 20 meq 03/27/24 09:00 03/27/24 08:38 Potassium Chloride 20 Meq Er Tablet PO 20 meq DAILY [facility]AD Administration Rivaroxaban 20 mg 03/26/24 18:30 03/26/24 18:55 Rivaroxaban 20 Mg Tablet PO 20 mg QPM CHAD Administration Sacubitril/Valsartan 1 tablet 03/26/24 21:00 03/27/24 08:38 Sacubitril/Valsartan 49-51 Mg Tablet PO 1 tablet Q12HR CHAD Administration Spironolactone 25 mg 03/26/24 18:30 03/26/24 18:55 Spironolactone 25 Mg Tablet PO 25 mg QPM CHAD Administration Radiology Results: ITS Impressions Chest X-Ray 03/26/24 05:59 Impression: Clear lungs. Stable cardiomegaly with pacemaker device. Duplex Scan Upper Extremity Artery 03/27/24 17:56 IMPRESSION: 1. No significant arterial occlusive disease. Labs Labs: Laboratory Results - last 24 hr 03/27/24 03/27/24 04:33 04:33 WBC 9.4 RBC 4.07 L Hgb 11.7 L Hct 37.0 MCV 90.9 MCH 28.7 MCHC 31.6 L RDW 15.1 H Plt Count 189 MPV 12.5 H Immature Gran % (Auto) 0.2 Neut % (Auto) 69.8 Lymph % (Auto) 22.4 [place] % (Auto) 5.9 Eos % (Auto) 1.4 Baso % (Auto) 0.3 Lymph # (Auto) 2.11 [place] # (Auto) 0.6 Eos # (Auto) 0.1 Baso # (Auto) 0.0 Abs Immat Gran (auto) 0.02 Absolute Neuts (auto) 6.6 Absolute Nucleated RBC 0.000 Nucleated RBC % 0.0 Sodium 140 Potassium 3.6 3.5 Chloride 107 Carbon Dioxide 24 Anion Gap 9 BUN 11 D Creatinine 0.60 L Estim Creat Clear Calc 68 Estimated GFR > 60 Glucose 116 H Calcium 8.8 Magnesium 2.0 Total Bilirubin 0.3 AST 26 ALT 14 Alkaline Phosphatase 53 Total Protein 6.0 L Albumin 3.6 TSH 0.473
[2024-03-27] MEDS: SPIRONOLACTONE 25 MG TABLET PO (18:20)
[2024-03-27] MEDS: RIVAROXABAN 20 MG TABLET PO (18:20)
[2024-03-28] VITALS (11 sets, daily range): BP systolic 120–153; BP diastolic 80–92; PULSE 65–94; RESP 18; TEMP 36.4–36.7; O2SAT 94–100
[2024-03-28 04:42] LABS: Hemoglobin 11.9 g/dL (12.0-15.0); Mean Corpuscular HGB Conc 33.1 g/dl (32-36); Mean Corpuscular Hemoglobin 29.8 pg (26-34); Mean Corpuscular Volume 90.2 fl (80-100); Mean Platelet Volume 11.9 fl (7.4-10.4); Platelet Count Result 178 k/mm3 (150-375); Red Blood Count 3.99 M/mm3 (4.2-5.4); Red Cell Distribution Width 14.8 % (11.5-14.5)
[2024-03-28 04:54] LABS: Anion Gap 3 mmol/L (4-12); Blood Urea Nitrogen 12 mg/dL (7-17); Calcium 8.5 mg/dL (8.4-10.2); Carbon Dioxide 27 mmol/L (22-30); Chloride 107 mmol/L (98-107); Estimated CRCL calculation 47 ml/min; Estimated Glomerular Filt Rate > 60; Glucose 99 mg/dL (65-110); Magnesium 1.9 mg/dL (1.6-2.3); Potassium 3.3 mmol/L (3.4-5.0); Sodium 137 mmol/L (137-145)
[2024-03-28] MEDS: FUROSEMIDE 40 MG TABLET PO (09:40)
[2024-03-28] MEDS: AMIODARONE HCL 200 MG TABLET PO (09:40)
[2024-03-28] MEDS: SACUBITRIL/VALSARTAN 49-51 MG TABLET 1 TABLET PO (09:41)
[2024-03-28] MEDS: POTASSIUM CHLORIDE 20 MEQ ER TABLET PO ×2 (09:41→15:10)
[2024-03-28] MEDS: METOPROLOL SUCCINATE EXT REL 50 MG TABCR PO (09:41)
--- NOTE | 2024-03-28 09:51 | PM.PNCARD ---
Progress Note: A&P Assessment and Plan (1) Atrial fibrillation with RVR: Code(s): I48.91 - Unspecified atrial fibrillation Status: Acute (2) Non compliance w medication regimen: Code(s): Z91.148 - Patient's other noncompliance with medication regimen for other reason Status: Acute (3) Hypertension: Code(s): I10 - Essential (primary) hypertension Status: Acute (4) Combined systolic and diastolic congestive heart failure: Qualifiers: Heart failure chronicity: chronic Qualified Code(s): I50.42 - Chronic combined systolic (congestive) and diastolic (congestive) heart failure Code(s): I50.40 - Unspecified combined systolic (congestive) and diastolic (congestive) heart failure Status: Acute (5) Cardiomyopathy: Qualifiers: Cardiomyopathy type: other Qualified Code(s): I42.8 - Other cardiomyopathies Code(s): I42.9 - Cardiomyopathy, unspecified Status: Acute (6) Ventricular tachycardia: Code(s): I47.20 - Ventricular tachycardia, unspecified Status: Acute Plan 1. Chronic compensated Systolic HF NYHA II-III, Stage C NICM TTE (07/2023) ef 20-25% S/p ICD 2. Monomorphic VT s/p ICD firing 3. Afib/RVR 4. HTN 5. Dementia 6. Degenerative joint ds 7. Discordant BP n both upper extremities - CTA done previously did not report coarctation, however it was a CTPE protocol (images not available to me to review). Consider further imaging of upper extremity and aorta if needed. Further evaluation can also be done outpatient - Discussed compliance with her and her daughter. Her daughter will ensure compliance with meds - On oral amiodarone. FPC amiodarone can be discussed with her outpatient neurology physician assistant - Continue Toprol-Xl to 50 mg OD - Continue Entresto - MRA and SGLT2 based on compliance on current meds as an outpatient - AC to continue - Patient can be discharged home for a cardiovascular standpoint - Cardiology will sign off. please call or page us if there are any questions or concerns Subjective Date/time seen: 03/28/24 09:51 Interval history: Feels better Sitting in the bed No acute events overnight Discordant BP in both the upper extremities; R > L HR much better controlled Review of Systems Review of Systems: A 10 system review of systems was completed on the patient and is negative except for what is stated in the HPI. Nursing and ancillary documentation was reviewed. Exam Narrative: GENERAL: Well-appearing, well-nourished, and in no acute distress. HEAD: Normocephalic, atraumatic. EYES: PERRLA and EOMI. ENT: Nares clear, no rhinorrhea or epistaxis. Mucous membranes moist. NECK: Supple. CHEST: Clear to auscultation. No respiratory distress. HEART: Tachycardic rate and rhythm. No murmur heard. Normal peripheral pulses. ABDOMEN: Soft, nontender, nondistended, normal active bowel sounds. EXTREMITIES: Normal range of motion. No edema. SKIN: Warm, dry, no rash. NEURO: No focal deficits. Alert and oriented x3. PSYCH: Normal mood and affect. Objective Data Vital Signs Vital Signs: Vital Signs - 24 hr 03/27/24 10:00 03/27/24 11:59 03/27/24 14:58 Temperature 36.7 C 36.6 C Pulse Rate 96 97 82 Respiratory Rate 20 24 H Blood Pressure 114/76 133/89 Pulse Oximetry 98 98 Oxygen Delivery 03/27/24 16:00 03/27/24 16:28 03/27/24 10:00 Temperature 36.8 C Pulse Rate 81 102 H Respiratory Rate 20 Blood Pressure 142/86 H 113/94 H Pulse Oximetry 95 Oxygen Delivery 03/27/24 14:00 03/27/24 16:00 03/27/24 18:00 Temperature Pulse Rate 75 78 78 Respiratory Rate Blood Pressure Pulse Oximetry Oxygen Delivery 03/27/24 18:00 03/27/24 19:56 03/27/24 20:00 Temperature 36.8 C 36.8 C Pulse Rate 80 73 Respiratory Rate 16 16 Blood Pressure 134/73 125/77 Pulse Oximetry 98 99 Oxygen Delivery Room Air 03/27/24 20:00 03/27/24 22:00 03/27/24 23:38 Temperature 36.6 C Pulse Rate 75 70 68 Respiratory Rate 18 Blood Pressure 130/70 Pulse Oximetry 96 Oxygen Delivery 03/28/24 00:00 03/28/24 00:00 03/28/24 02:00 Temperature Pulse Rate 73 67 Respiratory Rate Blood Pressure Pulse Oximetry Oxygen Delivery Room Air 03/28/24 04:00 03/28/24 04:19 03/28/24 06:00 Temperature 36.7 C Pulse Rate 65 82 Respiratory Rate 18 Blood Pressure 120/92 H Pulse Oximetry 94 Oxygen Delivery Room Air 03/28/24 08:00 03/28/24 09:40 03/28/24 09:41 Temperature 36.4 C Pulse Rate 80 84 86 Respiratory Rate 18 Blood Pressure 138/80 Pulse Oximetry 99 Oxygen Delivery Intake/Output Intake/Output: Intake & Output 03/25/24 03/26/24 03/27/24 03/28/24 23:59 23:59 23:59 23:59 Intake Total 1175.8 873.3 400 Output Total 400 1000 600 Balance 775.8 -126.7 -200 Meds/Results Medications: Active Medications Generic Name Dose Route Start Last Admin Trade Name Freq PRN Reason Stop Dose Admin Acetaminophen 650 mg 03/26/24 01:10 Acetaminophen 325 Mg Tablet PO Q4H PRN Mild Pain (1-3) or Fever Amiodarone HCl 200 mg 03/27/24 15:00 03/28/24 09:40 Amiodarone Hcl 200 Mg Tablet PO 200 mg DAILY@0800 CHAD Administration Bisacodyl 5 mg 03/27/24 09:00 03/28/24 09:41 Bisacodyl 5 Mg Tablet Ec PO Not Given QAM [facility]AD Furosemide 40 mg 03/27/24 09:00 03/28/24 09:40 Furosemide 40 Mg Tablet PO 40 mg DAILY [facility]AD Administration Lactulose 20 gm 03/27/24 09:00 03/28/24 09:41 Lactulose 20 Gm/30 Ml Udc PO Not Given QAM [facility]AD Metoprolol Succinate 50 mg 03/27/24 09:00 03/28/24 09:41 Metoprolol Succinate Ext Rel 50 Mg Tabcr PO 50 mg QAM [facility]AD Administration Potassium Chloride 20 meq 03/27/24 09:00 03/28/24 09:41 Potassium Chloride 20 Meq Er Tablet PO 20 meq DAILY [facility]AD Administration Rivaroxaban 20 mg 03/26/24 18:30 03/27/24 18:20 Rivaroxaban 20 Mg Tablet PO 20 mg QPM [facility]AD Administration Sacubitril/Valsartan 1 tablet 03/26/24 21:00 03/28/24 09:41 Sacubitril/Valsartan 49-51 Mg Tablet PO 1 tablet Q12HR CHAD Administration Spironolactone 25 mg 03/26/24 18:30 03/27/24 18:20 Spironolactone 25 Mg Tablet PO 25 mg QPM CHAD Administration Radiology Results: ITS Impressions Chest X-Ray 03/26/24 05:59 Impression: Clear lungs. Stable cardiomegaly with pacemaker device. Duplex Scan Upper Extremity Artery 03/27/24 17:56 IMPRESSION: 1. No significant arterial occlusive disease. Labs Labs: Laboratory Results - last 24 hr 03/28/24 04:35 WBC 7.0 RBC 3.99 L Hgb 11.9 L Hct 36.0 L MCV 90.2 MCH 29.8 MCHC 33.1 RDW 14.8 H Plt Count 178 MPV 11.9 H Sodium 137 Potassium 3.3 L Chloride 107 Carbon Dioxide 27 Anion Gap 3 L BUN 12 Creatinine 0.90 Estim Creat Clear Calc 47 Estimated GFR > 60 Glucose 99 Calcium 8.5 Magnesium 1.9
--- NOTE | 2024-03-28 14:00 | PM.DS ---
DS: Admitting Diagnosis Discharge Date 03/28/24 Admitting Diagnosis Vomiting and discharge of defibrillator DS: Discharge Diagnosis Discharge Diagnosis (1) Ventricular tachycardia: Code(s): I47.20 - Ventricular tachycardia, unspecified Status: Acute (2) Atrial fibrillation with RVR: Code(s): I48.91 - Unspecified atrial fibrillation Status: Acute DS: Summary Hospital Course Reason for hospitalization: 78yo female with chronic hypertensive heart disease with? heart failure, cardiomyopathy, PAF, on [facility] anticoagulation, dementia , degenerative spine disease, hypertension, DVT and defibrillator who presented to the ER following discharge of defibrillator. Please see H&P for details. Hospital Course: In the ED, patient was hemodynamically stable. Labs notable for potassium of 3.7, creatinine 0.9, magnesium 2.0. Initial troponin 0.025 with repeat at 0.945 felt related to the firing of the defibrillator. Chest x-ray unremarkable. EKG showing AFib with RVR, left BBB with rate 170. ICD was interrogated which showed several episodes of NSVT, VT and VF. US doppler of the upper extremities showed no significant arterial occlusive disease. Influenza, RSV and COVID PCR were negative. She was started on Diltiazem drip and later Amiodarone drip. Cardiology was consulted. The benefits of compliance with medications discussed. Amiodarone changed to oral route. Diltiazem stopped and metoprolol was advanced. We continued a majority of her home meds. She overalls did well and was able to be discharged on 03/28/24. Status at Discharge Cognitive/behavioral status at discharge: stable Time Spent with Patient Time attestation: Total time spent providing and/or coordinating discharge services: 35 minutes Time spent: Greater than 30 minutes Exam Narrative: AF 97.9 153/82 79 18 100% ra Gen - NARD Chest - CTA bilaterally, nml RR CV - Irregularly irregular; Tele showing mostly paced rhythm Abd - Soft, NT/ND, Positive BS Ext - No pedal edema Psych - Nml mood and affect Skin - Warm and dry DS: Data Data Completed and Pending Labs on day of discharge: Labs from last 24 hours 03/28/24 04:35 WBC 7.0 RBC 3.99 L Hgb 11.9 L Hct 36.0 L MCV 90.2 MCH 29.8 MCHC 33.1 RDW 14.8 H Plt Count 178 MPV 11.9 H Sodium 137 Potassium 3.3 L Chloride 107 Carbon Dioxide 27 Anion Gap 3 L BUN 12 Creatinine 0.90 Estim Creat Clear Calc 47 Estimated GFR > 60 Glucose 99 Calcium 8.5 Magnesium 1.9 Discharge Plan Discharge Attending physician on discharge: Chandana Moss Consulting providers: Perri Tony Discharging Clinician: Chandana Moss Anticipated Discharge Date/Time: 03/28/24 14:30 Patient Disposition: Home, Self-Care Activity: as tolerated Diet: heart healthy Discharge Instructions: Take precautions to avoid falls. Rise slowly from a lying or sitting position. Pause before standing or walking. Check daily morning weights after voiding. Call your doctor if you gain more than 3 lb in 2 days or 5 lb in 1 week. Contact your doctor or call 911 and come to the Emergency Room if you have chest pain, lightheadedness with standing or other worrisome symptoms. PT and OT has been set up for 3x/week for 6 weeks. Avoid NSAIDs (ibuprofen, naproxen, Aleve). Tylenol is safe to take. Please be aware that your medications have changed: Toprol XL (metoprolol) was increased from 25mg daily to 50mg daily Amiodarone 200mg daily is a new medication. Please take medication as prescribed. Follow-up with your primary care provider in 1-2 weeks. Please call for appointment. Follow-up with Cardiology in 1-2 weeks. Please call for an appointment. Thank you for using [facility] for your health care needs. Patient Instructions: Antibiotic Form, Rivaroxaban (By mouth), Heart Failure (DC), Pain Management (DC) Stand Alone Forms: General Discharge Information Follow-up/Referrals: Joseph Yanez MD [Physician] - Follow Up with Primary Mia Saeed MD [Primary Care Provider] - Call for Appointment Discharge Medications: New metoprolol succinate 50 mg Tablet Extended Release 24 Hr 50 mg PO QAM Qty: 30 1RF amiodarone [Pacerone] 200 mg Tablet 200 mg PO DAILY@0800 Qty: 30 1RF Continued potassium chloride 20 mEq tablet extended release 20 meq PO DAILY Qty: 135 2RF furosemide 40 mg tablet 40 mg PO DAILY Qty: 90 1RF Xarelto 20 mg tablet 20 mg PO QPM Qty: 100 2RF Hold Instructions: Resume on 03/13/24. Ok to resume on this date after completing higher dosage. acetaminophen [Tylenol Extra Strength] 500 mg Tablet 500 mg PO Q6H PRN (Reason: Pain (Scale Score 1-3)) Entresto 49-51 mg tablet 1 tablet PO BID spironolactone 25 mg tablet 25 mg PO QPM Qty: 90 1RF omeprazole 40 mg capsule,delayed release(DR/EC) 40 mg PO DAILY Discontinued acetaminophen-codeine 300-30 mg tablet 1 tablet PO Q8H PRN (Reason: pain) Qty: 60 0RF metoprolol succinate [Toprol XL] 25 mg tablet extended release 24 hr 25 mg PO QNOON Rx Instructions: may add another if HR above 80 Other Ambulatory Orders: OT Outpatient Eval and Treat (WEEKLY) Timeframe: [id number] Location: Determined by Patient Ordered By: Chandana Moss OT Outpatient Eval and Treat (WEEKLY) Timeframe: 20240516 Location: Determined by Patient Ordered By: Chandana Moss OT Outpatient Eval and Treat (WEEKLY) Timeframe: 20240523 Location: Determined by Patient Ordered By: Chandana Moss OT Outpatient Eval and Treat (WEEKLY) Timeframe: 20240530 Location: Determined by Patient Ordered By: Chandana Moss OT Outpatient Eval and Treat (WEEKLY) Timeframe: [id number] Location: Determined by Patient Ordered By: Chandana Moss OT Outpatient Eval and Treat (WEEKLY) Timeframe: 20240613 Location: Determined by Patient Ordered By: Chandana Moss PT Outpatient Eval and Treat (WEEKLY) Timeframe: [id number] Location: Determined by Patient Ordered By: Chandana Moss PT Outpatient Eval and Treat (WEEKLY) Timeframe: [id number] Location: Determined by Patient Ordered By: Chandana Moss PT Outpatient Eval and Treat (WEEKLY) Timeframe: 20240523 Location: Determined by Patient Ordered By: Chandana Moss PT Outpatient Eval and Treat (WEEKLY) Timeframe: 20240530 Location: Determined by Patient Ordered By: Chandana Moss PT Outpatient Eval and Treat (WEEKLY) Timeframe: [id number] Location: Determined by Patient Ordered By: Chandana Moss PT Outpatient Eval and Treat (WEEKLY) Timeframe: [id number] Location: Determined by Patient Ordered By: Chandana Isa Date of admission: 03/26/24 18:26 Primary Care Provider: Mia Recinos Admitting Provider: Yoana Navarro Attending physician on admission: Yoana Navarro Condition: Stable Hospitalist MIPS Heart Failure (Exclusion) Patient has history of Heart Transplant or Left Ventricular Assistive Device?: No IF YES, STOP HERE Heart Failure (Qualifier) Patient has current or prior documentation of LVEF less than or equal to 40%, or mod/servere depressed LVSF?: Yes IF NO, STOP HERE If Yes, Heart Failure (Qualifier) Patient was prescribed or already taking an Angiotensin-Converting Enzyme (BUDDY) Inhibitor, or Antiotensin Receptor Jacklyn (ARB): Yes Patient was prescribed or already taking bisoprolol, carvedilol, or sustained release metoprolol succinate: Yes
== END 2024-03-28 16:48 | disposition home or self-care (01) | DRG 309 ==
LOC: ANHED 03-26 01:10 → ANHIMU 03-26 01:47
PROVIDERS: Family Medicine; Internal Medicine; Internal Medicine Interventional Cardiology; Admitting Provider Internal Medicine; Emergency Provider Emergency Medicine; PCP Family Medicine; Visit Provider Internal Medicine
DX: I47.20 Ventricular tachycardia, unspecified (principal); I50.42 Chronic combined systolic (congestive) and diastolic (congestive) heart failure; I43 Cardiomyopathy in diseases classified elsewhere; I49.01 Ventricular fibrillation; I11.0 Hypertensive heart disease with heart failure; I48.0 Paroxysmal atrial fibrillation; E66.9 Obesity, unspecified; F03.90 Unspecified dementia, unspecified severity, without behavioral disturbance, psychotic disturbance, mood disturbance, and anxiety; G47.33 Obstructive sleep apnea (adult) (pediatric); K59.09 Other constipation; K21.9 Gastro-esophageal reflux disease without esophagitis; Z95.810 Presence of automatic (implantable) cardiac defibrillator; Z79.01 Long term (current) use of anticoagulants; Z28.21 Immunization not carried out because of patient refusal; Z20.822 Contact with and (suspected) exposure to COVID-19; Z99.89 Dependence on other enabling machines and devices; Z87.891 Personal history of nicotine dependence; Z86.718 Personal history of other venous thrombosis and embolism; Z91.148 Patient's other noncompliance with medication regimen for other reason
CPT/HCPCS: 36415; 71045; 80048; 80053; 80299; 81001; 83605; 83690; 83735; 83880; 84132; 84443; 84484; 85025; 85027; 85610; 85730; 87637; 93005; 93930; 96365; 96366; 96367; 96375; 96376; 99285; A9270; G0378; J0282

== ENCOUNTER 2024-06-18 14:05 | Outpatient (CLI) | payer MEDICARE, MEDICAID, SELFPAY ==
--- NOTE | ~2024-06-18 | CT_ITS ---
CT Scan of the Chest without Contrast: Clinical Indication: Effusion Technique: Contiguous sections were acquired throughout the chest without intravenous contrast. Dose reduction technique was used on this scan by utilizing automated exposure control and iterative recon struction technique. The dose-length product (DLP) was 265.91 mGy-cm. COMPARISON: 02/20/2024 Findings: Stable mass extending into the right superior mediastinum probably represents extension of the thyroi d gland.. Heart is mildly enlarged, with pacemaker device. Small pericardial effusion present, probab ly mildly decreased.. There is no evidence of pleural or pericardial effusion. The lungs are clear. No pulmonary nodules or infiltrates are noted. Images through the upper abdomen reveal no abnormalities. Impression: Small pericardial effusion, probably mildly decreased. 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 Reviewed, dictated and finalized at [facility]. AND YARD SUPERVISOR Impression: Small pericardial effusion, probably mildly decreased. 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
--- OUTSIDE RECORDS SUMMARY | 2024-06-18 14:22 | XMS_ITS | Clinical Summary ---
Author Organization [facility] [address] Address [address] [place] [address] Care Team Providers Care Neurology Physician Name Role Phone Mia Recinos MD Primary Care Provider Allergies Active Allergy Reactions Criticality Noted Date Comments Fentanyl Dizziness,Vomiting Low 09/03/2021 Ibuprofen Hives,Other (See comments) Medium 03/04/2020 Cerner Allergy Text Annotation: Liam Cerner Reaction: rash Medications omeprazole (PriLOSEC) 40 mg capsule Take 1 capsule (40 mg total) by mouth every morning Active acetaminophen ER (TYLENOL) 650 mg 8 hr tablet Take 1 tablet (650 mg total) by mouth every 8 (eight) hours as needed for pain Active polyethylene glycol (MIRALAX) 17 gram packetIndications :constipation Take 1 packet (17 g total) by mouth as needed Active meclizine (ANTIVERT) 25 mg tablet Take 1 tablet (25 mg total) by mouth 3 (three) times a day as needed for dizziness 30 tablet 2 Active rivaroxaban (XARELTO) 20 mg tabletIndications :Venous Thrombosis,atrial fibrillation Take 1 tablet (20 mg total) by mouth daily with breakfast 90 tablet 3 3 08/05/19 25 Active sacubitriL-valsar chowdary (ENTRESTO) 49-51 mg tabletIndications :chronic heart failure Take 1 tablet by mouth 2 (two) times a day 180 tablet 3 3 01/17/20 25 Active furosemide (LASIX) 40 mg tablet Take 1 tablet (40 mg total) by mouth daily 90 tablet 3 3 Active potassium chloride ER 20 mEq CR tablet Take 1 tablet (20 mEq total) by mouth daily 90 tablet 3 3 Active spironolactone (ALDACTONE) 25 mg tabletIndications :NICM (nonischemic cardiomyopathy) (CMS/HCC) (HCC),Essential hypertension Take 1 tablet (25 mg total) by mouth daily 30 tablet 11 3 01/17/20 25 Active metoprolol XL (TOPROL-XL) 50 mg extended release tablet Take 0.5 tablets (25 mg total) by mouth every morning 4 Active amiodarone (PACERONE) 200 mg tabletIndications :VT (ventricular tachycardia) ([facility]) Take 1 tablet (200 mg total) by mouth daily If resting heart rate goes below 60, reduce dose to 1/2 tablet 4 Active Active Problems Problem Noted Date Diagnosed Date Encounter for monitoring amiodarone therapy 11/2024 Biventricular implantable ca rdioverter-defibrillator (ICD) in situ 09/30/2023 Overview (09/30/2023): [employer] Biv ICD. Dx; NICM, LBBB, SSS, PAF, Ricardo. DOI 10/31/2023-Dorene. Santino álvarez. History of pulmonary embolism 07/27/2022 Bradycardia 07/27/2022 Chronic anticoagulation 07/23/2021 NICM (nonischemic cardiomyopathy) (CMS/HCC) 11/2020 Right leg pain 09/12/2020 Hyperlipidemia LDL goal <100 03/04/2020 Essential hypertension 03/04/2020 WENDY (obstructive sleep apnea) 03/04/2020 Ventricular premature depolarization 03/04/2020 LBBB (left bundle branch block) 03/04/2020 Paroxysmal atrial fibrillation (CMS/HCC) 020 Encounters Date Type Department Care Team Description 06/15/2024 1:15 PM SCREEN WRITER Office Visit [facility] Medical [facility] Cardiology at [address] [place] [phone] Vaishali Lyons MD NICM (nonischemic cardiomyopathy) (CMS/HCC) (HCC) (Primary Dx); Biventricular implantable cardioverter-defibril lator (ICD) in situ; Essential hypertension; Hyperlipidemia LDL goal <100; Paroxysmal atrial fibrillation (CMS/HCC) (HCC); Ventricular premature depolarization; LBBB (left bundle branch block); Encounter for monitoring amiodarone therapy 06/08/2024 Telephone [facility] [address] [place] [address] [place] [phone] Vaishali Lyons MD 06/07/2024 3:30 PM SCREEN WRITER Ancillary Procedure [facility] at [address] [place] [address] Paroxysmal atrial fibrillation (CMS/HCC) (HCC); NICM (nonischemic cardiomyopathy) (CMS/HCC) (HCC); LBBB (left bundle branch block); Biventricular implantable cardioverter-defibril lator (ICD) in situ 04/13/2024 10:00 AM SCREEN WRITER Office Visit [facility] [address] [place] [address] [address] [place] [phone] Breanne Pedraza NP VT (ventricular tachycardia) (HCC) (Primary Dx); Biventricular implantable cardioverter-defibril lator (ICD) in situ; History of pulmonary embolism; History of DVT (deep vein thrombosis); Paroxysmal atrial fibrillation (CMS/HCC) (HCC); Chronic anticoagulation; NICM (nonischemic cardiomyopathy) (CMS/HCC) (HCC); Chronic systolic (congestive) heart failure (HCC); Hospital discharge follow-up 03/26/2024 Telephone [facility] [address] [place] [address] [place] [address] [place] [phone] Vaishali Lyons MD 03/20/2024 9:00 AM SCREEN WRITER Ancillary Procedure [facility] [address] [place] [address] [place] [address] [place] [phone] Biventricular implantable cardioverter-defibril lator (ICD) in situ; NICM (nonischemic cardiomyopathy) (CMS/HCC) (HCC); LBBB (left bundle branch block); SSS (sick sinus syndrome) (CMS/HCC) (HCC); Paroxysmal atrial fibrillation (CMS/HCC) (HCC) from Last 3 Months Surgical History Surgery Date Site/Laterality Comments HYSTERECTOMY partial LAMINECTOMY COLONOSCOPY CARDIAC CATHETERIZATION 05/09/2020 - 05/08/2021 Medical History Medical History Date Comments Hypertension Heart murmur Hyperlipidemia Anemia Acid indigestion Sleep apnea Arthritis Motion sickness PONV (postoperative nausea and vomiting) History of pulmonary embolism [facility] Chronic anticoagulation Ventricular premature depolarization LBBB (left bundle branch block) Syncope PAF (paroxysmal atrial fibrillation) (CMS/HCC) ( HCC) NICM (nonischemic cardiomyopathy) (CMS/HCC) (HCC ) Family History Medical History Relation Name Comments Heart disease Brother 1 Heart disease Brother 2 gunshot Brother 3 Heart disease Father Heart disease Mother Heart disease Sister Relation Name Status Comments Brother 1 Brother 2 Brother 3 Father (Age 80) Mother (Age 80) Sister (Age 65) Social History Tobacco Use Types Packs/Day Years Used Date Smoking Tobacco: Former Cigarettes Q uit: 03/04/1995 Smokeless Tobacco: Never Tobacco Cessation:Counseling Given: Not Answered Comments:Smoked only while in high school Alcohol Use Standard Drinks/Week Comments Never 0 (1 standard drink = 0.6 oz pur e alcohol) AUDIT-C Answer Date Recorded Q1: How often do you have a drink containing alcohol? Never 10/31/2023 Q2: How many drinks containi ng alcohol do you have on a typical day when you are drinking? Patient does not drink Q3: How often do you have si x or more drinks on one occasion? Never 10/31/2023 Personal Safety Answer Date Recorded Have you ever been in or are you currently in a harmful physical or emotional relationship or is someone making you feel afraid or unsafe? Denies 10/31/2023 Comments Unknown Sex and Gender Information Value Date Recorded Sex Assigned at Not on file Legal Sex Female 8:37 AM CDT Gender Identity Not on file Sexual Orientation Not on file Obstetrics History Last Filed Vital Signs Vital Sign Reading Time Taken Comments Blood Pressure 186/92 06/15/2024 1:08 PM SCREEN WRITER Pulse 48 06/15/2024 1:08 PM SCREEN WRITER Temperature 37 C (98.6 F) 11/01/2023 12:03 PM CDT Respiratory Rate 16 01/17/2024 2:30 PM CDT Oxygen Saturation 95% 06/15/2024 1:08 PM SCREEN WRITER Inhaled Oxygen Concentration - - Weight 83.5 kg (184 lb) 06/15/2024 1:08 PM SCREEN WRITER Height 165.1 cm (5' 5 ) 06/15/2024 1:08 PM SCREEN WRITER Body Mass Index 30.62 06/15/2024 1:08 PM SCREEN WRITER Plan of Treatment Health Maintenance Due Date Last Done Comments Depression Screening 1945 Osteoporosis Screening-Bone Density Scan 1945 Pneumococcal vaccine 65+ (1 of 2 - PCV) 1949 DTaP/Tdap/Td Vaccine (1 - Tdap) 1954 Hepatitis B Screening 1961 Zoster Vaccine (1 of 2) 1993 Well Visit 65+ 2008 Covid-19 Vaccine (3 - season) 01/08/202401/2021, 07/18/2020 Influenza Vaccine (#1) 2024 Fall Risk Assessment 10/31/2024 11/01/2023 Medical Devices Implanted Type Area Cost Analyst Device Identifier Shelf Expiration Date Model / Serial / Lot [employer] Quartet 4.7fr 86cm Quadripolar Is-4 Llll Connector 8 Curve Low 1456q/86 - [id number] - [id number] Implanted:Qty: 1 on 10/31/2023 by Darvin Catherine MD at [facility] Lead [employer] 08/06/2026 1456Q/86 / [id number] / [employer] Tendril Sts 6fr 52cm Is-1 Connector Active Fixation Bipolar Soft 2087tc/ - [id number] - [id number] Implanted:Qty: 1 on 10/31/2023 by Darvin Catherine MD at [facility] Lead [employer] 10/06/20262087TC/52 / [id number] / [employer] Durata 6.8fr 65cm True Bipolar Active Fixation Extendable 1 Coil 7122q/65 - [id number] - [id number] Implanted:Qty: 1 on 10/31/2023 by Darvin Catherine MD at [facility] [employer] 09/05/2026 7122Q/65 / [id number] / [employer] Defib Cardiac [id number] [place] Hf Df4 Is-4 Is-1 Cnctr [id number] - [id number] - [id number] Implanted:Qty: 1 on 10/31/2023 by Darvin Catherine MD at [facility] [employer] 09/05/2025 [id number] / [id number] / Procedures Procedure Name Priority Date/Time Associated Diagnosis Comments TRANSTHORACIC ECHO (TTE) COMPLETE W DOPPLER/CF WO CONTRAST Routine 06/07/2024 3:55 PM SCREEN WRITER Paroxysmal atrial fibrillation (CMS/HCC) (HCC) NICM (nonischemic cardiomyopathy) (CMS/HCC) (HCC) LBBB (left bundle branch block) Biventricular implantable cardioverter-defibri llator (ICD) in situ DEVICE CHECK - REMOTE Routine 03/20/2024 1:07 PM SCREEN WRITER Biventricular implantable cardioverter-defibri llator (ICD) in situ NICM (nonischemic cardiomyopathy) (CMS/HCC) (HCC) LBBB (left bundle branch block) SSS (sick sinus syndrome) (CMS/HCC) (HCC) Paroxysmal atrial fibrillation (CMS/HCC) (HCC) from Last 3 Months Results * TRANSTHORACIC ECHO (TTE) COMPLETE W DOPPLER/CF WO CONTRAST (06/07/2024 3:55 PM SCREEN WRITER) LV EF 35-40 % CONS SCIMAGE Anatomical Region Laterality Modality Ultrasound 06/07/2024 3:16 PM SCREEN WRITER Narrative 06/08/2024 1:23 PM SCREEN WRITER [facility] Medical [facility] Cardiology [address], [address], [place] [address] P:[phone] P:[phone] Echocardiographic Report Patient Name: MARION BOURGEOIS W : 1945 Study Date: 06/07/2024 3:16:49 PM Gender: F Tech: Location: [facility] Ref Provider: VAISHALI LYONS Height(Cm): 165 BSA: 1.95 Weight(Kg): 83 Heart Rate: 79 BP: 128 / 62 Quality: Good Order Provider: VAISHALI LYONS PROCEDURES: Echocardiographic Report: Transthoracic echocardiogram with complete 2D, M-Mode, and color Doppler examination. INDICATIONS: I48.0 Paroxysmal atrial fibrillation, I42.8 Other cardiomyopathies, I44.7 Left bundle-branch block, unspecified, and Z95.810 Presence of automatic (implantable) cardiac defibrillator. MEASUREMENTS: 2D/MM Value Range Doppler Value Range EF Mod BP 38 % [ 54 - 74 ] ISAIAH Vmax 1.75 cm2 [ 2.00 - 4.00 ] EF Teich MM 35 % [ 54 - 74 ] AV Mean PG 14 mmHg Estimated EF 35-40 % AV Peak Reji 2.74 m/s [ 1.00 - 1.70 ] LVIDd 2D 5.32 cm [ 3.80 - 5.20 ] AV Peak PG 30 mmHg LVIDd MM 7.78 cm [ 3.80 - 5.20 ] AV VTI 41.41 cm LVIDs 2D 4.81 cm [ 2.20 - 3.50 ] LVOT Diam 2.02 cm [ 1.70 - 2.10 ] LVIDs MM 6.45 cm [ 2.20 - 3.50 ] LVOT Peak Reji 1.49 m/s [ 0.70 - 1.10 ] LVPWd 2D 1.30 cm [ 0.60 - 0.90 ] LVOT VTI 28.36 cm LVPWd MM 1.33 cm [ 0.60 - 0.90 ] MV E Peak Reji 0.70 m/s [ 0.60 - 1.30 ] IVSd 2D 1.51 cm [ 0.60 - 0.90 ] MV A Peak Reji 1.19 m/s [ 1.00 - 1.20 ] IVSd MM 1.15 cm [ 0.60 - 0.90 ] MV Decel Time 205 msec [ 104 - 258 ] LA Dimension MM 4.36 cm [ 2.70 - 3.80 ] PV Peak Reji 1.08 m/s [ 0.40 - 0.80 ] AoR Diam MM 4.11 cm [ 2.70 - 3.70 ] TR Peak Reji 2.98 m/s [ 1.00 - 2.80 ] LA Volume Index 51 cc/m2 [ 16 - 34 ] TR Peak PG 36 mmHg Lateral E` 0.04 m/s [ 0.10 - 0.15 ] E/E` 18 2D/MM Value Range Doppler Value Range - FINDINGS: Interpretation Site: Exam was interpreted at [facility]. Left Ventricle: Moderate concentric left ventricular hypertrophy. Moderate enlargement of left ventricle cavity. Moderate global left ventricular systolic dysfunction. Impaired diastolic relaxation Grade I. Ejection fraction is measured at 38 %. Ejection Fraction is visually estimated to be 35-40 %. Right Ventricle: Normal right ventricular size. Normal right ventricular systolic function. Linear artifact in right ventricle suggestive of catheter(s), pacemaker lead(s), or ICD lead(s). Left Atrium: There is moderate enlargement of left atrium. Right Atrium: The right atrium is normal in size. Atrial Septum: Normal atrial septum. Mitral Valve: Mild mitral annular calcification. Mild to moderate mitral valve regurgitation. There is no hemodynamically significant mitral stenosis by Doppler. Aortic Valve: Mild aortic stenosis. Peak Velocity of 2.74 m/s. Peak gradient of 30.0 mmHg. Mean gradient of 14.0 mmHg. Valve area of 1.75 cm2. Aortic cusps appear moderately calcified. Trileaflet aortic valve. Mild to moderate aortic valve regurgitation. Tricuspid Valve: Normal appearance of the tricuspid valve. Mild pulmonary hypertension based on right ventricular systolic pressure. Estimated peak RVSP is 42 mmHg. Mild tricuspid regurgitation. Pulmonic Valve: Normal appearance of the pulmonic valve. No pulmonic stenosis. Trivial regurgitation in the pulmonic valve. Pericardium: Moderate to large pericardial effusion up to 2.2 cm anteriorly. Echogenic material seen within the pericardial space on the pericardial surface of the epicardium. Right atrial free wall invagination consistent with elevated pericardial pressures. Aorta: Aortic root is mildly dilated. IVC: Normal size and normal respiratory collapse consistent with normal right atrial pressure (<5 mmHg). CONCLUSIONS: Moderate concentric left ventricular hypertrophy. Moderate enlargement of left ventricle cavity. Moderate global left ventricular systolic dysfunction. Impaired diastolic relaxation Grade I. Ejection fraction is measured at 38 %. Ejection Fraction is visually estimated to be 35-40 %. Normal right ventricular size. Normal right ventricular systolic function. Linear artifact in right ventricle suggestive of catheter(s), pacemaker lead(s), or ICD lead(s). There is moderate enlargement of left atrium. Mild mitral annular calcification. Mild to moderate mitral valve regurgitation. Mild aortic stenosis. Peak Velocity of 2.74 m/s. Peak gradient of 30.0 mmHg. Mean gradient of 14.0 mmHg. Valve area of 1.75 cm2. Aortic cusps appear moderately calcified. Trileaflet aortic valve. Mild to moderate aortic valve regurgitation. Mild pulmonary hypertension based on right ventricular systolic pressure. Estimated peak RVSP is 42 mmHg. Mild tricuspid regurgitation. Moderate to large pericardial effusion up to 2.2 cm anteriorly. Echogenic material seen within the pericardial space on the pericardial surface of the epicardium. Right atrial free wall invagination consistent with elevated pericardial pressures. Normal sinus rhythm. Ventricular paced rhythm. PVCs. APCs. Electronically Signed By: Vaishali Lyons MD 06/08/2024 1:22:57 PM SCREEN WRITER Procedure Note Vaishali Lyons MD - 06/08/2024 [facility] Medical [facility] Cardiology [address] [place] [address], [address], [place] [address] P:[phone] P:[phone] Echocardiographic Report Patient Name: MARION BOURGEOIS W : 1945 Study Date: 06/07/2024 3:16:49 PM Gender: F Tech: Location: W Ref Provider: VAISHALI LYONS Height(Cm): 165 BSA: 1.95 Weight(Kg): 83 Heart Rate: 79 BP: 128 / 62 Quality: Good Order Provider: VAISHALI LYONS PROCEDURES: Echocardiographic Report: Transthoracic echocardiogram with complete 2D, M-Mode, and color Dopplerexamination. INDICATIONS: I48.0 Paroxysmal atrial fibrillation, I42.8 Other cardiomyopathies, I44.7Left bundle-branch block, unspecified, and Z95.810 Presence of automatic(implantable) cardiac defibrillator. MEASUREMENTS: 2D/MM Value Range Doppler ValueRange EF Mod BP 38 % [ 54 - 74 ] ISAIAH Vmax 1.75cm2 [ 2.00 - 4.00 ] EF Teich MM 35 % [ 54 - 74 ] AV Mean PG 14mmHg Estimated EF 35-40 % AV Peak Reji 2.74m/s [ 1.00 - 1.70 ] LVIDd 2D 5.32 cm [ 3.80 - 5.20 ] AV Peak PG 30mmHg LVIDd MM 7.78 cm [ 3.80 - 5.20 ] AV VTI 41.41cm LVIDs 2D 4.81 cm [ 2.20 - 3.50 ] LVOT Diam 2.02 cm[ 1.70 - 2.10 ] LVIDs MM 6.45 cm [ 2.20 - 3.50 ] LVOT Peak Reji 1.49m/s [ 0.70 - 1.10 ] LVPWd 2D 1.30 cm [ 0.60 - 0.90 ] LVOT VTI 28.36cm LVPWd MM 1.33 cm [ 0.60 - 0.90 ] MV E Peak Reji 0.70m/s [ 0.60 - 1.30 ] IVSd 2D 1.51 cm [ 0.60 - 0.90 ] MV A Peak Reji 1.19m/s [ 1.00 - 1.20 ] IVSd MM 1.15 cm [ 0.60 - 0.90 ] MV Decel Time 205msec [ 104 - 258 ] LA Dimension MM 4.36 cm [ 2.70 - 3.80 ] PV Peak Reji 1.08m/s [ 0.40 - 0.80 ] AoR Diam MM 4.11 cm [ 2.70 - 3.70 ] TR Peak Reji 2.98m/s [ 1.00 - 2.80 ] LA Volume Index 51 cc/m2 [ 16 - 34 ] TR Peak PG 36mmHg Lateral E` 0.04 m/s [ 0.10 - 0.15 ] E/E` 18 2D/MM Value Range Doppler ValueRange - FINDINGS: Interpretation Site: Exam was interpreted at [facility]. Left Ventricle: Moderate concentric left ventricular hypertrophy. Moderate enlargement ofleft ventricle cavity. Moderate global left ventricular systolic dysfunction. Impaireddiastolic relaxation Grade I. Ejection fraction is measured at 38 %. EjectionFraction is visually estimated to be 35-40 %. Right Ventricle: Normal right ventricular size. Normal right ventricular systolic function.Linear artifact in right ventricle suggestive of catheter(s), pacemaker lead(s),or ICD lead(s). Left Atrium: There is moderate enlargement of left atrium. Right Atrium: The right atrium is normal in size. Atrial Septum: Normal atrial septum. Mitral Valve: Mild mitral annular calcification. Mild to moderate mitral valveregurgitation. There is no hemodynamically significant mitral stenosis by Doppler. Aortic Valve: Mild aortic stenosis. Peak Velocity of 2.74 m/s. Peak gradient of 30.0mmHg. Mean gradient of 14.0 mmHg. Valve area of 1.75 cm2. Aortic cusps appearmoderately calcified. Trileaflet aortic valve. Mild to moderate aortic valve regurgitation. Tricuspid Valve: Normal appearance of the tricuspid valve. Mild pulmonary hypertensionbased on right ventricular systolic pressure. Estimated peak RVSP is 42 mmHg. Mildtricuspid regurgitation. Pulmonic Valve: Normal appearance of the pulmonic valve. No pulmonic stenosis. Trivialregurgitation in the pulmonic valve. Pericardium: Moderate to large pericardial effusion up to 2.2 cm anteriorly. Echogenicmaterial seen within the pericardial space on the pericardial surface of the epicardium.Right atrial free wall invagination consistent with elevated pericardial pressures. Aorta: Aortic root is mildly dilated. IVC: Normal size and normal respiratory collapse consistent with normal rightatrial pressure (<5 mmHg). CONCLUSIONS: Moderate concentric left ventricular hypertrophy. Moderate enlargement ofleft ventricle cavity. Moderate global left ventricular systolic dysfunction. Impaireddiastolic relaxation Grade I. Ejection fraction is measured at 38 %. EjectionFraction is visually estimated to be 35-40 %. Normal right ventricular size. Normal right ventricular systolic function.Linear artifact in right ventricle suggestive of catheter(s), pacemaker lead(s),or ICD lead(s). There is moderate enlargement of left atrium. Mild mitral annular calcification. Mild to moderate mitral valveregurgitation. Mild aortic stenosis. Peak Velocity of 2.74 m/s. Peak gradient of 30.0mmHg. Mean gradient of 14.0 mmHg. Valve area of 1.75 cm2. Aortic cusps appearmoderately calcified. Trileaflet aortic valve. Mild to moderate aortic valve regurgitation. Mild pulmonary hypertension based on right ventricular systolic pressure.Estimated peak RVSP is 42 mmHg. Mild tricuspid regurgitation. Moderate to large pericardial effusion up to 2.2 cm anteriorly. Echogenicmaterial seen within the pericardial space on the pericardial surface of the epicardium.Right atrial free wall invagination consistent with elevated pericardial pressures. Normal sinus rhythm. Ventricular paced rhythm. PVCs. APCs. Electronically Signed By: Vaishali Lyons MD 06/08/2024 1:22:57 PM SCREEN WRITER Vaishali Lyons MD CV ECHO PROCEDURES Final Result * DEVICE CHECK - REMOTE (03/20/2024 1:07 PM SCREEN WRITER) Anatomical Region Laterality Modality Other Narrative 03/26/2024 1:16 PM SCREEN WRITER [employer] Biv ICD. Dx; NICM, LBBB, SSS, PAF, Ricardo. DOI 10/31/2023-Dorene. [place] remote. Routine DDD BIV ICD Remote. Transmission attached. Battery status Ok V, 6.2 years remaining battery life to MISHEL. Stable Charge time and Shock impedance. Stable lead impedances, pacing, and sensing threshold. Presenting rhythm: AP BIVP, PAC's. AP-5.5 %, Bi-V P-84 %. (472) AT/AF episodes noted. Available iegm's demonstrates AT/AF. (7) Ventricular tachy arrhythmias detected. (1) available iegm demonstrates AT/AF with RVR. Medication: Xarelto, Pacerone, Toprol XL, Entresto. Follow up: office device pacemaker/ICD 03/20/2025. [place] remote 06/19/2024. Marge Skinner RN us Vaishali Lyons MD CV CARDIAC SERVICES PROCE SORAYA Final Result from Last 3 [place] [address] MEDICARE [facility] Address: [address] [address] [facility] [place] [address] MEDICARE [facility] Address: [address] [address] [place] [address] MEDICARE [facility] Advance Directives For more information, please contact: [phone] * Full Code (Latest Code Status on File) Date Activated Date Inactivated Comments 10/31/2023 1:16 PM 11/01/2023 6:53 PM Care Teams Neurology Physician Relationship Specialty Start Date End Date Mia Recinos MD [address] [place] [address] PCP - General Family Medicine 02/29/20
--- OUTSIDE RECORDS SUMMARY | 2024-06-18 14:22 | XMS_ITS | Referral Summary ---
Author Organization [facility] [place] [address] Address [address] [place] [address] Care Team Providers Care Flare Breaker Name Role Phone Mia Recinos MD Primary Care Provider Encounters Date Type Department Care Team Description 06/15/2024 1:15 PM TRANSPLANTER ORCHID Office Visit [facility] Cardiology at [address] [place] [address] Vaishali Lyons MD NICM (nonischemic cardiomyopathy) (CMS/HCC) (HCC) (Primary Dx); Biventricular implantable cardioverter-defibril lator (ICD) in situ; Essential hypertension; Hyperlipidemia LDL goal <100; Paroxysmal atrial fibrillation (CMS/HCC) (HCC); Ventricular premature depolarization; LBBB (left bundle branch block); Encounter for monitoring amiodarone therapy 06/08/2024 Telephone [facility] Cardiology [address] [place] [address] Vaishali Lyons MD 06/07/2024 3:30 PM TRANSPLANTER ORCHID Ancillary Procedure [facility] Cardiology at [address] [place] [address] Paroxysmal atrial fibrillation (CMS/HCC) (HCC); NICM (nonischemic cardiomyopathy) (CMS/HCC) (HCC); LBBB (left bundle branch block); Biventricular implantable cardioverter-defibril lator (ICD) in situ 04/13/2024 10:00 AM TRANSPLANTER ORCHID Office Visit [facility] Cardiology [address] [place] [phone] Breanne Pedraza NP [place] (ventricular tachycardia) ([facility]) (Primary Dx); Biventricular implantable cardioverter-defibril lator (ICD) in situ; History of pulmonary embolism; History of DVT (deep vein thrombosis); Paroxysmal atrial fibrillation (CMS/HCC) (HCC); Chronic anticoagulation; NICM (nonischemic cardiomyopathy) (CMS/HCC) ([facility]); Chronic systolic (congestive) heart failure (HCC); Hospital discharge follow-up 03/26/2024 Telephone [facility] Cardiology [address] [place] [address] [place] [phone] Vaishali Lyons MD 03/20/2024 9:00 AM TRANSPLANTER ORCHID Ancillary Procedure [facility] Cardiology [address] [place] [address] [place] [phone] Biventricular implantable cardioverter-defibril lator (ICD) in situ; NICM (nonischemic cardiomyopathy) (CMS/HCC) ([facility]); LBBB (left bundle branch block); SSS (sick sinus syndrome) (CMS/HCC) ([facility]); Paroxysmal atrial fibrillation (CMS/HCC) ([facility]) from Last 3 Months Allergies Active Allergy Reactions Criticality Noted Date Comments Fentanyl Dizziness,Vomiting Low 09/03/2021 Ibuprofen Hives,Other (See comments) Medium 03/04/2020 Cerner Allergy Text Annotation: Amee Wheeler Reaction: rash Medications omeprazole (PriLOSEC) 40 mg [...] (PACERONE) 200 mg tabletIndications :VT (ventricular tachycardia) ([facility]) Take 1 tablet (200 mg total) by mouth daily If resting heart rate goes below 60, reduce dose to 1/2 tablet 4 Active Active Problems Problem Noted Date Diagnosed Date Encounter for monitoring amiodarone therapy 11/2024 Biventricular implantable ca rdioverter-defibrillator (ICD) in situ 09/30/2023 Overview (09/30/2023): Canna[employer] Biv ICD. Dx; NICM, LBBB, SSS, PAF, Ricardo. DOI 10/31/2023-Dorene. Santino álvarez. History of pulmonary embolism 07/27/2022 Bradycardia 07/27/2022 Chronic anticoagulation 07/23/2021 NICM (nonischemic cardiomyopathy) (CMS/HCC) 11/2020 Right leg pain 09/12/2020 Hyperlipidemia LDL goal <100 03/04/2020 Essential hypertension 03/04/2020 WENDY (obstructive sleep apnea) 03/04/2020 Ventricular premature depolarization 03/04/2020 LBBB (left bundle branch block) 03/04/2020 Paroxysmal atrial fibrillation (CMS/HCC) 020 Social History Tobacco Use Types Packs/Day Years [...] on file Sexual Orientation Not on file Last Filed Vital Signs Vital Sign Reading Time Taken Comments Blood Pressure 186/92 06/15/2024 1:08 PM TRANSPLANTER ORCHID Pulse 48 06/15/2024 1:08 PM TRANSPLANTER ORCHID Temperature 37 C (98.6 F) 11/01/2023 12:03 PM CDT Respiratory Rate 16 01/17/2024 2:30 PM CDT Oxygen Saturation 95% 06/15/2024 1:08 PM TRANSPLANTER ORCHID Inhaled Oxygen Concentration - - Weight 83.5 kg (184 lb) 06/15/2024 1:08 PM TRANSPLANTER ORCHID Height 165.1 cm (5' 5 ) 06/15/2024 1:08 PM TRANSPLANTER ORCHID Body Mass Index 30.62 06/15/2024 1:08 PM TRANSPLANTER ORCHID Plan of Treatment Not on file Medical Devices Implanted Type Area Rn Nicu Device Identifier Shelf Expiration Date Model / Serial / Lot [employer] Quartet 4.7fr 86cm Quadripolar Is-4 Llll Connector 8 Curve Low 1456q/86 - [id number] - [id number] Implanted:Qty: 1 on 10/31/2023 by Darvin Catherine MD at [facility] Lead [employer] 08/06/2026 1456Q/86 / [id number] / [employer] Tendril Sts 6fr 52cm Is-1 Connector Active Fixation Bipolar Soft 2087tc/52 - [id number] - [id number] Implanted:Qty: 1 on 10/31/2023 by Darvin Catherine MD at [facility] Lead [employer] 10/06/20262087TC/52 / [id number] / [employer] Durata 6.8fr 65cm True Bipolar Active Fixation Extendable 1 Coil 7122q/65 - [id number] - [id number] Implanted:Qty: 1 on 10/31/2023 by Darvin Catherine MD at [facility] [employer] 09/05/2026 7122Q/65 / [id number] / [employer] Defib Cardiac [id number] 32v36on Rueter Hf Df4 Is-4 Is-1 Cnctr [id number] - [id number] - [id number] Implanted:Qty: 1 on 10/31/2023 by Darvin Catherine MD at [facility] [employer] 09/05/2025 [id number] / [id number] / Procedures Procedure Name Priority Date/Time Associated Diagnosis Comments TRANSTHORACIC ECHO (TTE) COMPLETE W DOPPLER/CF WO CONTRAST Routine 06/07/2024 3:55 PM TRANSPLANTER ORCHID Paroxysmal atrial fibrillation (CMS/HCC) (HCC) NICM (nonischemic cardiomyopathy) (CMS/HCC) (HCC) LBBB (left bundle branch block) Biventricular implantable cardioverter-defibri llator (ICD) in situ DEVICE CHECK - REMOTE Routine 03/20/2024 1:07 PM TRANSPLANTER ORCHID Biventricular implantable cardioverter-defibri llator (ICD) in situ NICM (nonischemic cardiomyopathy) (CMS/HCC) (HCC) LBBB (left bundle branch block) SSS (sick sinus syndrome) (CMS/HCC) (HCC) Paroxysmal atrial fibrillation (CMS/HCC) (HCC) from Last 3 Months Results * TRANSTHORACIC ECHO (TTE) COMPLETE W DOPPLER/CF WO CONTRAST (06/07/2024 3:55 PM TRANSPLANTER ORCHID) LV EF 35-40 % CONS SCIMAGE Anatomical Region Laterality Modality Ultrasound 06/07/2024 3:16 PM TRANSPLANTER ORCHID Narrative 06/08/2024 1:23 PM TRANSPLANTER ORCHID [facility] Cardiology [address] , [address], [place] [address] P:[phone] P:[phone] Echocardiographic Report Patient Name: MARION BOURGEOIS W : 1945 Study Date: 06/07/2024 3:16:49 PM Gender: F Tech: Location: [facility] Ref Provider: VAISHALI LYONS Height(Cm): 165 BSA: 1.95 Weight(Kg): 83 Heart Rate: 79 BP: 128 / 62 Quality: Good Order Provider: VAISHALI LYOSN PROCEDURES: Echocardiographic Report: Transthoracic echocardiogram with complete [...] FINDINGS: Interpretation Site: Exam was interpreted at [facility]. Left Ventricle: Moderate concentric left ventricular hypertrophy. [...] By: Vaishali Lyons MD 06/08/2024 1:22:57 PM TRANSPLANTER ORCHID Procedure Note Vaishali Lyons MD - 06/08/2024 [facility] Cardiology [address], [address], [place] [address] P:[phone] P:[phone] Echocardiographic Report Patient Name: MARION BOURGEOIS W : 1945 Study Date: 06/07/2024 3:16:49 PM Gender: F Tech: Location: [facility] Ref Provider: VAISHALI LYONS Height(Cm): 165 BSA: [...] FINDINGS: Interpretation Site: Exam was interpreted at [facility]. Left Ventricle: Moderate concentric left ventricular hypertrophy. [...] By: Vaishali Lyons MD 06/08/2024 1:22:57 PM TRANSPLANTER ORCHID us Vaishali Lyons MD CV ECHO PROCEDURES Final Result * DEVICE CHECK - REMOTE (03/20/2024 1:07 PM TRANSPLANTER ORCHID) Anatomical Region Laterality Modality Other Narrative 03/26/2024 1:16 PM TRANSPLANTER ORCHID Lorenzo Biv ICD. Dx; NICM, LBBB, SSS, PAF, Ricardo. DOI 10/31/2023-Dorene. Eden remote. Routine DDD BIV ICD Remote. Transmission [...] Entresto. Follow up: office device pacemaker/ICD 03/20/2025. Eden remote 06/19/2024. Marge Skinner RN Vaishali Lyons MD CV CARDIAC SERVICES [facility] Final Result from Last 3 [place] [address] MEDICARE [facility] MEDICARE [facility] MEDICARE IDPA Advance Directives For more information, please contact: [phone] * Full Code (Latest Code Status on File) Date Activated Date Inactivated Comments 10/31/2023 1:16 PM 11/01/2023 6:53 PM Care Teams Flare Breaker Relationship Specialty Start Date End Date Mia Recinos MD [address] [place], [place] [id number] PCP - General Family Medicine 02/29/20
== END 2024-06-18 14:06 | disposition home or self-care (01) ==
PROVIDERS: PCP Family Medicine; Visit Provider Internal Medicine Cardiovascular Disease
DX: I31.39 Other pericardial effusion (noninflammatory) (principal)
CPT/HCPCS: 71250

== ENCOUNTER 2024-07-03 21:24 | Emergency (ER) | payer MEDICARE, MEDICAID, SELFPAY ==
--- NOTE | ~2024-07-03 | XR_ITS ---
CHEST RADIOGRAPH, PA AND LATERAL CLINICAL HISTORY: SOA, HX DIFFIBULATOR . COMPARISON: 03/25/2024 TECHNIQUE: PA and lateral views of the chest. FINDINGS The left mid lung is partially obscured due to AICD generator. Wires project over the right atrium, coronary sinus and right ventricle. The remainder of the cardiomediastinal silhouette is enlarged, but otherwise unremarkable. The lungs are clear. IMPRESSION: No focal infiltrate or effusion. Reviewed, dictated and finalized at location A. ING CAPTAIN
--- NOTE | ~2024-07-03 | US_ITS ---
EXAMINATION: US venous doppler [facility] DATE: 07/04/2024 07:57 INDICATION: Lower limb swelling. TECHNIQUE: Grayscale ultrasound images without and with compression and Doppler ultrasound images of the bilateral lower extremity veins were obtained. COMPARISON: Ultrasound 02/20/2024 FINDINGS: The visualized portions of right common femoral vein, profunda (deep) femoral vein, femoral vein, pop liteal vein, peroneal veins, posterior tibial veins, and greater saphenous vein outflow are patent. The visualized portions of left common femoral vein, profunda femoral vein, femoral vein, popliteal v ein, peroneal veins, and greater saphenous vein outflow are patent. There is thrombus in the left pos terior tibial veins. IMPRESSION: 1. Deep vein thrombosis again seen involving the left posterior tibial veins. Reviewed, dictated and finalized at location [] ANGE CLERK
--- OUTSIDE RECORDS SUMMARY | 2024-07-03 21:28 | XMS_ITS | Referral Summary ---
Author Organization [facility] [place] [address] Address [address] [place] [address] Care Team Providers Care Client Account Representative Name Role Phone Mia Recinos MD Primary Care Provider Encounters Date Type Department Care Team Description 06/19/2024 Orders Only [facility] Cardiology [address] [place] [phone] Vaishali Lyons MD Biventricular implantable cardioverter-defibri llator (ICD) in situ (Primary Dx); NICM (nonischemic cardiomyopathy) (CMS/HCC) (HCC); LBBB (left bundle branch block); SSS (sick sinus syndrome) (CMS/HCC) (HCC); Bradycardia 06/19/2024 9:30 AM BENDER MACHINE OPERATOR Ancillary Procedure [facility] Cardiology [address] [place] [address] [place] [phone] Bradycardia (Primary Dx); Biventricular implantable cardioverter-defibri llator (ICD) in situ; NICM (nonischemic cardiomyopathy) (CMS/HCC) (HCC); LBBB (left bundle branch block); SSS (sick sinus syndrome) (CMS/HCC) (HCC); Paroxysmal atrial fibrillation (CMS/HCC) (HCC) 06/18/2024 Orders Only [facility] Health Information Management [address] [place] [address] Vaishali Lyons MD 06/15/2024 1:15 PM BENDER MACHINE OPERATOR Office Visit [facility] Cardiology at [address] [place] [address] Vaishali Lyons MD NICM (nonischemic cardiomyopathy) (CMS/HCC) ([facility]) (Primary Dx); Biventricular implantable cardioverter-defibri llator (ICD) in situ; Essential hypertension; Hyperlipidemia LDL goal <100; Paroxysmal atrial fibrillation (CMS/HCC) ([facility]); Ventricular premature depolarization; LBBB (left bundle branch block); Encounter for monitoring amiodarone therapy 06/08/2024 Telephone [facility] Cardiology [address] [place] [address] [address] [place] [phone] Vaishali Lyons MD 06/07/2024 3:30 PM BENDER MACHINE OPERATOR Ancillary Procedure [facility] Cardiology at [address] [place] [phone] Paroxysmal atrial fibrillation (CMS/HCC) ([facility]); NICM (nonischemic cardiomyopathy) (CMS/HCC) ([facility]); LBBB (left bundle branch block); Biventricular implantable cardioverter-defibri llator (ICD) in situ 04/13/2024 10:00 AM BENDER MACHINE OPERATOR Office Visit [facility] Cardiology [address] [place] [address] [address] [place] [phone] Breanne Pedraza NP VT (ventricular tachycardia) ([facility]) (Primary Dx); Biventricular implantable cardioverter-defibri llator (ICD) in situ; History of pulmonary embolism; History of DVT (deep vein thrombosis); Paroxysmal atrial fibrillation (CMS/HCC) ([facility]); Chronic anticoagulation; NICM (nonischemic cardiomyopathy) (CMS/HCC) ([facility]); Chronic systolic (congestive) heart failure ([facility]); Hospital discharge follow-up from Last 3 Months Allergies Active Allergy [...] (PACERONE) 200 mg tabletIndications :VT (ventricular tachycardia) (HCC) Take 1 tablet (200 mg total) by mouth daily If resting heart rate goes below 60, reduce dose to 1/2 tablet 4 Active Active Problems Problem Noted Date Diagnosed Date Encounter for monitoring amiodarone therapy 11/2024 Biventricular implantable ca rdioverter-defibrillator (ICD) in situ 09/30/2023 Overview (09/30/2023): Lorenzo Biv ICD. Dx; NICM, LBBB, SSS, PAF, Ricardo. DOI 10/31/2023-Fredrickanda. Santino álvarez. History of pulmonary embolism 07/27/2022 Bradycardia 07/27/2022 Chronic anticoagulation 07/23/2021 NICM (nonischemic cardiomyopathy) ([facility]) 09/0 11/2020 Right leg pain 09/12/2020 Hyperlipidemia LDL goal <100 03/04/2020 Essential hypertension 03/04/2020 WENDY (obstructive sleep apnea) 03/04/2020 Ventricular premature depolarization 03/04/2020 LBBB (left bundle branch block) 03/04/2020 Paroxysmal atrial fibrillation ([facility]) 020 Social History Tobacco Use Types Packs/Day [...] Comments Blood Pressure 186/92 06/15/2024 1:08 PM BENDER MACHINE OPERATOR Pulse 48 06/15/2024 1:08 PM BENDER MACHINE OPERATOR Temperature 37 C (98.6 F) 11/01/2023 12:03 PM CDT Respiratory Rate 16 01/17/2024 2:30 PM CDT Oxygen Saturation 95% 06/15/2024 1:08 PM BENDER MACHINE OPERATOR Inhaled Oxygen Concentration - - Weight 83.5 kg (184 lb) 06/15/2024 1:08 PM BENDER MACHINE OPERATOR Height 165.1 cm (5' 5 ) 06/15/2024 1:08 PM BENDER MACHINE OPERATOR Body Mass Index 30.62 06/15/2024 1:08 PM BENDER MACHINE OPERATOR Plan of Treatment Not on file Medical Devices Implanted Type Area Election Watcher Device Identifier Shelf Expiration Date Model / Serial / Lot [employer] Quartet 4.7fr 86cm Quadripolar Is-4 Llll Connector 8 Curve Low 1456q/86 - [id number] - [id number] Implanted:Qty: 1 on 10/31/2023 by Darvin Catherine MD at [facility] Lead [employer] 08/06/2026 1456Q/86 / [id number] / [employer] Tendril Sts 6fr 52cm Is-1 Connector Active Fixation Bipolar Soft 2087tc/52 - [id number] - [id number] Implanted:Qty: 1 on 10/31/2023 by Darvin Catherine MD at [facility] Lead [employer] 10/06/20268TC/52 / [id number] / [employer] Durata 6.8fr 65cm True Bipolar Active Fixation Extendable 1 Coil 7122q/65 - [id number] - [id number] Implanted:Qty: 1 on 10/31/2023 by Darvin Catherine MD at [facility] [employer] 09/05/2026 7122Q/65 / [id number] / [employer] Defib Cardiac [id number] 20p02op Tracy Hf Df4 Is-4 Is-1 Cnctr [id number] - [id number] - [id number] Implanted:Qty: 1 on 10/31/2023 by Darvin Catherine MD at [facility] [employer] 09/05/2025 [id number] / [id number] / Procedures Procedure Name Priority Date/Time Associated Diagnosis Comments DEVICE CHECK - REMOTE Routine 06/19/2024 10:46 AM BENDER MACHINE OPERATOR Biventricular implantable cardioverter-defibri llator (ICD) in situ NICM (nonischemic cardiomyopathy) (CMS/HCC) (HCC) LBBB (left bundle branch block) SSS (sick sinus syndrome) (CMS/HCC) (HCC) Paroxysmal atrial fibrillation (CMS/HCC) (HCC) SCAN - RADIOLOGY/IMAGING 06/18/2024 TRANSTHORACIC ECHO (TTE) COMPLETE W DOPPLER/CF WO CONTRAST Routine 06/07/2024 3:55 PM BENDER MACHINE OPERATOR Paroxysmal atrial fibrillation (CMS/HCC) (HCC) NICM (nonischemic cardiomyopathy) (CMS/HCC) (HCC) LBBB (left bundle branch block) Biventricular implantable cardioverter-defibri llator (ICD) in situ from Last 3 Months Results * DEVICE CHECK - REMOTE (06/19/2024 10:46 AM BENDER MACHINE OPERATOR) Anatomical Region Laterality Modality Other Narrative 06/28/2024 3:59 PM BENDER MACHINE OPERATOR PayClip Biv ICD. Dx; NICM, LBBB, SSS, PAF, Ricardo. DOI 10/31/2023-Dorene. Santino remote. Routine DDD ICD Remote. Transmission attached. Battery status 90%, 5.8-6.1 years remaining battery life to MISHEL. Stable Charge time and Shock impedance. Stable lead impedances, pacing, and sensing threshold. Presenting rhythm: -AP/VS-BP AP-7.6 %, Bi-V P-84 %. Since phone message on 03/26/24 (4) AT/AF episodes noted. Longest episode was 36 seconds in duration. IEGM demonstrates AFib. AFib burden < 1% (4) Ventricular tachy arrhythmias detected. Available IEGM demonstrates AFib with RVR, with the longest episode noted at 20 seconds. Medication: Xarelto 20 mg, amiodarone 200 mg, Toprol-XL 50 mg, Entresto Follow up: Office Pacemaker/ICD scheduled 03/20/25 Santino remote 09/25/24 Andry Workman, JAYCEE Vaishali Lyons MD CV CARDIAC SERVICES [facility] Final Result * SCAN - RADIOLOGY/IMAGING (06/18/2024) Anatomical Region Laterality Modality Other us Vaishali Lyons MD Final Res ult * TRANSTHORACIC ECHO (TTE) COMPLETE W DOPPLER/CF WO CONTRAST (06/07/2024 3:55 PM BENDER MACHINE OPERATOR) LV EF 35-40 % CONS SCIMAGE Anatomical Region Laterality Modality Ultrasound 06/07/2024 3:16 PM BENDER MACHINE OPERATOR Narrative 06/08/2024 1:23 PM BENDER MACHINE OPERATOR [facility] Cardiology [address] [facility], [address], [place] [address] P:[phone] P:[phone] Echocardiographic Report Patient Name: MARION BOURGEOIS W [...] FINDINGS: Interpretation Site: Exam was interpreted at [facility]. Left Ventricle: Moderate concentric left ventricular [...] By: Vaishali Lyons MD 06/08/2024 1:22:57 PM BENDER MACHINE OPERATOR Procedure Note Vaishali Lyons MD - 06/08/2024 [facility] Cardiology [address] , [address], [place] [address] P:[phone] P:[phone] Echocardiographic Report Patient Name: MARION BOURGEOIS W [...] FINDINGS: Interpretation Site: Exam was interpreted at [facility]. Left Ventricle: Moderate concentric left ventricular [...] By: Vaishali Lyons MD 06/08/2024 1:22:57 PM BENDER MACHINE OPERATOR us Vaishali Lyons MD CV ECHO PROCEDURES Final Result from Last 3 [place] [address] [place] [address] MEDICARE [facility] [place] [address] MEDICARE IDPA Advance Directives For more information, please contact: [phone] * Full Code (Latest Code Status on File) Date Activated Date Inactivated Comments 10/31/2023 1:16 PM 11/01/2023 6:53 PM Care Teams Client Account Representative Relationship Specialty Start Date End Date Mia Recinos MD [address] [facility] [address] [place] [address] PCP - General Family Medicine 02/29/20
--- OUTSIDE RECORDS SUMMARY | 2024-07-03 21:28 | XMS_ITS | Continuity of Care Document ---
Author Organization [facility] Address [address] [place] [address] [address] [place] [address] Phone Care Team Providers Care Cyber Intel Planner Name Role Phone Steven Carlin DPT Unavailable Unavailable Procedures Procedure Date THERAPEUTIC EXERCISES NEUROMUSCULAR RE-ED MANUAL THERAPY FUNC ACTIVITY ELECTRIC STIMULATION UNA Medications Name Dose Freq Route DOC Feb THERAPEUTIC EXERCISES NEUROMUSCULAR RE-ED MANUAL THERAPY ELECTRIC STIMULATION UNA Medications Name Dose Freq Route DOC Feb THERAPEUTIC EXERCISES NEUROMUSCULAR RE-ED MANUAL THERAPY FUNC ACTIVITY THERAPEUTIC EXERCISES NEUROMUSCULAR RE-ED MANUAL THERAPY ELECTRIC STIMULATION UNA Medications Name Dose Freq Route [facility] Jan PT EVALUATION THERAPEUTIC EXERCISES NEUROMUSCULAR RE-ED MANUAL THERAPY ELECTRIC STIMULATION UNA Carrying, Moving And Handling Objects-Cu rrent Carrying, Moving And Handling Objects-Go al Medications Name Dose Freq Route DOC Jan Pain Assess Positive [facility] 2013 BMI NOT Performed or Calculated NO F/U P rose NO Reason Specified Future Fall Risk Positive 2+ Falls or 1 Fall w/ Injury RA DOC Scre ened for Fall Risk Plan of Care [facility] Functional Outcome Assessmen t documented, deficits identified, treatment plan es Advance Directives Directive Yes / No Effective Date File Name No Information Encounters Encounter Description Practice Location Reason(s) For Visit Diagnoses Date Provider Providers [facility] [address] [place] [address], [id number], tel:[phone] [facility] No Information Tesfaye Harris. [address] [place], [address], . tel:[phone], [id number], tel:[phone] [facility] No Information Tesfaye Harris. [address] [place], [place], [facility], . tel:[phone], [id number], tel:[phone] [facility] No Information [facility]. . [facility], [id number], tel:[phone] [facility] No Information Tesfaye Harris. [facility] [place], [address], . tel:[phone], [id number], tel:[phone] [facility] No Information Chanda Goetz. . [facility] [address] [place] [address], [id number], tel:[phone] [facility] LumbagoPain in joint involving lower leg Tesfaye Harris. [facility] [place], [address], . tel:[phone] Family History Family Member Type Diagnosis Age At Onset No Information Payers Payer name Insurance type Covered republican ID Authoryenia tikimmy(s) Medicare [place] [id number] Social History Type Description Quantity Date Captured Comments Sex Female Smoking Status No Information Chief Complaint And Reason For Visit No Information Reason For Referral Reason For Referral No Information History Of Present Illness Encounter Date Complaint History Of Prese nt Illness No Information Functional Status Date Functional Assessmen t No Information Instructions Date Instruction Additional Infor mation No Information Assessments Type Assessment Date No Information Patient Care Teams Name Effective Dates (start - stop) Status Members No Information
--- OUTSIDE RECORDS SUMMARY | 2024-07-03 21:28 | XMS_ITS | Clinical Summary ---
Author Organization [facility] [address] Address [address] [place] [address] Care Team Providers Care Director Of Hemophilia Name Role Phone Mia Recinos MD Primary [...] mg tabletIndications :VT (ventricular tachycardia) ([facility]) Take 1 tablet (200 mg total) [...] Date Type Department Care Team Description 06/19/2024 9:30 AM VICE PRESIDENT FOR INSTRUCTION Ancillary Procedure [facility] Medical [facility] Cardiology [address] [place] [phone] Bradycardia (Primary Dx); Biventricular implantable cardioverter-defibri llator (ICD) in situ; NICM (nonischemic cardiomyopathy) (CMS/HCC) (HCC); LBBB (left bundle branch block); SSS (sick sinus syndrome) (CMS/HCC) (HCC); Paroxysmal atrial fibrillation (CMS/HCC) (HCC) 06/19/2024 Orders Only [facility] Cardiology [address] [phone] Vaishali Lyons MD Biventricular implantable cardioverter-defibri llator (ICD) in situ (Primary Dx); NICM (nonischemic cardiomyopathy) (CMS/HCC) (HCC); LBBB (left bundle branch block); SSS (sick sinus syndrome) (CMS/HCC) (HCC); Bradycardia 06/18/2024 Orders Only [facility] Health Information Management [address] [place] [phone] Vaishali Lyons MD 06/15/2024 1:15 PM VICE PRESIDENT FOR INSTRUCTION Office Visit [facility] Cardiology at [address] [place] [phone] Vaishali Lyons MD NICM (nonischemic cardiomyopathy) (CMS/HCC) (HCC) (Primary Dx); Biventricular implantable cardioverter-defibri llator (ICD) in situ; Essential hypertension; Hyperlipidemia LDL goal <100; Paroxysmal atrial fibrillation (CMS/HCC) (HCC); Ventricular premature depolarization; LBBB (left bundle branch block); Encounter for monitoring amiodarone therapy 06/08/2024 Telephone [facility] Cardiology [address] [facility] [address] [place] [phone] Vaishali Lyons MD 06/07/2024 3:30 PM VICE PRESIDENT FOR INSTRUCTION Ancillary Procedure [facility] Cardiology at [address] [place] [address] Paroxysmal atrial fibrillation (CMS/HCC) (HCC); NICM (nonischemic cardiomyopathy) (CMS/HCC) (HCC); LBBB (left bundle branch block); Biventricular implantable cardioverter-defibri llator (ICD) in situ 04/13/2024 10:00 AM VICE PRESIDENT FOR INSTRUCTION Office Visit [facility] Medical Group Cardiology [address] [place] [address] Breanne Pedraza NP [place] (ventricular tachycardia) ([facility]) (Primary Dx); Biventricular implantable cardioverter-defibri llator (ICD) in situ; History of pulmonary embolism; History of DVT (deep vein thrombosis); Paroxysmal atrial fibrillation (CMS/HCC) (HCC); Chronic anticoagulation; NICM (nonischemic cardiomyopathy) (CMS/HCC) (HCC); Chronic systolic (congestive) heart failure (HCC); Hospital discharge follow-up from Last 3 Months Surgical History Surgery Date Site/Laterality Comments HYSTERECTOMY partial LAMINECTOMY COLONOSCOPY CARDIAC CATHETERIZATION 05/09/2020 - 05/08/2021 Medical History Medical History Date Comments Hypertension Heart murmur Hyperlipidemia Anemia Acid indigestion Sleep apnea Arthritis Motion sickness PONV (postoperative nausea and vomiting) History of pulmonary embolism An [facility] Chronic anticoagulation Ventricular premature depolarization LBBB [...] Comments Blood Pressure 186/92 06/15/2024 1:08 PM VICE PRESIDENT FOR INSTRUCTION Pulse 48 06/15/2024 1:08 PM VICE PRESIDENT FOR INSTRUCTION Temperature 37 C (98.6 F) 11/01/2023 12:03 PM CDT Respiratory Rate 16 01/17/2024 2:30 PM CDT Oxygen Saturation 95% 06/15/2024 1:08 PM VICE PRESIDENT FOR INSTRUCTION Inhaled Oxygen Concentration - - Weight 83.5 kg (184 lb) 06/15/2024 1:08 PM VICE PRESIDENT FOR INSTRUCTION Height 165.1 cm (5' 5 ) 06/15/2024 1:08 PM VICE PRESIDENT FOR INSTRUCTION Body Mass Index 30.62 06/15/2024 1:08 PM VICE PRESIDENT FOR INSTRUCTION Plan of Treatment Health Maintenance Due Date Last Done Comments Depression Screening 1945 Osteoporosis Screening-Bone Density Scan 1945 DTaP/Tdap/Td Vaccine (1 - Tdap) 1954 Hepatitis B Screening 1961 Pneumococcal vaccine 65+ (1 of 2 - PCV) 1962 Zoster Vaccine (1 of 2) 1993 Well Visit 65+ 2008 Covid-19 Vaccine (3 - season) 01/08/202401/2021, 07/18/2020 Influenza Vaccine (#1) 2024 Fall Risk Assessment 10/31/2024 11/01/2023 Medical Devices Implanted Type Area Compressor Station Operator Device Identifier Shelf Expiration Date Model / Serial / Lot [employer] Quartet 4.7fr 86cm Quadripolar Is-4 Llll Connector 8 Curve Low 1456q/86 - [id number] - [id number] Implanted:Qty: 1 on 10/31/2023 by Darvin Catherine MD at [facility] Lead [employer] 08/06/2026 1456Q/86 / [id number] / [employer] Tendril Sts 6fr 52cm Is-1 Connector Active Fixation Bipolar Soft 2087tc/52 - [id number] - [id number] Implanted:Qty: 1 on 10/31/2023 by Darvin Catherine MD at [facility] Lead [employer] 10/06/20268TC/52 / [id number] / [employer] Durata 6.8fr 65cm True Bipolar Active Fixation Extendable 1 Coil 7122q/65 - [id number] - [id number] Implanted:Qty: 1 on 10/31/2023 by Darvin Catherine MD at [facility] [employer] 09/05/2026 7122Q/65 / [id number] / [employer] Defib Cardiac [id number] [place] Hf Df4 Is-4 Is-1 Cnctr Wyiew940d - [id number] - [id number] Implanted:Qty: 1 on 10/31/2023 by Darvin Catherine MD at [facility] [employer] 09/05/2025 [id number] / [id number] / Procedures Procedure Name Priority Date/Time Associated Diagnosis Comments DEVICE CHECK - REMOTE Routine 06/19/2024 10:46 AM VICE PRESIDENT FOR INSTRUCTION Biventricular implantable cardioverter-defibri llator (ICD) in situ NICM (nonischemic cardiomyopathy) (CMS/HCC) (HCC) LBBB (left bundle branch block) SSS (sick sinus syndrome) (CMS/HCC) (HCC) Paroxysmal atrial fibrillation (CMS/HCC) (HCC) SCAN - RADIOLOGY/IMAGING 06/18/2024 TRANSTHORACIC ECHO (TTE) COMPLETE W DOPPLER/CF WO CONTRAST Routine 06/07/2024 3:55 PM VICE PRESIDENT FOR INSTRUCTION Paroxysmal atrial fibrillation (CMS/HCC) (HCC) NICM (nonischemic cardiomyopathy) (CMS/HCC) (HCC) LBBB (left bundle branch block) Biventricular implantable cardioverter-defibri llator (ICD) in situ from Last 3 Months Results * DEVICE CHECK - REMOTE (06/19/2024 10:46 AM VICE PRESIDENT FOR INSTRUCTION) Anatomical Region Laterality Modality Other Narrative 06/28/2024 3:59 PM VICE PRESIDENT FOR INSTRUCTION [employer]iv ICD. Dx; NICM, LBBB, SSS, [...] JAYCEE Vaishali Lyons MD CV CARDIAC SERVICES [facility] Final Result * SCAN - RADIOLOGY/IMAGING (06/18/2024) Anatomical Region Laterality Modality Other Vaishali Lyons MD Final Res ult * TRANSTHORACIC ECHO (TTE) COMPLETE W DOPPLER/CF WO CONTRAST (06/07/2024 3:55 PM VICE PRESIDENT FOR INSTRUCTION) LV EF 35-40 % CONS SCIMAGE Anatomical Region Laterality Modality Ultrasound 06/07/2024 3:16 PM VICE PRESIDENT FOR INSTRUCTION Narrative 06/08/2024 1:23 PM VICE PRESIDENT FOR INSTRUCTION [facility] Medical [facility] Cardiology [address], [address], [place] [address] P:[phone] P:[phone] Echocardiographic Report Patient Name: MARION BOURGEOIS W : 1945 Study Date: 06/07/2024 3:16:49 PM Gender: F Tech: SW Location: [facility]W Ref Provider: VAISHALI LYONS Height(Cm): [...] FINDINGS: Interpretation Site: Exam was interpreted at [facility]. Left Ventricle: Moderate concentric left ventricular [...] By: Vaishali Lyons MD 06/08/2024 1:22:57 PM VICE PRESIDENT FOR INSTRUCTION Procedure Note Vaishali Lyons MD - 06/08/2024 [facility] Medical Group Cardiology [facility], [address], [place] [address] P:[phone] P:[phone] Echocardiographic Report Patient Name: MARION BOURGEOIS W [...] FINDINGS: Interpretation Site: Exam was interpreted at [facility]. Left Ventricle: Moderate concentric left ventricular [...] By: Vaishali Lyons MD 06/08/2024 1:22:57 PM VICE PRESIDENT FOR INSTRUCTION Vaishali Lyons MD CV ECHO PROCEDURES Final Result from Last 3 Months Insurance MEDIC[place] [address] [place] [address] MEDICARE IDPA Advance Directives For more information, please contact: [phone] * Full Code (Latest Code Status on File) Date Activated Date Inactivated Comments 10/31/2023 1:16 PM 11/01/2023 6:53 PM Care Teams Director Of Hemophilia Relationship Specialty Start Date End Date Mia Recinos MD [address] [place] [address] PCP - General Family Medicine 02/29/20
--- OUTSIDE RECORDS SUMMARY | 2024-07-03 21:28 | XMS_ITS | Continuity of Care Document ---
Author Organization [facility] Address [address] [place] [address] [address] [place] [address] Phone Care Team Providers Care Maintenance Scheduler Name Role Phone Keron Barajas DPT Unavailable Unavailable Procedures Procedure Date Body Position Current Status Canalith Repositioning Procedure 2014 Body Position Goal Status PT Evaluation Advance Directives Directive Yes / No Effective Date File Name No Information Encounters Encounter Description Practice Location Reason(s) For Visit Diagnoses Date Provider Providers Copied on Encounter [facility], [address] [place] [address] [employer] [address] [place] [address], [id number], tel:[phone] [place] [facility] No Information Karl Cabrales. , . [facility], [address] [place], [place] [address] [address] [place] [address], [id number], tel:[phone] [place] [facility] Benign paroxysmal vertigo, right ear Karl Cabrales. , . Family History Family Member Type Diagnosis Age At Onset No Information Payers Payer name Insurance type Covered alliance party ID Authoriza tion(s) Medicare [place] [id number] Social History Type Description Quantity Date Captured [...]
[2024-07-03 21:40] VITALS: BP 104/36; PULSE 75; RESP 16; TEMP 36.4; O2SAT 97
[2024-07-04] VITALS (7 sets, daily range): BP systolic 122–164; BP diastolic 52–95; PULSE 74–85; RESP 13–20; O2SAT 95–100
--- NOTE | 2024-07-04 05:34 | ECG_ITS ---
Test Date: 2024-07-04 05:38:42 Measurements Intervals [place] Rate: 76 P: 34 VA: 154 QRS: -72 QRSD: 146 T: 60 QT: 458 QTc: 516 Interpretive Statements ATRIAL SENSE- ELECTRONIC VENTRICULAR PACEMAKER VENTRICULAR PREMATURE COMPLEXES NO FURTHER INTERPRETATION IS POSSIBLE ATYPICAL ECG Compared to ECG 03/25/2024 22:03:44 Atrial fibrillation no longer present Electronically Signed On 07-04-2024 07:14:08 SHIRRER by Arnaldo Huizar D.O.
[2024-07-04 06:13] LABS: Basophils Percent Auto 0.4 % (0.2-1.2); Eosinophils Absolute Auto 0.1 K/mm3 (0-0.3); Eosinophils Percent Auto 0.9 % (0-4.4); Hematocrit 39.4 % (37.0-47.0); Hemoglobin 12.5 g/dL (12.0-15.0); Immature Granulocyte Absolute 0.03 K/mm3 (0.00-0.031); Immature Granulocyte Percent A 0.4 % (0-0.5); Lymphocytes Absolute Auto 1.52 K/mm3 (0.9-3.2); Lymphocytes Percent Auto 19.3 % (18.3-44.2); Mean Corpuscular HGB Conc 31.7 g/dl (32-36); Mean Corpuscular Hemoglobin 29.6 pg (26-34); Mean Corpuscular Volume 93.4 fl (80-100); Mean Platelet Volume 12.3 fl (7.4-10.4); Monocytes Absolute Auto 0.4 K/mm3 (0.1-0.6); Monocytes Percent Auto 4.4 % (2.6-8.5); Neutrophils Absolute Auto 5.9 K/mm3 (1.3-6.7); Neutrophils Percent Auto 74.6 % (45.5-73.1); Platelet Count Result 229 k/mm3 (150-375); Red Blood Count 4.22 M/mm3 (4.2-5.4); Red Cell Distribution Width 14.6 % (11.5-14.5); White Blood Count 7.9 K/mm3 (4.5-10.0)
[2024-07-04 06:25] LABS: Partial Thromboplastin Time 25.2 Seconds (22.3-36.8); Prothrombin Time 13.7 Seconds (11.1-14.7)
[2024-07-04 06:26] LABS: Alanine Aminotransferase 16 U/L (6-35); Alkaline Phosphatase 60 U/L (38-126); Anion Gap 10 mmol/L (4-12); Aspartate Amino Transferase 24 U/L (14-36); Bilirubin,Total 0.7 mg/dL (0.2-1.3); Blood Urea Nitrogen 16 mg/dL (7-17); Calcium 9.3 mg/dL (8.4-10.2); Carbon Dioxide 29 mmol/L (22-30); Chloride 102 mmol/L (98-107); Estimated CRCL calculation 58 ml/min; Estimated Glomerular Filt Rate > 60; Glucose 123 mg/dL (65-110); Potassium 3.7 mmol/L (3.4-5.0); Sodium 141 mmol/L (137-145)
[2024-07-04 07:00] LABS: Influenza A QL RT-PCR Negative (Negative); Influenza B QL RT-PCR Negative (Negative); RSV RNA, RT-PCR Negative (Negative); SARS-CoV-2 RNA PCR Negative (Negative)
--- OUTSIDE RECORDS SUMMARY | 2024-07-04 07:15 | XMS_ITS | Clinical Summary ---
Author Organization [facility] [address] Address [address] [place] [address] Care Team Providers Care Ground Crewman Mission Support Name Role Phone Mia Recinos MD Primary [...] (PACERONE) 200 mg tabletIndications :VT (ventricular tachycardia) ([facility]) Take 1 tablet (200 mg total) by [...] Department Care Team Description 06/19/2024 9:30 AM CLINICAL MANAGER Ancillary Procedure [facility] Medical Group Cardiology [address] [place] [phone] Bradycardia (Primary Dx); Biventricular implantable cardioverter-defibri llator (ICD) in situ; NICM (nonischemic cardiomyopathy) (CMS/HCC) (HCC); LBBB (left bundle branch block); SSS (sick sinus syndrome) (CMS/HCC) (HCC); Paroxysmal atrial fibrillation (CMS/HCC) (HCC) 06/19/2024 Orders Only [facility] Cardiology [address] [phone] Vaishali Lyons MD Biventricular implantable cardioverter-defibri llator (ICD) in situ (Primary Dx); NICM (nonischemic cardiomyopathy) (CMS/HCC) (HCC); LBBB (left bundle branch block); SSS (sick sinus syndrome) (CMS/HCC) (HCC); Bradycardia 06/18/2024 Orders Only [facility] Health Information Management [address] [place] [address] Vaishali Lyons MD 06/15/2024 1:15 PM CLINICAL MANAGER Office Visit [facility] Cardiology at [address] [place] [phone] Vaishali Lyons MD NICM (nonischemic cardiomyopathy) (CMS/HCC) (HCC) (Primary Dx); Biventricular implantable cardioverter-defibri llator (ICD) in situ; Essential hypertension; Hyperlipidemia LDL goal <100; Paroxysmal atrial fibrillation (CMS/HCC) (HCC); Ventricular premature depolarization; LBBB (left bundle branch block); Encounter for monitoring amiodarone therapy 06/08/2024 Telephone [facility] Cardiology [address] [facility] [address] [place] [phone] Vaishali Lyons MD 06/07/2024 3:30 PM CLINICAL MANAGER Ancillary Procedure [facility] Cardiology at [address] [place] [address] Paroxysmal atrial fibrillation (CMS/HCC) (HCC); NICM (nonischemic cardiomyopathy) (CMS/HCC) (HCC); LBBB (left bundle branch block); Biventricular implantable cardioverter-defibri llator (ICD) in situ 04/13/2024 10:00 AM CLINICAL MANAGER Office Visit [facility] Medical Group Cardiology [address] [place] [address] Breanne Pedraza NP [place] (ventricular tachycardia) ([facility]) (Primary Dx); Biventricular implantable cardioverter-defibri llator (ICD) [...] and vomiting) History of pulmonary embolism An [facility] Chronic anticoagulation Ventricular premature depolarization LBBB (left [...] Comments Blood Pressure 186/92 06/15/2024 1:08 PM CLINICAL MANAGER Pulse 48 06/15/2024 1:08 PM CLINICAL MANAGER Temperature 37 C (98.6 F) 11/01/2023 12:03 PM CDT Respiratory Rate 16 01/17/2024 2:30 PM CDT Oxygen Saturation 95% 06/15/2024 1:08 PM CLINICAL MANAGER Inhaled Oxygen Concentration - - Weight 83.5 kg (184 lb) 06/15/2024 1:08 PM CLINICAL MANAGER Height 165.1 cm (5' 5 ) 06/15/2024 1:08 PM CLINICAL MANAGER Body Mass Index 30.62 06/15/2024 1:08 PM CLINICAL MANAGER Plan of Treatment Health Maintenance Due Date [...] 10/31/2024 11/01/2023 Medical Devices Implanted Type Area Special Needs Teacher Device Identifier Shelf Expiration Date Model / Serial / Lot [employer] Quartet 4.7fr 86cm Quadripolar Is-4 Llll Connector 8 Curve Low 1456q/86 - [id number] - [id number] Implanted:Qty: 1 on 10/31/2023 by Darvin Catherine MD at [facility] Lead [employer] 08/06/2026 1456Q/86 / [id number] / [employer] Tendril Sts 6fr 52cm Is-1 Connector Active Fixation Bipolar Soft 2087tc/52 - [id number] - [id number] Implanted:Qty: 1 on 10/31/2023 by Darvin Catherine MD at [facility] Lead [employer] 10/06/20268TC/52 / [id number] / [employer] Durata 6.8fr 65cm True Bipolar Active Fixation Extendable 1 Coil 7122q/65 - [id number] - [id number] Implanted:Qty: 1 on 10/31/2023 by Davrin Catherine MD at [facility] [employer] 09/05/2026 7122Q/65 / [id number] / [employer] Defib Cardiac [id number] [place] Hf Df4 Is-4 Is-1 Cnctr [id number] - [id number] - [id number] Implanted:Qty: 1 on 10/31/2023 by Darvin Catherine MD at [facility] [employer] 09/05/2025 [id number] / [id number] / Procedures Procedure Name Priority Date/Time Associated Diagnosis Comments DEVICE CHECK - REMOTE Routine 06/19/2024 10:46 AM CLINICAL MANAGER Biventricular implantable cardioverter-defibri llator (ICD) in situ NICM (nonischemic cardiomyopathy) (CMS/HCC) (HCC) LBBB (left bundle branch block) SSS (sick sinus syndrome) (CMS/HCC) (HCC) Paroxysmal atrial fibrillation (CMS/HCC) (HCC) SCAN - RADIOLOGY/IMAGING 06/18/2024 TRANSTHORACIC ECHO (TTE) COMPLETE W DOPPLER/CF WO CONTRAST Routine 06/07/2024 3:55 PM CLINICAL MANAGER Paroxysmal atrial fibrillation (CMS/HCC) (HCC) NICM (nonischemic cardiomyopathy) (CMS/HCC) (HCC) LBBB (left bundle branch block) Biventricular implantable cardioverter-defibri llator (ICD) in situ from Last 3 Months Results * DEVICE CHECK - REMOTE (06/19/2024 10:46 AM CLINICAL MANAGER) Anatomical Region Laterality Modality Other Narrative 06/28/2024 3:59 PM CLINICAL MANAGER [employer]iv ICD. Dx; NICM, LBBB, SSS, [...] JAYCEE Vaishali Lyons MD CV CARDIAC SERVICES [facility] Final Result * SCAN - RADIOLOGY/IMAGING (06/18/2024) Anatomical Region Laterality Modality Other Vaishali Lyons MD Final Res ult * TRANSTHORACIC ECHO (TTE) COMPLETE W DOPPLER/CF WO CONTRAST (06/07/2024 3:55 PM CLINICAL MANAGER) LV EF 35-40 % CONS SCIMAGE Anatomical Region Laterality Modality Ultrasound 06/07/2024 3:16 PM CLINICAL MANAGER Narrative 06/08/2024 1:23 PM CLINICAL MANAGER [facility] Medical Group Cardiology [address], [address], [place] [address] P:[phone] P:[phone] Echocardiographic Report Patient Name: MARION BOURGEOIS W [...] mmHg Estimated EF 35-40 % AV Peak Reij 2.74 m/s [ 1.00 - 1.70 ] [...] FINDINGS: Interpretation Site: Exam was interpreted at [facility]. Left Ventricle: Moderate concentric left ventricular hypertrophy. [...] By: Vaishali Lyons MD 06/08/2024 1:22:57 PM CLINICAL MANAGER Procedure Note Vaishali Lyons MD - 06/08/2024 [facility] Medical Group Cardiology [facility], [address], [place] [address] P:[phone] P:[phone] Echocardiographic Report Patient Name: MARION BOURGEOIS W [...] 0.60 - 0.90 ] MV E Peak Reij 0.70m/s [ 0.60 - 1.30 ] IVSd [...] FINDINGS: Interpretation Site: Exam was interpreted at [facility]. Left Ventricle: Moderate concentric left ventricular hypertrophy. [...] By: Vaishali Lyons MD 06/08/2024 1:22:57 PM CLINICAL MANAGER Vaishali Lyons MD CV ECHO PROCEDURES Final Result from Last 3 Months [place] [address] [place] [address] MEDICARE IDPA Advance Directives For more information, please contact: [phone] * Full Code (Latest Code Status on File) Date Activated Date Inactivated Comments 10/31/2023 1:16 PM 11/01/2023 6:53 PM Care Teams Ground Crewman Mission Support Relationship Specialty Start Date End Date Mia Recinos MD [address] [facility] [address] [place] [address] PCP - General Family Medicine 02/29/20
--- OUTSIDE RECORDS SUMMARY | 2024-07-04 07:15 | XMS_ITS | Referral Summary ---
Author Organization [facility] [address] Address [address] [place] [address] Care Team Providers Care Heart Coordinator Name Role Phone Mia Recinos MD Primary Care Provider Encounters Date Type Department Care Team Description 06/19/2024 Orders Only [facility] Cardiology [address] [place] [phone] Vaishali Lyons MD Biventricular implantable cardioverter-defibri llator (ICD) in situ (Primary Dx); NICM (nonischemic cardiomyopathy) (CMS/HCC) (HCC); LBBB (left bundle branch block); SSS (sick sinus syndrome) (CMS/HCC) (HCC); Bradycardia 06/19/2024 9:30 AM PARKING METER SERVICER Ancillary Procedure [facility] Cardiology [address] [place] [address] [place] [phone] Bradycardia (Primary Dx); Biventricular implantable cardioverter-defibri llator (ICD) in situ; NICM (nonischemic cardiomyopathy) (CMS/HCC) (HCC); LBBB (left bundle branch block); SSS (sick sinus syndrome) (CMS/HCC) (HCC); Paroxysmal atrial fibrillation (CMS/HCC) (HCC) 06/18/2024 Orders Only [facility] Health Information Management [address] [place] [id number] Vaishali Lyons MD 06/15/2024 1:15 PM PARKING METER SERVICER Office Visit [facility] Cardiology at [address] [place] [address] Vaishali Lyons MD NICM (nonischemic cardiomyopathy) (CMS/HCC) ([facility]) (Primary Dx); Biventricular implantable cardioverter-defibri llator (ICD) in situ; Essential hypertension; Hyperlipidemia LDL goal <100; Paroxysmal atrial fibrillation (CMS/HCC) ([facility]); Ventricular premature depolarization; LBBB (left bundle branch block); Encounter for monitoring amiodarone therapy 06/08/2024 Telephone [facility] Cardiology [address] [place] [address] [address] [place] [phone] Vaishali Lyons MD 06/07/2024 3:30 PM PARKING METER SERVICER Ancillary Procedure [facility] Cardiology at [address] [place] [phone] Paroxysmal atrial fibrillation (CMS/HCC) ([facility]); NICM (nonischemic cardiomyopathy) (CMS/HCC) ([facility]); LBBB (left bundle branch block); Biventricular implantable cardioverter-defibri llator (ICD) in situ 04/13/2024 10:00 AM PARKING METER SERVICER Office Visit [facility] Cardiology [address] [place] [address] [address] [place] [phone] Breanne Pedraza NP [place] (ventricular tachycardia) ([facility]) (Primary Dx); Biventricular implantable cardioverter-defibri llator (ICD) in situ; History of pulmonary embolism; History of DVT (deep vein thrombosis); Paroxysmal atrial fibrillation (CMS/HCC) ([facility]); Chronic anticoagulation; NICM (nonischemic cardiomyopathy) (CMS/HCC) ([facility]); Chronic systolic (congestive) heart failure ([facility]); Hospital discharge follow-up from Last 3 Months [...] 07/27/2022 Chronic anticoagulation 07/23/2021 NICM (nonischemic cardiomyopathy) ([facility]) 09/0 11/2020 Right leg pain 09/12/2020 Hyperlipidemia LDL goal <100 03/04/2020 Essential hypertension 03/04/2020 WENDY (obstructive sleep apnea) 03/04/2020 Ventricular premature depolarization 03/04/2020 LBBB (left bundle branch block) 03/04/2020 Paroxysmal atrial fibrillation ([facility]) 020 Social History Tobacco Use Types Packs/Day [...] Comments Blood Pressure 186/92 06/15/2024 1:08 PM PARKING METER SERVICER Pulse 48 06/15/2024 1:08 PM PARKING METER SERVICER Temperature 37 C (98.6 F) 11/01/2023 12:03 PM CDT Respiratory Rate 16 01/17/2024 2:30 PM CDT Oxygen Saturation 95% 06/15/2024 1:08 PM PARKING METER SERVICER Inhaled Oxygen Concentration - - Weight 83.5 kg (184 lb) 06/15/2024 1:08 PM PARKING METER SERVICER Height 165.1 cm (5' 5 ) 06/15/2024 1:08 PM PARKING METER SERVICER Body Mass Index 30.62 06/15/2024 1:08 PM PARKING METER SERVICER Plan of Treatment Not on file Medical Devices Implanted Type Area Clinical Veterinarian Device Identifier Shelf Expiration Date Model / Serial / Lot [employer] Quartet 4.7fr 86cm Quadripolar Is-4 Llll Connector 8 Curve Low 1456q/86 - [id number] - [id number] Implanted:Qty: 1 on 10/31/2023 by Darvin Catherine MD at [facility] Lead [employer] 08/06/2026 1456Q/86 / [id number] / [employer] Tendril Sts 6fr 52cm Is-1 Connector Active Fixation Bipolar Soft 2087tc/52 - [id number] - [id number] Implanted:Qty: 1 on 10/31/2023 by Darvin Catherine MD at [facility] Lead [employer] 10/06/20268TC/52 / [id number] / [employer] Durata 6.8fr 65cm True Bipolar Active Fixation Extendable 1 Coil 7122q/65 - [id number] - [id number] Implanted:Qty: 1 on 10/31/2023 by Darvin Catherine MD at [facility] [employer] 09/05/2026 7122Q/65 / [id number] / [employer] Defib Cardiac [id number] 32v86eq [place] Hf Df4 Is-4 Is-1 Cnctr [id number] - [id number] - [id number] Implanted:Qty: 1 on 10/31/2023 by Darvin Catherine MD at [facility] [employer] 09/05/2025 [id number] / [id number] / Procedures Procedure Name Priority Date/Time Associated Diagnosis Comments DEVICE CHECK - REMOTE Routine 06/19/2024 10:46 AM PARKING METER SERVICER Biventricular implantable cardioverter-defibri llator (ICD) in situ NICM (nonischemic cardiomyopathy) (CMS/HCC) (HCC) LBBB (left bundle branch block) SSS (sick sinus syndrome) (CMS/HCC) (HCC) Paroxysmal atrial fibrillation (CMS/HCC) (HCC) SCAN - RADIOLOGY/IMAGING 06/18/2024 TRANSTHORACIC ECHO (TTE) COMPLETE W DOPPLER/CF WO CONTRAST Routine 06/07/2024 3:55 PM PARKING METER SERVICER Paroxysmal atrial fibrillation (CMS/HCC) (HCC) NICM (nonischemic cardiomyopathy) (CMS/HCC) (HCC) LBBB (left bundle branch block) Biventricular implantable cardioverter-defibri llator (ICD) in situ from Last 3 Months Results * DEVICE CHECK - REMOTE (06/19/2024 10:46 AM PARKING METER SERVICER) Anatomical Region Laterality Modality Other Narrative 06/28/2024 3:59 PM PARKING METER SERVICER [employer] Biv ICD. Dx; NICM, LBBB, SSS, PAF, [...] JAYCEE Vaishali Lyons MD [facility] Final Result * SCAN - RADIOLOGY/IMAGING (06/18/2024) Anatomical Region Laterality Modality Other us Vaishali Lyons MD Final Res ult * TRANSTHORACIC ECHO (TTE) COMPLETE W DOPPLER/CF WO CONTRAST (06/07/2024 3:55 PM PARKING METER SERVICER) LV EF 35-40 % CONS SCIMAGE Anatomical Region Laterality Modality Ultrasound 06/07/2024 3:16 PM PARKING METER SERVICER Narrative 06/08/2024 1:23 PM PARKING METER SERVICER [facility] Cardiology [address] [facility] [facility], [address], [place] [address] P:[phone] P:[phone] Echocardiographic Report Patient Name: MARION BOURGEOIS W [...] Site: Exam was interpreted at [facility]. Left Ventricle: Moderate concentric left ventricular [...] By: Vaishali Lyons MD 06/08/2024 1:22:57 PM PARKING METER SERVICER Procedure Note Vaishali Lyons MD - 06/08/2024 [facility]iology [address] , [address], [place] [address] P:[phone] P:[phone] Echocardiographic Report Patient Name: MARION BOURGEOIS W [...] Site: Exam was interpreted at [facility]. Left Ventricle: Moderate concentric left ventricular [...] By: Vaishali Lyons MD 06/08/2024 1:22:57 PM PARKING METER SERVICER us Vaishali Lyons MD CV ECHO PROCEDURES Final Result from Last 3 [place] [address] [place] [address] MEDICARE [facility] Address: [address] [address] [facility] [address] MEDICARE [facility] Address: [address] [address] [place] [address] [employer] Advance Directives For more information, please contact: [phone] * Full Code (Latest Code Status on File) Date Activated Date Inactivated Comments 10/31/2023 1:16 PM 11/01/2023 6:53 PM Care Teams Heart Coordinator Relationship Specialty Start Date End Date Mia Recinos MD [address] [facility] [address] [place] [address] PCP - General Family Medicine 02/29/20
--- NOTE | 2024-07-04 07:44 | ED_ITS ---
HPI - General Adult General Chief complaint: Nausea/Vomiting/Diarrhea Stated complaint: vomiting, weakness, BLE edema Time Seen by Provider: 07/04/24 07:01 History of Present Illness HPI narrative: Patient is an 79-year-old female who presents ER with nausea vomiting. Began yesterday evening. Vomited twice and had a little bit of diarrhea. It has since resolved without treatment. Patient also reports new edema to her lower extremities bilaterally worsening over last 2 weeks associated with shortness of breath. No runny nose sore throat or cough. No chest pain. Compliant with home medication. Take Xarelto and Lasix as well as Entresto. Related Data Home Medications ?Medication ?Instructions ?Recorded ?Confirmed ?Last Taken ?Type acetaminophen 500 mg tablet 500 mg PO Q6H PRN Pain (Scale 09/06/22 03/26/24 Unknown History (Tylenol Extra Strength) Score 1-3) sacubitril 49 mg-valsartan 51 mg 1 tablet PO BID 07/13/23 03/26/24 03/24/24 History tablet (Entresto) omeprazole 40 mg capsule,delayed 40 mg PO DAILY 03/26/24 03/26/24 03/24/24 History release Allergies Allergy/AdvReac Type Severity Reaction Status Date / Time ibuprofen (From Motrin) Allergy Mild itch and Verified 07/03/24 21:26 hives fentanyl Allergy Unknown Vomiting Verified 07/03/24 21:26 phentyol AdvReac Severe Vomiting Uncoded 07/03/24 21:26 Review of Systems 2 Review of Systems: All systems reviewed & are unremarkable except as noted in HPI and below Constitutional: Constitutional: Reports no additional constitutional complaints ENT: Reports system reviewed and no additional complaints, except as documented Cardiovascular: Cardiovascular: Reports no additional cardiovascular complaints Respiratory: Respiratory: Reports no additional respiratory complaints Gastrointestinal: Gastrointestinal: Reports no additional gastrointestinal complaints Musculoskeletal: Musculoskeletal: Reports no additional musculoskeletal complaints [facility] Past Medical History Medical History (Updated 07/04/24 @ 09:40 by Jovanny Hernandez MD) Hypertensive CHF Intrathoracic goiter Obstructive sleep apnea does not use CPAP Gastroesophageal reflux disease Hypertension Combined systolic and diastolic congestive heart failure Echo in July 2022: Moderately reduced LV systolic function with an EF estimated 30 to 35% and grade 1 diastolic dysfunction. Chronic anticoagulation Paroxysmal atrial fibrillation Mild cognitive impairment with memory loss Syncope Obesity (BMI 30.0-34.9) Chronic constipation Colon polyp Lumbar spondylosis Surgical History Surgical History History of lumbar laminectomy (2017) History of colonoscopy with polypectomy History of hemorrhoidectomy History of hysterectomy Family History Family History Grandparent Carcinoma of colon Mother Acute myocardial infarction Father Acute myocardial infarction Sibling Lung cancer Social History Social History Social History: Surrogate medical decision maker: Luz Maria, vinny. Code Status: Full Code Smoking packs per day: 1 Smoking cigarettes per day: 20.0 Years smoked: 30 Smoking pack-years: 30.00 Smoking status: Former smoker Second hand tobacco smoke exposure: No Alcohol intake: never Substance use: never Substance use type: does not use Do You Feel Safe in your Home?: Yes Lack of Transportation: No Lack of Food: Never True Current Housing: I Have Housing Concerned About Future Housing: No Difficulty Paying Gas/Electric Bills: No Difficulty Paying for Meds: No Currently Unemployed: No Education: Associate Degree Difficulty w/ Childcare or Family Care: No Living arrangements: with family Additional living arrangements comments: Lives with children. 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: No Exam 2 Narrative: GENERAL: Well-appearing, well-nourished, and in no acute distress. HEAD: Normocephalic, atraumatic. ENT: Mucous membranes moist. CHEST: Clear to auscultation. No respiratory distress. HEART: Regular rate and rhythm. Normal peripheral pulses. ABDOMEN: Soft, nontender, nondistended. EXTREMITIES: Normal range of motion. 1+ edema. SKIN: Warm, dry, no rash. NEURO: Alert and oriented x3. PSYCH: Normal mood and affect. Course Course Emergency Course: Patient resting comfortably. Informed of results. No hypoxia. Chronic DVT left lower extremity. Encouraged patient to take her home medications as she is due for her diuretics. No emesis here but will provide antiemetics for home. Vital Signs Vital signs: Vital Signs Temperature 97.6 F 07/03/24 21:40 Pulse Rate 75 07/03/24 21:40 Respiratory Rate 16 07/03/24 21:40 Blood Pressure 104/36 L 07/03/24 21:40 Pulse Oximetry 97 07/03/24 21:40 Temperature 97.6 F 07/03/24 21:40 Pulse Rate 78 07/04/24 07:02 Respiratory Rate 16 07/04/24 07:02 Blood Pressure 140/59 L 07/04/24 07:02 Pulse Oximetry 99 07/04/24 07:02 Medical Decision Making Vital Signs Vital Signs: Vital Signs Temperature 97.6 F 07/03/24 21:40 Pulse Rate 75 07/03/24 21:40 Respiratory Rate 16 07/03/24 21:40 Blood Pressure 104/36 L 07/03/24 21:40 Pulse Oximetry 97 07/03/24 21:40 Temperature 97.6 F 07/03/24 21:40 Pulse Rate 78 07/04/24 07:02 Respiratory Rate 16 07/04/24 07:02 Blood Pressure 140/59 L 07/04/24 07:02 Pulse Oximetry 99 07/04/24 07:02 Lab Data 07/04/24 05:53 07/04/24 05:53 Labs: Lab Results 07/04/24 07/04/24 Range/Units 05:52 05:53 WBC 7.9 (4.5-10.0) K/mm3 RBC 4.22 (4.2-5.4) M/mm3 Hgb 12.5 (12.0-15.0) g/dL Hct 39.4 (37.0-47.0) % MCV 93.4 (80-100) fl MCH 29.6 (26-34) pg MCHC 31.7 L (32-36) g/dl RDW 14.6 H (11.5-14.5) % Plt Count 229 (150-375) k/mm3 MPV 12.3 H (7.4-10.4) fl Immature Gran % (Auto) 0.4 (0-0.5) % Neut % (Auto) 74.6 H (45.5-73.1) % Lymph % (Auto) 19.3 (18.3-44.2) % Casey % (Auto) 4.4 (2.6-8.5) % Eos % (Auto) 0.9 (0-4.4) % Baso % (Auto) 0.4 (0.2-1.2) % Lymph # (Auto) 1.52 (0.9-3.2) K/mm3 Casey # (Auto) 0.4 (0.1-0.6) K/mm3 Eos # (Auto) 0.1 (0-0.3) K/mm3 Baso # (Auto) 0.0 (0.0-0.1) K/mm3 Abs Immat Gran (auto) 0.03 (0.00-0.031) K/mm3 Absolute Neuts (auto) 5.9 (1.3-6.7) K/mm3 Absolute Nucleated RBC 0.000 (0.0-0.012) K/mm3 Nucleated RBC % 0.0 (0.0-0.2) % PT 13.7 (11.1-14.7) Seconds INR 1.0 APTT 25.2 (22.3-36.8) Seconds Sodium 141 (137-145) mmol/L Potassium 3.7 (3.4-5.0) mmol/L Chloride 102 (98-107) mmol/L Carbon Dioxide 29 (22-30) mmol/L Anion Gap 10 (4-12) mmol/L BUN 16 (7-17) mg/dL Creatinine 0.71 (0.7-1.0) mg/dL Estim Creat Clear Calc 58 ml/min Estimated GFR > 60 (59 - ) Glucose 123 H (65-110) mg/dL Calcium 9.3 (8.4-10.2) mg/dL Total Bilirubin 0.7 (0.2-1.3) mg/dL AST 24 (14-36) U/L ALT 16 (6-35) U/L Alkaline Phosphatase 60 (38-126) U/L NT-Pro-B Natriuret Pep 3400 H (19.9-100) pg/mL Total Protein 7.0 (6.3-8.2) g/dL Albumin 4.0 (3.5-5.1) g/dL Influenza A (RT-PCR) Negative (Negative) Influenza B (RT-PCR) Negative (Negative) RSV (RT-PCR) Negative (Negative) SARS-CoV-2 RNA (RT-PCR) Negative (Negative) Imaging Data Radiologist's impression: ITS Impressions Venous Doppler Study 07/04/24 07:59 IMPRESSION: 1. Deep vein thrombosis again seen involving the left posterior tibial veins. Chest X-Ray 07/04/24 09:26 IMPRESSION: No focal infiltrate or effusion. Discharge Plan Discharge Clinical Impression: Nausea and vomiting Patient Disposition: Home, Self-Care Condition: Stable Instructions: Acute Nausea and Vomiting (ED) Additional Instructions: Please drink plenty of fluids at home. Return to the emergency department if you develop high fevers, have persistent severe abdominal pain, or have bloody stools or vomit, as these could be signs of a more serious medical emergency. Return to the emergency department if you are unable to keep down liquids because of severe nausea/vomiting. Patient Language: Vietnamese Prescriptions: New ondansetron 4 mg tablet,disintegrating 4 mg PO Q6H PRN (Reason: nausea and vomiting) Qty: 10 0RF No Action potassium chloride 20 mEq tablet extended release 20 meq PO DAILY Qty: 135 2RF furosemide 40 mg tablet 40 mg PO DAILY Qty: 90 1RF Xarelto 20 mg tablet 20 mg PO QPM Qty: 100 2RF acetaminophen [Tylenol Extra Strength] 500 mg Tablet 500 mg PO Q6H PRN (Reason: Pain (Scale Score 1-3)) Entresto 49-51 mg tablet 1 tablet PO BID spironolactone 25 mg tablet 25 mg PO QPM Qty: 90 1RF omeprazole 40 mg capsule,delayed release(DR/EC) 40 mg PO DAILY amiodarone [Pacerone] 200 mg Tablet 200 mg PO DAILY@0800 Qty: 30 1RF metoprolol succinate 50 mg Tablet Extended Release 24 Hr 50 mg PO QAM Qty: 30 1RF Follow-up/Referrals: Rik Bennett MD [Primary Care Provider] - 1 Week
[2024-07-04 08:06] LABS: NT Pro B Type Natriuretic Pept 3400 pg/mL (19.9-100)
== END 2024-07-04 10:05 | disposition home or self-care (01) ==
PROVIDERS: Emergency Medicine; Emergency Provider Emergency Medicine; PCP Family Medicine
DX: R11.2 Nausea with vomiting, unspecified (principal); I82.442 Acute embolism and thrombosis of left tibial vein; K21.9 Gastro-esophageal reflux disease without esophagitis; I10 Essential (primary) hypertension; I50.40 Unspecified combined systolic (congestive) and diastolic (congestive) heart failure; I48.0 Paroxysmal atrial fibrillation; Z79.01 Long term (current) use of anticoagulants; Z20.822 Contact with and (suspected) exposure to COVID-19; Z87.891 Personal history of nicotine dependence
CPT/HCPCS: 36415; 71046; 80053; 83880; 85025; 85610; 85730; 87637; 93005; 93970; 99284

== ENCOUNTER 2024-08-29 11:12 | Outpatient (CLI) | payer MEDICARE, MEDICAID, SELFPAY ==
[2024-08-29 11:51] LABS: Anion Gap 6 mmol/L (4-12); Blood Urea Nitrogen 9 mg/dL (7-17); Calcium 8.5 mg/dL (8.4-10.2); Carbon Dioxide 28 mmol/L (22-30); Chloride 105 mmol/L (98-107); Estimated Glomerular Filt Rate 60; Glucose 98 mg/dL (65-110); Potassium 3.7 mmol/L (3.4-5.0); Sodium 139 mmol/L (137-145)
--- OUTSIDE RECORDS SUMMARY | 2024-08-29 13:09 | XMS_ITS | Referral Summary ---
Author Organization [facility] [address] [facility] [address] Address [address] [place] [address] Care Team Providers Care Kitchen And Bath Designer Name Role Phone Rik Bennett MD Primary Care Provider Isabel Lubin NP Unavailable [phone] Encounters Date Type Department Care Team Description 08/22/2024 10:15 AM CDT Office Visit [facility] Cardiology [address] [facility] [address] [place] [phone] Vaishali Yanez MD NICM (nonischemic cardiomyopathy) (HCC) (Primary Dx); Encounter for monitoring amiodarone therapy; Chronic combined systolic and diastolic congestive heart failure (HCC); Biventricular implantable cardioverter-defibril lator (ICD) in situ; Paroxysmal atrial fibrillation (HCC); Chronic anticoagulation 08/20/2024 Telephone [facility] Cardiology [address] [place] [address] Vaishali Yanez MD 08/15/2024 Home Care Visit [facility] - [address] [place] [address] Lilliana Dodson, PT PT VIRTUAL NON OASIS DISCHARGE 08/15/2024 7:07 PM CDT - 08/15/2024 11:59 PM CDT Hospital Encounter [facility] [address] [place] [address] Emergency, Room R Discharge Disposition: Discharge to home or self care 08/05/2024 11:50 AM CDT - 08/15/2024 7:18 PM CDT Hospital Encounter [facility] [address] [place] [address] Chu Ribera MD Myla, MD Efren Ojeda, MD Soheila Rojas, Yanira Gomes MD Congestive heart failure, unspecified HF chronicity, unspecified heart failure type (HCC) (Primary Dx); COVID-19 virus infection; Chronic anticoagulation; Physical debility; BRITNEY (acute kidney injury) Discharge Disposition: Discharge to SNF 08/05/2024 Home Care Visit [address] [address] [address] [place] [address] Lilliana Dodson, PT PT OASIS TRANSFER W/OUT DC 08/01/2024 Home Care Visit [address] [address] [place] [address] Lilliana Dodson, PT TELEPHONE ENCOUNTER 08/01/2024 Home Care Visit [address] [address] [place] [address] Hali Ayers RN NURSE MED RECON FOR THERAPY 08/01/2024 Plan of Care Documentation [address] [address] [address] [place] [address] 07/31/2024 4:00 PM CDT Home Care Visit [address] [address] [place] [address] Lilliana Dodson, PT PT OASIS START OF CARE 07/27/2024 Telephone [facility] [address] [place] [address] Elisabeth Jones RN 07/27/2024 Travel 07/24/2024 10:30 AM CDT Office Visit [facility] at [address] [place] [address] Vaishali Yanez MD NICM (nonischemic cardiomyopathy) (HCC) (Primary Dx); LBBB (left bundle branch block); Paroxysmal atrial fibrillation (HCC); Hyperlipidemia LDL goal <100 07/23/2024 1:00 PM CDT Residential Visit [facility] Palliative Care [address] [place] [phone] Isabel Lubin NP Acute bilateral low back pain, unspecified whether sciatica present (Primary Dx); Moderate Alzheimer's dementia with agitation, unspecified timing of dementia onset (HCC); Acute on chronic combined systolic and diastolic congestive heart failure (HCC); Bilateral hip pain; Reduced mobility 07/05/2024 2:30 PM MERCHANDISE WORKER - 07/08/2024 2:21 PM MERCHANDISE WORKER Hospital Encounter [address] [address] Sisi Riggs MD Rivera, Samantha, MD Shortness of breath (Primary Dx); Bilateral lower extremity edema; Acute on chronic combined systolic and diastolic congestive heart failure (CMS/HCC) (HCC) [I50.43]; Pericardial effusion [I31.39]; Moderate Alzheimer's dementia with agitation, unspecified timing of dementia onset (HCC); Acute on chronic combined systolic and diastolic congestive heart failure (HCC) Discharge Disposition: Discharge to home or self care 07/04/2024 Telephone [facility] Cardiology [address] [place] [phone] Vaishali Yanez MD Shortness of Breath; low heart rate; Foot Swelling 06/19/2024 Orders Only [facility] Cardiology [address] [place] [address] [place] [phone] Vaishali Yanez MD Biventricular implantable cardioverter-defibril lator (ICD) in situ (Primary Dx); NICM (nonischemic cardiomyopathy) (HCC); LBBB (left bundle branch block); SSS (sick sinus syndrome) (HCC); Bradycardia 06/19/2024 9:30 AM MERCHANDISE WORKER Ancillary Procedure [facility] Cardiology [address] [place] [address] [place] [phone] Bradycardia (Primary Dx); Biventricular implantable cardioverter-defibril lator (ICD) in situ; NICM (nonischemic cardiomyopathy) (HCC); LBBB (left bundle branch block); SSS (sick sinus syndrome) (HCC); Paroxysmal atrial fibrillation (HCC) 06/18/[address] [facility] Health Information Management [address] [place] [phone] Vaishali Yanez MD 06/15/2024 1:15 PM MERCHANDISE WORKER Office Visit [facility] at [address] [place] [address] Vaishali Yanez MD NICM (nonischemic cardiomyopathy) (HCC) (Primary Dx); Biventricular implantable cardioverter-defibril lator (ICD) in situ; Essential hypertension; Hyperlipidemia LDL goal <100; Paroxysmal atrial fibrillation (HCC); Ventricular premature depolarization; LBBB (left bundle branch block); Encounter for monitoring amiodarone therapy 06/08/2024 Telephone [facility] [address] [facility] [address] [place] [address] Vaishali Yanez MD 06/07/2024 3:30 PM MERCHANDISE WORKER Ancillary Procedure [facility] Cardiology at [address] [place] [address] Paroxysmal atrial fibrillation (HCC); NICM (nonischemic cardiomyopathy) (HCC); LBBB (left bundle branch block); Biventricular implantable cardioverter-defibril lator (ICD) in situ from Last 3 Months Allergies Active Allergy Reactions Criticality Noted Date Comments Fentanyl Dizziness,Vomiting Low 09/03/2021 Ibuprofen Hives,Other (See comments) Medium 03/04/2020 Cerner Allergy Text Annotation: Amee Wheeler Reaction: rash Medications omeprazole (PriLOSEC) 40 mg capsuleIndicati ons:Stress Ulcer Prophylaxis Take 1 capsule (40 mg total) by mouth every morning Active acetaminophen ER (TYLENOL) 650 mg 8 hr tabletIndicatio ns:Pain Take 1 tablet (650 mg total) by mouth every 8 (eight) hours as needed for pain Active polyethylene glycol (MIRALAX) 17 gram packetIndicatio ns:constipation Take 1 packet (17 g total) by mouth as needed Active meclizine (ANTIVERT) 25 mg tabletIndicatio ns:Vertigo Take 1 tablet (25 mg total) by mouth 3 (three) times a day as needed for dizziness 30 tablet 02/01/20 22 Active rivaroxaban (XARELTO) 20 mg tabletIndicatio ns:Venous Thrombosis,atri al fibrillation Take 1 tablet (20 mg total) by mouth daily with breakfast 90 tablet 3 07/28/19 23 Active furosemide (LASIX) 40 mg tabletIndicatio ns:Edema Take 1 tablet (40 mg total) by mouth daily 90 tablet 3 11/18/19 23 Active potassium chloride ER 20 mEq CR tabletIndicatio ns:hypokalemia prevention Take 1 tablet (20 mEq total) by mouth daily 90 tablet 3 11/18/19 23 Active amiodarone (PACERONE) 200 mg tabletIndicatio ns:Cardioversio n of Atrial Fibrillation Take 1 tablet (200 mg total) by mouth daily If resting heart rate goes below 60, reduce dose to 1/2 tablet 04/13/20 24 Active carvediloL (COREG) 3.125 mg tabletIndicatio ns:hypertension ,Prevention of A. Fib Post Cardio-Thoracic Surgery Take 1 tablet (3.125 mg total) by mouth 2 (two) times a day with meals 60 tablet 07/09/19 25 Active sacubitriL-vals chante (Entresto) 49-51 mg tabletIndicatio ns:chronic heart failure Take 1 tablet by mouth twice daily 60 tablet 10 07/10/19 25 Active gabapentin (NEURONTIN) 100 mg capsule Take 1 capsule (100 mg total) by mouth nightly 30 capsule 11 08/16/19 25 026 Active guaiFENesin-dex tromethorphan ER (MUCINEX DM) 600-30 mg tablet extended release 12 hr Take 1 tablet by mouth 2 (two) times a day 28 tablet 08/16/19 25 Active cyclobenzaprine (FLEXERIL) 5 mg tablet Take 1 tablet (5 mg total) by mouth 3 (three) times a day as needed for muscle spasms 07/26/19 25 Active spironolactone (ALDACTONE) 25 mg tabletIndicatio ns:chronic heart failure Take 1 tablet (25 mg total) by mouth daily 90 tablet 3 08/23/19 25 026 Active spironolactone (ALDACTONE) 25 mg tabletIndicatio ns:chronic heart failure Take 1 tablet (25 mg total) by mouth daily 30 tablet 11 12/18/19 025 Discontinued(Re order) gabapentin (NEURONTIN) 100 mg capsule Take 1 capsule (100 mg total) by mouth nightly 30 capsule 08/16/19 025 Discontinued guaiFENesin-dex tromethorphan ER (MUCINEX DM) 600-30 mg tablet extended release 12 hr Take 1 tablet by mouth 2 (two) times a day 28 tablet 08/16/19 025 Discontinued Active Problems Problem Noted Date Diagnosed Date BRITNEY (acute kidney injury) 08/13/2024 Physical debility 08/09/2024 Congestive heart failure, un specified HF chronicity, unspecified heart failure type 08/05/2024 CHF (congestive heart failur e), NYHA class I, acute on chronic, combined 08/05/2024 Shortness of breath 07/05/2024 Chronic combined systolic an d diastolic congestive heart failure 07/05/2024 Pericardial effusion 07/05/2024 Encounter for monitoring amiodarone therapy 11/2024 Biventricular implantable ca rdioverter-defibrillator (ICD) in situ 09/30/2023 Overview (09/30/2023): Lorenzo Biv ICD. Dx; NICM, LBBB, SSS, PAF, Ricardo. DOI 10/31/2023-Dorene. Santino álvarez. History of pulmonary embolism 07/27/2022 Bradycardia 07/27/2022 Chronic anticoagulation 07/23/2021 NICM (nonischemic cardiomyopathy) 01/13/2021 Right leg pain 09/12/2020 Hyperlipidemia LDL goal <100 03/04/2020 Essential hypertension 03/04/2020 WENDY (obstructive sleep apnea) 03/04/2020 Ventricular premature depolarization 03/04/2020 LBBB (left bundle branch block) 03/04/2020 Paroxysmal atrial fibrillation 03/04/2020 Social History Tobacco Use Types Packs/Day Years Used Date Smoking Tobacco: Former Cigarettes Q uit: 03/04/1995 Smokeless Tobacco: Never Tobacco Cessation:Counseling Given: Not Answered Comments:Smoked only while in high school Alcohol Use Standard Drinks/Week Comments Never 0 (1 standard drink = 0.6 oz pur e alcohol) OASIS D0700: Social Isolation Answer Da te Recorded Frequency of experiencing loneliness or isolatio n Never 07/31/2024 OASIS A1250: Transportation Answer Date Recorded Lack of Transportation (Medical) No 07/31/2024 Lack of Transportation (Non-Medical) No 07/31/2024 Patient Unable or Declines to Respond No 07/31/2024 OASIS B1300: Health Literacy Answer Josr e Recorded Frequency of needing help to read materials from doctor or pharmacy Sometimes 07/31/2024 [facility] Utilities Answer Date Recorded In the past 12 months has e electric, gas, oil, or water in2nite threatened to shut off services in your home? No 08/08/2024 Social Connection and Isolat ion Panel [NHANES] Answer Date Recorded In a typical week, how many times do you talk on the phone with family, friends, or neighbors? More than three times a week 08/08/2024 How often do you get togethe r with friends or relatives? Once a week 08/08/2024 How often do you attend chur ch or bahai services? Never 08/08/2024 Do you belong to any clubs o r organizations such as christianity groups, unions, fraternal or athletic groups, or school groups? No 08/08/2024 How often do you attend meet ings of the clubs or organizations you belong to? Never 08/08/2024 Are you , , di vorced, , never , or living with a partner? 08/08/2024 AUDIT-C Answer Date Recorded Q1: How often do you have a drink containing alcohol? Never 07/06/2024 Q2: How many drinks containi ng alcohol do you have on a typical day when you are drinking? Patient does not drink Q3: How often do you have si x or more drinks on one occasion? Never 07/06/2024 Overall Financial Resource Strain (CARDIA) Answe r Date Recorded How hard is it for you to pa y for the very basics like food, housing, medical care, and heating? Not hard at all 08/08/2024 Hunger Vital Sign Answer Date Recorded Within the past 12 months, y ou worried that your food would run out before you got the money to buy more. Never true 08/09/19 25 Within the past 12 months, t he food you bought just didn't last and you didn't have money to get more. Never true 08/08/2024 PRAPARE - Transportation Answer Date Re corded In the past 12 months, has l ack of transportation kept you from medical appointments or from getting medications? No 06/2024 In the past 12 months, has l ack of transportation kept you from meetings, work, or from getting things needed for daily living? No 08/08/2024 Housing Stability Vital Sign Answer Josr e Recorded In the last 12 months, was t here a time when you were not able to pay the mortgage or rent on time? No 08/08/2024 In the past 12 months, how m any times have you moved where you were living? 0 08/08/2024 At any time in the past 12 m [facility], were you homeless or living in a m[facility]p (including now)? No 08/08/2024 Personal Safety Answer Date Recorded Have you ever been in or are you currently in a harmful physical or emotional relationship or is someone making you feel afraid or unsafe? Denies 08/05/2024 Comments No Sex and Gender Information Value Date Recorded Sex Assigned at Not on file Legal Sex Female 8:37 AM CDT Gender Identity Not on file Sexual Orientation Not on file Last Filed Vital Signs Vital Sign Reading Time Taken Comments Blood Pressure 142/72 08/22/2024 10:30 AM CDT Pulse 60 08/22/2024 10:30 AM CDT Temperature 36.1 C (96.9 F) 08/15/2024 4:55 PM CDT Respiratory Rate 14 08/22/2024 10:30 AM CDT Oxygen Saturation 97% 08/22/2024 10:30 AM CDT Inhaled Oxygen Concentration - - Weight 82.1 kg (181 lb) 08/22/2024 10:30 AM CDT Height 165.1 cm (5' 5 ) 08/22/2024 10:30 AM CDT Body Mass Index 30.12 08/22/2024 10:30 AM CDT Plan of Treatment Not on file Medical Devices Implanted Type Area Material Handling Technician Device Identifier Shelf Expiration Date Model / Serial / Lot [employer] Quartet 4.7fr 86cm Quadripolar Is-4 Llll Connector 8 Curve Low 1456q/86 - [id number] - [id number] Implanted:Qty: 1 on 10/31/2023 by Darvin Catherine MD at [facility] Lead [employer] 08/06/2026 1456Q/86 / [id number] / [employer] Tendril Sts 6fr 52cm Is-1 Connector Active Fixation Bipolar Soft 2087tc/52 - [id number] - [id number] Implanted:Qty: 1 on 10/31/2023 by Darvin Catherine MD at [facility] Lead [employer] 10/06/20268TC/52 / [id number] / [employer] Durata 6.8fr 65cm True Bipolar Active Fixation Extendable 1 Coil 7122q/65 - [id number] - [id number] Implanted:Qty: 1 on 10/31/2023 by Darvin Catherine MD at [facility] [employer] 09/05/2026 7122Q/65 / [id number] / [employer] Defib [employer]iac [id number] 67l90gd [place] Hf Df4 Is-4 Is-1 Cnctr [id number] - [id number] - [id number] Implanted:Qty: 1 on 10/31/2023 by Darvin Catherine MD at [facility] [employer] 09/05/2025 [id number] / [id number] / Procedures Procedure Name Priority Date/Time Associated Diagnosis Comments EGFR Timed 08/14/2024 4:18 AM CDT DIFFERENTIAL AUTO Timed 08/14/2024 4:1 8 AM CDT COMPREHENSIVE METABOLIC PANEL Timed 08/14/2024 4:18 AM CDT CBC WITH AUTO DIFFERENTIAL Timed 08/14/2024 4:18 AM CDT URINE CULTURE Routine 08/13/2024 2:18 PM CDT EGFR Timed 08/12/2024 5:44 AM CDT DIFFERENTIAL AUTO Timed 08/12/2024 5:4 4 AM CDT COMPREHENSIVE METABOLIC PANEL Timed 08/12/2024 5:44 AM CDT CBC WITH AUTO DIFFERENTIAL Timed 08/12/2024 5:44 AM CDT BLOOD CULTURE Routine 08/10/2024 7:18 PM CDT EGFR Routine 08/10/2024 6:14 AM CDT DIFFERENTIAL AUTO Routine 08/10/2024 6:1 4 AM CDT CBC WITH AUTO DIFFERENTIAL Routine 08/10/2024 6:14 AM CDT COMPREHENSIVE METABOLIC PANEL Routine 08/10/2024 6:14 AM CDT URINALYSIS, MICROSCOPIC ONLY STAT 08/09/2024 7:20 PM CDT URINALYSIS AND REFLEX TO MICROSCOPIC AND CULTURE STAT 08/09/2024 7:20 PM CDT EGFR Routine 08/09/2024 5:17 AM CDT DIFFERENTIAL AUTO Routine 08/09/2024 5:1 7 AM CDT MAGNESIUM Routine 08/09/2024 5:17 AM CDT CBC WITH AUTO DIFFERENTIAL Routine 08/09/2024 5:17 AM CDT COMPREHENSIVE METABOLIC PANEL Routine 08/09/2024 5:17 AM CDT EGFR Routine 08/08/2024 12:38 PM CDT DIFFERENTIAL AUTO Routine 08/08/2024 12: 38 PM CDT CBC WITH AUTO DIFFERENTIAL Routine 08/08/2024 12:38 PM CDT COMPREHENSIVE METABOLIC PANEL Routine 08/08/2024 12:38 PM CDT BLOOD CULTURE Routine 08/08/2024 12:38 PM CDT XR CHEST 1 VIEW ED Urgent/IP Urgent 08/07/2024 6:03 PM CDT EGFR Routine 08/06/2024 7:44 PM CDT DIFFERENTIAL AUTO Routine 08/06/2024 7:4 4 PM CDT MAGNESIUM Routine 08/06/2024 7:44 PM CDT CBC WITH AUTO DIFFERENTIAL Routine 08/06/2024 7:44 PM CDT COMPREHENSIVE METABOLIC PANEL Routine 08/06/2024 7:44 PM CDT BLOOD CULTURE STAT 08/06/2024 7:44 PM CDT BLOOD CULTURE STAT 08/06/2024 7:44 PM CDT MAGNESIUM STAT 08/06/2024 4:30 AM CDT EGFR Routine 08/06/2024 4:30 AM CDT DIFFERENTIAL AUTO Routine 08/06/2024 4:3 0 AM CDT CBC WITH AUTO DIFFERENTIAL Routine 08/06/2024 4:30 AM CDT COMPREHENSIVE METABOLIC PANEL Routine 08/06/2024 4:30 AM CDT POCT GLUCOSE DEVICE Routine 08/05/2024 9 :57 PM CDT HEMOGLOBIN A1C Add-On 08/05/2024 5:44 PM CDT TROPONIN T HIGH-SENSITIVITY 6-HOUR Timed 08/05/2024 5:44 PM CDT ED CRITICAL CARE Routine 08/05/2024 4:21 PM CDT TROPONIN T HIGH-SENSITIVITY 4-HR Timed 08/05/2024 4:10 PM CDT MAGNESIUM Add-On 08/05/2024 1:35 PM CDT TROPONIN T HIGH-SENSITIVITY 2-HOUR Timed 08/05/2024 1:35 PM CDT RESPIRATORY PATHOGEN PANEL STAT 08/05/2024 1:35 PM CDT XR CHEST 1 VIEW ED 08/05/2024 12:16 PM CDT EGFR STAT 08/05/2024 11:59 AM CDT DIFFERENTIAL AUTO STAT 08/05/2024 11: 59 AM CDT PRO B-TYPE NATRIURETIC PEPTIDE STAT 08/05/2024 11:59 AM CDT TROPONIN T HIGH-SENSITIVITY SERIES (BASELINE, 2HR, 4HR, 6HR) STAT 08/05/2024 11:59 AM CDT CBC WITH AUTO DIFFERENTIAL STAT 08/05/2024 11:59 AM CDT COMPREHENSIVE METABOLIC PANEL STAT 08/05/2024 11:59 AM CDT ECG 12-LEAD STAT 08/05/2024 11:54 AM CDT EGFR Routine 07/08/2024 5:32 AM MERCHANDISE WORKER DIFFERENTIAL AUTO Routine 07/08/2024 5:3 2 AM MERCHANDISE WORKER CBC WITH AUTO DIFFERENTIAL Routine 07/08/2024 5:32 AM MERCHANDISE WORKER COMPREHENSIVE METABOLIC PANEL Routine 07/08/2024 5:32 AM MERCHANDISE WORKER MAGNESIUM Add-On 07/07/2024 3:47 AM MERCHANDISE WORKER EGFR Routine 07/07/2024 3:47 AM MERCHANDISE WORKER DIFFERENTIAL AUTO Routine 07/07/2024 3:4 7 AM MERCHANDISE WORKER CBC WITH AUTO DIFFERENTIAL Routine 07/07/2024 3:47 AM MERCHANDISE WORKER COMPREHENSIVE METABOLIC PANEL Routine 07/07/2024 3:47 AM MERCHANDISE WORKER TRANSTHORACIC ECHO (TTE) COMPLETE W DOPPLER/CF WO CONTRAST Routine 07/06/2024 10:20 AM MERCHANDISE WORKER EGFR Routine 07/06/2024 3:58 AM MERCHANDISE WORKER DIFFERENTIAL AUTO Routine 07/06/2024 3:5 8 AM MERCHANDISE WORKER CBC WITH AUTO DIFFERENTIAL Routine 07/06/2024 3:58 AM MERCHANDISE WORKER COMPREHENSIVE METABOLIC PANEL Routine 07/06/2024 3:[address] CHEST WO CONTRAST ED 07/05/2024 4:12 PM MERCHANDISE WORKER TROPONIN T HIGH-SENSITIVITY 2-HOUR Timed 07/05/2024 2:47 PM MERCHANDISE WORKER XR CHEST 1 VIEW ED 07/05/2024 1:17 PM MERCHANDISE WORKER THYROID FUNCTION CASCADE Add-On 07/05/2024 12:30 PM MERCHANDISE WORKER EGFR STAT 07/05/2024 12:30 PM MERCHANDISE WORKER DIFFERENTIAL AUTO STAT 07/05/2024 12: 30 PM MERCHANDISE WORKER PRO B-TYPE NATRIURETIC PEPTIDE STAT 07/05/2024 12:30 PM MERCHANDISE WORKER TROPONIN T HIGH-SENSITIVITY SERIES (BASELINE, 2HR, 4HR, 6HR) STAT 07/05/2024 12:30 PM MERCHANDISE WORKER COMPREHENSIVE METABOLIC PANEL STAT 07/05/2024 12:30 PM MERCHANDISE WORKER CBC WITH AUTO DIFFERENTIAL STAT 07/05/2024 12:30 PM MERCHANDISE WORKER ECG 12-LEAD STAT 07/05/2024 12:25 PM MERCHANDISE WORKER DEVICE CHECK - REMOTE Routine 06/19/2024 10:46 AM MERCHANDISE WORKER Biventricular implantable cardioverter-defib rillator (ICD) in situ NICM (nonischemic cardiomyopathy) (HCC) LBBB (left bundle branch block) SSS (sick sinus syndrome) (HCC) Paroxysmal atrial fibrillation (HCC) SCAN - RADIOLOGY/IMAGING 06/18/2024 TRANSTHORACIC ECHO (TTE) COMPLETE W DOPPLER/CF WO CONTRAST Routine 06/07/2024 3:55 PM MERCHANDISE WORKER Paroxysmal atrial fibrillation (HCC) NICM (nonischemic cardiomyopathy) (HCC) LBBB (left bundle branch block) Biventricular implantable cardioverter-defib rillator (ICD) in situ from Last 3 Months Results * eGFR (08/14/2024 4:18 AM CDT) eGFR 63 >=60 mL/min/1. 73 m2 Comment: Interpretive Data Reference Interval Normal >/= 90 mL/min/1.73m2 Mildly decreased* 60 - 89 mL/min/1.73m2 Mildly to moderately decreased 45 - 59 mL/min/1.73m2 Moderately to severely decreased 30 - 44 mL/min/1.73m2 Severely decreased 15 - 29 mL/min/1.73m2 Kidney Failure < 15 mL/min/1.73m2 *Relative to young adult level Estimated glomerular filtration rate is determined by the 2020 CKD-EPI equation recommended by the National Kidney Foundation (A Unifying Approach to GFR Estimation: Recommendations of the NKF-ASK Task Force on Reassessing the Inclusion of Race in Diagnosing Kidney Disease, JASN 2020). The CKD-EPI equation should not be used for patients with unstable renal function and has not been validated in children and those over 70. Current interpretive data was last reviewed 2021. Blood 08/14/2024 4:18 AM CDT 08/14/2024 4:38 AM CDT us Jess Schwartz MD LAB BLOOD ORDERABLE S Final Result [facility] [id number] Department [place] [address] * Differential, auto (08/14/2024 4:18 AM CDT) Neutrophil abs 3.09 1.50 - 6.50 K/cumm Imm gran abs 0.02 0.00 - 0.10 K/cumm [facility] Lymphocyte abs 1.63 0.80 - 3.30 K/cumm [facility] Monocyte abs 0.40 0.20 - 0.80 K/cumm [facility] Eosinophil abs 0.20 0.00 - 0.50 K/cumm [facility] Basophil abs 0.02 0.00 - 0.10 K/cumm [facility] Neutrophil pct 57.6 % [facility] Comment: Interpretive Data Percent cell count reference ranges are not reported, since discordance with absolute values may lead to misinterpretation of CBC data. Current Interpretive Data was last revised on 2017. Imm gran pct 0.4 % [facility] Comment: Interpretive Data Percent cell count reference ranges are not reported, since discordance with absolute values may lead to misinterpretation of CBC data. Current Interpretive Data was last revised on 2017. Lymphocyte pct 30.4 % [facility] Comment: Interpretive Data Percent cell count reference ranges are not reported, since discordance with absolute values may lead to misinterpretation of CBC data. Current Interpretive Data was last revised on 2017. Monocyte pct 7.5 % [facility] Comment: Interpretive Data Percent cell count reference ranges are not reported, since discordance with absolute values may lead to misinterpretation of CBC data. Current Interpretive Data was last revised on 2017. Eosinophil pct 3.7 % [facility] Comment: Interpretive Data Percent cell count reference ranges are not reported, since discordance with absolute values may lead to misinterpretation of CBC data. Current Interpretive Data was last revised on 2017. Basophil pct 0.4 % [facility] Comment: Interpretive Data Percent cell count reference ranges are not reported, since discordance with absolute values may lead to misinterpretation of CBC data. Current Interpretive Data was last revised on 2017. Blood 08/14/2024 4:18 AM CDT 08/14/2024 4:37 AM CDT us Jess Schwartz MD LAB BLOOD ORDERABLE S Final Result [facility] [id number] Department [place] [address] * (ABNORMAL) CBC with auto differential (08/14/2024 4:18 AM CDT) WBC 5.36 3.80 - 9.90 K/cumm Hgb 11.0(L) 11.9 - 15.5 g/dL [facility] Hct 34.2(L) 35.6 - 45.5 % [facility] Plt 252 150 - 400 K/cumm [facility] [facility] MPV 11.7 9.1 - 12.3 fL [facility] RBC 3.76(L) 3.90 - 5.20 M/cumm [facility] MCV 91.0 81.3 - 96.4 fL [facility] MCH 29.3 27.1 - 33.3 pg [facility] MCHC 32.2(L) 32.3 - 35.7 g/dL [facility] RDW CV 14.1 11.1 - 14.9 % [facility] RDW SD 47.6 35.7 - 48.1 fL [facility] NRBC abs 0.00 0.00 - 0.01 K/cumm [facility] Morphologic Screen Results confirmed by manual morphology review. [facility] Blood 08/14/2024 4:18 AM CDT 08/14/2024 4:37 AM CDT us Jess Schwartz MD LAB BLOOD [place] [address] [address] Department [place] [address] * (ABNORMAL) Comprehensive metabolic panel (08/14/2024 4:18 AM CDT) Sodium 136 135 - 145 mmol/L Potassium, pl 4.2 3.3 - 4.9 mmol/L [facility] Chloride 99 97 - 110 mmol/L [facility] CO2 29 22 - 32 mmol/L [facility] Anion gap 8 2 - 15 mmol/L [facility] BUN 20 6 - 25 mg/dL [facility] Creatinine 0.92 0.60 - 1.10 mg/dL [facility] Glucose 109 70 - 199 mg/dL [facility] Comment: Interpretive Data Fasting glucose >/= 126 mg/dl is diagnostic for diabetes. Fasting is defined as no caloric intake for at least 8 hours. Fasting glucose between 100 mg/dl to 125 mg/dl is diagnostic of prediabetes. In a patient with classic symptoms of hyperglycemia or hyperglycemic crisis, a random glucose >/= 200 mg/dl is diagnostic for diabetes. In the absence of unequivocal hyperglycemia, results should be confirmed by repeat testing. The classification and Diagnosis of Diabetes Diabetes Care 2021; 46: S19-S40. Current interpretive data was last revised 2022. Calcium 8.9 8.5 - 10.3 mg/dL [facility] Bilirubin, total 0.2 0.1 - 1.2 mg/dL [facility] Protein, pl 6.1(L) 6.5 - 8.5 g/dL [facility] Albumin 3.1(L) 3.5 - 5.0 g/dL [facility] Alk phos 41 40 - 130 Units/L [facility] ALT 13 7 - 45 Units/L [facility] AST 16 10 - 45 Units/L [facility] Blood 08/14/2024 4:18 AM CDT 08/14/2024 4:38 AM CDT Jess Schwartz MD LAB BLOOD ORDERABLE S Final Result Performing Organization Address City/[facility]/ZIP Co de Phone Number AMEE VELASCO [address] [address] [place] [place] [address] * Urine culture Urine, in and out catheter (08/13/2024 2:18 PM CDT) Report Final Report: Less than 10,000 colonies/mL (clinically insignificant growth based on current clinical standards) Comment:Testing performed by : [facility], [address] [place]., [address] Organism (CLINICALLY INSIGNIFICANT GROWTH [facility] Urine, in and out catheter 08/13/2024 2:18 PM CDT 08/13/2024 5:20 PM CDT Narrative AMEE - 08/14/2024 7:53 PM CDT Indications for Culture:->Other (specify) Other Indication:->abnormal UA Testing performed by [facility] ([phone]) Jess Schwartz MD LAB MICROBIOLOGY - GENERAL ORDERABLES Final Result Performing Organization Address [facility] Co de Phone Number JEREMIAHROB VELASCO [address] Department [place] [address] * (ABNORMAL) eGFR (08/12/2024 5:44 AM CDT) eGFR 53(L) >=60 mL/min/1. 73 m2 Comment: Interpretive Data Reference Interval Normal >/= 90 mL/min/1.73m2 Mildly decreased* 60 - 89 mL/min/1.73m2 Mildly to moderately decreased 45 - 59 mL/min/1.73m2 Moderately to severely decreased 30 - 44 mL/min/1.73m2 Severely decreased 15 - 29 mL/min/1.73m2 Kidney Failure < 15 mL/min/1.73m2 *Relative to young adult level Estimated glomerular filtration rate is determined by the 2020 CKD-EPI equation recommended by the National Kidney Foundation (A Unifying Approach to GFR Estimation: Recommendations of the NKF-ASK Task Force on Reassessing the Inclusion of Race in Diagnosing Kidney Disease, JASN 202). The CKD-EPI equation should not be used for patients with unstable renal function and has not been validated in children and those over 70. Current interpretive data was last reviewed 2021. Blood 08/12/2024 5:44 AM CDT 08/12/2024 6:16 AM CDT us Jess Schwartz MD LAB BLOOD ORDERABLE S Final Result [facility] [address] Department [place] [address] * Differential, auto (08/12/2024 5:44 AM CDT) Neutrophil abs 3.43 1.50 - 6.50 K/cumm Imm gran abs 0.01 0.00 - 0.10 K/cumm [facility] Lymphocyte abs 1.73 0.80 - 3.30 K/cumm [facility] Monocyte abs 0.38 0.20 - 0.80 K/cumm [facility] Eosinophil abs 0.14 0.00 - 0.50 K/cumm [facility] Basophil abs 0.02 0.00 - 0.10 K/cumm [facility] Neutrophil pct 59.9 % [facility] Comment: Interpretive Data Percent cell count reference ranges are not reported, since discordance with absolute values may lead to misinterpretation of CBC data. Current Interpretive Data was last revised on 2017. Imm gran pct 0.2 % [facility] Comment: Interpretive Data Percent cell count reference ranges are not reported, since discordance with absolute values may lead to misinterpretation of CBC data. Current Interpretive Data was last revised on 2017. Lymphocyte pct 30.3 % [facility] Comment: Interpretive Data Percent cell count reference ranges are not reported, since discordance with absolute values may lead to misinterpretation of CBC data. Current Interpretive Data was last revised on 2017. Monocyte pct 6.7 % [facility] Comment: Interpretive Data Percent cell count reference ranges are not reported, since discordance with absolute values may lead to misinterpretation of CBC data. Current Interpretive Data was last revised on 2017. Eosinophil pct 2.5 % [facility] Comment: Interpretive Data Percent cell count reference ranges are not reported, since discordance with absolute values may lead to misinterpretation of CBC data. Current Interpretive Data was last revised on 2017. Basophil pct 0.4 % [facility] Comment: Interpretive Data Percent cell count reference ranges are not reported, since discordance with absolute values may lead to misinterpretation of CBC data. Current Interpretive Data was last revised on 2017. Blood 08/12/2024 5:44 AM CDT 08/12/2024 6:15 AM CDT us Jess Schwartz MD LAB BLOOD ORDERABLE S Final Result [facility] [address] Department [place] [address] * (ABNORMAL) CBC with auto differential (08/12/2024 5:44 AM CDT) WBC 5.71 3.80 - 9.90 K/cumm Hgb 11.4(L) 11.9 - 15.5 g/dL [facility] Hct 35.9 35.6 - 45.5 % [facility] Plt 217 150 - 400 K/cumm [facility] MPV 12.3 9.1 - 12.3 fL [facility] RBC 3.94 3.90 - 5.20 M/cumm [facility] MCV 91.1 81.3 - 96.4 fL [facility] MCH 28.9 27.1 - 33.3 pg [facility] MCHC 31.8(L) 32.3 - 35.7 g/dL [facility] RDW CV 14.4 11.1 - 14.9 % [facility] RDW SD 48.2(H) 35.7 - 48.1 fL [facility] NRBC abs 0.00 0.00 - 0.01 K/cumm [facility] Blood 08/12/2024 5:44 AM CDT 08/12/2024 6:15 AM CDT Jess Schwartz MD LAB [place]LOOD [place] [address] [address] Department [place] [address] * (ABNORMAL) Comprehensive metabolic panel (08/12/2024 5:44 AM CDT) Sodium 138 135 - 145 mmol/L Potassium, pl 4.4 3.3 - 4.9 mmol/L [facility] Chloride 100 97 - 110 mmol/L [facility] CO2 28 22 - 32 mmol/L [facility] Anion gap 10 2 - 15 mmol/L [facility] BUN 21 6 - 25 mg/dL [facility] Creatinine 1.05 0.60 - 1.10 mg/dL [facility] Glucose 114 70 - 199 mg/dL [facility] Comment: Interpretive Data Fasting glucose >/= 126 mg/dl is diagnostic for diabetes. Fasting is defined as no caloric intake for at least 8 hours. Fasting glucose between 100 mg/dl to 125 mg/dl is diagnostic of prediabetes. In a patient with classic symptoms of hyperglycemia or hyperglycemic crisis, a random glucose >/= 200 mg/dl is diagnostic for diabetes. In the absence of unequivocal hyperglycemia, results should be confirmed by repeat testing. The classification and Diagnosis of Diabetes Diabetes Care 2021; 46: S19-S40. Current interpretive data was last revised 2022. Calcium 8.9 8.5 - 10.3 mg/dL [facility] Bilirubin, total 0.2 0.1 - 1.2 mg/dL [facility] Protein, pl 6.4(L) 6.5 - 8.5 g/dL [facility] Albumin 3.1(L) 3.5 - 5.0 g/dL [facility] Alk phos 46 40 - 130 Units/L [facility] ALT 18 7 - 45 Units/L [facility] AST 22 10 - 45 Units/L [facility] Blood 08/12/2024 5:44 AM CDT 08/12/2024 6:16 AM CDT Jess Schwartz MD LAB BLOOD ORDERABLE S Final Result Performing Organization Address [facility]/ZIP Co de Phone Number AMEE VELASCO [address] [address] Department [place] [address] * Blood culture Blood (08/10/2024 7:18 PM CDT) Report Final Report: No growth Comment:Testing performed by : [facility], [address] [place]., [address] Blood 08/10/2024 7:18 PM CDT 08/10/2024 10:14 PM CDT Gayathri [facility] 08/15/2024 7:00 AM CDT From a different site than #1. Collection->Peripheral 1. Blood cultures are incubated for 4 days on a continuously monitored blood culture system. The first report of a negative culture is issued within 24 hours of receipt of the specimen in the laboratory. 2. Positive culture results are reported as soon as they are detected. 3. The most important factor for detection of microbes in the setting of bloodstream infection is the volume of blood submitted for culture. Failure to collect an optimal blood volume can result in false negative blood cultures. 4. For pediatric patients, the recommended blood volume to collect follows a weight based strategy. See the electronic test catalog for collection instructions. 5. For positive blood cultures, a rapid molecular test may be performed for organism identification using the malou [employer] blood culture identification panel for gram positive (BCID-GP) and gram negative (BCID-GN) organisms. This nucleic acid amplification test detects microbial DNA in positive blood culture broth. This assay has been cleared by the [place] Food and Drug Administration and its performance characteristics have been verified by the [facility]. For questions about this culture, contact the Microbiology Laboratory at [phone]. Interpretive data was last revised on 24. Jess Schwartz MD LAB MICROBIOLOGY - GENERAL ORDERABLES Final Result Performing Organization Address City/[facility]/ZIP Co de Phone Number AMEE VELASCO [address] [address] Department [place] [employer] [place] [address] * eGFR (08/10/2024 6:14 AM CDT) eGFR 66 >=60 mL/min/1. 73 m2 Comment: Interpretive Data Reference Interval Normal >/= 90 mL/min/1.73m2 Mildly decreased* 60 - 89 mL/min/1.73m2 Mildly to moderately decreased 45 - 59 mL/min/1.73m2 Moderately to severely decreased 30 - 44 mL/min/1.73m2 Severely decreased 15 - 29 mL/min/1.73m2 Kidney Failure < 15 mL/min/1.73m2 *Relative to young adult level Estimated glomerular filtration rate is determined by the 2020 CKD-EPI equation recommended by the National Kidney Foundation (A Unifying Approach to GFR Estimation: Recommendations of the NKF-ASK Task Force on Reassessing the Inclusion of Race in Diagnosing Kidney Disease, JASN 2020). The CKD-EPI equation should not be used for patients with unstable renal function and has not been validated in children and those over 70. Current interpretive data was last reviewed 2021. Blood 08/10/2024 6:14 AM CDT 08/10/2024 6:44 AM CDT Chu Ribera MD LAB BLOOD ORDERABLES Final Re sult [facility] [address] Department [place] [address] * Differential, auto (08/10/2024 6:14 AM CDT) Pathologist [facility] Neutrophil abs 3.79 1.50 - 6.50 K/cumm Imm gran abs 0.03 0.00 - 0.10 K/cumm [facility] Lymphocyte abs 1.63 0.80 - 3.30 K/cumm [facility] Monocyte abs 0.46 0.20 - 0.80 K/cumm [facility] Eosinophil abs 0.08 0.00 - 0.50 K/cumm [facility] Basophil abs 0.03 0.00 - 0.10 K/cumm [facility] Neutrophil pct 63.0 % [facility] Comment: Interpretive Data Percent cell count reference ranges are not reported, since discordance with absolute values may lead to misinterpretation of CBC data. Current Interpretive Data was last revised on 2017. Imm gran pct 0.5 % [facility] Comment: Interpretive Data Percent cell count reference ranges are not reported, since discordance with absolute values may lead to misinterpretation of CBC data. Current Interpretive Data was last revised on 2017. Lymphocyte pct 27.1 % [facility] Comment: Interpretive Data Percent cell count reference ranges are not reported, since discordance with absolute values may lead to misinterpretation of CBC data. Current Interpretive Data was last revised on 2017. Monocyte pct 7.6 % [facility] Comment: Interpretive Data Percent cell count reference ranges are not reported, since discordance with absolute values may lead to misinterpretation of CBC data. Current Interpretive Data was last revised on 2017. Eosinophil pct 1.3 % [facility] Comment: Interpretive Data Percent cell count reference ranges are not reported, since discordance with absolute values may lead to misinterpretation of CBC data. Current Interpretive Data was last revised on 2017. Basophil pct 0.5 % [facility] Comment: Interpretive Data Percent cell count reference ranges are not reported, since discordance with absolute values may lead to misinterpretation of CBC data. Current Interpretive Data was last revised on 2017. Blood 08/10/2024 6:14 AM CDT 08/10/2024 6:44 AM CDT Chu Ribera MD LAB BLOOD ORDERABLES Final Re sult [facility] [address] Department [place] [address] * (ABNORMAL) CBC with auto differential (08/10/2024 6:14 AM CDT) WBC 6.02 3.80 - 9.90 K/cumm Hgb 11.7(L) 11.9 - 15.5 g/dL [facility] Hct 36.6 35.6 - 45.5 % [facility] Plt 181 150 - 400 K/cumm [facility] MPV 12.1 9.1 - 12.3 fL [facility] RBC 3.97 3.90 - 5.20 M/cumm [facility] MCV 92.2 81.3 - 96.4 fL [facility] MCH 29.5 27.1 - 33.3 pg [facility] MCHC 32.0(L) 32.3 - 35.7 g/dL [facility] RDW CV 14.4 11.1 - 14.9 % [facility] RDW SD 49.1(H) 35.7 - 48.1 fL [facility] NRBC abs 0.00 0.00 - 0.01 K/cumm [facility] Morphologic Screen Results confirmed by manual morphology review. [facility] Blood 08/10/2024 6:14 AM CDT 08/10/2024 6:44 AM CDT Chu Ribera MD LAB BLOOD ORDERABLES Edited R esult - Final [facility] [address] Department [place] [address] * (ABNORMAL) Comprehensive metabolic panel (08/10/2024 6:14 AM CDT) Sodium 135 135 - 145 mmol/L Potassium, pl 4.0 3.3 - 4.9 mmol/L [facility] Chloride 97 97 - 110 mmol/L [facility] CO2 26 22 - 32 mmol/L [facility] Anion gap 12 2 - 15 mmol/L [facility] BUN 17 6 - 25 mg/dL [facility] Creatinine 0.88 0.60 - 1.10 mg/dL [facility] Glucose 113 70 - 199 mg/dL [facility] Comment: Interpretive Data Fasting glucose >/= 126 mg/dl is diagnostic for diabetes. Fasting is defined as no caloric intake for at least 8 hours. Fasting glucose between 100 mg/dl to 125 mg/dl is diagnostic of prediabetes. In a patient with classic symptoms of hyperglycemia or hyperglycemic crisis, a random glucose >/= 200 mg/dl is diagnostic for diabetes. In the absence of unequivocal hyperglycemia, results should be confirmed by repeat testing. The classification and Diagnosis of Diabetes Diabetes Care 202; 46: S19-S40. Current interpretive data was last revised 2022. Calcium 8.4(L) 8.5 - 10.3 mg/dL [facility] Bilirubin, total 0.2 0.1 - 1.2 mg/dL [facility] Protein, pl 6.1(L) 6.5 - 8.5 g/dL [facility] Albumin 2.9(L) 3.5 - 5.0 g/dL [facility] Alk phos 43 40 - 130 Units/L [facility] ALT 20 7 - 45 Units/L [facility] AST 26 10 - 45 Units/L [facility] Blood 08/10/2024 6:14 AM CDT 08/10/2024 6:44 AM CDT us Chu Ribera MD LAB BLOOD ORDERABLES Final Re sult [facility] [address] Department [place] [address] * (ABNORMAL) Urinalysis reflex to microscopic and culture Urine, clean voided (08/09/2024 7:20 PM CDT) Color, ur Yellow Yellow Clarity, ur Turbid(A) Clear [facility] Specific gravity, ur 1.013 1.003 - 1.030 [facility] pH, urine 6.0 [facility] Comment: Interpretive Data U rine pH is affected by diet, medications, systemic acid-base disturbances, and renal tubular function. pH may affect urinary stone formation. For example, urine pH below 6.0 may help reduce the tendency for calcium phosphate stones and pH greater than 6.0 may reduce the tendency for uric acid stone formation. Source: [facility] [employer] Current Interpretive Data was last revised on 2017 Protein, ur ql Negative Negative [facility] Glucose, ur ql Negative Negative [facility] Ketones, ur Negative Negative [facility] Bilirubin, ur Negative Negative [facility] Blood, ur 1+(A) Negative [facility] Urobilinogen, ur <2.0 <2.0 mg/dL [facility] Nitrite, ur Negative Negative [facility] Leukocyte esterase, ur 2+(A) Negative [facility] UA reflex comment Reflex to microscopic UA will be performed. [facility] Urine, clean voided 08/09/2024 7:20 PM CDT 08/09/2024 7:38 PM CDT Jess Schwartz MD LAB MICROBIOLOGY - GENERAL ORDERABLES Final Result Performing Organization Address [facility] de Phone Number AMEE VELASCO [address] [facility] [employer] [place] [address] * (ABNORMAL) Urinalysis, microscopic only (08/09/2024 7:20 PM CDT) WBC, ur 0-5 0 - 5 /HPF RBC, ur 11-20(A) 0 - 2 /HPF [facility] Epithelial cells, squamous, ur 1-5 0 - 5 /HPF [facility] Bacteria, ur 4+(A) [facility] Mucous, ur Present(A) [facility] Culture Reflex Comment Reflex conditions for urine culture (WBC >10) not met. [facility] Urine, clean voided 08/09/2024 7:20 PM CDT 08/09/2024 7:38 PM CDT Jess Schwartz MD LAB URINE ORDERABLE S Final Result Performing Organization Address [facility] de Phone Number AMEE VELASCO [address] [address] [facility] [employer] [place] [address] * eGFR (08/09/2024 5:17 AM CDT) eGFR 63 >=60 mL/min/1. 73 m2 Comment: Interpretive Data Reference Interval Normal >/= 90 mL/min/1.73m2 Mildly decreased* 60 - 89 mL/min/1.73m2 Mildly to moderately decreased 45 - 59 mL/min/1.73m2 Moderately to severely decreased 30 - 44 mL/min/1.73m2 Severely decreased 15 - 29 mL/min/1.73m2 Kidney Failure < 15 mL/min/1.73m2 *Relative to young adult level Estimated glomerular filtration rate is determined by the 2020 CKD-EPI equation recommended by the National Kidney Foundation (A Unifying Approach to GFR Estimation: Recommendations of the NKF-ASK Task Force on Reassessing the Inclusion of Race in Diagnosing Kidney Disease, JASN 202). The CKD-EPI equation should not be used for patients with unstable renal function and has not been validated in children and those over 70. Current interpretive data was last reviewed 2021. Blood 08/09/2024 5:17 AM CDT 08/09/2024 5:27 AM CDT us Chu Ribera MD LAB BLOOD ORDERABLES Final Re sult [facility] [address] Department [place] [address] * Differential, auto (08/09/2024 5:17 AM CDT) Neutrophil abs 3.46 1.50 - 6.50 K/cumm Imm gran abs 0.02 0.00 - 0.10 K/cumm [facility] Lymphocyte abs 1.47 0.80 - 3.30 K/cumm [facility] Monocyte abs 0.57 0.20 - 0.80 K/cumm [facility] Eosinophil abs 0.08 0.00 - 0.50 K/cumm [facility] Basophil abs 0.03 0.00 - 0.10 K/cumm [facility] Neutrophil pct 61.5 % [facility] Comment: Interpretive Data Percent cell count reference ranges are not reported, since discordance with absolute values may lead to misinterpretation of CBC data. Current Interpretive Data was last revised on 2017. Imm gran pct 0.4 % [facility] Comment: Interpretive Data Percent cell count reference ranges are not reported, since discordance with absolute values may lead to misinterpretation of CBC data. Current Interpretive Data was last revised on 2017. Lymphocyte pct 26.1 % [facility] Comment: Interpretive Data Percent cell count reference ranges are not reported, since discordance with absolute values may lead to misinterpretation of CBC data. Current Interpretive Data was last revised on 2017. Monocyte pct 10.1 % [facility] Comment: Interpretive Data Percent cell count reference ranges are not reported, since discordance with absolute values may lead to misinterpretation of CBC data. Current Interpretive Data was last revised on 2017. Eosinophil pct 1.4 % [facility] Comment: Interpretive Data Percent cell count reference ranges are not reported, since discordance with absolute values may lead to misinterpretation of CBC data. Current Interpretive Data was last revised on 2017. Basophil pct 0.5 % [facility] Comment: Interpretive Data Percent cell count reference ranges are not reported, since discordance with absolute values may lead to misinterpretation of CBC data. Current Interpretive Data was last revised on 2017. Blood 08/09/2024 5:17 AM CDT 08/09/2024 5:25 AM CDT Chu Ribera MD LAB BLOOD ORDERABLES Final Re sult [facility] [address] Department of Laboratories [place], [place] [id number] * CBC with auto differential (08/09/2024 5:17 AM CDT) WBC 5.63 3.80 - 9.90 K/cumm Hgb 12.1 11.9 - 15.5 g/dL [facility] Hct 36.8 35.6 - 45.5 % [facility] Plt 168 150 - 400 K/cumm [facility] MPV 12.1 9.1 - 12.3 fL [facility] RBC 4.12 3.90 - 5.20 M/cumm [facility] MCV 89.3 81.3 - 96.4 fL [facility] MCH 29.4 27.1 - 33.3 pg [facility] MCHC 32.9 32.3 - 35.7 g/dL [facility] RDW CV 14.5 11.1 - 14.9 % [facility] RDW SD 47.7 35.7 - 48.1 fL [facility] NRBC abs 0.00 0.00 - 0.01 K/cumm [facility] Blood 08/09/2024 5:17 AM CDT 08/09/2024 5:25 AM CDT Chu Ribera MD LAB BLOOD ORDERABLES Final Re sult [facility] [address] [address] Department [place] [address] * Magnesium (08/09/2024 5:17 AM CDT) Magnesium 2.1 1.4 - 2.5 mg/dL Blood 08/09/2024 5:17 AM CDT 08/09/2024 5:27 AM CDT Jess Schwartz MD LAB BLOOD ORDERABLE S Final Result Performing Organization Address [facility] Co de Phone Number AMEE VELASCO [address] [address] Department [place] [address] * (ABNORMAL) Comprehensive metabolic panel (08/09/2024 5:17 AM CDT) Pathologist [facility] Sodium 137 135 - 145 mmol/L Potassium, pl 3.6 3.3 - 4.9 mmol/L [facility] Chloride 100 97 - 110 mmol/L [facility] CO2 25 22 - 32 mmol/L [facility] Anion gap 12 2 - 15 mmol/L [facility] BUN 20 6 - 25 mg/dL [facility] Creatinine 0.92 0.60 - 1.10 mg/dL [facility] Glucose 119 70 - 199 mg/dL [facility] Comment: Interpretive Data Fasting glucose >/= 126 mg/dl is diagnostic for diabetes. Fasting is defined as no caloric intake for at least 8 hours. Fasting glucose between 100 mg/dl to 125 mg/dl is diagnostic of prediabetes. In a patient with classic symptoms of hyperglycemia or hyperglycemic crisis, a random glucose >/= 200 mg/dl is diagnostic for diabetes. In the absence of unequivocal hyperglycemia, results should be confirmed by repeat testing. The classification and Diagnosis of Diabetes Diabetes Care 2021; 46: S19-S40. Current interpretive data was last revised 2022. Calcium 8.3(L) 8.5 - 10.3 mg/dL [facility] Bilirubin, total 0.3 0.1 - 1.2 mg/dL [facility] Protein, pl 6.2(L) 6.5 - 8.5 g/dL [facility] Albumin 3.0(L) 3.5 - 5.0 g/dL [facility] Alk phos 44 40 - 130 Units/L [facility] ALT 18 7 - 45 Units/L [facility] AST 30 10 - 45 Units/L [facility] Blood 08/09/2024 5:17 AM CDT 08/09/2024 5:27 AM CDT us Chu Ribera MD LAB BLOOD ORDERABLES Final Re sult Performing Organization Address City/[facility]/ZIP Co de Phone Number AMEE VELASCO [address] Department [place] [address] * eGFR (08/08/2024 12:38 PM CDT) eGFR 66 >=60 mL/min/1. 73 m2 Comment: Interpretive Data Reference Interval Normal >/= 90 mL/min/1.73m2 Mildly decreased* 60 - 89 mL/min/1.73m2 Mildly to moderately decreased 45 - 59 mL/min/1.73m2 Moderately to severely decreased 30 - 44 mL/min/1.73m2 Severely decreased 15 - 29 mL/min/1.73m2 Kidney Failure < 15 mL/min/1.73m2 *Relative to young adult level Estimated glomerular filtration rate is determined by the 2020 CKD-EPI equation recommended by the National Kidney Foundation (A Unifying Approach to GFR Estimation: Recommendations of the NKF-ASK Task Force on Reassessing the Inclusion of Race in Diagnosing Kidney Disease, JASN 2020). The CKD-EPI equation should not be used for patients with unstable renal function and has not been validated in children and those over 70. Current interpretive data was last reviewed 2021. Blood 08/08/2024 12:3 8 PM CDT 08/08/2024 12:57 PM CDT us Chu Ribera MD LAB BLOOD ORDERABLES Final Re sult AMEE [address] Department [place] [address] * Differential, auto (08/08/2024 12:38 PM CDT) Neutrophil abs 4.82 1.50 - 6.50 K/cumm Imm gran abs 0.04 0.00 - 0.10 K/cumm [facility] Lymphocyte abs 1.23 0.80 - 3.30 K/cumm [facility] Monocyte abs 0.65 0.20 - 0.80 K/cumm [facility] Eosinophil abs 0.05 0.00 - 0.50 K/cumm [facility] Basophil abs 0.04 0.00 - 0.10 K/cumm [facility] Neutrophil pct 70.6 % [facility] Comment: Interpretive Data Percent cell count reference ranges are not reported, since discordance with absolute values may lead to misinterpretation of CBC data. Current Interpretive Data was last revised on 2017. Imm gran pct 0.6 % [facility] Comment: Interpretive Data Percent cell count reference ranges are not reported, since discordance with absolute values may lead to misinterpretation of CBC data. Current Interpretive Data was last revised on 2017. Lymphocyte pct 18.0 % [facility] Comment: Interpretive Data Percent cell count reference ranges are not reported, since discordance with absolute values may lead to misinterpretation of CBC data. Current Interpretive Data was last revised on 2017. Monocyte pct 9.5 % [facility] Comment: Interpretive Data Percent cell count reference ranges are not reported, since discordance with absolute values may lead to misinterpretation of CBC data. Current Interpretive Data was last revised on 2017. Eosinophil pct 0.7 % [facility] Comment: Interpretive Data Percent cell count reference ranges are not reported, since discordance with absolute values may lead to misinterpretation of CBC data. Current Interpretive Data was last revised on 2017. Basophil pct 0.6 % [facility] Comment: Interpretive Data Percent cell count reference ranges are not reported, since discordance with absolute values may lead to misinterpretation of CBC data. Current Interpretive Data was last revised on 2017. Blood 08/08/2024 12:3 8 PM CDT 08/08/2024 12:58 PM CDT Chu Ribera MD LAB BLOOD ORDERABLES Final Re sult AMEE [address] Department [place] [address] * (ABNORMAL) CBC with auto differential (08/08/2024 12:38 PM CDT) WBC 6.83 3.80 - 9.90 K/cumm Hgb 12.7 11.9 - 15.5 g/dL [facility] Hct 40.5 35.6 - 45.5 % [facility] Plt 174 150 - 400 K/cumm [facility] MPV 12.7(H) 9.1 - 12.3 fL [facility] RBC 4.45 3.90 - 5.20 M/cumm [facility] MCV 91.0 81.3 - 96.4 fL [facility] MCH 28.5 27.1 - 33.3 pg [facility] MCHC 31.4(L) 32.3 - 35.7 g/dL [facility] RDW CV 14.6 11.1 - 14.9 % [facility] RDW SD 48.5(H) 35.7 - 48.1 fL [facility] NRBC abs 0.00 0.00 - 0.01 K/cumm [facility] Blood 08/08/2024 12:3 8 PM CDT 08/08/2024 12:58 PM CDT Chu Ribera MD LAB BLOOD ORDERABLES Final Re sult AMEE [address] Department [place] [employer] [place] [address] * Blood culture Blood (08/08/2024 12:38 PM CDT) Report Final Report: No growth Comment:Testing performed by : [facility], [address] [place]., [address] Blood 08/08/2024 12:3 8 PM CDT 08/08/2024 2:32 PM CDT Narrative [facility] - 08/12/2024 4:00 PM CDT Collection->Peripheral 1. Blood cultures are incubated for 4 days on a continuously monitored blood culture system. The first report of a negative culture is issued within 24 hours of receipt of the specimen in the laboratory. 2. Positive culture results are reported as soon as they are detected. 3. The most important factor for detection of microbes in the setting of bloodstream infection is the volume of blood submitted for culture. Failure to collect an optimal blood volume can result in false negative blood cultures. 4. For pediatric patients, the recommended blood volume to collect follows a weight based strategy. See the electronic test catalog for collection instructions. 5. For positive blood cultures, a rapid molecular test may be performed for organism identification using the malou ePlex blood culture identification panel for gram positive (BCID-GP) and gram negative (BCID-GN) organisms. This nucleic acid amplification test detects microbial DNA in positive blood culture broth. This assay has been cleared by the [place] Food and Drug Administration and its performance characteristics have been verified by the [facility]. For questions about this culture, contact the Microbiology Laboratory at [phone]. Interpretive data was last revised on 24. Jess Schwartz MD LAB MICROBIOLOGY - GENERAL ORDERABLES Final Result [facility] [id number] Department [place] [address] * (ABNORMAL) Comprehensive metabolic panel (08/08/2024 12:38 PM CDT) Sodium 136 135 - 145 mmol/L Potassium, pl 4.1 3.3 - 4.9 mmol/L [facility] Chloride 99 97 - 110 mmol/L [facility] CO2 24 22 - 32 mmol/L [facility] Anion gap 13 2 - 15 mmol/L [facility] BUN 16 6 - 25 mg/dL [facility] Creatinine 0.88 0.60 - 1.10 mg/dL [facility] Glucose 126 70 - 199 mg/dL [facility] Comment: Interpretive Data Fasting glucose >/= 126 mg/dl is diagnostic for diabetes. Fasting is defined as no caloric intake for at least 8 hours. Fasting glucose between 100 mg/dl to 125 mg/dl is diagnostic of prediabetes. In a patient with classic symptoms of hyperglycemia or hyperglycemic crisis, a random glucose >/= 200 mg/dl is diagnostic for diabetes. In the absence of unequivocal hyperglycemia, results should be confirmed by repeat testing. The classification and Diagnosis of Diabetes Diabetes Care 2021; 46: S19-S40. Current interpretive data was last revised 2022. Calcium 8.4(L) 8.5 - 10.3 mg/dL [facility] Bilirubin, total 0.3 0.1 - 1.2 mg/dL [facility] Protein, pl 6.6 6.5 - 8.5 g/dL [facility] Albumin 3.1(L) 3.5 - 5.0 g/dL [facility] Alk phos 48 40 - 130 Units/L [facility] ALT 19 7 - 45 Units/L [facility] AST 27 10 - 45 Units/L [facility] Blood 08/08/2024 12:3 8 PM CDT 08/08/2024 12:57 PM CDT Chu Ribera MD LAB BLOOD ORDERABLES Final Re sult AMEE [address] Department of Laboratories [place], [place] [id number] * XR Chest 1 View (08/07/2024 6:03 PM CDT) Anatomical Region Laterality Modality Body, Chest N/A Computed Radiogr aphy 08/07/2024 6:14 PM CDT Impressions 08/07/2024 6:14 PM CDT ICD leads are intact. No pneumothorax or pleural effusion. Mild cardiomegaly and pulmonary vascular congestion. No acute osseous abnormality. Electronically signed by: Gilberto Barragan II, D.O. Narrative 08/07/2024 6:14 PM CDT EXAMINATION: XR CHEST 1 VIEW DATE: 08/07/2024 5:25 PM INDICATION: Fever. COMPARISON: 08/05/2024. Procedure Note Gilberto Barragan II, - 08/07/2024 EXAMINATION: XR CHEST 1 VIEW DATE: 08/07/2024 5:25 PM INDICATION: Fever. COMPARISON: 08/05/2024. IMPRESSION: ICD leads are intact. No pneumothorax or pleural effusion. Mild cardiomegaly and pulmonary vascular congestion. No acute osseous abnormality. Electronically signed by: Gilberto Barragan II, D.O. us Rusty Schmitz MD IMG XR PROCEDURES Final Res ult * eGFR (08/06/2024 7:44 PM CDT) eGFR 77 >=60 mL/min/1. 73 m2 Comment: Interpretive Data Reference Interval Normal >/= 90 mL/min/1.73m2 Mildly decreased* 60 - 89 mL/min/1.73m2 Mildly to moderately decreased 45 - 59 mL/min/1.73m2 Moderately to severely decreased 30 - 44 mL/min/1.73m2 Severely decreased 15 - 29 mL/min/1.73m2 Kidney Failure < 15 mL/min/1.73m2 *Relative to young adult level Estimated glomerular filtration rate is determined by the 2020 CKD-EPI equation recommended by the National Kidney Foundation (A Unifying Approach to GFR Estimation: Recommendations of the NKF-ASK Task Force on Reassessing the Inclusion of Race in Diagnosing Kidney Disease, JASN 202). The CKD-EPI equation should not be used for patients with unstable renal function and has not been validated in children and those over 70. Current interpretive data was last reviewed 2021. Blood 08/06/2024 7:44 PM CDT 08/06/2024 8:34 PM CDT Chu Ribera MD LAB BLOOD ORDERABLES Final Re sult JEREMIAHUEB [address] Department [place] [address] * (ABNORMAL) Differential, auto (08/06/2024 7:44 PM CDT) Neutrophil abs 7.6(H) 1.5 - 6.5 K/cumm Imm gran abs 0.0 0.0 - 0.1 K/cumm [facility] Lymphocyte abs 0.8 0.8 - 3.3 K/cumm [facility] Monocyte abs 0.6 0.2 - 0.8 K/cumm [facility] Eosinophil abs 0.0 0.0 - 0.5 K/cumm [facility] Basophil abs 0.0 0.0 - 0.1 K/cumm [facility] Neutrophil pct 84.0 % [facility] Comment: Interpretive Data Percent cell count reference ranges are not reported, since discordance with absolute values may lead to misinterpretation of CBC data. Current Interpretive Data was last revised on 2017. Imm gran pct 0.3 % [facility] Comment: Interpretive Data Percent cell count reference ranges are not reported, since discordance with absolute values may lead to misinterpretation of CBC data. Current Interpretive Data was last revised on 2017. Lymphocyte pct 8.3 % [facility] Comment: Interpretive Data Percent cell count reference ranges are not reported, since discordance with absolute values may lead to misinterpretation of CBC data. Current Interpretive Data was last revised on 2017. Monocyte pct 6.8 % [facility] Comment: Interpretive Data Percent cell count reference ranges are not reported, since discordance with absolute values may lead to misinterpretation of CBC data. Current Interpretive Data was last revised on 2017. Eosinophil pct 0.3 % [facility] Comment: Interpretive Data Percent cell count reference ranges are not reported, since discordance with absolute values may lead to misinterpretation of CBC data. Current Interpretive Data was last revised on 2017. Basophil pct 0.3 % [facility] Comment: Interpretive Data Percent cell count reference ranges are not reported, since discordance with absolute values may lead to misinterpretation of CBC data. Current Interpretive Data was last revised on 2017. Blood 08/06/2024 7:44 PM CDT 08/06/2024 8:33 PM CDT Chu Ribera MD LAB BLOOD ORDERABLES Final Re sult Performing Organization Address [facility] Co de Phone Number AMEE VELASCO [address] Department [place] [employer] [place] [address] * (ABNORMAL) CBC with auto differential (08/06/2024 7:44 PM CDT) [facility] WBC 9.1 3.8 - 9.9 K/cumm Hgb 11.9 11.9 - 15.5 g/dL [facility] Hct 37.6 35.6 - 45.5 % [facility] Plt 167 150 - 400 K/cumm [facility] MPV 12.8(H) 9.1 - 12.3 fL [facility] RBC 4.12 3.90 - 5.20 M/cumm [facility] MCV 91.3 81.3 - 96.4 fL [facility] MCH 28.9 27.1 - 33.3 pg [facility] MCHC 31.6(L) 32.3 - 35.7 g/dL [facility] RDW CV 14.7 11.1 - 14.9 % [facility] RDW SD 48.7(H) 35.7 - 48.1 fL [facility] NRBC abs 0.00 0.00 - 0.01 K/cumm [facility] Blood 08/06/2024 7:44 PM CDT 08/06/2024 8:33 PM CDT Chu Ribera MD LAB BLOOD ORDERABLES Final Re sult Performing Organization Address [facility] Co de Phone Number AMEE VELASCO [address] Department of [employer] [place], [place] [id number] * (ABNORMAL) Blood culture Blood (08/06/2024 7:44 PM CDT) [facility] Direct Specimen Exam Molecular Analysis: Staphylococcus species detected by the malou eplex BCID-GP panel. Single positive culture may represent contamination. This is most suggestive of a coagulase-negative Staphylococcus species. Please refer to final culture-based result for confirmation. This test does not exclude the possibility of a mixed bacterial infection. Notification of: Staphylococcus species called to and read back by: Laxmi Farley MT [phone] on 08/08/2024 11:50:38 by: Mary Ellen Lerma MT Test result called to and read back by Jorge Fishman on 08/08/2024 12:04:55 by Laxmi Farley Comment:Testing performed by : [facility], [address] [place] [address]., [id number] Direct Specimen Exam Stain: Gram Positive Cocci in clusters Time to culture positivity (anaerobic media): 34.6 hours Notification of: Gram Positive Cocci in clusters called to and read back by: Laxmi Farley MT [phone] on 08/08/2024 09:55:32 by: Mary Ellen Lerma MT Test result called to and read back by Jorge Fishman on 08/08/2024 10:22:46 by Laxmi LANDEROS Comment:Testing performed by : [facility], [address] [place] [address]., [id number] Report Final Report: Staphylococcus hominis Single blood culture positive for this microorganism. Isolate is a possible contaminant. If a similar isolate is recovered from a second blood culture collected within 3 days of this culture, both will be evaluated and, if determined to be the same species, antimicrobial susceptibility testing will be performed. (.) AMEE Comment:Testing performed by : [facility], [address] [place] [address]., [id number] Organism STAPHYLOCOCCUS HOMINIS AMEE Blood 08/06/2024 7:44 PM CDT 08/06/2024 10:14 PM CDT [facility] - 08/11/2024 11:01 AM CDT From a different site than #1. Collection->Peripheral Received two anaerobic blood culture bottles 1. Blood cultures are incubated for 4 days on a continuously monitored blood culture system. The first report of a negative culture is issued within 24 hours of receipt of the specimen in the laboratory. 2. Positive culture results are reported as soon as they are detected. 3. The most important factor for detection of microbes in the setting of bloodstream infection is the volume of blood submitted for culture. Failure to collect an optimal blood volume can result in false negative blood cultures. 4. For pediatric patients, the recommended blood volume to collect follows a weight based strategy. See the electronic test catalog for collection instructions. 5. For positive blood cultures, a rapid molecular test may be performed for organism identification using the malou ePlex blood culture identification panel for gram positive (BCID-GP) and gram negative (BCID-GN) organisms. This nucleic acid amplification test detects microbial DNA in positive blood culture broth. This assay has been cleared by the [place] Food and Drug Administration and its performance characteristics have been verified by the [facility]. For questions about this culture, contact the Microbiology Laboratory at [phone]. Interpretive data was last revised on 24. Rusty Schmitz MD LAB MICROBIOLOGY - GENERAL ORDERABLES Final Result AMEE [address] Department [place] [address] * Blood culture Blood (08/06/2024 7:44 PM CDT) Report Final Report: No growth Comment:Testing performed by : [facility], [address] [place]., [address] Blood 08/06/2024 7:44 PM CDT 08/06/2024 10:14 PM CDT Narrative AMEE [facility] 08/11/2024 7:00 AM CDT Collection->Peripheral Received two aerobic blood culture bottles 1. Blood cultures are incubated for 4 days on a continuously monitored blood culture system. The first report of a negative culture is issued within 24 hours of receipt of the specimen in the laboratory. 2. Positive culture results are reported as soon as they are detected. 3. The most important factor for detection of microbes in the setting of bloodstream infection is the volume of blood submitted for culture. Failure to collect an optimal blood volume can result in false negative blood cultures. 4. For pediatric patients, the recommended blood volume to collect follows a weight based strategy. See the electronic test catalog for collection instructions. 5. For positive blood cultures, a rapid molecular test may be performed for organism identification using the malou ePlex blood culture identification panel for gram positive (BCID-GP) and gram negative (BCID-GN) organisms. This nucleic acid amplification test detects microbial DNA in positive blood culture broth. This assay has been cleared by the [place] Food and Drug Administration and its performance characteristics have been verified by the [facility]. For questions about this culture, contact the Microbiology Laboratory at [phone]. Interpretive data was last revised on 24. Rusty Schmitz MD LAB MICROBIOLOGY - GENERAL ORDERABLES Final Result Performing Organization Address City/[facility]/ZIP Co de Phone Number [facility] [address] Department [place] [employer] [place] [address] * Magnesium (08/06/2024 7:44 PM CDT) Pathologist [facility] Magnesium 2.0 1.4 - 2.5 mg/dL Blood 08/06/2024 7:44 PM CDT 08/06/2024 8:34 PM CDT Chasity Cruz NP LAB BLOOD ORDERABLES Final Resul t Performing Organization Address [facility] Co de Phone Number [facility] [address] Department [place] [employer] [place] [address] * (ABNORMAL) Comprehensive metabolic panel (08/06/2024 7:44 PM CDT) Sodium 135 135 - 145 mmol/L Potassium, pl 3.9 3.3 - 4.9 mmol/L [facility] Chloride 98 97 - 110 mmol/L [facility] CO2 25 22 - 32 mmol/L [facility] Anion gap 12 2 - 15 mmol/L [facility] BUN 15 6 - 25 mg/dL [facility] Creatinine 0.77 0.60 - 1.10 mg/dL [facility] Glucose 143 70 - 199 mg/dL [facility] Comment: Interpretive Data Fasting glucose >/= 126 mg/dl is diagnostic for diabetes. Fasting is defined as no caloric intake for at least 8 hours. Fasting glucose between 100 mg/dl to 125 mg/dl is diagnostic of prediabetes. In a patient with classic symptoms of hyperglycemia or hyperglycemic crisis, a random glucose >/= 200 mg/dl is diagnostic for diabetes. In the absence of unequivocal hyperglycemia, results should be confirmed by repeat testing. The classification and Diagnosis of Diabetes Diabetes Care 202; 46: S19-S40. Current interpretive data was last revised 2022. Calcium 8.3(L) 8.5 - 10.3 mg/dL [facility] Bilirubin, total 0.2 0.1 - 1.2 mg/dL [facility] Protein, pl 6.5 6.5 - 8.5 g/dL [facility] Albumin 3.5 3.5 - 5.0 g/dL [facility] Alk phos 50 40 - 130 Units/L [facility] ALT 16 7 - 45 Units/L [facility] AST 25 10 - 45 Units/L [facility] Blood 08/06/2024 7:44 PM CDT 08/06/2024 8:34 PM CDT Chu Ribera MD LAB BLOOD ORDERABLES Final Re sult AMEE VELASCO [address] [place] [address] * eGFR (08/06/2024 4:30 AM CDT) eGFR 71 >=60 mL/min/1. 73 m2 Comment: Interpretive Data Reference Interval Normal >/= 90 mL/min/1.73m2 Mildly decreased* 60 - 89 mL/min/1.73m2 Mildly to moderately decreased 45 - 59 mL/min/1.73m2 Moderately to severely decreased 30 - 44 mL/min/1.73m2 Severely decreased 15 - 29 mL/min/1.73m2 Kidney Failure < 15 mL/min/1.73m2 *Relative to young adult level Estimated glomerular filtration rate is determined by the 2020 CKD-EPI equation recommended by the National Kidney Foundation (A Unifying Approach to GFR Estimation: Recommendations of the NKF-ASK Task Force on Reassessing the Inclusion of Race in Diagnosing Kidney Disease, JASN 202). The CKD-EPI equation should not be used for patients with unstable renal function and has not been validated in children and those over 70. Current interpretive data was last reviewed 2021. Blood 08/06/2024 4:30 AM CDT 08/06/2024 5:01 AM CDT us Inocencio Munson NP LAB BLOOD ORDERABLES Gabriela nagel Result [facility] [address] Department [place] [address] * (ABNORMAL) Differential, auto (08/06/2024 4:30 AM CDT) Neutrophil abs 6.8(H) 1.5 - 6.5 K/cumm Imm gran abs 0.0 0.0 - 0.1 K/cumm [facility] Lymphocyte abs 0.8 0.8 - 3.3 K/cumm [facility] Monocyte abs 0.7 0.2 - 0.8 K/cumm [facility] Eosinophil abs 0.0 0.0 - 0.5 K/cumm [facility] Basophil abs 0.0 0.0 - 0.1 K/cumm [facility] Neutrophil pct 80.7 % [facility] Comment: Interpretive Data Percent cell count reference ranges are not reported, since discordance with absolute values may lead to misinterpretation of CBC data. Current Interpretive Data was last revised on 2017. Imm gran pct 0.5 % [facility] Comment: Interpretive Data Percent cell count reference ranges are not reported, since discordance with absolute values may lead to misinterpretation of CBC data. Current Interpretive Data was last revised on 2017. Lymphocyte pct 9.1 % [facility] Comment: Interpretive Data Percent cell count reference ranges are not reported, since discordance with absolute values may lead to misinterpretation of CBC data. Current Interpretive Data was last revised on 2017. Monocyte pct 8.7 % [facility] Comment: Interpretive Data Percent cell count reference ranges are not reported, since discordance with absolute values may lead to misinterpretation of CBC data. Current Interpretive Data was last revised on 2017. Eosinophil pct 0.5 % [facility] Comment: Interpretive Data Percent cell count reference ranges are not reported, since discordance with absolute values may lead to misinterpretation of CBC data. Current Interpretive Data was last revised on 2017. Basophil pct 0.5 % [facility] Comment: Interpretive Data Percent cell count reference ranges are not reported, since discordance with absolute values may lead to misinterpretation of CBC data. Current Interpretive Data was last revised on 2017. Blood 08/06/2024 4:30 AM CDT 08/06/2024 5:02 AM CDT us Inocencio Munson NP LAB BLOOD ORDERABLES Gabriela l Result AMEE [address] Department [place] [address] * (ABNORMAL) CBC with auto differential (08/06/2024 4:30 AM CDT) WBC 8.4 3.8 - 9.9 K/cumm Hgb 11.8(L) 11.9 - 15.5 g/dL [facility] Hct 37.2 35.6 - 45.5 % [facility] Plt 160 150 - 400 K/cumm [facility] MPV 12.0 9.1 - 12.3 fL [facility] RBC 4.07 3.90 - 5.20 M/cumm [facility] MCV 91.4 81.3 - 96.4 fL [facility] MCH 29.0 27.1 - 33.3 pg [facility] MCHC 31.7(L) 32.3 - 35.7 g/dL [facility] RDW CV 14.7 11.1 - 14.9 % [facility] RDW SD 49.5(H) 35.7 - 48.1 fL [facility] NRBC abs 0.00 0.00 - 0.01 K/cumm [facility] Blood 08/06/2024 4:30 AM CDT 08/06/2024 5:02 AM CDT Chu Ribera MD LAB BLOOD ORDERABLES Final Re sult AMEE VELASCO [address] Department [place] [address] * Magnesium (08/06/2024 4:30 AM CDT) Magnesium 2.1 1.4 - 2.5 mg/dL Blood 08/06/2024 4:30 AM CDT 08/06/2024 3:38 PM CDT Rusty Schmitz MD LAB BLOOD ORDERABLES Final Result AMEE VELASCO [address] Department [place] [address] * (ABNORMAL) Comprehensive metabolic panel (08/06/2024 4:30 AM CDT) Pathologist [facility] Sodium 140 135 - 145 mmol/L Potassium, pl 3.4 3.3 - 4.9 mmol/L [facility] Chloride 102 97 - 110 mmol/L [facility] CH CO2 26 22 - 32 mmol/L [facility] Anion gap 12 2 - 15 mmol/L [facility] BUN 15 6 - 25 mg/dL [facility] Creatinine 0.83 0.60 - 1.10 mg/dL [facility] Glucose 133 70 - 199 mg/dL [facility] Comment: Interpretive Data Fasting glucose >/= 126 mg/dl is diagnostic for diabetes. Fasting is defined as no caloric intake for at least 8 hours. Fasting glucose between 100 mg/dl to 125 mg/dl is diagnostic of prediabetes. In a patient with classic symptoms of hyperglycemia or hyperglycemic crisis, a random glucose >/= 200 mg/dl is diagnostic for diabetes. In the absence of unequivocal hyperglycemia, results should be confirmed by repeat testing. The classification and Diagnosis of Diabetes Diabetes Care 2021; 46: S19-S40. Current interpretive data was last revised 2022. Calcium 8.4(L) 8.5 - 10.3 mg/dL [facility] Bilirubin, total 0.3 0.1 - 1.2 mg/dL [facility] Protein, pl 6.2(L) 6.5 - 8.5 g/dL [facility] Albumin 3.3(L) 3.5 - 5.0 g/dL [facility] Alk phos 47 40 - 130 Units/L [facility] ALT 13 7 - 45 Units/L [facility] CH AST 21 10 - 45 Units/L [facility] Blood 08/06/2024 4:30 AM CDT 08/06/2024 5:01 AM CDT Chu Ribera MD LAB BLOOD ORDERABLES Final Re sult Performing Organization Address [facility] Co de Phone Number [facility] [address] Department [place] [address] * POCT glucose (08/05/2024 9:57 PM CDT) Glucose, POC 130 70 - 199 mg/dL POC Performer [id number] [facility] Blood 08/05/2024 9:57 PM CDT 08/05/2024 9:57 PM CDT Chu Ribera MD LAB POCT ORDERABLES - DEVICE Final Result Performing Organization Address [facility] de Phone Number [facility] [address] Department [place] [employer] [place] [address] * (ABNORMAL) Troponin T high-sensitivity 6-hour (08/05/2024 5:44 PM CDT) Trop T hs 21(H) <=14 ng/L Comment: Interpretive Data For further hscTnT resources including the diagnostic algorithm and an aid in interpretation, copy and paste this link: https://nrl.testcatalog.org/show/hsTrop Current Interpretive Data last revised 2020. Trop T hs delta 5 ng/L [facility] CH Trop T hs interp Equivocal [facility] Blood 08/05/2024 5:44 PM CDT 08/05/2024 5:55 PM CDT Shon Will MD LAB BLOOD ORDERABLES Fin al Result Performing Organization Address [facility]/[place] [phone] [address] Department [place] [address] * (ABNORMAL) Hemoglobin A1c (08/05/2024 5:44 PM CDT) Hgb A1C 5.7(H) 4.0 - 5.6 % Comment:Testing performed by : [place], [address] Estimated Average Glucose 117 mg/dL AMEE Comment: The ADA recommends reporting an estimated Average Glucose (eAG) with all Hemoglobin A1c results using the equation derived from a study of 507 normal and diabetic adults. Minority populations were underrepresented and children were not included. (Diabetes Care 31:8442-9081, 2008). The eAG is not equivalent to a fasting glucose. Testing performed by: [place], [address] Blood 08/05/2024 5:44 PM CDT 08/05/2024 5:55 PM CDT us Chu Ribera MD LAB BLOOD ORDERABLES Final Re sult AMEE VELASCO [address] Department [place] [address] * Critical Care (08/05/2024 4:21 PM CDT) Narrative Gilberto Martinez PA - 08/05/2024 4:21 PM CDT Gilberto Martinez PA 08/05/2024 4:22 PM Critical Care Performed by: Gilberto Martinez PA Authorized by: Shon Will MD Critical care provider statement: As reflected in the history, physical exam, orders, notes, and/or MDM, I was personally present while the patient was critically ill and provided critical care services for 35 minutes, excluding time involved in separately billable procedures. Critical care was necessary to treat or prevent imminent or life-threatening deterioration of the following condition(s): acute congestive heart failure excerbation (CHF) Critical care was time spent by me providing the following: continuous telemetry, interpretation of bedside monitors, imaging, and arterial/venous lab draws, continuous pulse oximetry, serial bedside patient exams and serial laboratory checks acute diuresis I provided emergent necessary critical care medicine services to this patient. I ordered and reviewed test results and/or imaging studies. I spent time discussing the management of this critically ill patient with consultants and the medical staff. I spent time discussing the management and therapeutic options for this critically ill patient with the patient themselves or with the appropriate designated surrogate decision-maker. I spent time documenting in the medical record. I admitted this patient to a continuous cardiac monitored bed. us Shon Will MD IN CLINIC/BEDSIDE ORDERA BLES Final Result * (ABNORMAL) Troponin T high-sensitivity 4-hour (08/05/2024 4:10 PM CDT) Trop T hs 19(H) <=14 ng/L Comment: Interpretive Data For further hscTnT resources including the diagnostic algorithm and an aid in interpretation, copy and paste this link: https://nrl.Pinguo.org/show/hsTrop Current Interpretive Data last revised 2020. Trop T hs delta 3 ng/L [facility] CH Trop T hs interp Insignificant [facility] Blood 08/05/2024 4:10 PM CDT 08/05/2024 4:12 PM CDT us Shon Will MD LAB BLOOD ORDERABLES Fin al Result [facility] [address] [facility] Department [place] [address] * (ABNORMAL) Troponin T high-sensitivity 2-hour (08/05/2024 1:35 PM CDT) Trop T hs 18(H) <=14 ng/L Comment: Interpretive Data For further hscTnT resources including the diagnostic algorithm and an aid in interpretation, copy and paste this link: https://nrl.Pinguo.org/show/hsTrop Current Interpretive Data last revised 2020. Trop T hs delta 2 ng/L [facility] CH Trop T hs interp Insignificant [facility] CH Blood 08/05/2024 1:35 PM CDT 08/05/2024 1:38 PM CDT us Shon Will MD LAB BLOOD ORDERABLES Fin al Result AMEE [address] Department [place] [address] * (ABNORMAL) Respiratory pathogen panel Nasopharyngeal (08/05/2024 1:35 PM CDT) Pathologist [facility] Influenza A RNA Not Detected Not Detected Influenza B RNA Not Detected Not Detected [facility] RSV RNA Not Detected Not Detected [facility] COVID-19 RNA Detected(A) Not Detected [facility] Coronavirus 229E RNA Not Detected Not Detected [facility] Coronavirus HKU1 RNA Not Detected Not Detected [facility] Coronavirus NL63 RNA Not Detected Not Detected [facility] Coronavirus OC43 RNA Not Detect[facility] Not Detected [facility] Adenovirus DNA Not Detected Not Detected [facility] Metapneumovirus RNA Not Detected Not Detected [facility] Rhinovirus/Enterov irus RNA Not Detected Not Detected [facility] Parainfluenza 1 RNA Not Detected Not Detected [facility] Parainfluenza 2 RNA Not Detected Not Detected [facility] Parainfluenza 3 RNA Not Detected Not Detected [facility] Parainfluenza 4 RNA Not Detected Not Detected [facility] B. pertussis DNA Not Detected Not Detected [facility] B. parapertussis DNA Not Detected Not Detected [facility] C. pneumoniae DNA Not Detected Not Detected [facility] M. pneumoniae DNA Not Detected Not Detected [facility] Comment: Interpretive Data The [employer]sInk FilmArray Respiratory Panel (RP2.1) assay is a multiplexed real-time PCR based nucleic acid test capable of simultaneous qualitative detection and identification of multiple respiratory viral and bacterial nucleic acids, including SARS Coronavirus 2 (the causative agent of COVID-19). The following bacteria, viruses and virus subtypes can be identified using the FilmArray RP2.1 assay: Bordetella pertussis, Bordetella parapertussis, Chlamydia pneumoniae, Mycoplasma pneumoniae, Adenovirus, SARS Coronavirus 2, seasonal coronaviruses (Coronavirus HKU1, Coronavirus NL63, Coronavirus 229E, and Coronavirus OC43), Influenza A, Influenza A subtype H1, Influenza A subtype H3, Influenza A subtype 2009 H1, Influenza B, Metapneumovirus, Parainfluenza 1, Parainfluenza 2, Parainfluenza 3, Parainfluenza 4, RSV, Rhinovirus/Enterovirus. Due to the genetic similarity between human Rhinovirus and Enterovirus, the FilmArray RP2.1 assay cannot reliably differentiate them. Coronavirus OC43 may cross-react with some isolates of Coronavirus HKU1. A dual positive result may be due to cross-reactivity or may indicate a co- infection. The detection and identification of specific viral and bacterial nucleic acids from individuals exhibiting signs and symptoms of a respiratory infection aids in the diagnosis of respiratory infection if used in conjunction with other clinical and epidemiological information. The results of this test should not be used as the sole basis for diagnosis, treatment, or other management decisions. Negative results in the setting of a respiratory illness may be due to infection with pathogens that are not detected by this test. Positive results do not rule out infection/co-infection with other organisms. The agent(s) detected by the FilmArray RP2.1 may not be the definite cause of disease. Additional testing (lab, imaging, etc.) may be necessary when evaluating a patient with possible respiratory tract infection. The FilmArray RP2.1 assay has FDA clearance for testing of CLASSROOM COORDINATOR swabs. The performance characteristics of this assay have been determined by [facility]. Current interpretive data was last revised on 2020. Nasopharyngeal 08/05/2024 1: 35 PM CDT 08/05/2024 1:38 PM CDT Gayathri LANDEROS - 08/05/2024 2:46 PM CDT Is the Patient experiencing symptoms consistent with COVID?->Yes Surveillance testing for transplant patient?->No Gilberto DAVID LAB MICROBIOLOGY - GENERAL ORDERABLES Final Result AMEE VELASCO [address] Department [place] [address] * Magnesium (08/05/2024 1:35 PM CDT) [facility] Magnesium 2.1 1.4 - 2.5 mg/dL Blood 08/05/2024 1:35 PM CDT 08/05/2024 1:38 PM CDT us Gilberto DAVID LAB [place] [address] [address] Department [place] [address] * XR Chest 1 Vw Portable (if patient condition/safety warrant portable) (08/05/2024 12:16 PM CDT) Anatomical Region Laterality Modality Body, Chest N/A Computed Radiogr aphy 08/05/2024 12:2 3 PM CDT Impressions 08/05/2024 12:23 PM CDT Cardiomegaly. No acute abnormality. Electronically signed by: Andrea Perea M.D. Narrative 08/05/2024 12:23 PM CDT EXAMINATION: XR CHEST 1 VIEW DATE: 08/05/2024 12:00 PM HISTORY: Shortness of breath FINDINGS: Left subclavian transvenous pacemaker defibrillator is present. The heart is enlarged. Pulmonary vascularity is normal. There is no pneumothorax or pleural effusion. Procedure Note Andrea Perea MD - 08/05/2024 EXAMINATION: XR CHEST 1 VIEW DATE: 08/05/2024 12:00 PM HISTORY: Shortness of breath FINDINGS: Left subclavian transvenous pacemaker defibrillator is present. The heart is enlarged. Pulmonary vascularity is normal. There is no pneumothorax or pleural effusion. IMPRESSION: Cardiomegaly. No acute abnormality. Electronically signed by: Andrea Perea M.D. Chu Ribera MD IMG XR PROCEDURES Final Resul t * (ABNORMAL) Troponin T high-sensitivity series (baseline, 2hr, 4hr, 6hr) (08/05/2024 11:59 AM CDT) Trop T hs 16(H) <=14 ng/L Comment: Interpretive Data For further hscTnT resources including the diagnostic algorithm and an aid in interpretation, copy and paste this link: https://nrl.testcatalog.org/show/hsTrop Current Interpretive Data last revised 2020. Blood 08/05/2024 11:5 9 AM CDT 08/05/2024 12:09 PM CDT Chu Ribera MD LAB BLOOD ORDERABLES Edited R esult - Final Performing Organization Address City/[facility]/ZIP Co de Phone Number AMEE VELASCO [address] Department [place] [address] * eGFR (08/05/2024 11:59 AM CDT) eGFR 73 >=60 mL/min/1. 73 m2 Comment: Interpretive Data Reference Interval Normal >/= 90 mL/min/1.73m2 Mildly decreased* 60 - 89 mL/min/1.73m2 Mildly to moderately decreased 45 - 59 mL/min/1.73m2 Moderately to severely decreased 30 - 44 mL/min/1.73m2 Severely decreased 15 - 29 mL/min/1.73m2 Kidney Failure < 15 mL/min/1.73m2 *Relative to young adult level Estimated glomerular filtration rate is determined by the 2020 CKD-EPI equation recommended by the National Kidney Foundation (A Unifying Approach to GFR Estimation: Recommendations of the NKF-ASK Task Force on Reassessing the Inclusion of Race in Diagnosing Kidney Disease, JASN 202). The CKD-EPI equation should not be used for patients with unstable renal function and has not been validated in children and those over 70. Current interpretive data was last reviewed 2021. Blood 08/05/2024 11:5 9 AM CDT 08/05/2024 12:09 PM CDT Chu Ribera MD LAB BLOOD ORDERABLES Final Re sult Performing Organization Address City/[facility]/ZIP Co de Phone Number AMEE VELASCO [address] Department of [employer] [place], [place] [id number] * (ABNORMAL) Differential, auto (08/05/2024 11:59 AM CDT) Neutrophil abs 8.9(H) 1.5 - 6.5 K/cumm Imm gran abs 0.0 0.0 - 0.1 K/cumm [facility] Lymphocyte abs 0.6(L) 0.8 - 3.3 K/cumm [facility] Monocyte abs 0.4 0.2 - 0.8 K/cumm [facility] Eosinophil abs 0.0 0.0 - 0.5 K/cumm [facility] Basophil abs 0.0 0.0 - 0.1 K/cumm [facility] Neutrophil pct 88.6 % [facility] Comment: Interpretive Data Percent cell count reference ranges are not reported, since discordance with absolute values may lead to misinterpretation of CBC data. Current Interpretive Data was last revised on 2017. Imm gran pct 0.3 % [facility] Comment: Interpretive Data Percent cell count reference ranges are not reported, since discordance with absolute values may lead to misinterpretation of CBC data. Current Interpretive Data was last revised on 2017. Lymphocyte pct 6.3 % [facility] Comment: Interpretive Data Percent cell count reference ranges are not reported, since discordance with absolute values may lead to misinterpretation of CBC data. Current Interpretive Data was last revised on 2017. Monocyte pct 4.4 % [facility] Comment: Interpretive Data Percent cell count reference ranges are not reported, since discordance with absolute values may lead to misinterpretation of CBC data. Current Interpretive Data was last revised on 2017. Eosinophil pct 0.0 % [facility] Comment: Interpretive Data Percent cell count reference ranges are not reported, since discordance with absolute values may lead to misinterpretation of CBC data. Current Interpretive Data was last revised on 2017. Basophil pct 0.4 % [facility] Comment: Interpretive Data Percent cell count reference ranges are not reported, since discordance with absolute values may lead to misinterpretation of CBC data. Current Interpretive Data was last revised on 2017. Blood 08/05/2024 11:5 9 AM CDT 08/05/2024 12:09 PM CDT Chu Ribera MD LAB BLOOD ORDERABLES Final Re sult Performing Organization Address [facility] de Phone Number AMEE VELASCO [address] [place] [address] * (ABNORMAL) Pro B-type natriuretic peptide (08/05/2024 11:59 AM CDT) NT-proBNP 11,006(H) <=450 pg/mL Comment: Interpretive Comments: A. Dyspnea in Acute Care Setting All Ages: < 300 pg/ml, acute heart failure unlikely. < 50 yrs: 300 - 450 pg/ml, further investigation warranted. > 450 pg/ml, acute heart failure likely. 50 - 74 yrs: 300 - 900 pg/ml, further investigation warranted. > 900 pg/ml, acute heart failure likely . > or = 75 yrs: 450 - 1800 pg/ml, further investigation warranted. > 1800 pg/ml, acute heart failure likely. B. Non-acute Setting < 75 yrs < 125 pg/ml, rules out heart failure. > or = 125 pg/ml, further investigation warranted. > or = 75 yrs < 450 pg/ml, rules out heart failure. > or = 450 pg/ml, further investigation warranted. - Knowledge of each individual patient's NT-proBNP range may be more useful than using similar cut-points for every patient. Please note that marked elevations in NT-proBNP levels may be observed in state other than Left Ventricular Congestive Failure, including: acute coronary syndromes, right heart strain/failure (including pulmonary embolism and cor pulmonale), critical illness, renal failure, as well as advanced age. - References: 1. Mo GUZMAN et.al. Eur Heart J. 2006:27:330-337. 2. Manuelito RW, Radha RICHARDSON. J. AM Robert Cardiol: Cardiovasc Imag. 2009;2: 216- 225. Interpretive Data Last Revised Date: 2017. Blood 08/05/2024 11:5 9 AM CDT 08/05/2024 12:09 PM CDT Chu Ribera MD LAB BLOOD ORDERABLES Final Re sult Performing Organization Address [facility] de Phone Number AMEE VELASCO [address] Department [place] [address] * (ABNORMAL) CBC with auto differential (08/05/2024 11:59 AM CDT) WBC 10.1(H) 3.8 - 9.9 K/cumm Hgb 12.5 11.9 - 15.5 g/dL [facility] CH Hct 39.7 35.6 - 45.5 % [facility] CH Plt 190 150 - 400 K/cumm [facility] CH MPV 12.1 9.1 - 12.3 fL [facility] CH RBC 4.26 3.90 - 5.20 M/cumm [facility] CH MCV 93.2 81.3 - 96.4 fL [facility] CH MCH 29.3 27.1 - 33.3 pg [facility] CH MCHC 31.5(L) 32.3 - 35.7 g/dL [facility] CH RDW CV 14.7 11.1 - 14.9 % [facility] CH RDW SD 50.5(H) 35.7 - 48.1 fL [facility] CH NRBC abs 0.00 0.00 - 0.01 K/cumm [facility] Blood 08/05/2024 11:5 9 AM CDT 08/05/2024 12:09 PM CDT Chu Ribera MD LAB BLOOD ORDERABLES Final Re sult [facility] [address] Department [place] [address] * Comprehensive metabolic panel (08/05/2024 11:59 AM CDT) Sodium 141 135 - 145 mmol/L Potassium, pl 3.9 3.3 - 4.9 mmol/L [facility] Chloride 102 97 - 110 mmol/L [facility] CH CO2 24 22 - 32 mmol/L [facility] CH Anion gap 15 2 - 15 mmol/L [facility] CH BUN 13 6 - 25 mg/dL [facility] Creatinine 0.81 0.60 - 1.10 mg/dL [facility] CH Glucose 131 70 - 199 mg/dL [facility] Comment: Interpretive Data Fasting glucose >/= 126 mg/dl is diagnostic for diabetes. Fasting is defined as no caloric intake for at least 8 hours. Fasting glucose between 100 mg/dl to 125 mg/dl is diagnostic of prediabetes. In a patient with classic symptoms of hyperglycemia or hyperglycemic crisis, a random glucose >/= 200 mg/dl is diagnostic for diabetes. In the absence of unequivocal hyperglycemia, results should be confirmed by repeat testing. The classification and Diagnosis of Diabetes Diabetes Care 2021; 46: S19-S40. Current interpretive data was last revised 2022. Calcium 9.0 8.5 - 10.3 mg/dL [facility] CH Bilirubin, total 0.3 0.1 - 1.2 mg/dL [facility] CH Protein, pl 6.8 6.5 - 8.5 g/dL [facility] Albumin 3.6 3.5 - 5.0 g/dL [facility] Alk phos 53 40 - 130 Units/L [facility] CH ALT 15 7 - 45 Units/L [facility] CH AST 23 10 - 45 Units/L [facility] CH Blood 08/05/2024 11:5 9 AM CDT 08/05/2024 12:09 PM CDT Chu Ribear MD LAB BLOOD ORDERABLES Final Re sult Performing Organization Address City/[facility] Co de Phone Number [facility] [address] [facility] Department [place] [address] * ECG 12 lead (08/05/2024 11:54 AM CDT) 08/05/2024 11:5 4 AM CDT Narrative [facility] - 08/05/2024 5:56 PM CDT Vent Rate: 103 bpm RR Interval: 582 msec MO Interval: 163 msec QRS Duration: 145 msec QT Interval: 386 msec QTC Interval: 445 msec P-R-T [place]: 59 - -60 - 117 degrees IMPRESSION: ELECTRONIC VENTRICULAR PACEMAKER ABNORMAL RHYTHM ECG Electronically Signed By: Dr. Ignacio Ya Chu Ribera MD ECG ORDERABLES Final Result Performing Organization Address City/[facility]/ZIP Co de Phone Number [facility] * eGFR (07/08/2024 5:32 AM MERCHANDISE WORKER) eGFR 70 >=60 mL/min/1. 73 m2 Comment: Interpretive Data Reference Interval Normal >/= 90 mL/min/1.73m2 Mildly decreased* 60 - 89 mL/min/1.73m2 Mildly to moderately decreased 45 - 59 mL/min/1.73m2 Moderately to severely decreased 30 - 44 mL/min/1.73m2 Severely decreased 15 - 29 mL/min/1.73m2 Kidney Failure < 15 mL/min/1.73m2 *Relative to young adult level Estimated glomerular filtration rate is determined by the 2020 CKD-EPI equation recommended by the National Kidney Foundation (A Unifying Approach to GFR Estimation: Recommendations of the NKF-ASK Task Force on Reassessing the Inclusion of Race in Diagnosing Kidney Disease, JASN 2020). The CKD-EPI equation should not be used for patients with unstable renal function and has not been validated in children and those over 70. Current interpretive data was last reviewed 2021. Blood 07/08/2024 5:32 AM MERCHANDISE WORKER 07/08/2024 5:41 AM MERCHANDISE WORKER us Inocencio Munson NP LAB BLOOD ORDERABLES Gabriela nagel Result [facility]ELASCO [address] Department [place] [address] * Differential, auto (07/08/2024 5:32 AM MERCHANDISE WORKER) Neutrophil abs 4.4 1.5 - 6.5 K/cumm Imm gran abs 0.0 0.0 - 0.1 K/cumm [facility] Lymphocyte abs 2.0 0.8 - 3.3 K/cumm [facility] Monocyte abs 0.5 0.2 - 0.8 K/cumm [facility] Eosinophil abs 0.3 0.0 - 0.5 K/cumm [facility] Basophil abs 0.0 0.0 - 0.1 K/cumm [facility] Neutrophil pct 60.8 % [facility] Comment: Interpretive Data Percent cell count reference ranges are not reported, since discordance with absolute values may lead to misinterpretation of CBC data. Current Interpretive Data was last revised on 2017. Imm gran pct 0.3 % [facility] Comment: Interpretive Data Percent cell count reference ranges are not reported, since discordance with absolute values may lead to misinterpretation of CBC data. Current Interpretive Data was last revised on 2017. Lymphocyte pct 27.9 % [facility] Comment: Interpretive Data Percent cell count reference ranges are not reported, since discordance with absolute values may lead to misinterpretation of CBC data. Current Interpretive Data was last revised on 2017. Monocyte pct 6.3 % [facility] Comment: Interpretive Data Percent cell count reference ranges are not reported, since discordance with absolute values may lead to misinterpretation of CBC data. Current Interpretive Data was last revised on 2017. Eosinophil pct 4.1 % [facility] Comment: Interpretive Data Percent cell count reference ranges are not reported, since discordance with absolute values may lead to misinterpretation of CBC data. Current Interpretive Data was last revised on 2017. Basophil pct 0.6 % [facility] Comment: Interpretive Data Percent cell count reference ranges are not reported, since discordance with absolute values may lead to misinterpretation of CBC data. Current Interpretive Data was last revised on 2017. Blood 07/08/2024 5:32 AM MERCHANDISE WORKER 07/08/2024 5:41 AM MERCHANDISE WORKER us Inocencio Munson NP LAB BLOOD ORDERABLES Gabriela l Result [facility] [address] Department [place] [address] * (ABNORMAL) CBC with auto differential (07/08/2024 5:32 AM MERCHANDISE WORKER) WBC 7.1 3.8 - 9.9 K/cumm Hgb 12.1 11.9 - 15.5 g/dL [facility] Hct 38.1 35.6 - 45.5 % [facility] Plt 196 150 - 400 K/cumm [facility] MPV 12.1 9.1 - 12.3 fL [facility] RBC 4.12 3.90 - 5.20 M/cumm [facility] CH MCV 92.5 81.3 - 96.4 fL [facility] MCH 29.4 27.1 - 33.3 pg [facility] MCHC 31.8(L) 32.3 - 35.7 g/dL [facility] RDW CV 14.2 11.1 - 14.9 % [facility] RDW SD 47.9 35.7 - 48.1 fL [facility] NRBC abs 0.00 0.00 - 0.01 K/cumm [facility] Blood 07/08/2024 5:32 AM MERCHANDISE WORKER 07/08/2024 5:41 AM MERCHANDISE WORKER us Inocencio Munson NP LAB BLOOD ORDERABLES Gabriela nagel Result [facility] [address] Department [place] [address] * (ABNORMAL) Comprehensive metabolic panel (07/08/2024 5:32 AM MERCHANDISE WORKER) Sodium 141 135 - 145 mmol/L Potassium, pl 3.7 3.3 - 4.9 mmol/L [facility] Chloride 102 97 - 110 mmol/L [facility] CO2 27 22 - 32 mmol/L [facility] Anion gap 12 2 - 15 mmol/L [facility] BUN 16 6 - 25 mg/dL [facility] Creatinine 0.84 0.60 - 1.10 mg/dL [facility] Glucose 124 70 - 199 mg/dL [facility] Comment: Interpretive Data Fasting glucose >/= 126 mg/dl is diagnostic for diabetes. Fasting is defined as no caloric intake for at least 8 hours. Fasting glucose between 100 mg/dl to 125 mg/dl is diagnostic of prediabetes. In a patient with classic symptoms of hyperglycemia or hyperglycemic crisis, a random glucose >/= 200 mg/dl is diagnostic for diabetes. In the absence of unequivocal hyperglycemia, results should be confirmed by repeat testing. The classification and Diagnosis of Diabetes Diabetes Care 2021; 46: S19-S40. Current interpretive data was last revised 2022. Calcium 8.7 8.5 - 10.3 mg/dL [facility] Bilirubin, total 0.3 0.1 - 1.2 mg/dL [facility] Protein, pl 5.9(L) 6.5 - 8.5 g/dL [facility] Albumin 3.5 3.5 - 5.0 g/dL [facility] Alk phos 47 40 - 130 Units/L [facility] ALT 8 7 - 45 Units/L [facility] AST 11 10 - 45 Units/L [facility] Blood 07/08/2024 5:32 AM MERCHANDISE WORKER 07/08/2024 5:41 AM MERCHANDISE WORKER Inocencio Munson CLASSROOM COORDINATOR LAB BLOOD ORDERABLES Gabriela l Result Performing Organization Address [facility] Co de Phone Number AMEE [address] Department [place] [address] * eGFR (07/07/2024 3:47 AM MERCHANDISE WORKER) eGFR 79 >=60 mL/min/1. 73 m2 Comment: Interpretive Data Reference Interval Normal >/= 90 mL/min/1.73m2 Mildly decreased* 60 - 89 mL/min/1.73m2 Mildly to moderately decreased 45 - 59 mL/min/1.73m2 Moderately to severely decreased 30 - 44 mL/min/1.73m2 Severely decreased 15 - 29 mL/min/1.73m2 Kidney Failure < 15 mL/min/1.73m2 *Relative to young adult level Estimated glomerular filtration rate is determined by the 2020 CKD-EPI equation recommended by the National Kidney Foundation (A Unifying Approach to GFR Estimation: Recommendations of the NKF-ASK Task Force on Reassessing the Inclusion of Race in Diagnosing Kidney Disease, JASN 2020). The CKD-EPI equation should not be used for patients with unstable renal function and has not been validated in children and those over 70. Current interpretive data was last reviewed 2021. Blood 07/07/2024 3:47 AM MERCHANDISE WORKER 07/07/2024 4:16 AM MERCHANDISE WORKER us Inocencio Munson CLASSROOM COORDINATOR LAB BLOOD ORDERABLES Gabriela l Result [facility] [address] Department [place] [address] * Differential, auto (07/07/2024 3:47 AM MERCHANDISE WORKER) Neutrophil abs 4.7 1.5 - 6.5 K/cumm Imm gran abs 0.0 0.0 - 0.1 K/cumm [facility] Lymphocyte abs 2.3 0.8 - 3.3 K/cumm [facility] Monocyte abs 0.5 0.2 - 0.8 K/cumm [facility] Eosinophil abs 0.3 0.0 - 0.5 K/cumm [facility] Basophil abs 0.0 0.0 - 0.1 K/cumm [facility] Neutrophil pct 60.1 % [facility] Comment: Interpretive Data Percent cell count reference ranges are not reported, since discordance with absolute values may lead to misinterpretation of CBC data. Current Interpretive Data was last revised on 2017. Imm gran pct 0.4 % [facility] Comment: Interpretive Data Percent cell count reference ranges are not reported, since discordance with absolute values may lead to misinterpretation of CBC data. Current Interpretive Data was last revised on 2017. Lymphocyte pct 29.4 % [facility] Comment: Interpretive Data Percent cell count reference ranges are not reported, since discordance with absolute values may lead to misinterpretation of CBC data. Current Interpretive Data was last revised on 2017. Monocyte pct 6.3 % [facility] Comment: Interpretive Data Percent cell count reference ranges are not reported, since discordance with absolute values may lead to misinterpretation of CBC data. Current Interpretive Data was last revised on 2017. Eosinophil pct 3.3 % [facility] Comment: Interpretive Data Percent cell count reference ranges are not reported, since discordance with absolute values may lead to misinterpretation of CBC data. Current Interpretive Data was last revised on 2017. Basophil pct 0.5 % [facility] Comment: Interpretive Data Percent cell count reference ranges are not reported, since discordance with absolute values may lead to misinterpretation of CBC data. Current Interpretive Data was last revised on 2017. Blood 07/07/2024 3:47 AM MERCHANDISE WORKER 07/07/2024 4:16 AM MERCHANDISE WORKER Inocencio Munson CLASSROOM COORDINATOR LAB BLOOD ORDERABLES Gabriela l Result [facility] [address] Department of [employer] [place], [place] [id number] * (ABNORMAL) CBC with auto differential (07/07/2024 3:47 AM MERCHANDISE WORKER) WBC 7.9 3.8 - 9.9 K/cumm Hgb 12.2 11.9 - 15.5 g/dL [facility] Hct 38.2 35.6 - 45.5 % [facility] Plt 208 150 - 400 K/cumm [facility] MPV 12.3 9.1 - 12.3 fL [facility] RBC 4.18 3.90 - 5.20 M/cumm [facility] MCV 91.4 81.3 - 96.4 fL [facility] MCH 29.2 27.1 - 33.3 pg [facility] MCHC 31.9(L) 32.3 - 35.7 g/dL [facility] RDW CV 14.3 11.1 - 14.9 % [facility] RDW SD 47.9 35.7 - 48.1 fL [facility] NRBC abs 0.00 0.00 - 0.01 K/cumm [facility] Blood 07/07/2024 3:47 AM MERCHANDISE WORKER 07/07/2024 4:16 AM MERCHANDISE WORKER Inocencio Munson CLASSROOM COORDINATOR LAB BLOOD ORDERABLES Gabriela l Result [facility] [address] Department [place] [address] * Magnesium (07/07/2024 3:47 AM MERCHANDISE WORKER) Magnesium 1.8 1.4 - 2.5 mg/dL Blood 07/07/2024 3:47 AM MERCHANDISE WORKER 07/07/2024 10:23 AM MERCHANDISE WORKER us Sandrine Toth MD LAB BLOOD ORDERABLES Final Re sult [facility] [address] Department [place] [address] * (ABNORMAL) Comprehensive metabolic panel (07/07/2024 3:47 AM MERCHANDISE WORKER) Sodium 140 135 - 145 mmol/L Potassium, pl 3.7 3.3 - 4.9 mmol/L [facility] Comment:Hemolysis present. R esults may be affected. Chloride 103 97 - 110 mmol/L [facility] CO2 26 22 - 32 mmol/L [facility] Anion gap 11 2 - 15 mmol/L [facility] BUN 15 6 - 25 mg/dL [facility] Creatinine 0.76 0.60 - 1.10 mg/dL [facility] Glucose 112 70 - 199 mg/dL [facility] Comment: Interpretive Data Fasting glucose >/= 126 mg/dl is diagnostic for diabetes. Fasting is defined as no caloric intake for at least 8 hours. Fasting glucose between 100 mg/dl to 125 mg/dl is diagnostic of prediabetes. In a patient with classic symptoms of hyperglycemia or hyperglycemic crisis, a random glucose >/= 200 mg/dl is diagnostic for diabetes. In the absence of unequivocal hyperglycemia, results should be confirmed by repeat testing. The classification and Diagnosis of Diabetes Diabetes Care 2021; 46: S19-S40. Current interpretive data was last revised 2022. Calcium 8.8 8.5 - 10.3 mg/dL [facility] Bilirubin, total 0.5 0.1 - 1.2 mg/dL [facility] Protein, pl 6.3(L) 6.5 - 8.5 g/dL [facility] Albumin 3.5 3.5 - 5.0 g/dL [facility] Alk phos 49 40 - 130 Units/L [facility] ALT 9 7 - 45 Units/L [facility] AST 23 10 - 45 Units/L [facility] Comment:Hemolysis present. R esults may be affected. Blood 07/07/2024 3:47 AM MERCHANDISE WORKER 07/07/2024 4:16 AM MERCHANDISE WORKER Inocencio Munson CLASSROOM COORDINATOR LAB BLOOD ORDERABLES Gabriela robe Result [facility] [address] [facility] Department of Laboratories [place] [phone] * TRANSTHORACIC ECHO (TTE) COMPLETE W DOPPLER/CF WO CONTRAST (07/06/2024 10:20 AM MERCHANDISE WORKER) Anatomical Region Laterality Modality Ultrasound 07/06/2024 9:44 AM MERCHANDISE WORKER Narrative 07/06/2024 12:25 [place] [address] Echocardiogram Report Patient Name: MARION BOURGEOIS W : 1945 Study Date: 07/06/2024 9:44:51 AM Gender: F Tech: JOSE Location: [id number] Ref Provider: INOCENCIO MUNSON Height(Cm): 165 BSA: 1.96 Weight(Kg): 83.5 Heart Rate: 76 BP: 152/117 Quality: Good Order Provider: INOCENCIO MUNSON PROCEDURES: Echocardiographic Report: Transthoracic echocardiogram with complete 2D, M-Mode, and color Doppler examination. INDICATIONS: Pericardial Effusion. MEASUREMENTS: 2D/MM Value Range Doppler Value Range EF Teich 2D 58.2 percent [ 54.0 - 74.0 ] ISAIAH Vmax 1.27 cm2 LVIDd 2D 4.17 cm [ 3.80 - 5.20 ] AV Mean PG 15 mmHg LVIDs 2D 2.90 cm [ 2.20 - 3.50 ] AV Peak Reji 1.92 m/s [ 1.00 - 1.70 ] LVPWd 2D 2.03 cm [ 0.60 - 0.90 ] AV VTI 32.56 cm IVSd 2D 1.73 cm [ 0.60 - 0.90 ] LVOT Diam 1.92 cm LA Dimension 2D 3.88 cm [ 2.70 - 3.80 ] LVOT Peak Reji 0.84 m/s [ 0.70 - 1.10 ] LA Dimension MM 3.66 cm [ 2.70 - 3.80 ] LVOT VTI 18.73 cm AoR Diam MM 3.77 cm [ 2.70 - 3.70 ] SI LVOT 28.3 ml/m2 [ >= 35.0 ] ACS MM 1.37 cm MV E Peak Reji 0.32 m/s [ 0.60 - 1.30 ] MV A Peak Reji 0.72 m/s [ 1.00 - 1.20 ] MV Mean PG 1 mmHg MV PHT 74 msec [ 20 - 100 ] MVA PHT 3.00 cm2 MV Decel Time 187 msec [ 104 - 258 ] MR PISA 0.84 PV Peak Reji 0.88 m/s [ 0.40 - 0.80 ] TR Peak Reji 2.48 m/s [ 1.00 - 2.80 ] TR Peak PG 25 mmHg E` 0.02 m/s E/E` 13.62 2D/MM Value Range Doppler Value Range - FINDINGS: Atrial Septum: The atrial septum is not well visualized. Left Ventricle: The left ventricle is normal in size with moderately reduced systolic function. There is severe concentric left ventricular hypertrophy. The left ventricular ejection fraction is visually estimated to be 35-40%. Left Atrium: The left atrium is normal in size. Right Ventricle: Normal right ventricular size. Normal right ventricular systolic function. Linear artifact in right ventricle suggestive of catheter(s), pacemaker lead(s), or ICD lead(s). Right Atrium: The right atrium is normal in size. Aortic Valve: The aortic valve is not well visualized. There does appear to be mild aortic stenosis by echocardiographic Doppler criteria. There is mild aortic regurgitation. Mitral Valve: The mitral valve leaflets are sclerotic and there is annular calcification but the valve opens well. There is mild mitral regurgitation. Pulmonic Valve: The pulmonic valve is not well visualized. Tricuspid Valve: The tricuspid valve is grossly normal. There is mild tricuspid regurgitation. Pericardium: There is tlru-jk-wefpsxgl size pericardial effusion with no evidence of echocardiographic tamponade. Aorta: Aortic root not well visualized. IVC: Normal size and no respiratory collapse consistent with elevated right atrial pressure (5-10 mmHg). CONCLUSIONS: There is severe concentric left ventricular hypertrophy. The left ventricular ejection fraction is visually estimated to be 35-40%. There is mild aortic stenosis and mild aortic regurgitation. There is a ulyg-xv-ucjujhoi sized pericardial effusion with no evidence of echocardiographic tamponade. The size of the pericardial effusion seems to have decreased compared to previous echo study. Technically difficult study. Electronically Signed By: Dr. Ignacio Ya 07/06/2024 12:24:51 PM MERCHANDISE WORKER Procedure Note Ignacio Ya MD - 07/06/2024 [place] [address] Echocardiogram Report Patient Name: MARION BOURGEOIS W : 1945 Study Date: 07/06/2024 9:44:51 AM Gender: F Tech: Location: [id number] Ref Provider: INOCENCIO MUNSON Height(Cm): 165 BSA: 1.96 Weight(Kg): 83.5 Heart Rate: 76 BP: 152/117 Quality: Good Order Provider: INOCENCIO MUNSON PROCEDURES: Echocardiographic Report: Transthoracic echocardiogram with complete 2D, M-Mode, and color Dopplerexamination. INDICATIONS: Pericardial Effusion. MEASUREMENTS: 2D/MM Value Range DopplerValue Range EF Teich 2D 58.2 percent [ 54.0 - 74.0 ] ISAIAH Vmax1.27 cm2 LVIDd 2D 4.17 cm [ 3.80 - 5.20 ] AV Mean PG 15mmHg LVIDs 2D 2.90 cm [ 2.20 - 3.50 ] AV Peak Vel1.92 m/s [ 1.00 - 1.70 ] LVPWd 2D 2.03 cm [ 0.60 - 0.90 ] AV VTI32.56 cm IVSd 2D 1.73 cm [ 0.60 - 0.90 ] LVOT Diam1.92 cm LA Dimension 2D 3.88 cm [ 2.70 - 3.80 ] LVOT Peak Vel0.84 m/s [ 0.70 - 1.10 ] LA Dimension MM 3.66 cm [ 2.70 - 3.80 ] LVOT VTI18.73 cm AoR Diam MM 3.77 cm [ 2.70 - 3.70 ] SI LVOT28.3 ml/m2 [ >= 35.0 ] ACS MM 1.37 cm MV E Peak Vel0.32 m/s [ 0.60 - 1.30 ] MV A Peak Reji 0.72 m/s [ 1.00 - 1.20 ] MV Mean PG 1 mmHg MV PHT 74 msec [ 20 - 100 ] MVA PHT 3.00 cm2 MV Decel Time 187 msec [ 104 - 258 ] MR PISA 0.84 PV Peak Reji 0.88 m/s [ 0.40 - 0.80 ] TR Peak Reji 2.48 m/s [ 1.00 - 2.80 ] TR Peak PG 25 mmHg E` 0.02 m/s E/E` 13.62 2D/MM Value Range DopplerValue Range - FINDINGS: Atrial Septum: The atrial septum is not well visualized. Left Ventricle: The left ventricle is normal in size with moderately reduced systolicfunction. There is severe concentric left ventricular hypertrophy. The left ventricularejection fraction is visually estimated to be 35-40%. Left Atrium: The left atrium is normal in size. Right Ventricle: Normal right ventricular size. Normal right ventricular systolic function.Linear artifact in right ventricle suggestive of catheter(s), pacemaker lead(s),or ICD lead(s). Right Atrium: The right atrium is normal in size. Aortic Valve: The aortic valve is not well visualized. There does appear to be mildaortic stenosis by echocardiographic Doppler criteria. There is mild aortic regurgitation. Mitral Valve: The mitral valve leaflets are sclerotic and there is annular calcificationbut the valve opens well. There is mild mitral regurgitation. Pulmonic Valve: The pulmonic valve is not well visualized. Tricuspid Valve: The tricuspid valve is grossly normal. There is mild tricuspidregurgitation. Pericardium: There is xttc-uw-oyxfhgzr size pericardial effusion with no evidence ofechocardiographic tamponade. Aorta: Aortic root not well visualized. IVC: Normal size and no respiratory collapse consistent with elevated rightatrial pressure (5-10 mmHg). CONCLUSIONS: There is severe concentric left ventricular hypertrophy. The left ventricular ejection fraction is visually estimated to be35-40%. There is mild aortic stenosis and mild aortic regurgitation. There is a repp-bb-zaspqlob sized pericardial effusion with no evidence of echocardiographic tamponade. The size of the pericardial effusion seems to have decreased compared toprevious echo study. Technically difficult study. Electronically Signed By: Dr. Ignacio Ya 07/06/2024 12:24:51 PM MERCHANDISE WORKER us Inocencio Munson NP CV ECHO PROCEDURES Final Result * eGFR (07/06/2024 3:58 AM MERCHANDISE WORKER) eGFR 87 >=60 mL/min/1. 73 m2 Comment: Interpretive Data Reference Interval Normal >/= 90 mL/min/1.73m2 Mildly decreased* 60 - 89 mL/min/1.73m2 Mildly to moderately decreased 45 - 59 mL/min/1.73m2 Moderately to severely decreased 30 - 44 mL/min/1.73m2 Severely decreased 15 - 29 mL/min/1.73m2 Kidney Failure < 15 mL/min/1.73m2 *Relative to young adult level Estimated glomerular filtration rate is determined by the 2020 CKD-EPI equation recommended by the National Kidney Foundation (A Unifying Approach to GFR Estimation: Recommendations of the NKF-ASK Task Force on Reassessing the Inclusion of Race in Diagnosing Kidney Disease, JASN 202). The CKD-EPI equation should not be used for patients with unstable renal function and has not been validated in children and those over 70. Current interpretive data was last reviewed 2021. Blood 07/06/2024 3:58 AM MERCHANDISE WORKER 07/06/2024 4:46 AM MERCHANDISE WORKER us Inocencio Munson NP LAB BLOOD ORDERABLES Gabriela l Result [facility] [address] Department [place] [address] * Differential, auto (07/06/2024 3:58 AM MERCHANDISE WORKER) Neutrophil abs 4.2 1.5 - 6.5 K/cumm Imm gran abs 0.0 0.0 - 0.1 K/cumm [facility] Lymphocyte abs 2.1 0.8 - 3.3 K/cumm [facility] Monocyte abs 0.5 0.2 - 0.8 K/cumm [facility] Eosinophil abs 0.3 0.0 - 0.5 K/cumm [facility] Basophil abs 0.0 0.0 - 0.1 K/cumm [facility] Neutrophil pct 58.7 % [facility] Comment: Interpretive Data Percent cell count reference ranges are not reported, since discordance with absolute values may lead to misinterpretation of CBC data. Current Interpretive Data was last revised on 2017. Imm gran pct 0.3 % [facility] Comment: Interpretive Data Percent cell count reference ranges are not reported, since discordance with absolute values may lead to misinterpretation of CBC data. Current Interpretive Data was last revised on 2017. Lymphocyte pct 29.8 % [facility] Comment: Interpretive Data Percent cell count reference ranges are not reported, since discordance with absolute values may lead to misinterpretation of CBC data. Current Interpretive Data was last revised on 2017. Monocyte pct 6.5 % [facility] Comment: Interpretive Data Percent cell count reference ranges are not reported, since discordance with absolute values may lead to misinterpretation of CBC data. Current Interpretive Data was last revised on 2017. Eosinophil pct 4.1 % [facility] Comment: Interpretive Data Percent cell count reference ranges are not reported, since discordance with absolute values may lead to misinterpretation of CBC data. Current Interpretive Data was last revised on 2017. Basophil pct 0.6 % [facility] Comment: Interpretive Data Percent cell count reference ranges are not reported, since discordance with absolute values may lead to misinterpretation of CBC data. Current Interpretive Data was last revised on 2017. Blood 07/06/2024 3:58 AM MERCHANDISE WORKER 07/06/2024 4:48 AM MERCHANDISE WORKER Inocencio Munson CLASSROOM COORDINATOR LAB BLOOD ORDERABLES Gabriela l Result [facility] [address] Department [place] [employer] [place] [address] * (ABNORMAL) CBC with auto differential (07/06/2024 3:58 AM MERCHANDISE WORKER) WBC 7.1 3.8 - 9.9 K/cumm Hgb 11.4(L) 11.9 - 15.5 g/dL [facility] Hct 35.8 35.6 - 45.5 % [facility] Plt 190 150 - 400 K/cumm [facility] MPV 12.4(H) 9.1 - 12.3 fL [facility] RBC 3.85(L) 3.90 - 5.20 M/cumm [facility] MCV 93.0 81.3 - 96.4 fL [facility] MCH 29.6 27.1 - 33.3 pg [facility] MCHC 31.8(L) 32.3 - 35.7 g/dL [facility] RDW CV 14.4 11.1 - 14.9 % [facility] RDW SD 49.4(H) 35.7 - 48.1 fL [facility] NRBC abs 0.00 0.00 - 0.01 K/cumm [facility] Blood 07/06/2024 3:58 AM MERCHANDISE WORKER 07/06/2024 4:48 AM MERCHANDISE WORKER Inocencio Munson CLASSROOM COORDINATOR LAB BLOOD ORDERABLES Gabriela l Result Performing Organization Address City/[facility]/ZIP Co de Phone Number [facility]EE [facility] [address] Department [place] [employer] [place] [address] * (ABNORMAL) Comprehensive metabolic panel (07/06/2024 3:58 AM MERCHANDISE WORKER) Pathologist [facility] Sodium 140 135 - 145 mmol/L Potassium, pl 3.5 3.3 - 4.9 mmol/L [facility] Chloride 103 97 - 110 mmol/L [facility] CO2 26 22 - 32 mmol/L [facility] Anion gap 11 2 - 15 mmol/L [facility] BUN 16 6 - 25 mg/dL [facility] Creatinine 0.68 0.60 - 1.10 mg/dL [facility] Glucose 108 70 - 199 mg/dL [facility] Comment: Interpretive Data Fasting glucose >/= 126 mg/dl is diagnostic for diabetes. Fasting is defined as no caloric intake for at least 8 hours. Fasting glucose between 100 mg/dl to 125 mg/dl is diagnostic of prediabetes. In a patient with classic symptoms of hyperglycemia or hyperglycemic crisis, a random glucose >/= 200 mg/dl is diagnostic for diabetes. In the absence of unequivocal hyperglycemia, results should be confirmed by repeat testing. The classification and Diagnosis of Diabetes Diabetes Care 2021; 46: S19-S40. Current interpretive data was last revised 2022. Calcium 9.0 8.5 - 10.3 mg/dL [facility] Bilirubin, total 0.3 0.1 - 1.2 mg/dL [facility] Protein, pl 6.2(L) 6.5 - 8.5 g/dL [facility] Albumin 3.5 3.5 - 5.0 g/dL [facility] Alk phos 50 40 - 130 Units/L [facility] ALT 10 7 - 45 Units/L [facility] AST 14 10 - 45 Units/L [facility] Blood 07/06/2024 3:58 AM MERCHANDISE WORKER 07/06/2024 4:46 AM MERCHANDISE WORKER us Inocencio Munson CLASSROOM COORDINATOR LAB BLOOD ORDERABLES Gabriela l Result [facility] [address] Department [place] [address] * CT Chest WO Contrast (07/05/2024 4:12 PM MERCHANDISE WORKER) Anatomical Region Laterality Modality Body N/A Computed Tomogra phy 07/05/2024 4:28 PM MERCHANDISE WORKER Impressions 07/05/2024 4:28 PM MERCHANDISE WORKER 1. Pulmonary nodules bilaterally measuring up to 4 mm. Follow-up chest CT based on Fleischner criteria suggested. 2. Diffusely enlarged heterogeneous thyroid. Recommend follow-up thyroid ultrasound for further evaluation of nodules. 3. Moderately sized pericardial effusion. 4. Additional chronic or incidental findings as above. Electronically signed by: Gilberto Barragan II, D.O. Narrative 07/05/2024 4:28 PM MERCHANDISE WORKER EXAMINATION: Computed tomography of the chest without intravenous contrast HISTORY: Shortness of breath. TECHNIQUE: Transaxial computed tomographic images of the chest were obtained without intravenous contrast according to the standard protocol. COMPARISON: None. FINDINGS: No consolidation, pneumothorax, or pleural effusion. There is a 4 mm right middle lobe nodule, series 3 image 66. A few additional sub-4 mm nodules are present bilaterally. For example, right lower lobe 3 mm nodule, series 3 image 66, and medial left lower lobe 3 mm nodule, series 3 image 53. Thyroid is diffusely heterogeneous and enlarged with apparent thyroid nodules. Follow-up thyroid ultrasound suggested. There is a moderately sized pericardial effusion. Small hiatal hernia. Simple cysts in the left kidney. Upper abdominal structures are unremarkable. Intact. No acute osseous abnormality. No suspicious lytic or sclerotic lesions. Mild multilevel endplate changes in the visualized spine. Procedure Note Gilberto Barragan II, - 07/05/2024 EXAMINATION: Computed tomography of the chest without intravenous contrast HISTORY: Shortness of breath. TECHNIQUE: Transaxial computed tomographic images of the chest were obtained without intravenous contrast according to the standard protocol. COMPARISON: None. FINDINGS: No consolidation, pneumothorax, or pleural effusion. There is a 4 mm right middle lobe nodule, series 3 image 66. A few additional sub-4 mm nodules are present bilaterally. For example, right lower lobe 3 mm nodule, series 3 image 66, and medial left lower lobe 3 mm nodule, series 3 image 53. Thyroid is diffusely heterogeneous and enlarged with apparent thyroid nodules. Follow-up thyroid ultrasound suggested. There is a moderately sized pericardial effusion. Small hiatal hernia. Simple cysts in the left kidney. Upper abdominal structures are unremarkable. Intact. No acute osseous abnormality. No suspicious lytic or sclerotic lesions. Mild multilevel endplate changes in the visualized spine. IMPRESSION: 1. Pulmonary nodules bilaterally measuring up to 4 mm. Follow-up chest CT based on Fleischner criteria suggested. 2. Diffusely enlarged heterogeneous thyroid. Recommend follow-up thyroid ultrasound for further evaluation of nodules. 3. Moderately sized pericardial effusion. 4. Additional chronic or incidental findings as above. Electronically signed by: Gilberto Barragan II, D.O. Lisa Bliss CLASSROOM COORDINATOR IMG CT PROCEDURES Fin al Result * (ABNORMAL) Troponin T high-sensitivity 2-hour (07/05/2024 2:47 PM MERCHANDISE WORKER) Trop T hs 28(H) <=14 ng/L Comment: Interpretive Data For further hscTnT resources including the diagnostic algorithm and an aid in interpretation, copy and paste this link: https://nrl.testcatalog.org/show/hsTrop Current Interpretive Data last revised 2020. Trop T hs delta 0 ng/L [facility] Trop T hs interp Insignificant [facility] Blood 07/05/2024 2:47 PM MERCHANDISE WORKER 07/05/2024 2:50 PM MERCHANDISE WORKER Abelardo Carey MD LAB BLOOD ORDERABLES Final Result [facility] [id number] Department of Laboratories [place] [id number] * XR Chest 1 Vw Portable (if patient condition/safety warrant portable) (07/05/2024 1:17 PM MERCHANDISE WORKER) Anatomical Region Laterality Modality Body, Chest N/A Computed Radiogr aphy 07/05/2024 1:22 PM MERCHANDISE WORKER Impressions 07/05/2024 1:22 PM MERCHANDISE WORKER No failure. Electronically signed by: Troy Veronica M.D. Narrative 07/05/2024 1:22 PM MERCHANDISE WORKER EXAMINATION: XR CHEST 1 VIEW HISTORY: The patient is an 79-year-old female who presents with shortness of breath. Comparison made with the previous study dated 11/01/2023. TECHNIQUE: AP portable view of the chest. FINDINGS: Borderline cardiomegaly with aortic atherosclerosis and unfolding of the great vessels. No failure. No active infiltrate. Procedure Note Troy Veronica MD - 07/05/2024 EXAMINATION: XR CHEST 1 VIEW HISTORY: The patient is an 79-year-old female who presents with shortness of breath. Comparison made with the previous study dated 11/01/2023. TECHNIQUE: AP portable view of the chest. FINDINGS: Borderline cardiomegaly with aortic atherosclerosis and unfolding of the great vessels. No failure. No active infiltrate. IMPRESSION: No failure. Electronically signed by: Troy Veronica M.D. us Abelardo Carey MD IMG XR PROCEDURES Final Re sult * (ABNORMAL) Troponin T high-sensitivity series (baseline, 2hr, 4hr, 6hr) (07/05/2024 12:30 PM MERCHANDISE WORKER) Trop T hs 28(H) <=14 ng/L Comment: Interpretive Data For further hscTnT resources including the diagnostic algorithm and an aid in interpretation, copy and paste this link: https://nrl.testcatalog.org/show/hsTrop Current Interpretive Data last revised 2020. Blood 07/05/2024 12:3 0 PM MERCHANDISE WORKER 07/05/2024 12:32 PM MERCHANDISE WORKER us Abelardo Carey MD LAB BLOOD ORDERABLES Final Result [facility] [id number] [address] Department [place] [address] * eGFR (07/05/2024 12:30 PM MERCHANDISE WORKER) eGFR 73 >=60 mL/min/1. 73 m2 Comment: Interpretive Data Reference Interval Normal >/= 90 mL/min/1.73m2 Mildly decreased* 60 - 89 mL/min/1.73m2 Mildly to moderately decreased 45 - 59 mL/min/1.73m2 Moderately to severely decreased 30 - 44 mL/min/1.73m2 Severely decreased 15 - 29 mL/min/1.73m2 Kidney Failure < 15 mL/min/1.73m2 *Relative to young adult level Estimated glomerular filtration rate is determined by the 2020 CKD-EPI equation recommended by the National Kidney Foundation (A Unifying Approach to GFR Estimation: Recommendations of the NKF-ASK Task Force on Reassessing the Inclusion of Race in Diagnosing Kidney Disease, JASN 2020). The CKD-EPI equation should not be used for patients with unstable renal function and has not been validated in children and those over 70. Current interpretive data was last reviewed 2021. Blood 07/05/2024 12:3 0 PM MERCHANDISE WORKER 07/05/2024 12:32 PM MERCHANDISE WORKER Abelardo Carey MD LAB BLOOD ORDERABLES Final Result [facility] [id number] Department [place] [address] * Differential, auto (07/05/2024 12:30 PM MERCHANDISE WORKER) Neutrophil abs 5.5 1.5 - 6.5 K/cumm Imm gran abs 0.0 0.0 - 0.1 K/cumm [facility] Lymphocyte abs 1.4 0.8 - 3.3 K/cumm [facility] Monocyte abs 0.3 0.2 - 0.8 K/cumm [facility] Eosinophil abs 0.2 0.0 - 0.5 K/cumm CERNER Basophil abs 0.0 0.0 - 0.1 K/cumm [facility] Neutrophil pct 73.8 % [facility] Comment: Interpretive Data Percent cell count reference ranges are not reported, since discordance with absolute values may lead to misinterpretation of CBC data. Current Interpretive Data was last revised on 2017. Imm gran pct 0.3 % [facility] Comment: Interpretive Data Percent cell count reference ranges are not reported, since discordance with absolute values may lead to misinterpretation of CBC data. Current Interpretive Data was last revised on 2017. Lymphocyte pct 18.9 % [facility] Comment: Interpretive Data Percent cell count reference ranges are not reported, since discordance with absolute values may lead to misinterpretation of CBC data. Current Interpretive Data was last revised on 2017. Monocyte pct 4.4 % [facility] Comment: Interpretive Data Percent cell count reference ranges are not reported, since discordance with absolute values may lead to misinterpretation of CBC data. Current Interpretive Data was last revised on 2017. Eosinophil pct 2.1 % [facility] Comment: Interpretive Data Percent cell count reference ranges are not reported, since discordance with absolute values may lead to misinterpretation of CBC data. Current Interpretive Data was last revised on 2017. Basophil pct 0.5 % [facility] Comment: Interpretive Data Percent cell count reference ranges are not reported, since discordance with absolute values may lead to misinterpretation of CBC data. Current Interpretive Data was last revised on 2017. Blood 07/05/2024 12:3 0 PM MERCHANDISE WORKER 07/05/2024 12:32 PM MERCHANDISE WORKER us Abelardo Carey MD LAB BLOOD ORDERABLES Final Result [facility] [id number] Department [place] [address] * (ABNORMAL) Pro B-type natriuretic peptide (07/05/2024 12:30 PM MERCHANDISE WORKER) NT-proBNP 3,136(H) <=450 pg/mL Comment: Interpretive Comments: A. Dyspnea in Acute Care Setting All Ages: < 300 pg/ml, acute heart failure unlikely. < 50 yrs: 300 - 450 pg/ml, further investigation warranted. > 450 pg/ml, acute heart failure likely. 50 - 74 yrs: 300 - 900 pg/ml, further investigation warranted. > 900 pg/ml, acute heart failure likely . > or = 75 yrs: 450 - 1800 pg/ml, further investigation warranted. > 1800 pg/ml, acute heart failure likely. B. Non-acute Setting < 75 yrs < 125 pg/ml, rules out heart failure. > or = 125 pg/ml, further investigation warranted. > or = 75 yrs < 450 pg/ml, rules out heart failure. > or = 450 pg/ml, further investigation warranted. - Knowledge of each individual patient's NT-proBNP range may be more useful than using similar cut-points for every patient. Please note that marked elevations in NT-proBNP levels may be observed in state other than Left Ventricular Congestive Failure, including: acute coronary syndromes, right heart strain/failure (including pulmonary embolism and cor pulmonale), critical illness, renal failure, as well as advanced age. - References: 1. Mo GUZMAN et.al. Eur Heart J. 2006:27:330-337. 2. Manuelito WALSH, Radha RICHARDSON. J. AM Robert Cardiol: Cardiovasc Imag. 2009;2: 216- 225. Interpretive Data Last Revised Date: 2017. Blood 07/05/2024 12:3 0 PM MERCHANDISE WORKER 07/05/2024 12:32 PM MERCHANDISE WORKER Abelardo Carey MD LAB BLOOD ORDERABLES Final Result [facility] [id number] Department [place] [address] * Thyroid Function Lambert (07/05/2024 12:30 PM MERCHANDISE WORKER) Pathologist [facility] TSH 0.36 0.30 - 4.20 mcIUnit/mL Blood 07/05/2024 12:3 0 PM MERCHANDISE WORKER 07/05/2024 2:19 PM MERCHANDISE WORKER Lisa Bliss NP LAB BLOOD ORDERABLES Final Result Performing Organization Address [facility] Co de Phone Number [facility] [place] [address] [address] Department [place] [employer] [place] [address] * (ABNORMAL) CBC with auto differential (07/05/2024 12:30 PM MERCHANDISE WORKER) Pathologist [facility] WBC 7.5 3.8 - 9.9 K/cumm Hgb 11.9 11.9 - 15.5 g/dL [facility] Hct 38.4 35.6 - 45.5 % [facility] Plt 218 150 - 400 K/cumm [facility] MPV 11.5 9.1 - 12.3 fL [facility] RBC 4.11 3.90 - 5.20 M/cumm [facility] MCV 93.4 81.3 - 96.4 fL [facility] MCH 29.0 27.1 - 33.3 pg [facility] MCHC 31.0(L) 32.3 - 35.7 g/dL [facility] RDW CV 14.4 11.1 - 14.9 % [facility]ERN[facility] RDW SD 49.9(H) 35.7 - 48.1 fL [facility] NRBC abs 0.00 0.00 - 0.01 K/cumm [facility] Blood Venous blood specimen / Unknown 07/05/2024 12:30 PM MERCHANDISE WORKER 07/05/2024 12:32 PM MERCHANDISE WORKER us Abelardo Carey MD LAB [place] [address] [address] Department [place] [address] * Comprehensive metabolic panel (07/05/2024 12:30 PM MERCHANDISE WORKER) Sodium 145 135 - 145 mmol/L Potassium, pl 3.5 3.3 - 4.9 mmol/L C[facility] Chloride 106 97 - 110 mmol/L [facility] CO2 27 22 - 32 mmol/L [facility] Anion gap 12 2 - 15 mmol/L [facility] BUN 13 6 - 25 mg/dL [facility] Creatinine 0.81 0.60 - 1.10 mg/dL [facility] Glucose 146 70 - 199 mg/dL [facility] Comment: Interpretive Data Fasting glucose >/= 126 mg/dl is diagnostic for diabetes. Fasting is defined as no caloric intake for at least 8 hours. Fasting glucose between 100 mg/dl to 125 mg/dl is diagnostic of prediabetes. In a patient with classic symptoms of hyperglycemia or hyperglycemic crisis, a random glucose >/= 200 mg/dl is diagnostic for diabetes. In the absence of unequivocal hyperglycemia, results should be confirmed by repeat testing. The classification and Diagnosis of Diabetes Diabetes Care 202; 46: S19-S40. Current interpretive data was last revised 2022. Calcium 9.2 8.5 - 10.3 mg/dL C[facility] Bilirubin, total 0.5 0.1 - 1.2 mg/dL [facility] Protein, pl 6.7 6.5 - 8.5 g/dL [facility] Albumin 4.0 3.5 - 5.0 g/dL [facility] Alk phos 55 40 - 130 Units/L [facility] ALT 11 7 - 45 Units/L [facility] AST 18 10 - 45 Units/L [facility] CH Blood 07/05/2024 12:3 0 PM MERCHANDISE WORKER 07/05/2024 12:32 PM MERCHANDISE WORKER Abelardo Carey MD LAB BLOOD ORDERABLES Final Result Performing Organization Address [facility] Co de Phone Number AMEE [address] [address] Department [place] [address] * ECG 12 lead (07/05/2024 12:25 PM MERCHANDISE WORKER) 07/05/2024 12:2 5 PM MERCHANDISE WORKER Narrative [facility] - 07/05/2024 7:42 PM MERCHANDISE WORKER Vent Rate: 99 bpm RR Interval: 606 msec MO Interval: 128 msec QRS Duration: 154 msec QT Interval: 408 msec QTC Interval: 464 msec P-R-T [place]: 68 - 265 - 64 degrees IMPRESSION: VENTRICULAR PACED RHYTHM Electronically Signed By: Blake Garces MD, [facility] Abelardo Carey MD ECG ORDERABLES Final Resu lt Performing Organization Address [facility] Phone Number [facility] * DEVICE CHECK - REMOTE (06/19/2024 10:46 AM MERCHANDISE WORKER) Anatomical Region Laterality Modality Other Narrative 06/28/2024 3:59 PM MERCHANDISE WORKER Lorenzo Biv ICD. Dx; NICM, LBBB, SSS, [...] Entresto Follow up: Office Pacemaker/ICD scheduled 03/20/25 [employer] remote 09/25/24 Andry Workman RN us Vaishali Yanez MD CV CARDIAC [facility] Final Result * SCAN - RADIOLOGY/IMAGING (06/18/2024) Anatomical Region Laterality Modality Other us Vaishali Yanez MD Final Res ult * TRANSTHORACIC ECHO (TTE) COMPLETE W DOPPLER/CF WO CONTRAST (06/07/2024 3:55 PM MERCHANDISE WORKER) LV EF 35-40 % CONS SCIMAGE Anatomical Region Laterality Modality Ultrasound 06/07/2024 3:16 PM MERCHANDISE WORKER Narrative 06/08/2024 1:23 PM MERCHANDISE WORKER [facility] [address], [address], [place] [address] P:[phone] P:[phone] Echocardiographic Report Patient Name: MARION BOURGEOIS W : 1945 Study Date: 06/07/2024 3:16:49 PM Gender: F Tech: Location: [facility] Ref Provider: VAISHALI YANEZ Height(Cm): 165 BSA: 1.95 Weight(Kg): 83 Heart Rate: 79 BP: 128 / 62 Quality: Good Order Provider: VAISHALI YANEZ PROCEDURES: Echocardiographic Report: Transthoracic echocardiogram with complete [...] FINDINGS: Interpretation Site: Exam was interpreted at [facility]. Left Ventricle: Moderate concentric left ventricular hypertrophy. [...] rhythm. PVCs. APCs. Electronically Signed By: Vaishali Yanez MD 06/08/2024 1:22:57 PM MERCHANDISE WORKER Procedure Note Vaishali Yanez MD - 06/08/2024 [facility] [address], [address], [place] [address] P:[phone] P:[phone] Echocardiographic Report Patient Name: MARION BOURGEOIS W : 1945 Study Date: 06/07/2024 3:16:49 PM Gender: F Tech: Location: [facility] Ref Provider: VAISHALI YANEZ Height(Cm): 165 BSA: 1.95 Weight(Kg): 83 Heart Rate: 79 BP: 128 / 62 Quality: Good Order Provider: VAISHALI YANEZ PROCEDURES: Echocardiographic Report: Transthoracic echocardiogram with complete [...] FINDINGS: Interpretation Site: Exam was interpreted at [facility]. Left Ventricle: Moderate concentric left ventricular hypertrophy. [...] rhythm. PVCs. APCs. Electronically Signed By: Vaishali Yanez MD 06/08/2024 1:22:57 PM MERCHANDISE WORKER Vaishali Yanez MD CV ECHO PROCEDURES Final Result from Last [address] [place] [address] [place] [address] [facility] [place] [address] [place] [address] MEDICARE [facility] Address: [address] [address] [place] [address] [facility] Advance Directives For more information, please contact: [phone] * Full Code (Latest Code Status on File) Date Activated Date Inactivated Comments 08/05/2024 4:21 PM 08/05/2024 4:21 PM * Full Code Date Activated Date Inactivated Comments 08/05/2024 4:20 PM 08/05/2024 4:21 PM * Full Code Date Activated Date Inactivated Comments 07/05/2024 4:21 PM 07/08/2024 6:26 PM * Full Code Date Activated Date Inactivated Comments 10/31/2023 1:16 PM 11/01/2023 6:53 PM Care Teams Kitchen And Bath Designer Relationship Specialty Start Date End Date Rik Bennett MD [address] [place] [address] PCP - General Family Medicine 07/05/24 Isabel Lubin NP [address] [place] [address] [place] [address] Nurse Practitioner Hospice and Palliative Medicine 07/18/24
--- OUTSIDE RECORDS SUMMARY | 2024-08-29 13:09 | XMS_ITS | Clinical Summary ---
Author Organization [facility] Address [facility] [place] [address] Care Team Providers Care Litigation Associate Name Role Phone Pedrito Bennett MD Primary Care Provider [phone] Allergies Active Allergy Reactions Criticality Noted Date Comments Ibuprofen Rash Low 07/04/2024 Medications spironolactone (ALDACTONE) 25 MG tablet Take 1 tablet (25 mg total) by mouth daily. Active furosemide (LASIX) 40 MG tablet Take 1 tablet (40 mg total) by mouth daily. 05/01/2024 Active amiodarone (PACERONE) 200 MG tablet Take 1 tablet (200 mg total) by mouth daily. Active metoprolol succinate ER (TOPROL-XL) 25 MG 24 hr tablet Take 1 tablet (25 mg total) by mouth daily. 11/01/2023 Active Encounters Date Type Department Care Team Description 07/04/2024 1:32 PM VENUE ATTENDANT - 07/04/2024 2:34 PM VENUE ATTENDANT Hospital Encounter [facility] Care [address] [place] [address] [phone] Alia Steinberg PA-C Edema Discharge Disposition: Home or Self Care (Routine Discharge) 07/04/2024 Travel from Last 3 Months Social History Tobacco Use Types Packs/Day Years Used Date Smoking Tobacco: Never Smokeless Tobacco: Never Tobacco Cessation:Counseling Given: Not Answered Alcohol Use Standard Drinks/Week Comments Never 0 (1 standard drink = 0.6 oz pur e alcohol) Comments Unknown Sex and Gender Information Value Date Recorded Sex Assigned at Female 07/04/2024 1:26 PM VENUE ATTENDANT Legal Sex Female 1:23 PM VENUE ATTENDANT Gender Identity Not on file Sexual Orientation Not on file Last Filed Vital Signs Vital Sign Reading Time Taken Comments Blood Pressure 148/68 07/04/2024 1:42 PM VENUE ATTENDANT Pulse 55 07/04/2024 1:42 PM VENUE ATTENDANT Temperature 37.3 C (99.2 F) 07/04/2024 1:42 PM VENUE ATTENDANT Respiratory Rate 20 07/04/2024 1:42 PM VENUE ATTENDANT Oxygen Saturation 98% 07/04/2024 1:42 PM VENUE ATTENDANT Inhaled Oxygen Concentration - - Weight 84.8 kg (187 lb) 07/04/2024 1:42 PM VENUE ATTENDANT Height 167.6 cm (5' 6 ) 07/04/2024 1:42 PM VENUE ATTENDANT Body Mass Index 30.18 07/04/2024 1:42 PM VENUE ATTENDANT Plan of Treatment Health Maintenance Due Date Last Done Comments DTaP, Tdap and Td Vaccines ( 1 - Tdap) 1962 Pneumococcal Vaccine: 50+ Years (1 of 1 - PCV) 1993 Zoster Vaccines (1 of 2) 1993 Annual Medicare Wellness Visit 2008 Dexa Scan (General) 2008 RSV Immunization or 60+ Years (1 - 1-dose 75+ series) 2018 COVID-19 Vaccine (3 - 2023-2 5 season) 2024 08/15/2020, 07/18/2020 Meningococcal B Vaccine Aged Out No l onger eligible based on patient's age to complete this topic Meningococcal Vaccine Aged Out No larissa leatha eligible based on patient's age to complete this topic RSV Immunizations Under 20 Months Aged Out No longer eligible b ased on patient's age to complete this topic Procedures Procedure Name Priority Date/Time Associated Diagnosis Comments XR CHEST PA+LAT STAT 07/04/2024 2:05 PM VENUE ATTENDANT CORONAVIRUS (COVID 19) STAT 07/04/2024 1:49 PM VENUE ATTENDANT INFLUENZA A & B STAT 07/04/2024 1:49 PM VENUE ATTENDANT from Last 3 Months Results * XR CHEST PA+LAT (07/04/2024 2:05 PM VENUE ATTENDANT) Anatomical Region Laterality Modality Chest Radiographic Adriana ging 07/04/2024 2:15 PM VENUE ATTENDANT Impressions 07/04/2024 2:18 PM VENUE ATTENDANT IMPRESSION: No acute pulmonary infiltrate or consolidation. No acute pulmonary vascular congestion. Ordered By: ALIA STEINBERG Interpreted By: Todd English, 07/04/2024 2:15 PM Narrative 07/04/2024 2:18 PM VENUE ATTENDANT [address] [address] IMAGING STUDIES: XR CHEST PA+LAT DATE: 07/04/2024 1:45 PM HISTORY: sob 79-year-old female. Increasing bilateral leg edema. History of congestive heart failure and is on daily diuretics. Reportedly evaluated at [facility] emergency department last night for nausea and vomiting and was discharged this morning. COMPARISON: None at this institution. DISCUSSION: Upright PA and lateral views. Left chest multi lead ICD. Cardiomegaly. Aortic atherosclerotic calcifications. No acute pulmonary vascular congestion. No acute pulmonary infiltrate, pulmonary consolidation, pleural effusion, or pneumothorax. Degenerative changes spine and shoulders. Procedure Note Todd English MD - 07/04/[address] [address] IMAGING STUDIES: XR CHEST PA+LATDATE: 07/04/2024 1:45 PM HISTORY: sob 79-year-old female. Increasing bilateral leg edema.History of congestive heart failure and is on daily diuretics. [facility] department last night for nauseaand vomiting and was discharged this morning. COMPARISON: None at this institution. DISCUSSION: Upright PA and lateral views. Left chest multi lead ICD. Cardiomegaly. Aortic atheroscleroticcalcifications. No acute pulmonary vascular congestion. No acute pulmonary infiltrate, pulmonary consolidation, pleural effusion,or pneumothorax. Degenerative changes spine and shoulders. IMPRESSION: No acute pulmonary infiltrate or consolidation. No acute pulmonaryvascular congestion. Ordered By: ALIA STEINBERG Interpreted By: Todd English, 07/04/2024 2:15 PM Alia Steinberg PA-C GENERAL IMAGING Final Resul t * CORONAVIRUS (COVID 19) (07/04/2024 1:49 PM VENUE ATTENDANT) CORONAVIRUS SARS COV 2 RNA NEGATIVE NEGATIVE 07/04/2024 2:[address] [facility] Comment: NEGATIVE RESULTS DO NOT RULE OUT COVID 19 AND SHOULD NOT BE USED THE SOLE BASIS FOR TREATMENT OR PATIENT MANAGEMENT DECISIONS, INCLUDING INFECTION CONTROL DECISIONS. NEGATIVE RESULTS SHOULD BE CONSIDERED IN THE CONTEXT OF A PATIENT'S RECENT EXPOSURES, HISTORY AND THE PRESENCE OF CLINICAL SIGNS AND SYMPTOMS CONSISTENT WITH COVID 19. THE ID NOW COVID-19 2.0 TEST HAS BEEN AUTHORIZED BY THE FDA UNDER EAU FOR USE BY AUTHORIZED LABORATORIES. PERFORMED BY NUCLEIC ACID AMPLIFICATION FOR MOLECULAR QUALITATIVE DETECTION OF SARS-COV-2. SPECIMEN TYPE NASAL 07/04/2024 1:[address] [facility] NASAL STRUCTURE / Unknown 07/04/2024 1:49 [address] VENUE ATTENDANT Alia Steinberg PA-C MICROBIOLOGY - GENERAL ORDE [facility] Final Result [place] [id number] [place] [address], [place] * INFLUENZA A & B (07/04/2024 1:49 PM VENUE ATTENDANT) SPECIMEN TYPE NASOPHARYNGEAL SWAB 07/04/2024 1:[address] [facility] INFLUENZA A NEGATIVE NEGATIVE 07/04/2024 2:[address] [facility] INFLUENZA B NEGATIVE NEGATIVE 07/04/2024 2:20 PM V[address] ATTENDANT [facility] Comment: Interpretation: Negative for Influenza A and B. A negative result does not exclude influenza virus infection. If influenza is circulating in your community, a diagnosis of influenza should be considered based on a patient's clinical presentation and empiric antiviral treatment should be considered, if indicated. If more conclusive testing is needed for hospitalized inpatients, follow-up confirmatory testing with RT-PCR requires a separate order. NASOPHARYNGEAL SWAB / Unknown 07/04/2024 1:49 PM VENUE ATTENDANT us Alia Steinberg PA-C MICROBIOLOGY - GENERAL ORDE [facility] Final Result [address] [address], from Last 3 [place] [address] MEDICARE MEDICAID Care Teams Litigation Associate Relationship Specialty Start Date End Date Pedrito Bennett MD [address] [place] [address] PCP - General SURGERY 07/04/24
--- OUTSIDE RECORDS SUMMARY | 2024-08-29 13:10 | XMS_ITS | Clinical Summary ---
Author Organization [facility] [address] Address [address] [place] [address] Care Team Providers Care Counselor Manager Name Role Phone Rik Bennett MD Primary Care Provider Isabel Lubin NP Unavailable [phone] Allergies Active Allergy Reactions Criticality Noted Date [...] total) by mouth nightly 30 capsule 08/16/19 026 Active guaiFENesin-dex tromethorphan ER (MUCINEX DM) [...] by mouth daily 30 tablet 11 12/18/19 23 025 Discontinued(Re order) gabapentin (NEURONTIN) 100 mg capsule Take 1 capsule (100 mg total) by mouth nightly 30 capsule 08/16/19 25 025 Discontinued guaiFENesin-dex tromethorphan ER (MUCINEX DM) 600-30 mg tablet extended release 12 hr Take 1 tablet by mouth 2 (two) times a day 28 tablet 08/16/19 25 025 Discontinued Active Problems Problem Noted Date [...] Dx; NICM, LBBB, SSS, PAF, Ricardo. DOI 10/31/2023-Kahanda. Santino álvarez. History of pulmonary embolism 07/27/2022 Bradycardia 07/27/2022 Chronic anticoagulation 07/23/2021 NICM (nonischemic cardiomyopathy) 01/13/2021 Right leg pain 09/12/2020 Hyperlipidemia LDL goal <100 03/04/2020 Essential hypertension 03/04/2020 WENDY (obstructive sleep apnea) 03/04/2020 Ventricular premature depolarization 03/04/2020 LBBB (left bundle branch block) 03/04/2020 Paroxysmal atrial fibrillation 03/04/2020 Encounters Date Type Department Care Team Description 08/22/2024 10:15 AM CDT Office Visit [facility] Medical Group Cardiology [address] [place] [address] [place] [phone] Vaishali Yanez MD NICM (nonischemic cardiomyopathy) (HCC) (Primary Dx); Encounter for monitoring amiodarone therapy; Chronic combined systolic and diastolic congestive heart failure (HCC); Biventricular implantable cardioverter-defibril lator (ICD) in situ; Paroxysmal atrial fibrillation (HCC); Chronic anticoagulation 08/20/2024 Telephone [facility] Medical Group Cardiology [address] [place] [phone] Vaishali Yanez MD 08/15/2024 7:07 PM CDT - 08/15/2024 11:59 PM CDT Hospital Encounter [facility] [address] [place] [address] Emergency, Room R Discharge Disposition: Discharge to home or self care 08/15/2024 Home Care Visit [address] [address] [address] [place] [address] Lilliana Dodson, PT PT VIRTUAL NON OASIS DISCHARGE 08/05/2024 11:50 AM CDT - 08/15/2024 7:18 PM CDT Hospital Encounter [facility] [address] [place] [address] Chu Ribera MD Myla, MD Efren Ojeda, MD Soheila Rojas, Yanira Gomes MD Congestive heart failure, unspecified HF chronicity, unspecified heart failure type (HCC) (Primary Dx); COVID-19 virus infection; Chronic anticoagulation; Physical debility; BRITNEY (acute kidney injury) Discharge Disposition: Discharge to SNF 08/05/2024 Home Care Visit [address] [address] [address] [place] [address] Lilliana Dodson, PT PT OASIS TRANSFER W/OUT [place] 08/01/2024 Home Care Visit [address] [address] [address] [place] [address] Lilliana Dodson, PT TELEPHONE ENCOUNTER 08/01/2024 Home Care Visit [address] [place] [address] Hali Ayers, RN NURSE MED RECON FOR THERAPY 08/01/2024 Plan of Care Documentation [address] [address] [address] [place] [address] 07/31/2024 4:00 PM CDT Home Care Visit [address] [address] [address] [place] [address] Lilliana Dodson, PT PT OASIS START OF CARE 07/27/2024 Telephone [facility] Home Care Services [address] [place] [address] Elisabeth Jones RN 07/27/2024 Travel 07/24/2024 10:30 AM CDT Office Visit [facility] Medical Group Cardiology at [address] [place] [address] Vaishali Yanez MD NICM (nonischemic cardiomyopathy) (HCC) (Primary Dx); LBBB (left bundle branch block); Paroxysmal atrial fibrillation (HCC); Hyperlipidemia LDL goal <100 07/23/2024 1:00 PM CDT Residential Visit [facility] [address] [facility] [address] [place] [address] Isabel Lubin NP Acute bilateral low back pain, unspecified whether sciatica present (Primary Dx); Moderate Alzheimer's dementia with agitation, unspecified timing of dementia onset (HCC); Acute on chronic combined systolic and diastolic congestive heart failure (HCC); Bilateral hip pain; Reduced mobility 07/05/2024 2:30 PM JUNIOR ACCOUNT EXECUTIVE - 07/08/2024 2:21 PM JUNIOR ACCOUNT EXECUTIVE Hospital Encounter [facility] [address] [place] [address] Sisi Riggs MD Rivera, Samantha, MD Shortness of breath (Primary Dx); Bilateral lower extremity edema; Acute on chronic combined systolic and diastolic congestive heart failure (CMS/HCC) (HCC) [I50.43]; Pericardial effusion [I31.39]; Moderate Alzheimer's dementia with agitation, unspecified timing of dementia onset (HCC); Acute on chronic combined systolic and diastolic congestive heart failure (HCC) Discharge Disposition: Discharge to home or self care 07/04/2024 Telephone [facility] Group Cardiology [address] [place] [address] Vaishali Yanez MD Shortness of Breath; low heart rate; Foot Swelling 06/19/2024 9:30 AM JUNIOR ACCOUNT EXECUTIVE Ancillary Procedure [facility] Cardiology [address] [facility] [address] [place] [phone] Bradycardia (Primary Dx); Biventricular implantable cardioverter-defibril lator (ICD) in situ; NICM (nonischemic cardiomyopathy) (HCC); LBBB (left bundle branch block); SSS (sick sinus syndrome) (HCC); Paroxysmal atrial fibrillation (HCC) 06/19/2024 Orders Only [facility] Cardiology [address] [facility] [address] [place] [phone] Vaishali Yanez MD Biventricular implantable cardioverter-defibril lator (ICD) in situ (Primary Dx); NICM (nonischemic cardiomyopathy) (HCC); LBBB (left bundle branch block); SSS (sick sinus syndrome) (HCC); Bradycardia 06/18/2024 Orders Only [facility] Health Information Management [address] [place] [address] Vaishali Yanez MD 06/15/2024 1:15 PM JUNIOR ACCOUNT EXECUTIVE Office Visit [facility] Medical Group Cardiology at [address] [place] [address] Vaishali Yanez MD NICM (nonischemic cardiomyopathy) (HCC) (Primary Dx); Biventricular implantable cardioverter-defibril lator (ICD) in situ; Essential hypertension; Hyperlipidemia LDL goal <100; Paroxysmal atrial fibrillation (HCC); Ventricular premature depolarization; LBBB (left bundle branch block); Encounter for monitoring amiodarone therapy 06/08/2024 Telephone [facility] Cardiology [address] [facility] [address] [place] [address] Vaishali Yanez MD 06/07/2024 3:30 PM JUNIOR ACCOUNT EXECUTIVE Ancillary Procedure [facility] Cardiology at [address] [place] [address] Paroxysmal atrial fibrillation (HCC); NICM (nonischemic cardiomyopathy) (HCC); LBBB (left bundle branch block); Biventricular implantable cardioverter-defibril lator (ICD) in situ from Last 3 Months Surgical History Surgery Date Site/Laterality Comments HYSTERECTOMY partial LAMINECTOMY COLONOSCOPY CARDIAC CATHETERIZATION 05/09/2020 - 05/08/2021 Medical History Medical History Date Comments Hypertension Heart murmur Hyperlipidemia Anemia Acid indigestion Sleep apnea Arthritis Motion sickness PONV (postoperative nausea and vomiting) History of pulmonary embolism [facility] Chronic anticoagulation Ventricular premature depolarization LBBB (left bundle branch block) Syncope PAF (paroxysmal atrial fibrillation) (HCC) NICM (nonischemic cardiomyopathy) (HCC) Family History Medical History Relation Name Comments [...] materials from doctor or pharmacy Sometimes 07/31/2024 [facility] Utilities Answer Date Recorded In the past 12 months has e [employer], [employer], oil, or water [employer] threatened to shut off services in your [...] often do you attend chur ch or religion services? Never 08/08/2024 Do you belong to any clubs o r organizations such as mormon groups, unions, fraternal or athletic groups, or [...] any time in the past 12 m [facility], were you homeless or living in a custodial (including now)? No 08/08/2024 Personal Safety Answer [...] 08/22/2024 10:30 AM CDT Plan of Treatment Health Maintenance Due Date Last Done Comments Depression Screening 1945 Osteoporosis Screening-Bone Density Scan 1943 DTaP/Tdap/Td Vaccine (1 - Tdap) 1954 Hepatitis B Screening 1961 Pneumococcal vaccine 65+ (1 of 2 - PCV) 1962 Zoster Vaccine (1 of 2) 1993 Well Visit 65+ 2008 Covid-19 Vaccine (3 - 2023- season) 01/08/202401/2021, 07/18/2020 Influenza Vaccine (Season Ended) 2025 Fall Risk Assessment 08/22/2025 08/22/2024, 08/16/19 25 Medical Devices Implanted Type Area Package Center Supervisor Device Identifier Shelf Expiration Date Model / Serial / Lot [employer] Quartet 4.7fr 86cm Quadripolar Is-4 Llll Connector 8 Curve Low 1456q/86 - [id number] - [id number] Implanted:Qty: 1 on 10/31/2023 by Darvin Catherine MD at [facility] [employer] 08/06/2026 1456Q/86 / [id number] / [employer] Tendril Sts 6fr 52cm Is-1 Connector Active Fixation Bipolar Soft 2088tc/52 - [id number] - [id number] Implanted:Qty: 1 on 10/31/2023 by Darvin Catherine MD at [facility] Lead [employer] 10/06/2026 2088TC/52 / [id number] / [employer] Durata 6.8fr 65cm True Bipolar Active Fixation Extendable 1 Coil 7122q/65 - [id number] - [id number] Implanted:Qty: 1 on 10/31/2023 by Darvin Catherine MD at [facility] [employer] 09/05/2026 7122Q/65 / [id number] / [employer] [id number] [place] Hf Df4 Is-4 Is-1 Cnctr [id number] - [id number] - [id number] Implanted:Qty: 1 on 10/31/2023 by Darvin Catherine MD at [facility] [employer] 09/05/2025 [id number] / [id number] / Procedures Procedure Name Priority Date/Time Associated [...] AM CDT EGFR Routine 07/08/2024 5:32 AM JUNIOR ACCOUNT EXECUTIVE DIFFERENTIAL AUTO Routine 07/08/2024 5:3 2 AM JUNIOR ACCOUNT EXECUTIVE CBC WITH AUTO DIFFERENTIAL Routine 07/08/2024 5:32 AM JUNIOR ACCOUNT EXECUTIVE COMPREHENSIVE METABOLIC PANEL Routine 07/08/2024 5:32 AM JUNIOR ACCOUNT EXECUTIVE MAGNESIUM Add-On 07/07/2024 3:47 AM JUNIOR ACCOUNT EXECUTIVE EGFR Routine 07/07/2024 3:47 AM JUNIOR ACCOUNT EXECUTIVE DIFFERENTIAL AUTO Routine 07/07/2024 3:4 7 AM JUNIOR ACCOUNT EXECUTIVE CBC WITH AUTO DIFFERENTIAL Routine 07/07/2024 3:47 AM JUNIOR ACCOUNT EXECUTIVE COMPREHENSIVE METABOLIC PANEL Routine 07/07/2024 3:47 AM JUNIOR ACCOUNT EXECUTIVE TRANSTHORACIC ECHO (TTE) COMPLETE W DOPPLER/CF WO CONTRAST Routine 07/06/2024 10:20 AM JUNIOR ACCOUNT EXECUTIVE EGFR Routine 07/06/2024 3:58 AM JUNIOR ACCOUNT EXECUTIVE DIFFERENTIAL AUTO Routine 07/06/2024 3:5 8 AM JUNIOR ACCOUNT EXECUTIVE CBC WITH AUTO DIFFERENTIAL Routine 07/06/2024 3:58 AM JUNIOR ACCOUNT EXECUTIVE COMPREHENSIVE METABOLIC PANEL Routine 07/06/2024 3:58 AM JUNIOR ACCOUNT EXECUTIVE CT CHEST WO CONTRAST ED 07/05/2024 4:12 PM JUNIOR ACCOUNT EXECUTIVE TROPONIN T HIGH-SENSITIVITY 2-HOUR Timed 07/05/2024 2:47 PM JUNIOR ACCOUNT EXECUTIVE XR CHEST 1 VIEW ED 07/05/2024 1:17 PM JUNIOR ACCOUNT EXECUTIVE THYROID FUNCTION CASCADE Add-On 07/05/2024 12:30 PM JUNIOR ACCOUNT EXECUTIVE EGFR STAT 07/05/2024 12:30 PM JUNIOR ACCOUNT EXECUTIVE DIFFERENTIAL AUTO STAT 07/05/2024 12: 30 PM JUNIOR ACCOUNT EXECUTIVE PRO B-TYPE NATRIURETIC PEPTIDE STAT 07/05/2024 12:30 PM JUNIOR ACCOUNT EXECUTIVE TROPONIN T HIGH-SENSITIVITY SERIES (BASELINE, 2HR, 4HR, 6HR) STAT 07/05/2024 12:30 PM JUNIOR ACCOUNT EXECUTIVE COMPREHENSIVE METABOLIC PANEL STAT 07/05/2024 12:30 PM JUNIOR ACCOUNT EXECUTIVE CBC WITH AUTO DIFFERENTIAL STAT 07/05/2024 12:30 PM JUNIOR ACCOUNT EXECUTIVE ECG 12-LEAD STAT 07/05/2024 12:25 PM JUNIOR ACCOUNT EXECUTIVE DEVICE CHECK - REMOTE Routine 06/19/2024 10:46 AM JUNIOR ACCOUNT EXECUTIVE Biventricular implantable cardioverter-defib rillator (ICD) in situ NICM (nonischemic cardiomyopathy) (HCC) LBBB (left bundle branch block) SSS (sick sinus syndrome) (HCC) Paroxysmal atrial fibrillation (HCC) SCAN - RADIOLOGY/IMAGING 06/18/2024 TRANSTHORACIC ECHO (TTE) COMPLETE W DOPPLER/CF WO CONTRAST Routine 06/07/2024 3:55 PM JUNIOR ACCOUNT EXECUTIVE Paroxysmal atrial fibrillation (HCC) NICM (nonischemic cardiomyopathy) [...] MD LAB BLOOD ORDERABLE S Final Result [facility] [address] [employer] [place] [address] * Differential, auto (08/14/2024 4:18 AM CDT) Neutrophil abs 3.09 1.50 - 6.50 K/cumm Imm gran abs 0.02 0.00 - 0.10 K/cumm [facility] Lymphocyte abs 1.63 0.80 - 3.30 K/cumm [facility] Monocyte abs 0.40 0.20 - 0.80 K/cumm [facility] Eosinophil abs 0.20 0.00 - 0.50 K/cumm [facility] Basophil abs 0.02 0.00 - 0.10 K/cumm [facility] Neutrophil pct 57.6 % [facility] Comment: Interpretive Data Percent cell count reference ranges are not reported, since discordance with absolute values may lead to misinterpretation of CBC data. Current Interpretive Data was last revised on 2017. Imm gran pct 0.4 % [facility] Comment: Interpretive Data Percent cell count reference ranges are not reported, since discordance with absolute values may lead to misinterpretation of CBC data. Current Interpretive Data was last revised on 2017. Lymphocyte pct 30.4 % [facility] Comment: Interpretive Data Percent cell count reference ranges are not reported, since discordance with absolute values may lead to misinterpretation of CBC data. Current Interpretive Data was last revised on 2017. Monocyte pct 7.5 % [facility] Comment: Interpretive Data Percent cell count reference ranges are not reported, since discordance with absolute values may lead to misinterpretation of CBC data. Current Interpretive Data was last revised on 2017. Eosinophil pct 3.7 % [facility] Comment: Interpretive Data Percent cell count reference ranges are not reported, since discordance with absolute values may lead to misinterpretation of CBC data. Current Interpretive Data was last revised on 2017. Basophil pct 0.4 % [facility] Comment: Interpretive Data Percent cell count reference ranges are not reported, since discordance with absolute values may lead to misinterpretation of CBC data. Current Interpretive Data was last revised on 2017. Blood 08/14/2024 4:18 AM CDT 08/14/2024 4:37 AM CDT Jess Schwartz MD LAB BLOOD ORDERABLE S Final Result [facility] [address] [employer] [place] [address] * (ABNORMAL) CBC with auto differential (08/14/2024 4:18 AM CDT) WBC 5.36 3.80 - 9.90 K/cumm Hgb 11.0(L) 11.9 - 15.5 g/dL [facility] Hct 34.2(L) 35.6 - 45.5 % [facility] Plt 252 150 - 400 K/cumm [facility] MPV 11.7 9.1 - 12.3 fL [facility] RBC 3.76(L) 3.90 - 5.20 M/cumm [facility] MCV 91.0 81.3 - 96.4 fL [facility] MCH 29.3 27.1 - 33.3 pg [facility] MCHC 32.2(L) 32.3 - 35.7 g/dL [facility] RDW CV 14.1 11.1 - 14.9 % [facility] RDW SD 47.6 35.7 - 48.1 fL [facility] NRBC abs 0.00 0.00 - 0.01 K/cumm [facility] Morphologic Screen Results confirmed by manual morphology review. [facility] Blood 08/14/2024 4:18 AM CDT 08/14/2024 4:37 AM CDT Jess Schwartz MD LAB BLOOD ORDERABLE S Final Result [facility] [address] Department [place] [address] * (ABNORMAL) Comprehensive metabolic panel (08/14/2024 4:18 [...] MD LAB BLOOD ORDERABLE S Final Result [facility] [address] Department [place] [address] * Urine culture Urine, in and out catheter (08/13/2024 2:18 PM CDT) Report Final Report: Less than 10,000 colonies/mL (clinically insignificant growth based on current clinical standards) Comment:Testing performed by : [facility], [address] [facility], [place]., [address] Organism (CLINICALLY INSIGNIFICANT GROWTH CERNER Urine, in and out catheter 08/13/2024 2:18 PM CDT 08/13/2024 5:20 PM CDT Narrative [facility] - 08/14/2024 7:53 PM CDT Indications for Culture:->Other (specify) Other Indication:->abnormal UA Testing performed by [facility] Microbiology Laboratory ([phone]) Jess Schwartz MD LAB MICROBIOLOGY - GENERAL ORDERABLES Final Result [facility] [address] [place] [place] [address] * (ABNORMAL) eGFR (08/12/2024 5:44 AM CDT) [...] ORDERABLE S Final Result Performing Organization Address City/[facility]/ZIP Co de Phone Number JEREMIAHROB [address] [employer] [place], [place] [id number] * Differential, auto (08/12/2024 5:44 AM CDT) Neutrophil abs 3.43 1.50 - 6.50 K/cumm Imm gran abs 0.01 0.00 - 0.10 K/cumm [facility] Lymphocyte abs 1.73 0.80 - 3.30 K/cumm [facility] Monocyte abs 0.38 0.20 - 0.80 K/cumm [facility] Eosinophil abs 0.14 0.00 - 0.50 K/cumm [facility] Basophil abs 0.02 0.00 - 0.10 K/cumm [facility] Neutrophil pct 59.9 % [facility] Comment: Interpretive Data Percent cell count reference ranges are not reported, since discordance with absolute values may lead to misinterpretation of CBC data. Current Interpretive Data was last revised on 2017. Imm gran pct 0.2 % [facility] Comment: Interpretive Data Percent cell count reference ranges are not reported, since discordance with absolute values may lead to misinterpretation of CBC data. Current Interpretive Data was last revised on 2017. Lymphocyte pct 30.3 % [facility] Comment: Interpretive Data Percent cell count reference ranges are not reported, since discordance with absolute values may lead to misinterpretation of CBC data. Current Interpretive Data was last revised on 2017. Monocyte pct 6.7 % [facility] Comment: Interpretive Data Percent cell count reference ranges are not reported, since discordance with absolute values may lead to misinterpretation of CBC data. Current Interpretive Data was last revised on 2017. Eosinophil pct 2.5 % [facility] Comment: Interpretive Data Percent cell count reference [...] ORDERABLE S Final Result Performing Organization Address City/[facility]/ZIP Co de Phone Number [facility] [address] Department [place] [address] * (ABNORMAL) CBC with auto differential (08/12/2024 5:44 AM CDT) WBC 5.71 3.80 - 9.90 K/cumm Hgb 11.4(L) 11.9 - 15.5 g/dL [facility] Hct 35.9 35.6 - 45.5 % [facility] Plt 217 150 - 400 K/cumm [facility] MPV 12.3 9.1 - 12.3 fL [facility] RBC 3.94 3.90 - 5.20 M/cumm [facility] MCV 91.1 81.3 - 96.4 fL [facility] MCH 28.9 27.1 - 33.3 pg [facility] MCHC 31.8(L) 32.3 - 35.7 g/dL [facility] RDW CV 14.4 11.1 - 14.9 % [facility] RDW SD 48.2(H) 35.7 - 48.1 fL [facility] NRBC abs 0.00 0.00 - 0.01 K/cumm [facility] Blood 08/12/2024 5:44 AM CDT 08/12/2024 6:15 AM CDT Jess Schwartz MD LAB BLOOD ORDERABLE S Final Result [facility] [address] [employer] [place], [place] [id number] * (ABNORMAL) Comprehensive metabolic panel (08/12/2024 5:44 AM CDT) Pathologist [facility] Sodium 138 135 - 145 mmol/L Potassium, [...] MD LAB BLOOD ORDERABLE S Final Result [facility] [address] Department of Laboratories [place], [place] [id number] * Blood culture Blood (08/10/2024 7:18 PM CDT) Report Final Report: No growth Comment:Testing performed by : [facility], [address] [facility] [place] [address] Blood 08/10/2024 7:18 PM CDT 08/10/2024 10:14 PM CDT Narrative [facility] - 08/15/2024 7:00 AM CDT From a different [...] performance characteristics have been verified by the [facility] Microbiology Laboratory. For questions about this culture, contact the Microbiology Laboratory at [phone]. Interpretive data was last revised on 24. Jess Schwartz MD LAB MICROBIOLOGY - GENERAL ORDERABLES Final Result [facility] [address] Department [place] [address] * eGFR (08/10/2024 6:14 AM CDT) eGFR [...] MD LAB BLOOD ORDERABLES Final Re sult [facility] [address] Department of Laboratories [place], [place] [id number] * Differential, auto (08/10/2024 6:14 AM CDT) Neutrophil abs 3.79 1.50 - 6.50 K/cumm Imm gran abs 0.03 0.00 - 0.10 K/cumm [facility] Lymphocyte abs 1.63 0.80 - 3.30 K/cumm [facility] Monocyte abs 0.46 0.20 - 0.80 K/cumm [facility] Eosinophil abs 0.08 0.00 - 0.50 K/cumm [facility] Basophil abs 0.03 0.00 - 0.10 K/cumm [facility] Neutrophil pct 63.0 % [facility] Comment: Interpretive Data Percent cell count reference ranges are not reported, since discordance with absolute values may lead to misinterpretation of CBC data. Current Interpretive Data was last revised on 2017. Imm gran pct 0.5 % [facility] Comment: Interpretive Data Percent cell count reference ranges are not reported, since discordance with absolute values may lead to misinterpretation of CBC data. Current Interpretive Data was last revised on 2017. Lymphocyte pct 27.1 % [facility] Comment: Interpretive Data Percent cell count reference ranges are not reported, since discordance with absolute values may lead to misinterpretation of CBC data. Current Interpretive Data was last revised on 2017. Monocyte pct 7.6 % [facility] Comment: Interpretive Data Percent cell count reference ranges are not reported, since discordance with absolute values may lead to misinterpretation of CBC data. Current Interpretive Data was last revised on 2017. Eosinophil pct 1.3 % [facility] Comment: Interpretive Data Percent cell count reference ranges are not reported, since discordance with absolute values may lead to misinterpretation of CBC data. Current Interpretive Data was last revised on 2017. Basophil pct 0.5 % [facility] Comment: Interpretive Data Percent cell count reference ranges are not reported, since discordance with absolute values may lead to misinterpretation of CBC data. Current Interpretive Data was last revised on 2017. Blood 08/10/2024 6:14 AM CDT 08/10/2024 6:44 AM CDT Chu Ribera MD LAB BLOOD ORDERABLES Final Re sult [facility] [address] Department of Laboratories [place], [place] [id number] * (ABNORMAL) CBC with auto differential (08/10/2024 6:14 AM CDT) WBC 6.02 3.80 - 9.90 K/cumm Hgb 11.7(L) 11.9 - 15.5 g/dL [facility] Hct 36.6 35.6 - 45.5 % [facility] Plt 181 150 - 400 K/cumm [facility] MPV 12.1 9.1 - 12.3 fL [facility] RBC 3.97 3.90 - 5.20 M/cumm [facility] MCV 92.2 81.3 - 96.4 fL [facility] MCH 29.5 27.1 - 33.3 pg [facility] MCHC 32.0(L) 32.3 - 35.7 g/dL [facility] RDW CV 14.4 11.1 - 14.9 % [facility] RDW SD 49.1(H) 35.7 - 48.1 fL [facility] NRBC abs 0.00 0.00 - 0.01 K/cumm [facility] Morphologic Screen Results confirmed by manual morphology review. [facility] Blood 08/10/2024 6:14 AM CDT 08/10/2024 6:44 AM CDT Chu Ribera MD LAB BLOOD ORDERABLES Edited R donovanult - Final [facility] [id number] Department [place] [address] * (ABNORMAL) Comprehensive metabolic panel (08/10/2024 6:14 AM CDT) Sodium 135 135 - 145 mmol/L Potassium, pl 4.0 3.3 - 4.9 mmol/L [facility] Chloride 97 97 - 110 mmol/L [facility] CO2 26 22 - 32 mmol/L [facility] Anion gap 12 2 - 15 mmol/L [facility] BUN 17 6 - 25 mg/dL [facility] Creatinine 0.88 0.60 - 1.10 mg/dL [facility] Glucose 113 70 - 199 mg/dL [facility] CH Comment: [...] BLOOD ORDERABLES Final Re sult AMEE VELASCO [address] Department [place] [address] * (ABNORMAL) Urinalysis reflex to microscopic and [...] tendency for uric acid stone formation. Source: [facility] [employer] Current Interpretive Data was last revised on [...] - GENERAL ORDERABLES Final Result AMEE VELASCO [address] Department [place] [address] * (ABNORMAL) Urinalysis, microscopic only (08/09/2024 7:20 PM CDT) WBC, ur 0-5 0 - 5 /HPF RBC, ur 11-20(A) 0 - 2 /HPF [facility] Epithelial cells, squamous, ur 1-5 0 - 5 /HPF [facility] Bacteria, ur 4+(A) [facility] Mucous, ur Present(A) [facility] Culture Reflex Comment Reflex conditions for urine culture (WBC >10) not met. [facility] Urine, clean voided 08/09/2024 7:20 PM CDT 08/09/2024 7:38 PM CDT Jess Schwartz MD LAB URINE ORDERABLE S Final Result Performing Organization Address [facility]/ZIP Co de Phone Number AMEE [address] [place] [address] * eGFR (08/09/2024 5:17 AM CDT) eGFR [...] 5:17 AM CDT 08/09/2024 5:27 AM CDT Chu Ribera MD LAB BLOOD ORDERABLES Final Re sult Performing Organization Address City/[facility]/ZIP Co de Phone Number AMEE [address] [employer] [place], [place] [id number] * Differential, auto (08/09/2024 5:17 AM CDT) Neutrophil abs 3.46 1.50 - 6.50 K/cumm Imm gran abs 0.02 0.00 - 0.10 K/cumm [facility] Lymphocyte abs 1.47 0.80 - 3.30 K/cumm [facility] Monocyte abs 0.57 0.20 - 0.80 K/cumm [facility] Eosinophil abs 0.08 0.00 - 0.50 K/cumm [facility] Basophil abs 0.03 0.00 - 0.10 K/cumm [facility] Neutrophil pct 61.5 % CERNER Comment: Interpretive Data Percent cell count reference ranges are not reported, since discordance with absolute values may lead to misinterpretation of CBC data. Current Interpretive Data was last revised on 2017. Imm gran pct 0.4 % [facility] Comment: Interpretive Data Percent cell count reference ranges are not reported, since discordance with absolute values may lead to misinterpretation of CBC data. Current Interpretive Data was last revised on 2017. Lymphocyte pct 26.1 % [facility] Comment: Interpretive Data Percent cell count reference ranges are not reported, since discordance with absolute values may lead to misinterpretation of CBC data. Current Interpretive Data was last revised on 2017. Monocyte pct 10.1 % [facility] Comment: Interpretive Data Percent cell count reference ranges are not reported, since discordance with absolute values may lead to misinterpretation of CBC data. Current Interpretive Data was last revised on 2017. Eosinophil pct 1.4 % [facility] Comment: Interpretive Data Percent cell count reference [...] ORDERABLES Final Re sult Performing Organization Address City/[facility]/ZIP Co de Phone Number AMEE VELASCO [address] [employer] [place] [address] * CBC with auto differential (08/09/2024 5:17 AM CDT) WBC 5.63 3.80 - 9.90 K/cumm Hgb 12.1 11.9 - 15.5 g/dL C[facility]ER Hct 36.8 35.6 - 45.5 % [facility] Plt 168 150 - 400 K/cumm [facility] MPV 12.1 9.1 - 12.3 fL [facility] RBC 4.12 3.90 - 5.20 M/cumm [facility] MCV 89.3 81.3 - 96.4 fL [facility] MCH 29.4 27.1 - 33.3 pg [facility] MCHC 32.9 32.3 - 35.7 g/dL [facility] RDW CV 14.5 11.1 - 14.9 % [facility] RDW SD 47.7 35.7 - 48.1 fL [facility] NRBC abs 0.00 0.00 - 0.01 K/cumm [facility] Blood 08/09/2024 5:17 AM CDT 08/09/2024 5:25 AM CDT Chu Ribera MD LAB BLOOD ORDERABLES Final Re sult Performing Organization Address [facility]/ZIP Co de Phone Number AMEE VELASCO [address] Department [place] [address] * Magnesium (08/09/2024 5:17 AM CDT) Magnesium 2.1 1.4 - 2.5 mg/dL Blood 08/09/2024 5:17 AM CDT 08/09/2024 5:27 AM CDT Jess Schwartz MD LAB BLOOD ORDERABLE S Final Result Performing Organization Address [facility]/ZIP Co de Phone Number AMEE VELASCO [address] Department [place] [address] * (ABNORMAL) Comprehensive metabolic panel (08/09/2024 5:17 AM CDT) Sodium 137 135 - 145 mmol/L Potassium, pl 3.6 3.3 - 4.9 mmol/L [facility] Chloride 100 97 - 110 mmol/L [facility] CO2 25 22 - 32 mmol/L [facility] Anion gap 12 2 - 15 mmol/L [facility] BUN 20 6 - 25 mg/dL [facility] Creatinine 0.92 0.60 - 1.10 mg/dL [facility] Glucose 119 70 - 199 mg/dL [facility] Comment: [...] BLOOD ORDERABLES Final Re sult AMEE VELASCO [address] Department [place] [address] * eGFR (08/08/2024 12:38 PM CDT) eGFR [...] MD LAB BLOOD ORDERABLES Final Re sult [facility] [address] Department [place] [address] * Differential, auto (08/08/2024 12:38 PM CDT) Neutrophil abs 4.82 1.50 - 6.50 K/cumm Imm gran abs 0.04 0.00 - 0.10 K/cumm [facility] Lymphocyte abs 1.23 0.80 - 3.30 K/cumm [facility] Monocyte abs 0.65 0.20 - 0.80 K/cumm [facility] Eosinophil abs 0.05 0.00 - 0.50 K/cumm [facility] Basophil abs 0.04 0.00 - 0.10 K/cumm [facility] Neutrophil pct 70.6 % CERNER Comment: Interpretive Data Percent cell count reference ranges are not reported, since discordance with absolute values may lead to misinterpretation of CBC data. Current Interpretive Data was last revised on 2017. Imm gran pct 0.6 % AMEE Comment: Interpretive Data Percent cell count reference ranges are not reported, since discordance with absolute values may lead to misinterpretation of CBC data. Current Interpretive Data was last revised on 2017. Lymphocyte pct 18.0 % AMEE Comment: Interpretive Data Percent cell count reference ranges are not reported, since discordance with absolute values may lead to misinterpretation of CBC data. Current Interpretive Data was last revised on 2017. Monocyte pct 9.5 % AMEE Comment: Interpretive Data Percent cell count reference ranges are not reported, since discordance with absolute values may lead to misinterpretation of CBC data. Current Interpretive Data was last revised on 2017. Eosinophil pct 0.7 % AMEE Comment: Interpretive Data Percent cell count reference ranges are not reported, since discordance with absolute values may lead to misinterpretation of CBC data. Current Interpretive Data was last revised on 2017. Basophil pct 0.6 % AMEE Comment: Interpretive Data Percent cell count reference ranges are not reported, since discordance with absolute values may lead to misinterpretation of CBC data. Current Interpretive Data was last revised on 2017. Blood 08/08/2024 12:3 8 PM CDT 08/08/2024 12:58 PM CDT us Chu Ribera MD LAB BLOOD ORDERABLES Final Re sult AMEE [address] Department [place] [address] * (ABNORMAL) CBC with auto differential (08/08/2024 12:38 PM CDT) WBC 6.83 3.80 - 9.90 K/cumm Hgb 12.7 11.9 - 15.5 g/dL AMEE Hct 40.5 35.6 - 45.5 % [facility] Plt 174 150 - 400 K/cumm [facility] MPV 12.7(H) 9.1 - 12.3 fL [facility] RBC 4.45 3.90 - 5.20 M/cumm [facility] MCV 91.0 81.3 - 96.4 fL [facility] MCH 28.5 27.1 - 33.3 pg [facility] MCHC 31.4(L) 32.3 - 35.7 g/dL [facility] RDW CV 14.6 11.1 - 14.9 % [facility] RDW SD 48.5(H) 35.7 - 48.1 fL [facility] NRBC abs 0.00 0.00 - 0.01 K/cumm [facility] Blood 08/08/2024 12:3 8 PM CDT 08/08/2024 12:58 PM CDT Chu Ribera MD LAB BLOOD ORDERABLES Final Re sult [facility] [address] Department [place] [address] * Blood culture Blood (08/08/2024 12:38 PM CDT) Report Final Report: No growth Comment:Testing performed by : [facility], [address] [place]., [address] Blood 08/08/2024 12:3 8 PM CDT 08/08/2024 2:32 PM CDT Narrative [facility] - 08/12/2024 4:00 PM CDT Collection->Peripheral 1. [...] performance characteristics have been verified by the [facility] Microbiology Laboratory. For questions about this culture, contact the Microbiology Laboratory at [phone]. Interpretive data was last revised on 24. Jess Schwartz MD LAB MICROBIOLOGY - GENERAL ORDERABLES Final Result [facility] [address] Department [place] [address] * (ABNORMAL) Comprehensive metabolic panel (08/08/2024 12:38 PM CDT) Sodium 136 135 - 145 mmol/L Potassium, pl 4.1 3.3 - 4.9 mmol/L [facility] Chloride 99 97 - 110 mmol/L [facility] CO2 24 22 - 32 mmol/L [facility] Anion gap 13 2 - 15 mmol/L [facility] BUN 16 6 - 25 mg/dL [facility] Creatinine 0.88 0.60 - 1.10 mg/dL [facility] CH Glucose 126 70 - 199 mg/dL CERNER [...] LAB BLOOD ORDERABLES Final Re sult AMEE [address] Department [place] [address] * XR Chest 1 View (08/07/2024 6:03 [...] COMPARISON: 08/05/2024. Procedure Note Gilberto Barragan II, DO - 08/07/2024 EXAMINATION: XR CHEST 1 VIEW DATE: 08/07/2024 5:25 PM INDICATION: Fever. COMPARISON: 08/05/2024. IMPRESSION: ICD leads are intact. No pneumothorax or pleural effusion. Mild cardiomegaly and pulmonary vascular congestion. No acute osseous abnormality. Electronically signed by: Gilberto Barragan II, D.O. Rusty Schmitz MD IMG XR PROCEDURES Final [...] 7:44 PM CDT 08/06/2024 8:34 PM CDT us Chu Ribera MD LAB BLOOD ORDERABLES Final Re sult [facility] [address] Department [place] [address] * (ABNORMAL) Differential, auto (08/06/2024 7:44 PM CDT) Pathologist [facility] Neutrophil abs 7.6(H) 1.5 - 6.5 K/cumm Imm gran abs 0.0 0.0 - 0.1 K/cumm [facility] Lymphocyte abs 0.8 0.8 - 3.3 K/cumm [facility] Monocyte abs 0.6 0.2 - 0.8 K/cumm [facility] Eosinophil abs 0.0 0.0 - 0.5 K/cumm [facility] Basophil abs 0.0 0.0 - 0.1 K/cumm [facility] Neutrophil pct 84.0 % [facility] Comment: Interpretive Data Percent cell count reference [...] 7:44 PM CDT 08/06/2024 8:33 PM CDT us Chu Ribera MD LAB BLOOD ORDERABLES Final Re sult [facility] [address] Department [place] [address] * (ABNORMAL) CBC with auto differential (08/06/2024 7:44 PM CDT) WBC 9.1 3.8 - 9.9 K/cumm Hgb 11.9 11.9 - 15.5 g/dL [facility] Hct 37.6 35.6 - 45.5 % [facility] Plt 167 150 - 400 K/cumm [facility] MPV 12.8(H) 9.1 - 12.3 fL [facility] RBC 4.12 3.90 - 5.20 M/cumm [facility] MCV 91.3 81.3 - 96.4 fL [facility] MCH 28.9 27.1 - 33.3 pg [facility] MCHC 31.6(L) 32.3 - 35.7 g/dL [facility] RDW CV 14.7 11.1 - 14.9 % [facility] RDW SD 48.7(H) 35.7 - 48.1 fL [facility] NRBC abs 0.00 0.00 - 0.01 K/cumm [facility] Blood 08/06/2024 7:44 PM CDT 08/06/2024 8:33 PM CDT Chu Ribera MD LAB BLOOD ORDERABLES Final Re sult AMEE [address] Department [place] [address] * (ABNORMAL) Blood culture Blood (08/06/2024 7:44 PM CDT) Direct Specimen Exam Molecular Analysis: Staphylococcus species detected by the malou eplex BCID-GP panel. Single positive culture may represent contamination. This is most suggestive of a coagulase-negative Staphylococcus species. Please refer to final culture-based result for confirmation. This test does not exclude the possibility of a mixed bacterial infection. Notification of: Staphylococcus species called to and read back by: Laxmi Farley MT [phone] on 08/08/2024 11:50:38 by: Mary Ellen Lerma MT Test result called to and read back by Jorge Fishman on 08/08/2024 12:04:55 by Laxmi Farley Comment:Testing performed by : [facility], [address] [facility] [place] [address] Direct Specimen Exam Stain: Gram Positive Cocci in clusters Time to culture positivity (anaerobic media): 34.6 hours Notification of: Gram Positive Cocci in clusters called to and read back by: Laxmi Farley MT [phone] on 08/08/2024 09:55:32 by: Mary Ellen Lerma MT Test result called to and read back by Jorge Fishman on 08/08/2024 10:22:46 by Laxmi LANDEROS Comment:Testing performed by : [facility], [address] [place]., [address] Report Final Report: Staphylococcus hominis Single blood culture positive for this microorganism. Isolate is a possible contaminant. If a similar isolate is recovered from a second blood culture collected within 3 days of this culture, both will be evaluated and, if determined to be the same species, antimicrobial susceptibility testing will be performed. (.) AMEE Comment:Testing performed by : [facility], [address] [place]., [address] Organism STAPHYLOCOCCUS HOMINIS AMEE Blood 08/06/2024 7:44 PM CDT 08/06/2024 10:14 PM CDT [facility] AMEE - 08/11/2024 11:01 AM CDT From a [...] performance characteristics have been verified by the [facility] Microbiology Laboratory. For questions about this culture, contact the Microbiology Laboratory at [phone]. Interpretive data was last revised on 24. Rusty Schmitz MD LAB MICROBIOLOGY - GENERAL ORDERABLES Final Result Performing Organization Address [facility]/ZIP Co de Phone Number AMEE VELASCO [address] [employer] [place] [address] * Blood culture Blood (08/06/2024 7:44 PM CDT) Report Final Report: No growth Comment:Testing performed by : [facility], [address] [place]., [address] Blood 08/06/2024 7:44 PM CDT 08/06/2024 10:14 PM CDT Gayathri LANDEROS CH - 08/11/2024 7:00 AM CDT Collection->Peripheral Received two [...] performance characteristics have been verified by the [facility] Microbiology Laboratory. For questions about this culture, contact the Microbiology Laboratory at [phone]. Interpretive data was last revised on 24. Rusty Schmitz MD LAB MICROBIOLOGY - GENERAL ORDERABLES Final Result Performing Organization Address City/[facility]/ZIP Co de Phone Number AMEE VELASCO [address] [employer] [place] [employer] [place] [address] * Magnesium (08/06/2024 7:44 PM CDT) Magnesium 2.0 1.4 - 2.5 mg/dL Blood 08/06/2024 7:44 PM CDT 08/06/2024 8:34 PM CDT Chasity Cruz DIAGNOSTIC IMAGING MANAGER LAB BLOOD [place] [address] [address] Department [place] [address] * (ABNORMAL) Comprehensive metabolic panel (08/06/2024 7:44 PM CDT) Sodium 135 135 - 145 mmol/L Potassium, pl 3.9 3.3 - 4.9 mmol/L [facility] CH Chloride 98 97 - 110 mmol/L [facility] CH CO2 25 22 - 32 mmol/L [facility] CH Anion gap 12 2 - 15 mmol/L [facility] BUN 15 6 - 25 mg/dL [facility] Creatinine 0.77 0.60 - 1.10 mg/dL [facility] CH Glucose 143 70 - 199 mg/dL [facility] CH Comment: [...] ORDERABLES Final Re sult Performing Organization Address City/[facility]/ZIP Co de Phone Number AMEE [address] Department [place] [address] * eGFR (08/06/2024 4:30 AM CDT) eGFR [...] 4:30 AM CDT 08/06/2024 5:01 AM CDT Inocencio Munson DIAGNOSTIC IMAGING MANAGER LAB BLOOD ORDERABLES Gabriela l Result Performing Organization Address City/[facility]/ZIP Co de Phone Number AMEE [address] [address] Department [place] [address] * (ABNORMAL) Differential, auto (08/06/2024 4:30 AM CDT) Neutrophil abs 6.8(H) 1.5 - 6.5 K/cumm Imm gran abs 0.0 0.0 - 0.1 K/cumm [facility] Lymphocyte abs 0.8 0.8 - 3.3 K/cumm [facility] Monocyte abs 0.7 0.2 - 0.8 K/cumm [facility] Eosinophil abs 0.0 0.0 - 0.5 K/cumm [facility] Basophil abs 0.0 0.0 - 0.1 K/cumm [facility] Neutrophil pct 80.7 % [facility] Comment: Interpretive Data Percent cell count reference ranges are not reported, since discordance with absolute values may lead to misinterpretation of CBC data. Current Interpretive Data was last revised on 2017. Imm gran pct 0.5 % [facility] Comment: Interpretive Data Percent cell count reference ranges are not reported, since discordance with absolute values may lead to misinterpretation of CBC data. Current Interpretive Data was last revised on 2017. Lymphocyte pct 9.1 % [facility] Comment: Interpretive Data Percent cell count reference ranges are not reported, since discordance with absolute values may lead to misinterpretation of CBC data. Current Interpretive Data was last revised on 2017. Monocyte pct 8.7 % [facility] Comment: Interpretive Data Percent cell count reference ranges are not reported, since discordance with absolute values may lead to misinterpretation of CBC data. Current Interpretive Data was last revised on 2017. Eosinophil pct 0.5 % C[facility]ER Comment: Interpretive Data Percent cell count reference ranges are not reported, since discordance with absolute values may lead to misinterpretation of CBC data. Current Interpretive Data was last revised on 2017. Basophil pct 0.5 % [facility] Comment: Interpretive Data Percent cell count reference ranges are not reported, since discordance with absolute values may lead to misinterpretation of CBC data. Current Interpretive Data was last revised on 2017. Blood 08/06/2024 4:30 AM CDT 08/06/2024 5:02 AM CDT us Inocencio Munson NP LAB BLOOD ORDERABLES Gabriela robe Result AMEE [address] [address] Department [place] [address] * (ABNORMAL) CBC with auto differential (08/06/2024 4:30 AM CDT) Pathologist [facility] WBC 8.4 3.8 - 9.9 K/cumm Hgb 11.8(L) 11.9 - 15.5 g/dL [facility] Hct 37.2 35.6 - 45.5 % [facility] Plt 160 150 - 400 K/cumm [facility] MPV 12.0 9.1 - 12.3 fL [facility] CH RBC 4.07 3.90 - 5.20 M/cumm [facility] MCV 91.4 81.3 - 96.4 fL [facility] CH MCH 29.0 27.1 - 33.3 pg [facility] MCHC 31.7(L) 32.3 - 35.7 g/dL [facility] CH RDW CV 14.7 11.1 - 14.9 % [facility] CH RDW SD 49.5(H) 35.7 - 48.1 fL [facility] NRBC abs 0.00 0.00 - 0.01 K/cumm [facility] CH Blood 08/06/2024 4:30 AM CDT 08/06/2024 5:02 AM CDT Chu Ribera MD LAB BLOOD ORDERABLES Final Re sult Performing Organization Address City/[facility] Co de Phone Number [facility] [address] [place] [address] * Magnesium (08/06/2024 4:30 AM CDT) [facility] Magnesium 2.1 1.4 - 2.5 mg/dL Blood 08/06/2024 4:30 AM CDT 08/06/2024 3:38 PM CDT Rusty Schmitz MD LAB BLOOD ORDERABLES Final Result Performing Organization Address City/[facility] Co de Phone Number [facility] [address] [address] [employer] [place] [address] * (ABNORMAL) Comprehensive metabolic panel (08/06/2024 4:30 AM CDT) Sodium 140 135 - 145 mmol/L Potassium, pl 3.4 3.3 - 4.9 mmol/L [facility] Chloride 102 97 - 110 mmol/L [facility] CO2 26 22 - 32 mmol/L [facility] Anion gap 12 2 - 15 mmol/L [facility] BUN 15 6 - 25 mg/dL [facility] Creatinine 0.83 0.60 - 1.10 mg/dL [facility] Glucose 133 70 - 199 mg/dL [facility] Comment: [...] 6.5 - 8.5 g/dL [facility] Albumin 3.3(L) 3.5 - 5.0 g/dL [facility] Alk phos 47 40 - 130 Units/L [facility] ALT 13 7 - 45 Units/L [facility] AST 21 10 - 45 Units/L [facility] Blood 08/06/2024 4:30 AM CDT 08/06/2024 5:01 AM CDT us Chu Ribera MD LAB BLOOD ORDERABLES Final Re sult AEME VELASCO [address] [address] [place] [address] * POCT glucose (08/05/2024 9:57 PM CDT) Glucose, POC 130 70 - 199 mg/dL POC Performer [phone] [facility] Blood 08/05/2024 9:57 PM CDT 08/05/2024 9:57 PM CDT Chu Ribera MD LAB POCT ORDERABLES - DEVICE Final Result Performing Organization Address [facility] Co de Phone Number [facility] [address] Department of Laboratories [place], [place] [id number] * (ABNORMAL) Troponin T high-sensitivity 6-hour (08/05/2024 5:44 PM CDT) Pathologist [facility] Trop T hs 21(H) <=14 ng/L Comment: Interpretive Data For further hscTnT resources including the diagnostic algorithm and an aid in interpretation, copy and paste this link: [email or web address].testcatalog.org/show/[email or web address] Current Interpretive Data last revised 2020. Trop T hs delta 5 ng/L [facility] Trop T hs interp Equivocal [facility] Blood 08/05/2024 5:44 PM CDT 08/05/2024 5:55 PM CDT Shon Will MD LAB BLOOD ORDERABLES Fin al Result Performing Organization Address [facility] Co de Phone Number [facility] [address] [address] [place] [address] * (ABNORMAL) Hemoglobin A1c (08/05/2024 5:44 PM CDT) [facility] Hgb A1C 5.7(H) 4.0 - 5.6 % Comment:Testing performed by : [facility], [facility], [place], [address] Estimated Average Glucose 117 mg/dL [facility] Comment: The ADA recommends reporting an estimated Average Glucose (eAG) with all Hemoglobin A1c results using the equation derived from a study of 507 normal and diabetic adults. Minority populations were underrepresented and children were not included. (Diabetes Care 31:4353-6997, 2008). The eAG is not equivalent to a fasting glucose. Testing performed by: [facility], [facility], [place], [address] Blood 08/05/2024 5:44 PM CDT 08/05/2024 5:55 PM CDT us Chu Ribera MD LAB BLOOD ORDERABLES Final Re sult AMEE [address] [facility] Department [place] [address] * Critical Care (08/05/2024 4:21 PM CDT) [...] 4:10 PM CDT 08/05/2024 4:12 PM CDT Shon Will MD LAB BLOOD ORDERABLES Fin al Result Performing Organization Address [facility] Co de Phone Number AMEE VELASCO [address] [employer] [place] [address] * (ABNORMAL) Troponin T high-sensitivity 2-hour (08/05/2024 1:35 PM CDT) [facility] Trop T hs 18(H) <=14 ng/L Comment: Interpretive Data For further hscTnT resources including the diagnostic algorithm and an aid in interpretation, copy and paste this link: [email or web address] Current Interpretive Data last revised 2020. Trop T hs delta 2 ng/L [facility] Trop T hs interp Insignificant [facility] Blood 08/05/2024 1:35 PM CDT 08/05/2024 1:38 PM CDT Shon Will MD LAB BLOOD ORDERABLES Fin al Result Performing Organization Address City/[facility]/ZIP Co de Phone Number AMEE Jacobs[address] [employer] [place] [address] * (ABNORMAL) Respiratory pathogen panel Nasopharyngeal (08/05/2024 1:35 PM CDT) [facility] Influenza A RNA Not Detected Not Detected Influenza B RNA Not Detected Not Detected [facility] RSV RNA Not Detected Not Detected [facility] COVID-19 RNA Detected(A) Not Detected [facility] Coronavirus 229E RNA Not Detected Not Detected [facility] Coronavirus HKU1 RNA Not Detected Not Detected [facility] Coronavirus NL63 RNA Not Detected Not Detected [facility] Coronavirus OC43 RNA Not Detected Not Detected [facility] Adenovirus DNA Not Detected Not Detected [facility] Metapneumovirus RNA Not Detected Not Detected [facility] Rhinovirus/Enterov irus RNA Not Detected Not Detected [facility] Parainfluenza 1 RNA Not Detected Not Detected [facility] Parainfluenza 2 RNA Not Detected Not Detected [facility] Parainfluenza 3 RNA Not Detected Not Detected [facility] Parainfluenza 4 RNA Not Detected Not Detected [facility] B. pertussis DNA Not Detected Not Detected [facility] B. parapertussis DNA Not Detected Not Detected [facility] C. pneumoniae DNA Not Detected Not Detected [facility] M. pneumoniae DNA Not Detected Not Detected [facility] Comment: Interpretive Data The Project [employer] Film[employer] Respiratory Panel (RP2.1) assay is a [...] assay has FDA clearance for testing of DIAGNOSTIC IMAGING MANAGER swabs. The performance characteristics of this assay have been determined by [facility]. Current interpretive data was last revised on 2020. Nasopharyngeal 08/05/2024 1: 35 PM CDT 08/05/2024 1:38 PM CDT Narrative AMEE - 08/05/2024 2:46 PM CDT Is the Patient experiencing symptoms consistent with COVID?->Yes Surveillance testing for transplant patient?->No Gilberto DAVID LAB MICROBIOLOGY - GENERAL ORDERABLES Final Result Performing Organization Address [facility] Co de Phone Number AMEE [id number] [employer] [place] [address] CH * Magnesium (08/05/2024 1:35 PM CDT) [facility] Magnesium 2.1 1.4 - 2.5 mg/dL Blood 08/05/2024 1:35 PM CDT 08/05/2024 1:38 PM CDT Gilberto DAVID LAB BLOOD ORDERABLES Final Result Performing Organization Address [facility] Co de Phone Number AMEE [address] [employer] [place] [address] * XR Chest 1 Vw Portable (if [...] 2hr, 4hr, 6hr) (08/05/2024 11:59 AM CDT) Pathologist [facility] Trop T hs 16(H) <=14 ng/L Comment: Interpretive Data For further hscTnT resources including the diagnostic algorithm and an aid in interpretation, copy and paste this link: [email or web address] Current Interpretive Data last revised 2020. Blood 08/05/2024 11:5 9 AM CDT 08/05/2024 12:09 PM CDT Chu Ribera MD LAB BLOOD ORDERABLES Edited R esult - Final AMEE VELASCO [address] Department [place] [address] * eGFR (08/05/2024 11:59 AM [...] 9 AM CDT 08/05/2024 12:09 PM CDT us hCu Ribera MD LAB BLOOD ORDERABLES Final Re sult [facility] [address] Department [place] [address] * (ABNORMAL) Differential, auto (08/05/2024 11:59 AM CDT) Neutrophil abs 8.9(H) 1.5 - 6.5 K/cumm Imm gran abs 0.0 0.0 - 0.1 K/cumm [facility] Lymphocyte abs 0.6(L) 0.8 - 3.3 K/cumm [facility] Monocyte abs 0.4 0.2 - 0.8 K/cumm [facility] Eosinophil abs 0.0 0.0 - 0.5 K/cumm [facility] Basophil abs 0.0 0.0 - 0.1 K/cumm [facility] Neutrophil pct 88.6 % [facility] Comment: Interpretive Data Percent cell count reference ranges are not reported, since discordance with absolute values may lead to misinterpretation of CBC data. Current Interpretive Data was last revised on 2017. Imm gran pct 0.3 % [facility] Comment: Interpretive Data Percent cell count reference ranges are not reported, since discordance with absolute values may lead to misinterpretation of CBC data. Current Interpretive Data was last revised on 2017. Lymphocyte pct 6.3 % AMEE Comment: Interpretive Data Percent cell count reference ranges are not reported, since discordance with absolute values may lead to misinterpretation of CBC data. Current Interpretive Data was last revised on 2017. Monocyte pct 4.4 % AMEE Comment: Interpretive Data Percent cell count reference ranges are not reported, since discordance with absolute values may lead to misinterpretation of CBC data. Current Interpretive Data was last revised on 2017. Eosinophil pct 0.0 % AMEE Comment: Interpretive Data Percent cell count reference ranges are not reported, since discordance with absolute values may lead to misinterpretation of CBC data. Current Interpretive Data was last revised on 2017. Basophil pct 0.4 % [facility] Comment: Interpretive Data Percent cell count reference ranges are not reported, since discordance with absolute values may lead to misinterpretation of CBC data. Current Interpretive Data was last revised on 2017. Blood 08/05/2024 11:5 9 AM CDT 08/05/2024 12:09 PM CDT us Chu Ribera MD LAB BLOOD ORDERABLES Final Re sult [facility] [address] Department [place] [address] * (ABNORMAL) Pro B-type natriuretic peptide (08/05/2024 [...] LAB BLOOD ORDERABLES Final Re sult AMEE [address] Department [place] [address] * (ABNORMAL) CBC with auto differential (08/05/2024 11:59 AM CDT) WBC 10.1(H) 3.8 - 9.9 K/cumm Hgb 12.5 11.9 - 15.5 g/dL [facility] Hct 39.7 35.6 - 45.5 % [facility] Plt 190 150 - 400 K/cumm [facility] MPV 12.1 9.1 - 12.3 fL [facility] RBC 4.26 3.90 - 5.20 M/cumm [facility] MCV 93.2 81.3 - 96.4 fL [facility] MCH 29.3 27.1 - 33.3 pg [facility] MCHC 31.5(L) 32.3 - 35.7 g/dL [facility] RDW CV 14.7 11.1 - 14.9 % [facility] RDW SD 50.5(H) 35.7 - 48.1 fL [facility] NRBC abs 0.00 0.00 - 0.01 K/cumm [facility] Blood 08/05/2024 11:5 9 AM CDT 08/05/2024 12:09 PM CDT Chu Ribera MD LAB BLOOD [place] [address] [address] Department [place] [address] * Comprehensive metabolic panel (08/05/2024 11:59 AM CDT) Sodium 141 135 - 145 mmol/L Potassium, pl 3.9 3.3 - 4.9 mmol/L [facility] Chloride 102 97 - 110 mmol/L CERNER [...] ORDERABLES Final Re sult Performing Organization Address [facility] Co de Phone Number AMEE [address] Department [place] [address] * ECG 12 lead (08/05/2024 11:54 AM CDT) 08/05/2024 11:5 4 AM CDT Narrative [facility] - 08/05/2024 5:56 PM CDT Vent Rate: 103 bpm RR Interval: 582 msec AK Interval: 163 msec QRS Duration: 145 msec QT Interval: 386 msec QTC Interval: 445 msec P-R-T [place]: 59 - -60 - 117 degrees IMPRESSION: ELECTRONIC VENTRICULAR PACEMAKER ABNORMAL RHYTHM ECG Electronically Signed By: Dr. Ignacio Ya Chu Ribera MD ECG ORDERABLES Final Result Performing Organization Address [facility] de Phone Number [facility] * eGFR (07/08/2024 5:32 AM JUNIOR ACCOUNT EXECUTIVE) eGFR 70 >=60 mL/min/1. 73 m2 Comment: [...] last reviewed 2021. Blood 07/08/2024 5:32 AM JUNIOR ACCOUNT EXECUTIVE 07/08/2024 5:41 AM JUNIOR ACCOUNT EXECUTIVE us Inocencio Munson NP LAB BLOOD ORDERABLES Gabriela nagel Result [facility] [address] Department [place] [address] * Differential, auto (07/08/2024 5:32 AM JUNIOR ACCOUNT EXECUTIVE) Neutrophil abs 4.4 1.5 - 6.5 K/cumm Imm gran abs 0.0 0.0 - 0.1 K/cumm [facility] Lymphocyte abs 2.0 0.8 - 3.3 K/cumm [facility] Monocyte abs 0.5 0.2 - 0.8 K/cumm [facility] Eosinophil abs 0.3 0.0 - 0.5 K/cumm [facility] Basophil abs 0.0 0.0 - 0.1 K/cumm [facility] Neutrophil pct 60.8 % [facility] Comment: Interpretive Data Percent cell count reference ranges are not reported, since discordance with absolute values may lead to misinterpretation of CBC data. Current Interpretive Data was last revised on 2017. Imm gran pct 0.3 % [facility] Comment: Interpretive Data Percent cell count reference ranges are not reported, since discordance with absolute values may lead to misinterpretation of CBC data. Current Interpretive Data was last revised on 2017. Lymphocyte pct 27.9 % [facility] Comment: Interpretive Data Percent cell count reference ranges are not reported, since discordance with absolute values may lead to misinterpretation of CBC data. Current Interpretive Data was last revised on 2017. Monocyte pct 6.3 % [facility] Comment: Interpretive Data Percent cell count reference ranges are not reported, since discordance with absolute values may lead to misinterpretation of CBC data. Current Interpretive Data was last revised on 2017. Eosinophil pct 4.1 % [facility] Comment: Interpretive Data Percent cell count reference ranges are not reported, since discordance with absolute values may lead to misinterpretation of CBC data. Current Interpretive Data was last revised on 2017. Basophil pct 0.6 % [facility] Comment: Interpretive Data Percent cell count reference ranges are not reported, since discordance with absolute values may lead to misinterpretation of CBC data. Current Interpretive Data was last revised on 2017. Blood 07/08/2024 5:32 AM JUNIOR ACCOUNT EXECUTIVE 07/08/2024 5:41 AM JUNIOR ACCOUNT EXECUTIVE Inocencio Munson DIAGNOSTIC IMAGING MANAGER LAB BLOOD ORDERABLES Gabriela l Result [facility] [address] Department [place] [address] * (ABNORMAL) CBC with auto differential (07/08/2024 5:32 AM JUNIOR ACCOUNT EXECUTIVE) WBC 7.1 3.8 - 9.9 K/cumm Hgb 12.1 11.9 - 15.5 g/dL [facility] Hct 38.1 35.6 - 45.5 % [facility] Plt 196 150 - 400 K/cumm [facility] MPV 12.1 9.1 - 12.3 fL [facility] RBC 4.12 3.90 - 5.20 M/cumm [facility] MCV 92.5 81.3 - 96.4 fL [facility] MCH 29.4 27.1 - 33.3 pg [facility] MCHC 31.8(L) 32.3 - 35.7 g/dL [facility] RDW CV 14.2 11.1 - 14.9 % [facility] RDW SD 47.9 35.7 - 48.1 fL [facility] NRBC abs 0.00 0.00 - 0.01 K/cumm [facility] Blood 07/08/2024 5:32 AM JUNIOR ACCOUNT EXECUTIVE 07/08/2024 5:41 AM JUNIOR ACCOUNT EXECUTIVE Shontel Cristina Ray DIAGNOSTIC IMAGING MANAGER LAB BLOOD ORDERABLES [place] [address] [address] Department [place] [address] * (ABNORMAL) Comprehensive metabolic panel (07/08/2024 5:32 AM JUNIOR ACCOUNT EXECUTIVE) Sodium 141 135 - 145 mmol/L Potassium, pl 3.7 3.3 - 4.9 mmol/L [facility] Chloride 102 97 - 110 mmol/L [facility] CO2 27 22 - 32 mmol/L [facility] Anion gap 12 2 - 15 mmol/L [facility] BUN 16 6 - 25 mg/dL [facility] Creatinine 0.84 0.60 - 1.10 mg/dL [facility] Glucose 124 70 - 199 mg/dL [facility] Comment: [...] Units/L [facility] Blood 07/08/2024 5:32 AM JUNIOR ACCOUNT EXECUTIVE 07/08/2024 5:41 AM JUNIOR ACCOUNT EXECUTIVE Inocencio Munson NP LAB BLOOD ORDERABLES Gabriela l Result [facility]EE [facility]ELAS[facility] [address] Department [place] [address] * eGFR (07/07/2024 3:47 AM JUNIOR ACCOUNT EXECUTIVE) eGFR 79 >=60 mL/min/1. 73 m2 Comment: [...] last reviewed 2021. Blood 07/07/2024 3:47 AM JUNIOR ACCOUNT EXECUTIVE 07/07/2024 4:16 AM JUNIOR ACCOUNT EXECUTIVE us Inocencio Munson DIAGNOSTIC IMAGING MANAGER LAB BLOOD ORDERABLES Gabriela nagel Result [facility] [address] Department [place] [address] * Differential, auto (07/07/2024 3:47 AM JUNIOR ACCOUNT EXECUTIVE) Neutrophil abs 4.7 1.5 - 6.5 K/cumm Imm gran abs 0.0 0.0 - 0.1 K/cumm [facility] Lymphocyte abs 2.3 0.8 - 3.3 K/cumm [facility] Monocyte abs 0.5 0.2 - 0.8 K/cumm [facility] Eosinophil abs 0.3 0.0 - 0.5 K/cumm [facility] Basophil abs 0.0 0.0 - 0.1 K/cumm [facility] Neutrophil pct 60.1 % [facility] Comment: Interpretive Data Percent cell count reference ranges are not reported, since discordance with absolute values may lead to misinterpretation of CBC data. Current Interpretive Data was last revised on 2017. Imm gran pct 0.4 % [facility] Comment: Interpretive Data Percent cell count reference ranges are not reported, since discordance with absolute values may lead to misinterpretation of CBC data. Current Interpretive Data was last revised on 2017. Lymphocyte pct 29.4 % AMEE Comment: Interpretive Data Percent cell count reference ranges are not reported, since discordance with absolute values may lead to misinterpretation of CBC data. Current Interpretive Data was last revised on 2017. Monocyte pct 6.3 % [facility] Comment: Interpretive Data Percent cell count reference ranges are not reported, since discordance with absolute values may lead to misinterpretation of CBC data. Current Interpretive Data was last revised on 2017. Eosinophil pct 3.3 % [facility] Comment: Interpretive Data Percent cell count reference ranges are not reported, since discordance with absolute values may lead to misinterpretation of CBC data. Current Interpretive Data was last revised on 2017. Basophil pct 0.5 % [facility] Comment: Interpretive Data Percent cell count reference ranges are not reported, since discordance with absolute values may lead to misinterpretation of CBC data. Current Interpretive Data was last revised on 2017. Blood 07/07/2024 3:47 AM JUNIOR ACCOUNT EXECUTIVE 07/07/2024 4:16 AM JUNIOR ACCOUNT EXECUTIVE Inocencio Munson NP LAB BLOOD ORDERABLES Gabriela nagel Result AMEE [address] Department [place] [address] * (ABNORMAL) CBC with auto differential (07/07/2024 3:47 AM JUNIOR ACCOUNT EXECUTIVE) WBC 7.9 3.8 - 9.9 K/cumm Hgb 12.2 11.9 - 15.5 g/dL [facility]EE Hct 38.2 35.6 - 45.5 % [facility] Plt 208 150 - 400 K/cumm [facility] MPV 12.3 9.1 - 12.3 fL [facility] RBC 4.18 3.90 - 5.20 M/cumm [facility] MCV 91.4 81.3 - 96.4 fL [facility] MCH 29.2 27.1 - 33.3 pg [facility] MCHC 31.9(L) 32.3 - 35.7 g/dL [facility] RDW CV 14.3 11.1 - 14.9 % [facility] RDW SD 47.9 35.7 - 48.1 fL [facility] NRBC abs 0.00 0.00 - 0.01 K/cumm [facility] Blood 07/07/2024 3:47 AM JUNIOR ACCOUNT EXECUTIVE 07/07/2024 4:16 AM JUNIOR ACCOUNT EXECUTIVE Inocencio Munson NP LAB BLOOD ORDERABLES Gabriela l Result Performing Organization Address [facility] Co de Phone Number [facility] [address] [employer] [place] [address] * Magnesium (07/07/2024 3:47 AM JUNIOR ACCOUNT EXECUTIVE) Pathologist [facility] Magnesium 1.8 1.4 - 2.5 mg/dL Blood 07/07/2024 3:47 AM JUNIOR ACCOUNT EXECUTIVE 07/07/2024 10:23 AM JUNIOR ACCOUNT EXECUTIVE Sandrine Toth MD LAB BLOOD ORDERABLES Final Re sult Performing Organization Address [facility] Co de Phone Number [facility] [address] [employer] [place] [address] * (ABNORMAL) Comprehensive metabolic panel (07/07/2024 3:47 AM JUNIOR ACCOUNT EXECUTIVE) Sodium 140 135 - 145 mmol/L Potassium, [...] may be affected. Blood 07/07/2024 3:47 AM JUNIOR ACCOUNT EXECUTIVE 07/07/2024 4:16 AM JUNIOR ACCOUNT EXECUTIVE us Inocencio Munson DIAGNOSTIC IMAGING MANAGER LAB BLOOD ORDERABLES Gabriela robe Result [address] Department of Laboratories [place] [id number] * TRANSTHORACIC ECHO (TTE) COMPLETE W DOPPLER/CF WO CONTRAST (07/06/2024 10:20 AM JUNIOR ACCOUNT EXECUTIVE) Anatomical Region Laterality Modality Ultrasound 07/06/2024 9:44 AM JUNIOR ACCOUNT EXECUTIVE Narrative 07/06/2024 12:25 PM [place] [address] Echocardiogram Report Patient Name: MARION BOURGEOIS W : 1945 Study Date: 07/06/2024 9:44:51 AM Gender: F Tech: JOSE Location: [id number] Ref Provider: INOCENCIO MUNSON Height(Cm): 165 BSA: [...] is mild tricuspid regurgitation. Pericardium: There is fyvk-us-jykyhvax size pericardial effusion with no evidence of echocardiographic tamponade. Aorta: Aortic root not well visualized. IVC: Normal size and no respiratory collapse consistent with elevated right atrial pressure (5-10 mmHg). CONCLUSIONS: There is severe concentric left ventricular hypertrophy. The left ventricular ejection fraction is visually estimated to be 35-40%. There is mild aortic stenosis and mild aortic regurgitation. There is a mkvj-ij-scosiagj sized pericardial effusion with no evidence of echocardiographic tamponade. The size of the pericardial effusion seems to have decreased compared to previous echo study. Technically difficult study. Electronically Signed By: Dr. Ignacio Ya 07/06/2024 12:24:51 PM JUNIOR ACCOUNT EXECUTIVE Procedure Note Ignacio Ya MD - 07/06/2024 [place] [address] Echocardiogram Report Patient Name: MARION BOURGEOIS W : 1945 Study Date: 07/06/2024 9:44:51 AM Gender: F Tech: JOSE Location: [id number] Ref Provider: INOCENCIO MUNSON Height(Cm): 165 BSA: [...] There is mild tricuspidregurgitation. Pericardium: There is gpkb-xp-sctmmnsy size pericardial effusion with no evidence ofechocardiographic tamponade. Aorta: Aortic root not well visualized. IVC: Normal size and no respiratory collapse consistent with elevated rightatrial pressure (5-10 mmHg). CONCLUSIONS: There is severe concentric left ventricular hypertrophy. The left ventricular ejection fraction is visually estimated to be35-40%. There is mild aortic stenosis and mild aortic regurgitation. There is a beif-xt-nxgikisb sized pericardial effusion with no evidence of echocardiographic tamponade. The size of the pericardial effusion seems to have decreased compared toprevious echo study. Technically difficult study. Electronically Signed By: Dr. Ignacio Ya 07/06/2024 12:24:51 PM JUNIOR ACCOUNT EXECUTIVE us Inocencio Munson NP CV ECHO PROCEDURES Final Result * eGFR (07/06/2024 3:58 AM JUNIOR ACCOUNT EXECUTIVE) eGFR 87 >=60 mL/min/1. 73 m2 Comment: [...] last reviewed 2021. Blood 07/06/2024 3:58 AM JUNIOR ACCOUNT EXECUTIVE 07/06/2024 4:46 AM JUNIOR ACCOUNT EXECUTIVE us Inocencio Munson NP LAB BLOOD ORDERABLES Gabriela l Result [facility] [address] Department [place] [address] * Differential, auto (07/06/2024 3:58 AM JUNIOR ACCOUNT EXECUTIVE) Neutrophil abs 4.2 1.5 - 6.5 K/cumm Imm gran abs 0.0 0.0 - 0.1 K/cumm [facility] Lymphocyte abs 2.1 0.8 - 3.3 K/cumm [facility] Monocyte abs 0.5 0.2 - 0.8 K/cumm [facility] Eosinophil abs 0.3 0.0 - 0.5 K/cumm [facility] Basophil abs 0.0 0.0 - 0.1 K/cumm [facility] Neutrophil pct 58.7 % [facility] Comment: Interpretive Data Percent cell count reference [...] revised on 2017. Lymphocyte pct 29.8 % [facility] Comment: Interpretive Data Percent cell count reference ranges are not reported, since discordance with absolute values may lead to misinterpretation of CBC data. Current Interpretive Data was last revised on 2017. Monocyte pct 6.5 % [facility] Comment: Interpretive Data Percent cell [...] revised on 2017. Blood 07/06/2024 3:58 AM JUNIOR ACCOUNT EXECUTIVE 07/06/2024 4:48 AM JUNIOR ACCOUNT EXECUTIVE Inocencio Munson NP LAB BLOOD ORDERABLES Gabriela nagel Result [facility] [address] Department [place] [address] * (ABNORMAL) CBC with auto differential (07/06/2024 3:58 AM JUNIOR ACCOUNT EXECUTIVE) WBC 7.1 3.8 - 9.9 K/cumm Hgb 11.4(L) 11.9 - 15.5 g/dL [facility] Hct 35.8 35.6 - 45.5 % [facility] Plt 190 150 - 400 K/cumm [facility] MPV 12.4(H) 9.1 - 12.3 fL [facility] RBC 3.85(L) 3.90 - 5.20 M/cumm [facility] MCV 93.0 81.3 - 96.4 fL [facility] MCH 29.6 27.1 - 33.3 pg [facility] MCHC 31.8(L) 32.3 - 35.7 g/dL [facility] RDW CV 14.4 11.1 - 14.9 % [facility] RDW SD 49.4(H) 35.7 - 48.1 fL [facility] NRBC abs 0.00 0.00 - 0.01 K/cumm [facility] Blood 07/06/2024 3:58 AM JUNIOR ACCOUNT EXECUTIVE 07/06/2024 4:48 AM JUNIOR ACCOUNT EXECUTIVE us Inocencio Munson NP LAB BLOOD ORDERABLES Gabriela l Result [facility] [address] Department [place] [address] * (ABNORMAL) Comprehensive metabolic panel (07/06/2024 3:58 AM JUNIOR ACCOUNT EXECUTIVE) Sodium 140 135 - 145 mmol/L Potassium, pl 3.5 3.3 - 4.9 mmol/L [facility] Chloride 103 97 - 110 mmol/L [facility] CO2 26 22 - 32 mmol/L [facility] Anion gap 11 2 - 15 mmol/L [facility] BUN 16 6 - 25 mg/dL [facility] Creatinine 0.68 0.60 - 1.10 mg/dL [facility] Glucose 108 70 - 199 mg/dL [facility] Comment: Interpretive Data Fasting glucose >/= 126 [...] - 45 Units/L [facility] Blood 07/06/2024 3:5 8 AM JUNIOR ACCOUNT EXECUTIVE 07/06/2024 4:46 AM JUNIOR ACCOUNT EXECUTIVE us Inocencio Munson DIAGNOSTIC IMAGING MANAGER LAB BLOOD ORDERABLES [place] [address] [address] Department [place] [address] * CT Chest WO Contrast (07/05/2024 4:12 PM JUNIOR ACCOUNT EXECUTIVE) Anatomical Region Laterality Modality Body N/A Computed Tomogra phy 07/05/2024 4:28 PM JUNIOR ACCOUNT EXECUTIVE Impressions 07/05/2024 4:28 PM JUNIOR ACCOUNT EXECUTIVE 1. Pulmonary nodules bilaterally measuring up to 4 mm. Follow-up chest CT based on Fleischner criteria suggested. 2. Diffusely enlarged heterogeneous thyroid. Recommend follow-up thyroid ultrasound for further evaluation of nodules. 3. Moderately sized pericardial effusion. 4. Additional chronic or incidental findings as above. Electronically signed by: Gilberto Barragan II, D.O. Narrative 07/05/2024 4:28 PM JUNIOR ACCOUNT EXECUTIVE EXAMINATION: Computed tomography of the chest without [...] visualized spine. Procedure Note Gilberto Barragan II, DO - 07/05/2024 EXAMINATION: Computed tomography of the [...] by: Gilberto Barragan II, D.O. Lisa Bliss DIAGNOSTIC IMAGING MANAGER IMG CT PROCEDURES Fin al Result * (ABNORMAL) Troponin T high-sensitivity 2-hour (07/05/2024 2:47 PM JUNIOR ACCOUNT EXECUTIVE) Trop T hs 28(H) <=14 ng/L Comment: Interpretive Data For further hscTnT resources including the diagnostic algorithm and an aid in interpretation, copy and paste this link: https://nrl.testcatalog.org/show/hsTrop Current Interpretive Data last revised 2020. Trop T hs delta 0 ng/L CERNER Trop T hs interp Insignificant CERNER Blood 07/05/2024 2:47 PM JUNIOR ACCOUNT EXECUTIVE 07/05/2024 2:50 PM JUNIOR ACCOUNT EXECUTIVE Abelardo Carey MD LAB BLOOD ORDERABLES Final Result [facility] [address] Department [place] [address] * XR Chest 1 Vw Portable (if patient condition/safety warrant portable) (07/05/2024 1:17 PM JUNIOR ACCOUNT EXECUTIVE) Anatomical Region Laterality Modality Body, Chest N/A Computed Radiogr aphy 07/05/2024 1:22 PM JUNIOR ACCOUNT EXECUTIVE Impressions 07/05/2024 1:22 PM JUNIOR ACCOUNT EXECUTIVE No failure. Electronically signed by: Troy Veronica M.D. Narrative 07/05/2024 1:22 PM JUNIOR ACCOUNT EXECUTIVE EXAMINATION: XR CHEST 1 VIEW HISTORY: The [...] failure. Electronically signed by: Troy Veronica M.D. Abelardo Carey MD IMG XR PROCEDURES Final Re sult * (ABNORMAL) Troponin T high-sensitivity series (baseline, 2hr, 4hr, 6hr) (07/05/2024 12:30 PM JUNIOR ACCOUNT EXECUTIVE) Trop T hs 28(H) <=14 ng/L Comment: Interpretive Data For further hscTnT resources including the diagnostic algorithm and an aid in interpretation, copy and paste this link: https://nrl.testcatalog.org/show/hsTrop Current Interpretive Data last revised 2020. Blood 07/05/2024 12:3 0 PM JUNIOR ACCOUNT EXECUTIVE 07/05/2024 12:32 PM JUNIOR ACCOUNT EXECUTIVE Abelardo Carey MD LAB BLOOD ORDERABLES Final Result Performing Organization Address [facility]/ZIP Co de Phone Number AMEE VELAS[facility] [address] [place] [address] * eGFR (07/05/2024 12:30 PM JUNIOR ACCOUNT EXECUTIVE) eGFR 73 >=60 mL/min/1. 73 m2 Comment: [...] reviewed 2021. Blood 07/05/2024 12:3 0 PM JUNIOR ACCOUNT EXECUTIVE 07/05/2024 12:32 PM JUNIOR ACCOUNT EXECUTIVE Abelardo Carey MD LAB BLOOD ORDERABLES Final Result Performing Organization Address City/[facility]/ZIP Co de Phone Number JEREMIAHROB VELASCO [address] [employer] [place], [place] [id number] * Differential, auto (07/05/2024 12:30 PM JUNIOR ACCOUNT EXECUTIVE) Neutrophil abs 5.5 1.5 - 6.5 K/cumm Imm gran abs 0.0 0.0 - 0.1 K/cumm [facility] Lymphocyte abs 1.4 0.8 - 3.3 K/cumm [facility] Monocyte abs 0.3 0.2 - 0.8 K/cumm CERNER Eosinophil abs 0.2 0.0 - 0.5 K/cumm [facility] Basophil abs 0.0 0.0 - 0.1 K/cumm [facility] Neutrophil pct 73.8 % CERNER Comment: Interpretive Data Percent cell count reference ranges are not reported, since discordance with absolute values may lead to misinterpretation of CBC data. Current Interpretive Data was last revised on 2017. Imm gran pct 0.3 % [facility] Comment: Interpretive Data Percent cell count reference ranges are not reported, since discordance with absolute values may lead to misinterpretation of CBC data. Current Interpretive Data was last revised on 2017. Lymphocyte pct 18.9 % [facility] Comment: Interpretive Data Percent cell count reference ranges are not reported, since discordance with absolute values may lead to misinterpretation of CBC data. Current Interpretive Data was last revised on 2017. Monocyte pct 4.4 % [facility] Comment: Interpretive Data Percent cell count reference ranges are not reported, since discordance with absolute values may lead to misinterpretation of CBC data. Current Interpretive Data was last revised on 2017. Eosinophil pct 2.1 % [facility] Comment: Interpretive Data Percent cell count reference ranges are not reported, since discordance with absolute values may lead to misinterpretation of CBC data. Current Interpretive Data was last revised on 2017. Basophil pct 0.5 % [facility] Comment: Interpretive Data Percent cell count reference ranges are not reported, since discordance with absolute values may lead to misinterpretation of CBC data. Current Interpretive Data was last revised on 2017. Blood 07/05/2024 12:3 0 PM JUNIOR ACCOUNT EXECUTIVE 07/05/2024 12:32 PM JUNIOR ACCOUNT EXECUTIVE Abelardo Carey MD LAB BLOOD ORDERABLES Final Result Performing Organization Address [facility] Co de Phone Number AMEE VELASCO [address] [place] [address] * (ABNORMAL) Pro B-type natriuretic peptide (07/05/2024 12:30 PM JUNIOR ACCOUNT EXECUTIVE) NT-proBNP 3,136(H) <=450 pg/mL Comment: Interpretive Comments: [...] Date: 2017. Blood 07/05/2024 12:3 0 PM JUNIOR ACCOUNT EXECUTIVE 07/05/2024 12:32 PM JUNIOR ACCOUNT EXECUTIVE Abelardo Carey MD LAB BLOOD ORDERABLES Final Result Performing Organization Address [facility] Co de Phone Number AMEE VELASCO [address] Department [place] [address] * Thyroid Function [place] (07/05/2024 12:30 PM JUNIOR ACCOUNT EXECUTIVE) Pathologist [facility] TSH 0.36 0.30 - 4.20 mcIUnit/mL Blood 07/05/2024 12:3 0 PM JUNIOR ACCOUNT EXECUTIVE 07/05/2024 2:19 PM JUNIOR ACCOUNT EXECUTIVE Lisa Bliss NP LAB BLOOD ORDERABLES Final Result [facility] [address] [facility] [place] [address] * (ABNORMAL) CBC with auto differential (07/05/2024 12:30 PM JUNIOR ACCOUNT EXECUTIVE) [facility] WBC 7.5 3.8 - 9.9 K/cumm Hgb 11.9 11.9 - 15.5 g/dL [facility] Hct 38.4 35.6 - 45.5 % [facility] Plt 218 150 - 400 K/cumm [facility] CH MPV 11.5 9.1 - 12.3 fL [facility] RBC 4.11 3.90 - 5.20 M/cumm [facility] MCV 93.4 81.3 - 96.4 fL [facility] MCH 29.0 27.1 - 33.3 pg [facility] MCHC 31.0(L) 32.3 - 35.7 g/dL [facility] CH RDW CV 14.4 11.1 - 14.9 % [facility] CH RDW SD 49.9(H) 35.7 - 48.1 fL [facility] NRBC abs 0.00 0.00 - 0.01 K/cumm [facility] CH Blood Venous blood specimen / Unknown 07/05/2024 12:30 PM JUNIOR ACCOUNT EXECUTIVE 07/05/2024 12:32 PM JUNIOR ACCOUNT EXECUTIVE Abelardo Carey MD LAB BLOOD ORDERABLES Final Result AMEE [address] [place] [address] * Comprehensive metabolic panel (07/05/2024 12:30 PM JUNIOR ACCOUNT EXECUTIVE) Sodium 145 135 - 145 mmol/L Potassium, [...] CERNER CH Blood 07/05/2024 12:3 0 PM JUNIOR ACCOUNT EXECUTIVE 07/05/2024 12:32 PM JUNIOR ACCOUNT EXECUTIVE us Abelardo Carey MD LAB BLOOD ORDERABLES Final Result [facility] [address] Department [place] [address] * ECG 12 lead (07/05/2024 12:25 PM JUNIOR ACCOUNT EXECUTIVE) 07/05/2024 12:2 5 PM JUNIOR ACCOUNT EXECUTIVE Narrative [facility] - 07/05/2024 7:42 PM JUNIOR ACCOUNT EXECUTIVE Vent Rate: 99 bpm RR Interval: 606 msec AK Interval: 128 msec QRS Duration: 154 msec QT Interval: 408 msec QTC Interval: 464 msec P-R-T [place]: 68 - 265 - 64 degrees IMPRESSION: VENTRICULAR PACED RHYTHM Electronically Signed By: Blake Garces MD, [facility] Abelardo Carey MD ECG ORDERABLES Final Resu lt [facility] * DEVICE CHECK - REMOTE (06/19/2024 10:46 AM JUNIOR ACCOUNT EXECUTIVE) Anatomical Region Laterality Modality Other Narrative 06/28/2024 3:59 PM JUNIOR ACCOUNT EXECUTIVE Lorenzo Biv ICD. Dx; NICM, LBBB, SSS, [...] Entresto Follow up: Office Pacemaker/ICD scheduled 03/20/25 [place] remote 09/25/24 Andry Workman RN us Vaishali Yanez MD CV CARDIAC SERVICES [facility] NERY Final Result * SCAN - RADIOLOGY/IMAGING (06/18/2024) Anatomical Region Laterality Modality Other Vaishali Yanez MD Final Res ult * TRANSTHORACIC ECHO (TTE) COMPLETE W DOPPLER/CF WO CONTRAST (06/07/2024 3:55 PM JUNIOR ACCOUNT EXECUTIVE) LV EF 35-40 % CONS SCIMAGE Anatomical Region Laterality Modality Ultrasound 06/07/2024 3:16 PM JUNIOR ACCOUNT EXECUTIVE Narrative 06/08/2024 1:23 PM JUNIOR ACCOUNT EXECUTIVE [facility] Medical [facility] Cardiology [address], [address], [place] [address] P:[phone] P:[phone] Echocardiographic Report Patient Name: MARION BOURGEOIS W [...] Interpretation Site: Exam was interpreted at [facility]. Left Ventricle: Moderate concentric left ventricular hypertrophy. [...] By: Vaishali Yanez MD 06/08/2024 1:22:57 PM JUNIOR ACCOUNT EXECUTIVE Procedure Note Vaishali Yanez MD - 06/08/2024 [facility] Medical [facility] Cardiology [address], [address], [place] [address] P:[phone] P:[phone] Echocardiographic Report Patient Name: MARION BOURGEOIS W [...] Interpretation Site: Exam was interpreted at [facility]. Left Ventricle: Moderate concentric left ventricular hypertrophy. [...] By: Vaishali Yanez MD 06/08/2024 1:22:57 PM JUNIOR ACCOUNT EXECUTIVE us Vaishali Yanez MD CV ECHO PROCEDURES Final Result from Last 3 Months Insurance [place]IC[place] [address] [place] [address] MEDICARE [facility] Advance Directives For more information, please contact: [phone] * Full Code (Latest Code Status on File) Date Activated Date Inactivated Comments 08/05/2024 4:21 PM 08/05/2024 4:21 PM * Full Code Date Activated Date Inactivated Comments 08/05/2024 4:20 PM 08/05/2024 4:21 PM * Full Code Date Activated Date Inactivated Comments 07/05/2024 4:21 PM 07/08/2024 6:26 PM * Full Code Date Activated Date Inactivated Comments 10/31/2023 1:16 PM 11/01/2023 6:53 PM Care Teams Counselor Manager Relationship Specialty Start Date End Date Rik Bennett MD [address] [place] [address] PCP - General Family Medicine 07/05/24 Isabel Lubin NP [address] [place] [address] [place] [address] Nurse Practitioner Hospice and Palliative Medicine 07/18/24
== END 2024-08-29 11:13 | disposition home or self-care (01) ==
LOC: ANHLAB 11:14
PROVIDERS: PCP Family Medicine; Visit Provider Internal Medicine Cardiovascular Disease
DX: I50.42 Chronic combined systolic (congestive) and diastolic (congestive) heart failure (principal); I42.8 Other cardiomyopathies
CPT/HCPCS: 36415; 80048

== ENCOUNTER 2024-12-25 15:48 | Outpatient (CLI) | payer MEDICARE, MEDICAID, SELFPAY ==
--- OUTSIDE RECORDS SUMMARY | 2024-12-25 08:30 | XMS_ITS | Encounter Summary ---
Author Organization [facility] Healthcare Address [address] [place] [address] Care Team Providers Care Whiskey Regauger Name Role Phone Rik Bennett MD Primary Care Provider Isabel Lubin NP Unavailable [phone] Reason for Visit * Cardiology (Routine) - Pending Review Specialty Diagnoses / Procedures Referred By Contac t Referred To Contact Cardiology Diagnoses Biventricular implantable cardioverter-defibrillator (ICD) in situ NICM (nonischemic cardiomyopathy) (HCC) LBBB (left bundle branch block) SSS (sick sinus syndrome) (HCC) Paroxysmal atrial fibrillation (HCC) Procedures DEVICE CHECK - REMOTE Joseph Yanez MD [address] [place] [address] [facility] [address] [place] [address], [address] [address] Phone: tel: fax: [facility] Medical Group Referral ID Status Reason Start Date Expiration Date V isits Requested Visits Authorized [id number] Pending Review 03/16/2024 09/13/2025 1 1 Encounter Details Date Type Department Care Team (Latest Contact Info) Description 12/25/2024 8:30 AM CDT Ancillary Procedure [facility] Medical [facility] Cardiology [address] [place] [id number] Biventricular implantable cardioverter-defibril lator (ICD) in situ; NICM (nonischemic cardiomyopathy) (HCC); LBBB (left bundle branch block); SSS (sick sinus syndrome) (HCC); Paroxysmal atrial fibrillation (HCC) Social History Tobacco Use Types Packs/Day Years Used Date Smoking Tobacco: Former Cigarettes Q uit: 03/04/1995 Smokeless Tobacco: Never Comments:Smoked only while i n high school Alcohol Use Standard Drinks/Week Comments [...] materials from doctor or pharmacy Sometimes 07/31/2024 [facility] Utilities Answer Date Recorded In the past 12 months has e [employer], gas, oil, or water [employer] threatened to shut off services in your home? No 08/08/2024 Social Connection and Isolation Panel Answer Date Recorded In a typical week, how many times do you talk on the phone with family, friends, or neighbors? More than three times a week 08/08/2024 How often do you get togethe r with friends or relatives? Once a week 08/08/2024 How often do you attend chur ch or voodoo services? Never 08/08/2024 Do you belong to any clubs o r organizations such as alevism groups, unions, fraternal or athletic groups, or [...] any time in the past 12 m [facility], were you homeless or living in a long term (including now)? No 08/08/2024 Personal Safety Answer [...] on file Sexual Orientation Not on file documented as of this encounter Plan of Treatment Pending Results Name Type Priority Associated Diagnoses Date /Time DEVICE CHECK - REMOTE Cardiac Services Routine Biventricular implantable cardioverter-defibrilla tor (ICD) in situ NICM (nonischemic cardiomyopathy) (HCC) LBBB (left bundle branch block) SSS (sick sinus syndrome) (HCC) Paroxysmal atrial fibrillation (HCC) 12/25/2024 10:54 AM CDT documented as of this encounter Visit Diagnoses Diagnosis Biventricular implantable cardioverter-defibrillator (ICD) in situ NICM (nonischemic cardiomyopathy) (HCC) LBBB (left bundle branch block) Other left bundle branch block SSS (sick sinus syndrome) (HCC) Sinoatrial node dysfunction Paroxysmal atrial fibrillation (HCC) Atrial fibrillation documented in this encounter Care Teams Whiskey Regauger Relationship Specialty Start Date End Date Rik Bennett MD [address] [facility] [address] [place] [address] PCP - General Family Medicine 07/05/24 Isabel Lubin NP [address] [place] [address] [place], [place] [address] [place] [address] Nurse Practitioner Hospice and Palliative Medicine 07/18/24 documented as of this encounter
--- OUTSIDE RECORDS SUMMARY | 2024-12-25 13:00 | XMS_ITS | Encounter Summary ---
Author Organization [facility] Healthcare Address [address] [place] [address] Care Team Providers Care Color Technician Name Role Phone Rik Bennett MD Primary Care Provider Isabel Lubin NP Unavailable [phone] Reason for Visit * Reason Comments Atrial Fibrillation Cardiomyopathy Congestive Heart Failure Rapid Heart Rate 4 mo f/u Encounter Details Date Type Department Care Team (Late st Contact Info) Description 12/25/2024 1:00 PM CDT Office Visit [facility] Medical Group Cardiology [address] [place] [address] Breanne Pedraza NP [address] [place] [address] NICM (nonischemic cardiomyopathy) (HCC) (Primary Dx); SSS (sick sinus syndrome) (HCC); Biventricular implantable cardioverter-defibri llator (ICD) in situ; Chronic anticoagulation; History of pulmonary embolism Social History Tobacco Use Types Packs/Day Years [...] materials from doctor or pharmacy Sometimes 07/31/2024 [facility] Utilities Answer Date Recorded In the past 12 months has th e electric, gas, oil, or water company threatened to shut off services in your [...] often do you attend chur ch or confucianism services? Never 08/08/2024 Do you belong to any clubs o r organizations such as amish groups, unions, fraternal or athletic groups, or [...] any time in the past 12 m [facility], were you homeless or living in a snf (including now)? No 08/08/2024 Personal Safety Answer [...] on file documented as of this encounter Last Filed Vital Signs Vital Sign Reading Time Taken Comments Blood Pressure 160/80 12/25/2024 1:11 PM CDT Pulse 73 12/25/2024 1:11 PM CDT Temperature - - Respiratory Rate - - Oxygen Saturation 98% 12/25/2024 1:11 PM CDT Inhaled Oxygen Concentration - - Weight 87.1 kg (192 lb) 12/25/2024 1:11 PM CDT Height 165.1 cm (5' 5) 12/25/2024 1:11 PM CDT Body Mass Index 31.95 12/25/2024 1:11 PM CDT documented in this encounter Progress Notes * Breanne Pedraza NP - 12/25/2024 1:00 PM CDT Images from the original note were not included. [facility] Medical [facility] Cardiology [address] [place] [address] Date of Visit: 12/25/2024 Patient ID: Marion Garcia 1945 Chief Complaint Patient presents with Atrial Fibrillation Cardiomyopathy Congestive Heart Failure Rapid Heart Rate 4 mo f/u Antonitolino Garcia is a 79 y.o. female who is an established patient of Dr. Yanez with a history of atrial fibrillation coming to the office for 3 month follow up. History of Present Illness: Marion Garcia is a 79 y.o. female with paroxysmal atrial fibrillation, PVC and left bundle branch block. She is referred and I am seeing her at the request of Dr. Recinos for further evaluation and treatment. Patient states that the time of a laminectomy a couple of years ago that she was found have paroxysmal atrial fibrillation. It sounds as if her ejection fraction was 40% also at that time. Unfortunately no records from [place] are available for my review. She was seeing a inflatable buildings laminator at [facility]. She recently moved to this area to be closer to her daughter. She denies any chest pain, shortness of breath. No syncope. Does have some dizziness/vertigo whenever she turns her head too fast. She does have some occasional palpitations which she usually feels at night and she describes as a flutter. Nothing sustained. She does have some intermittent swelling which is not new or different. She does have some paroxysmal nocturnal dyspnea related to her sleep apnea. Unfortunately her CPAP machine was damaged upon transfer from [place] and she has not been using her CPAP as routinely as she typically would. Follow-up note 04/18/2020: She continues have some palpitations lasting for 5-15 minutes at a time usually a couple times per week and at night. No other associated symptoms she denies any chest pain, syncope, shortness of breath, paroxysmal nocturnal dyspnea, orthopnea. She does complain of fatigue but has not been on her CPAP in quite some time. Follow-up 09/12/2020: She has been having some right leg pain and some swelling. She denies any chest pain, syncope, paroxysmal nocturnal dyspnea orthopnea, palpitations. She has no shortness of breath. She has had a knot in her right lower extremity and still feels weak and fatigued but she is yetto have her sleep apnea treated. Follow-up with [employer] 10/07/2020: She returns to the office accompanied by her daughter to discuss the results of her recent stress test. When she was under the care of the previous inflatable buildings laminator in [place], she had a stress test and then had a cardiac catheterization performed afterwards. The daughter remembers being told that the cardiac catheterization showed no blockages. Patient cannot remember how many years ago this was. The patient admits she recently stopped taking her medication regularly around the time she was getting her COVID vaccines because she was concerned about a potential side effect with the vaccine and her medications. The daughter states she does not always take her medication regularly. Daughters is also having difficulty getting her mom's cooperation with walking for exercise. Follow-up note 01/13/2021: She has some intermittent lower extremity swelling which is not new or different. Otherwise denies any chest pain, shortness breath, syncope, presyncope, paroxysmal nocturnal dyspnea orthopnea, palpitations. Follow-up with [facility] 03/27/2021: She made this appointment today because she has been noticing more palpitations over the last couple of weeks. She notices them mostly at night, lasts for a few minutes,there were no other accompanying symptoms. She is also not sleeping well. Her CPAP machine is not working and she was told she cannot get a new 1 until the new year. She feels tired. Follow-up with [facility] [employer] [facility] 06/08/2021: She states she still feels tired and she has shortness of breath at night but she is still not gotten her new CPAP machine. She also has questions about medications she should be taking. She reports that recently she has been taking the metoprolol, amlodipine and Prilosec regularly. She uses chlorthalidone as needed if she has swelling. Follow-up note 07/23/2021: She was recent hospitalized because of atrial fibrillation with rapid ventricle response. She also had bilateral DVTs. She was not taking her medications as prescribed. Sheis now feeling better. She often times misses her afternoon dose of metoprolol. She does describe paroxysmal nocturnal dyspnea but is yet to start her BiPAP therapy. No syncope, presyncope, orthopnea, edema or palpitations. No bleeding problems Follow-up note 09/03/2021: Complains of a lot of arthritic pain at this point. Her shortness breathis better. She denies any chest pain, syncope, presyncope, paroxysmal nocturnal dyspnea orthopnea edema palpitations Follow-up with [facility] [employer] [facility] 02/08/2022: She went to [facility] ER in early December for dizziness and shortness of breath, and again was at [facility] ER a week ago for dizziness again. High sensitivity troponin was 19 and then 18. She felt better after IV fluid and meclizine. Patient returns tothe office today accompanied by her daughter. She denies any chest pain/tightness/heaviness or any shortness of breath/orthopnea/PND. She feels dizzy when she bends over, rolls over in bed, sits up too fast. Taking the meclizine does help. She states she is only been taking the Eliquis and the diltiazem once a day. PCP ordered testing last week that included an ECG, CT of the head, carotid ultrasound and thyroid ultrasound, lab tests, waiting to hear results. The patient's daughter said the ECGshowed AFib. The patient's daughter took me aside after the visit and states that she and her father are struggling with the patient's behavior, being resistant and not wanting to take her medication(the patient lives with her and daughter). Follow-up note 07/27/2022: She was having worsening shortness breath and feet swelling. Shortness breath was progressively worsening to the point of dyspnea with mild activity. She ended up going to the ER at [facility] and was found to have pulmonary embolism. I do not have complete records for evaluation. She did have an echocardiogram which I do not have for review at this point. She denies any paroxysmal nocturnal dyspnea orthopnea, syncope, presyncope. She did receive IV diuresis and was puton higher dose of Eliquis. She was not compliant with her b.i.d. dosing of Eliquis prior to her pulmonary embolism. She has some occasional palpitations. Follow-up note 09/24/2022: She was recently hospitalized for CHF exacerbation. She was diuresed. Medications were changed but she is not taking her metoprolol as prescribed. She is only taking as needed. She does describe some shortness of breath. She does have some pedal edema which is not new or worse. No syncope, presyncope, paroxysmal nocturnal dyspnea orthopnea, palpitations Follow-up note 12/17/2022: She was recently hospitalized because of fluid retention as well as vertigo. She was diuresed and she is feeling better overall. She is more consistent with her medications. She has a little bit of swelling at times and some shortness breath with activity but is more stable. No chest pain, syncope, presyncope, paroxysmal nocturnal dyspnea orthopnea, palpitations or bleeding problems Follow-up note 08/05/2023: She was recently hospitalized in July of 2023 for CHF and pulmonary emboli. She was diuresed. Echocardiogram showed ejection fraction 20 25%. She denies any chest pain. She is more compliant with medications. She has not taking her Entresto twice daily however. She denies any syncope, presyncope, paroxysmal nocturnal dyspnea orthopnea. She is still short of breath withsome activity. Swelling is improved. No chest pain Patient underwent uncomplicated [employer] implant on 10/31/2023. Follow-up note 01/17/2024: She intermittently takes medications. She has not taken amiodarone routinely. She denies any chest pain, shortness of breath, syncope, presyncopel . Does have some edema which is not due her different. No palpitations or bleeding problems Interval history February-March 2024: She was hospitalized at [facility] on 02/21/2024 when she presented with shortness of breath and leg swelling. She was found to have bilateral posterior tibial DVTs, she likely had not been compliant with Xarelto. She was also given IV Lasix for acute exacerbation of CHF. She was again hospitalized at [facility] on 03/26/2024 after her defibrillator discharged. When she presented in the ER she was in AFib with RVR and put on a diltiazem drip. Interrogation ofher defibrillator showed several episodes of NSVT, VT and VF. It was suspected she has not been compliant with taking her metoprolol. Dr. Tony saw her in consultation. Diltiazem drip was changed to amiodarone drip and then transitioned to oral amiodarone. She was discharged with amiodarone 200 mg daily and higher dose metoprolol succinate 50 mg daily. Other meds were continued the same. Hospital follow up with [facility] 04/13/2024: She returns for follow-up accompanied by her daughter. She has not yet taken oral medications morning. She feels very tired since discharge. Her pulse oximeter at home which showing a heart rate in the 40s but when her daughter checked it later on another pulse oximeter it was in the 70s. However her daughter was concerned about her heart rate being low and has not given her the amiodarone the past couple of days. Follow-up note 06/15/2024: She does have shortness of breath with doing household activities. She has some chronic lower extremity swelling which is not new or different. She does feel tired. No syncope, presyncope, paroxysmal nocturnal dyspnea, orthopnea, chest pain Follow-up note 07/24/2024: She was recently hospitalized and diuresed. She is doing better from a medical compliance perspective. She is not taking her carvedilol twice daily though. She denies any chest pain, shortness breath, syncope, presyncope, paroxysmal nocturnal dyspnea. Does have some lowerextremity swelling which is overall better. No palpitations but does complain of hip pain and difficulty standing Follow-up note 08/22/2024: She was recently rehospitalized in July through early August. She did undergo IV diuretics. She was seen by inpatient Cardiology. She is seen today in follow-up because there is concerned about progressively worsening left leg edema. Patient actually thinks that her swelling overall is decreased as compared to her hospitalization. Weight is down from last visit. She hasno chest pain, syncope, paroxysmal nocturnal dyspnea, orthopnea, palpitations and describes no shortness of breath. Follow up visit with [facility] [employer] [facility] 09/25/2024: she is here for short interval follow up to monitor her CHF. She is accompanied by her daughter. Neither of them have any cardiac concerns. Today's weight is 4 lb higher than last visit patient's daughter states she has not yet taken her diuretic today so she would not have urinary urgency coming to the appointment. They both feel like her fluid status is stable and patient denies any shortness of breath. Her only complaint today is worsening of chronic back pain recently. Follow up with [facility] [employer] [facility] 12/25/2024: She is here for three-month follow-up accompanied by her daughter. Neither of them have any cardiac concerns. The patient notes she feels tired and she is not very active. She did not yet take her medication today (it is now 1:00 p.m.). Medical History: Past Medical History: Diagnosis Date Acid indigestion Anemia Arthritis Chronic anticoagulation Heart murmur History of pulmonary embolism [facility] Hyperlipidemia Hypertension LBBB (left bundle branch block) Motion sickness NICM (nonischemic cardiomyopathy) (HCC) PAF (paroxysmal atrial fibrillation) PONV (postoperative nausea and vomiting) Sleep apnea Syncope Ventricular premature depolarization Past Surgical History: Procedure Laterality Date CARDIAC CATHETERIZATION 2020 COLONOSCOPY HYSTERECTOMY partial LAMINECTOMY Social History Tobacco Use Smoking Status Former Current packs/day: 0.00 Types: Cigarettes Quit date: 03/04/1995 Years since quittin.8 Smokeless Tobacco Never Tobacco Comments Smoked only while in high school Social History Tobacco Use Smoking status: Former Current packs/day: 0.00 Types: Cigarettes Quit date: 03/04/1995 Years since quittin.8 Smokeless tobacco: Never Tobacco comments: Smoked only while in high school Substance and Sexual Activity Drug use: Never Sexual activity: Defer Alcohol Use: Not At Risk (07/06/2024) AUDIT-C Frequency of Alcohol Consumption: Never Average Number of Drinks: Patient does not drink Frequency of Binge Drinking: Never Family History Problem Relation Age of Onset Heart disease Mother Heart disease Father Heart disease Sister Heart disease Brother Heart disease Brother Other (gunshot) Brother Review of Systems Constitutional: Positive for malaise/fatigue. Negative for weight gain and weight loss. Cardiovascular: Negative for chest pain, dyspnea on exertion, leg swelling, near-syncope, orthopnea, palpitations, paroxysmal nocturnal dyspnea and syncope. Respiratory: Negative for cough, shortness of breath and sleep disturbances due to breathing. Hematologic/Lymphatic: Negative for bleeding problem. Does not bruise/bleed easily. Vital Signs: BP 160/80 (BP Location: Left arm, Patient Position: Sitting) Pulse 73 Ht 165.1 cm (5' 5) Wt 87.1 kg (192 lb) SpO2 98% BMI 31.95 kg/m?? Physical Exam Constitutional: General: She is not in acute distress. Appearance: She is well-developed. Comments: Seated in Rollator walker HENT: Head: Normocephalic and atraumatic. Eyes: General: No scleral icterus. Conjunctiva/sclera: Conjunctivae normal. Neck: Vascular: No JVD. Trachea: No tracheal deviation. Cardiovascular: Rate and Rhythm: Normal rate. Rhythm irregular. Occasional Extrasystoles are present. Heart sounds: Normal heart sounds. Comments: Left chest ICD generator site nontender, skin intact. Pulmonary: Effort: Pulmonary effort is normal. No respiratory distress. Breath sounds: Normal breath sounds. Musculoskeletal: Right lower leg: Edema present. Left lower leg: Edema present. Comments: Very mild bilateral pedal and ankle edema Skin: General: Skin is warm and dry. Neurological: Mental Status: She is alert and oriented to person, place, and time. Psychiatric: Mood and Affect: Mood normal. Behavior: Behavior normal. Allergies Allergen Reactions Ibuprofen Hives and Other (See comments) Cerner Allergy Text Annotation: Amee Wheeler Reaction: rash Fentanyl Dizziness and Vomiting Current Outpatient Medications: acetaminophen ER (TYLENOL) 650 mg 8 hr tablet, Take 1 tablet (650 mg total) by mouth every 8 (eight) hours as needed for pain, Disp: , Rfl: amiodarone (PACERONE) 200 mg tablet, Take 1 tablet (200 mg total) by mouth daily If resting heart rate goes below 60, reduce dose to 1/2 tablet (Patient taking differently: Take 0.5 tablets (100 mg total) by mouth daily If resting heart rate goes below 60, reduce dose to 1/2 tablet), Disp: , Rfl: carvediloL (COREG) 3.125 mg tablet, Take 1 tablet (3.125 mg total) by mouth 2 (two) times a day with meals, Disp: 60 tablet, Rfl: 0 cyclobenzaprine (FLEXERIL) 5 mg tablet, Take 1 tablet (5 mg total) by mouth 3 (three) times a day as needed for muscle spasms, Disp: , Rfl: furosemide (LASIX) 40 mg tablet, Take 1 tablet (40 mg total) by mouth daily, Disp: 90 tablet, Rfl: 3 gabapentin (NEURONTIN) 100 mg capsule, Take 1 capsule (100 mg total) by mouth nightly, Disp: 30 capsule, Rfl: 11 guaiFENesin-dextromethorphan ER (MUCINEX DM) 600-30 mg tablet extended release 12 hr, Take 1 tabletby mouth 2 (two) times a day (Patient taking differently: Take 1 tablet by mouth as needed), Disp: 28 tablet, Rfl: 0 meclizine (ANTIVERT) 25 mg tablet, Take 1 tablet (25 mg total) by mouth 3 (three) times a day as needed for dizziness, Disp: 30 tablet, Rfl: 0 omeprazole (PriLOSEC) 40 mg capsule, Take 1 capsule (40 mg total) by mouth every morning, Disp: , Rfl: polyethylene glycol (MIRALAX) 17 gram packet, Take 1 packet (17 g total) by mouth as needed, Disp: , Rfl: potassium chloride ER 20 mEq CR tablet, Take 1 tablet (20 mEq total) by mouth daily, Disp: 90 tablet, Rfl: 3 rivaroxaban (XARELTO) 20 mg tablet, Take 1 tablet (20 mg total) by mouth daily with breakfast, Disp: 90 tablet, Rfl: 3 sacubitriL-valsartan (Entresto) 49-51 mg tablet, Take 1 tablet by mouth twice daily, Disp: 60 tablet, Rfl: 10 spironolactone (ALDACTONE) 25 mg tablet, Take 1 tablet (25 mg total) by mouth daily, Disp: 90 tablet, Rfl: 3 Lab Results Component Value Date POTASSIUM 4.2 08/14/2024 BUNSER 20 08/14/2024 CREATININE 0.90 08/29/2024 Lab Results Component Value Date WBC 5.36 08/14/2024 HGB 11.0 (L) 08/14/2024 HCT 34.2 (L) 08/14/2024 MCV 91.0 08/14/2024 No results found for this or any previous visit (from the past 4 hours). No results found for: POCCHOL, POCHDL, POCTRIG, POCLDL, POCNONHDL, POCCHLPL Assessment: Diagnoses and all orders for this visit: NICM (nonischemic cardiomyopathy) (HCC) (Primary) SSS (sick sinus syndrome) (HCC) Biventricular implantable cardioverter-defibrillator (ICD) in situ Chronic anticoagulation History of pulmonary embolism Plan/Recommendations: She has not yet taken her medication today and therefore has a little bit of pedal edema and an elevated blood pressure reading. I reminded her of the importance of taking her medication regularly. Diuretics can be held in the morning if she has to go out of the house for an appointment, but the Entresto and carvedilol need to be taken every 12 hours. Continue carvedilol, Entresto, metoprolol, spironolactone and furosemide 40 mg daily. No recent ICD discharge. AFib burden on her download recently as little higher. Perhaps her compliance with the medication has not been as good recently. Continue amiodarone, carvedilol and Xarelto. Continue follow-up with device Clinic. For her DVTs, PEs, and stroke risk reduction, continue Xarelto 20 mg daily. Patient requests ongoing follow-up in three-month intervals. She will see me again in [address] Yanez in 6 months. 12/25/2024 ZULMA Jones- Nurse Practitioner with [facility] This note is dictated and transcribed using [employer] Direct Software. Kettle Loader variancesmay occur. Despite proofreading, typographical errors may occur. documented in this encounter Plan of Treatment Not on file documented as of this encounter Visit Diagnoses Diagnosis NICM (nonischemic cardiomyopathy) (HCC)- Primary SSS (sick sinus syndrome) (HCC) Sinoatrial node dysfunction Biventricular implantable cardioverter-defibrillator (ICD) in situ Chronic anticoagulation Encounter for long-term (current) use of anticoagulants History of pulmonary embolism Personal history of venous thrombosis and embolism documented in this encounter Care Teams Color Technician Relationship Specialty Start Date End Date Rik Bennett MD [address] [place] [address] [address] [place] [address] PCP - General Family Medicine 07/05/24 Isabel Lubin NP [address] [place] [address] [place] [id number] Nurse Practitioner Hospice and Palliative Medicine 07/18/24 documented as of this encounter
--- OUTSIDE RECORDS SUMMARY | 2024-12-25 16:09 | XMS_ITS | Encounter Summary ---
Author Organization [facility] Healthcare Address [address] [place] [address] Care Team Providers Care Product Marketing Analyst Name Role Phone Mia Recinos MD Primary Care Provider Rik Bennett MD Primary Care Provider Isabel Lubin NP Unavailable [phone] Encounter Details Date Type Department Care Team (Late st Contact Info) Description 03/27/2024 Orders Only [facility] Health Information Management [address] [place] [id number] Scanning, Provider Social History Tobacco Use Types Packs/Day Years [...] as of this encounter Plan of Treatment Not on file documented as of this encounter Procedures Procedure Name Priority Date/Time Associated Diagnosis Comments SCAN - RADIOLOGY/IMAGING 03/27/2024 documented in this encounter Results * SCAN - RADIOLOGY/IMAGING (03/27/2024) Anatomical Region Laterality Modality Other us Provider Scanning Final Result documented in this encounter Visit Diagnoses Not on filedocumented in this encounter Additional Health Concerns Infection Onset Date Last Indicated Resolved Time COVID: Suspected 08/05/2024 08/05/2024 08/05/2024 2:46 PM CDT COVID19 08/05/2024 08/05/2024 08/25/2024 3:05 AM CDT COVID: Recovered Comment:Added based on recent COVID infection. 08/25/2024 09/03/2024 11/23/2024 7:26 PM C DT documented as of this encounter Care Teams Product Marketing Analyst Relationship Specialty Start Date End Date Mia Recinos MD [address] [place] [address] PCP - General Family Medicine 02/29/20 07/04/24 Rik Bennett MD [address] [place] [address] PCP - General Family Medicine 07/05/24 Isabel Lubin NP [address] [place] [address] [address] [place] [address] Nurse Practitioner Hospice and Palliative Medicine 07/18/24 documented as of this encounter
--- OUTSIDE RECORDS SUMMARY | 2024-12-25 16:09 | XMS_ITS | Clinical Summary ---
Author Organization [facility] Address [facility] [place] [address] Care Team Providers Care Deck Lid Fitter Name Role Phone Pedrito Bennett MD Primary Care Provider [phone] Allergies Active Allergy Reactions Criticality Noted Date [...] mg total) by mouth daily. 11/01/2023 Active Social History Tobacco Use Types Packs/Day Years Used Date Smoking Tobacco: Never Smokeless Tobacco: Never Tobacco Cessation:Counseling Given: Not Answered Alcohol Use Standard Drinks/Week Comments Never 0 (1 standard drink = 0.6 oz pur e alcohol) Comments Unknown Sex and Gender Information Value Date Recorded Sex Assigned at Female 07/04/2024 1:26 PM DRAG CAR RACER Legal Sex Female 1:23 PM DRAG CAR RACER Gender Identity Not on file Sexual Orientation Not on file Last Filed Vital Signs Vital Sign Reading Time Taken Comments Blood Pressure 148/68 07/04/2024 1:42 PM DRAG CAR RACER Pulse 55 07/04/2024 1:42 PM DRAG CAR RACER Temperature 37.3 C (99.2 F) 07/04/2024 1:42 PM DRAG CAR RACER Respiratory Rate 20 07/04/2024 1:42 PM DRAG CAR RACER Oxygen Saturation 98% 07/04/2024 1:42 PM DRAG CAR RACER Inhaled Oxygen Concentration - - Weight 84.8 kg (187 lb) 07/04/2024 1:42 PM DRAG CAR RACER Height 167.6 cm (5' 6) 07/04/2024 1:42 PM DRAG CAR RACER Body Mass Index 30.18 07/04/2024 1:42 PM DRAG CAR RACER Plan of Treatment Health Maintenance Due Date [...] on patient's age to [place] [address] MEDICARE MEDICAID Care Teams Deck Lid Fitter Relationship Specialty Start Date End Date Pedrito Bennett MD [address] [place] [address] PCP - General SURGERY 07/04/24
--- OUTSIDE RECORDS SUMMARY | 2024-12-25 16:09 | XMS_ITS | Encounter Summary ---
Author Organization [facility] Address [address] [place] [address] Care Team Providers Care Molder Setter Name Role Phone Mia Recinos MD Primary Care Provider Rik Bennett MD Primary Care Provider Isabel Lubin NP Unavailable [phone] Encounter Details Date Type Department Care Team (Late st Contact Info) Description 02/20/2024 Orders Only [facility] Health Information Management [address] [place] [id number] Scanning, Provider Social History Tobacco Use [...] Date/Time Associated Diagnosis Comments SCAN - RADIOLOGY/IMAGING 02/20/2024 documented in this encounter Results * SCAN - RADIOLOGY/IMAGING (02/20/2024) Anatomical Region Laterality Modality Other us Provider [...] documented as of this encounter Care Teams Molder Setter Relationship Specialty Start Date End Date Mia Recinos MD [address] [place] [address] PCP - General Family Medicine 02/29/20 07/04/24 Rik Bennett MD [address] [place] [address] PCP - General Family Medicine 07/05/24 Isabel Lubin NP [address] [place] [address] [place] [address] Nurse Practitioner Hospice and Palliative Medicine 07/18/24 documented as of this encounter
--- OUTSIDE RECORDS SUMMARY | 2024-12-25 16:09 | XMS_ITS | Clinical Summary ---
Author Organization [facility] [address] Address [address] [place] [address] Care Team Providers Care Director Industrial Nursing Name Role Phone Rik Bennett MD Primary Care Provider Isabel Lubin NP Unavailable [phone] Allergies Active Allergy Reactions Criticality Noted Date Comments Fentanyl Dizziness,Vomiting Low 09/03/2021 Ibuprofen Hives,Other (See comments) Medium 03/04/2020 Cerner Allergy Text Annotation: Liam Cergenesis Reaction: rash Medications omeprazole (PriLOSEC) 40 mg capsuleIndicatio ns:Stress Ulcer Prophylaxis Take 1 capsule (40 mg total) by mouth every morning Active acetaminophen ER (TYLENOL) 650 mg 8 hr tabletIndication s:Pain Take 1 tablet (650 mg total) by mouth every 8 (eight) hours as needed for pain Active polyethylene glycol (MIRALAX) 17 gram packetIndication s:constipation Take 1 packet (17 g total) by mouth as needed Active meclizine (ANTIVERT) 25 mg tabletIndication s:Vertigo Take 1 tablet (25 mg total) by mouth 3 (three) times a day as needed for dizziness 30 tablet 02/01/20 22 Active rivaroxaban (XARELTO) 20 mg tabletIndication s:Venous Thrombosis,atria l fibrillation Take 1 tablet (20 mg total) by mouth daily with breakfast 90 tablet 3 07/28/19 23 Active furosemide (LASIX) 40 mg tabletIndication s:Edema Take 1 tablet (40 mg total) by mouth daily 90 tablet 3 11/18/19 23 Active potassium chloride ER 20 mEq CR tabletIndication s:hypokalemia prevention Take 1 tablet (20 mEq total) by mouth daily 90 tablet 3 11/18/19 23 Active amiodarone (PACERONE) 200 mg tabletIndication s:Cardioversion of Atrial Fibrillation Take 1 tablet (200 mg total) by mouth daily If resting heart rate goes below 60, reduce dose to 1/2 tablet 04/13/20 24 Active Additional Information Patient taking differently: 100 mgoral Daily, If resting heart rate goes below 60, reduce dose to 1/2 tablet, Indications: Cardioversion of Atrial Fibrillation, Reported on 12/25/2024 carvediloL (COREG) 3.125 mg tabletIndication s:hypertension,P revention of A. Fib Post Cardio-Thoracic Surgery Take 1 tablet (3.125 mg total) by mouth 2 (two) times a day with meals 60 tablet 07/09/19 25 Active sacubitriL-valsa rtan (Entresto) 49-51 mg tabletIndication s:chronic heart failure Take 1 tablet by mouth twice daily 60 tablet 10 07/10/19 25 Active gabapentin (NEURONTIN) 100 mg capsule Take 1 capsule (100 mg total) by mouth nightly 30 capsule 11 08/16/19 25 026 Active guaiFENesin-dext romethorphan ER (MUCINEX DM) 600-30 mg tablet extended release 12 hr Take 1 tablet by mouth 2 (two) times a day 28 tablet 08/16/19 25 Active Additional Information Patient taking differently:1 tablet oralAs needed, Reported on 12/25/2024 cyclobenzaprine (FLEXERIL) 5 mg tablet Take 1 tablet (5 mg total) by mouth 3 (three) times a day as needed for muscle spasms 07/26/19 25 Active spironolactone (ALDACTONE) 25 mg tabletIndication s:chronic heart failure Take 1 tablet (25 mg total) by mouth daily 90 tablet 3 08/23/19 25 026 Active Active Problems Problem Noted Date Diagnosed [...] Encounters Date Type Department Care Team Description 12/25/2024 1:00 PM CDT Office Visit [facility] Cardiology [address] [facility] [address] [place] [phone] Breanne Pedraza NP NICM (nonischemic cardiomyopathy) (HCC) (Primary Dx); SSS (sick sinus syndrome) (HCC); Biventricular implantable cardioverter-defibri llator (ICD) in situ; Chronic anticoagulation; History of pulmonary embolism 12/25/2024 8:30 AM CDT Ancillary Procedure [facility] Cardiology [address] [facility] [address] [place] [phone] Biventricular implantable cardioverter-defibri llator (ICD) in situ; NICM (nonischemic cardiomyopathy) (HCC); LBBB (left bundle branch block); SSS (sick sinus syndrome) (HCC); Paroxysmal atrial fibrillation (HCC) 11/01/2024 Orders Only [facility] Health Information Management [address] [place] [address] Scanning, Provider 09/25/2024 12:30 PM CDT Office Visit [facility] Cardiology [address] [facility] [address] [place] [address] Breanne Pedraza NP NICM (nonischemic cardiomyopathy) (HCC) (Primary Dx); Chronic combined systolic and diastolic congestive heart failure (HCC); VT (ventricular tachycardia) (HCC); Paroxysmal atrial fibrillation (HCC); Chronic anticoagulation; Biventricular implantable cardioverter-defibri llator (ICD) in situ; History of pulmonary embolism 09/25/2024 7:45 AM CDT Ancillary Procedure [facility] Cardiology [address] [facility] [address], [place] [address] Paroxysmal atrial fibrillation (HCC) (Primary Dx); Biventricular implantable cardioverter-defibri llator (ICD) in situ; NICM (nonischemic cardiomyopathy) (HCC); LBBB (left bundle branch block); SSS (sick sinus syndrome) (HCC); Bradycardia from Last 3 Months Surgical History Surgery Date Site/Laterality Comments HYSTERECTOMY partial LAMINECTOMY COLONOSCOPY CARDIAC CATHETERIZATION 05/09/2020 - 05/08/2021 Medical History Medical History Date Comments Hypertension Heart murmur Hyperlipidemia Anemia Acid indigestion Sleep apnea Arthritis Motion sickness PONV (postoperative nausea and vomiting) History of pulmonary embolism [facility] Chronic anticoagulation Ventricular premature depolarization LBBB (left bundle branch block) Syncope PAF (paroxysmal atrial fibrillation) NICM (nonischemic cardiomyopathy) (HCC) Family History Medical [...] doctor or pharmacy Sometimes 07/31/2024 [facility] Utilities Answer Date Recorded In the [...] often do you attend chur ch or orthodoxy services? Never 08/08/2024 Do you belong to any clubs o r organizations such as mormonism groups, unions, fraternal or athletic groups, or [...] any time in the past 12 m [facility], were you homeless or living in a [...] Pulse 73 12/25/2024 1:11 PM CDT Temperature 36.1 C (96.9 F) 08/15/2024 4:55 PM CDT Respiratory Rate 14 08/22/2024 10:30 AM CDT Oxygen Saturation 98% 12/25/2024 1:11 PM CDT Inhaled Oxygen Concentration - - Weight 87.1 kg (192 lb) 12/25/2024 1:11 PM CDT Height 165.1 cm (5' 5) 12/25/2024 1:11 PM CDT Body Mass Index 31.95 12/25/2024 1:11 PM CDT Plan of Treatment Health Maintenance Due Date Last Done Comments Depression Screening 1945 Osteoporosis Screening-Bone Density Scan 1945 DTaP/Tdap/Td Vaccine (1 - Tdap) 1954 Hepatitis B Screening 1961 Pneumococcal vaccine 65+ (1 of 2 - PCV) 1962 Zoster Vaccine (1 of 2) 1993 Well Visit 65+ 2008 Covid-19 Vaccine ( season) 01/08/202401/2021, 07/18/2020 Influenza Vaccine (#1) 2025 Fall Risk Assessment 08/22/2025 08/22/2024, 08/16/19 Medical Devices Implanted Type Area Respiratory Care Assistant Device Identifier Shelf Expiration Date Model / Serial / Lot [employer] Quartet 4.7fr 86cm Quadripolar Is-4 Llll Connector 8 Curve Low 1456q/86 - [id number] - [id number] Implanted:Qty: 1 on 10/31/2023 by Darvin Catherine MD at [facility] [employer] 08/06/2026 1456Q/86 / [id number] / [employer] Tendril Sts 6fr 52cm Is-1 Connector Active Fixation Bipolar Soft 2088tc/52 - [id number] - [id number] Implanted:Qty: 1 on 10/31/2023 by Darvin Catherine MD at [facility] [employer] 10/06/2026 2088TC/52 / [id number] / [employer] Durata 6.8fr 65cm True Bipolar Active Fixation Extendable 1 Coil 7122q/65 - [id number] - [id number] Implanted:Qty: 1 on 10/31/2023 by Darvin Catherine MD at [facility] [employer] 09/05/2026 7122Q/65 / [id number] / [employer] Dca22ti 20m50qf [place] Hf Df4 Is-4 Is-1 Cnctr [id number] - [id number] - [id number] Implanted:Qty: 1 on 10/31/2023 by Darvin Catherine MD at [facility] 09/05/2025 [id number] / [id number] / Procedures Procedure Name Priority Date/Time Associated Diagnosis Comments SCAN - OTHER ORDERS 11/01/2024 DEVICE CHECK - REMOTE Routine 09/25/2024 1:28 PM CDT Biventricular implantable cardioverter-defibri llator (ICD) in situ NICM (nonischemic cardiomyopathy) (HCC) LBBB (left bundle branch block) SSS (sick sinus syndrome) ([facility]) Bradycardia from Last 3 Months Results * SCAN - OTHER ORDERS (11/01/2024) Provider Scanning Final Result * DEVICE CHECK - REMOTE (09/25/2024 1:28 PM CDT) Anatomical Region Laterality Modality Other Narrative 11/23/2024 4:25 PM CDT Lorenzo Biv ICD. Dx; NICM, LBBB, SSS, PAF, Ricardo. DOI 10/31/2023-Dorene. Gerlaw remote. Routine DDD ICD Remote. Transmission attached. Battery status 85%, 5.6 years remaining battery life to MISHEL. Stable Charge time and Shock impedance. Stable lead impedances, pacing, and sensing threshold. Presenting rhythm: /BP with occasional PVCs AP- 7.0 %, Bi-V P- 86 %. ( 0) AT/AF episodes noted ( 0) Ventricular tachy arrhythmias detected. Medication: amiodarone 200 mg, carvedilol 3.125 mg, Xarelto 20 mg, Entresto 49-51 mg Follow up: Office Pacemaker/ICD scheduled 03/20/25 Santino remote 12/25/24 Andry Workman, RN Joseph Yanez MD CV CARDIAC [facility] PROC[facility] Final Result from Last 3 Months [place] [address] MEDICARE [facility] MEDICARE [facility] MEDICARE IDPA Advance Directives For more information, please contact: [phone] * Full Code (Latest Code Status on [...] PM 11/01/2023 6:53 PM Care Teams Director Industrial Nursing Relationship Specialty Start Date End Date Rik Bennett MD [address] [facility] [address] [place] [address] PCP - General Family Medicine 07/05/24 Isabel Lubin NP [address] [place] [address] [address] [place] [address] Nurse Practitioner Hospice and Palliative Medicine 07/18/24
[2024-12-25 16:38] LABS: Alanine Aminotransferase 12 U/L (6-35); Albumin Level 4.0 g/dL (3.5-5.1); Alkaline Phosphatase 48 U/L (38-126); Anion Gap 5 mmol/L (4-12); Aspartate Amino Transferase 24 U/L (14-36); Bilirubin,Total 0.2 mg/dL (0.2-1.3); Blood Urea Nitrogen 14 mg/dL (7-17); Calcium 9.4 mg/dL (8.4-10.2); Carbon Dioxide 29 mmol/L (22-30); Chloride 104 mmol/L (98-107); Estimated Glomerular Filt Rate > 60; Glucose 114 mg/dL (65-110); Potassium 3.9 mmol/L (3.4-5.0); Sodium 138 mmol/L (137-145); Total Protein 7.0 g/dL (6.3-8.2)
== END 2024-12-25 15:49 | disposition home or self-care (01) ==
PROVIDERS: PCP Family Medicine; Visit Provider Family Medicine
DX: I13.0 Hypertensive heart and chronic kidney disease with heart failure and stage 1 through stage 4 chronic kidney disease, or unspecified chronic kidney disease (principal); I50.42 Chronic combined systolic (congestive) and diastolic (congestive) heart failure; N18.31 Chronic kidney disease, stage 3a; I11.0 Hypertensive heart disease with heart failure
CPT/HCPCS: 36415; 80053

== ENCOUNTER 2024-12-29 17:26 | Emergency (ER) | payer MEDICARE, MEDICAID, SELFPAY ==
[2024-12-29 17:24] VITALS: BP 157/97; PULSE 77; RESP 14; TEMP 36.7; O2SAT 95
--- NOTE | 2024-12-29 17:34 | ECG_ITS ---
Test Date: 2024-12-29 17:42:17 Measurements Intervals [place] Rate: 73 P: 78 CT: 151 QRS: -49 QRSD: 205 T: 128 QT: 490 QTc: 543 Interpretive Statements ATRIAL SENSE- ELECTRONIC VENTRICULAR PACEMAKER WITH ATRIAL PREMATURE COMPLEXES BASELINE ARTIFACT- I, III, AVR, AVL BORDERLINE ECG Compared to ECG 07/04/2024 05:38:42 NO SIGNIFICANT CHANGE Electronically Signed On 12-29-2024 20:23:18 CDT by Arnaldo Huizar D.O.
--- NOTE | 2024-12-29 17:42 | ED_ITS ---
HPI - General Adult General Chief complaint: Recheck/Abnormal Lab/Rx Stated complaint: HTN History of Present Illness HPI narrative: 79-year-old female presents via EMS for increased leg swelling over the past week. Patient states she is also having some tingling to the soles of her feet. Patient denies chest pain, shortness of breath, or abdominal pain. Patient was given extra Lasix yesterday by her daughter and the swelling improved but the patient had increased urination. Patient has a history of CHF, pacemaker, AFib. Patient denies any other symptoms Onset (ago): week(s) (1) Relieving factors: medication (Took extra Lasix and spironolactone) Exacerbating factors: none Associated symptoms: denies other symptoms Related Data Home Medications ?Medication ?Instructions ?Recorded ?Confirmed ?Last Taken ?Type acetaminophen 500 mg tablet 500 mg PO Q6H PRN Pain ([place] 09/06/22 12/25/24 Unknown History (Tylenol Extra Strength) Score 1-3) sacubitril 49 mg-valsartan 51 mg 1 tablet PO BID 07/1212/25/24 03/24/24 History tablet (Entresto) Allergies Allergy/AdvReac Type Severity Reaction Status Date / Time ibuprofen (From Motrin) Allergy Mild itch and Verified 12/25/24 14:42 hives fentanyl Allergy Unknown Vomiting Verified 12/25/24 14:42 phentyol AdvReac Severe Vomiting Uncoded 12/25/24 14:42 Review of Systems 2 Review of Systems: A 10 system review of systems was completed on the patient and is negative except for what is stated in the HPI. Nursing and ancillary documentation was reviewed. [facility] Past Medical History Medical History (Updated 12/29/24 @ 18:26 by Barak Garcia APRN) Acute bilateral deep vein thrombosis (DVT) of popliteal veins DVT of lower extremity, bilateral Acute pulmonary embolism Hypertensive CHF Intrathoracic goiter Obstructive sleep apnea does not use CPAP Gastroesophageal reflux disease Hypertension Combined systolic and diastolic congestive heart failure Echo in July 2022: Moderately reduced LV systolic function with an EF estimated 30 to 35% and grade 1 diastolic dysfunction. Chronic anticoagulation Paroxysmal atrial fibrillation Mild cognitive impairment with memory loss Syncope Obesity (BMI 30.0-34.9) Chronic constipation Colon polyp Lumbar spondylosis Surgical History Surgical History History of lumbar laminectomy (2017) History of colonoscopy with polypectomy History of hemorrhoidectomy History of hysterectomy Family History Family History Grandparent Carcinoma of colon Mother Acute myocardial infarction Father Acute myocardial infarction Sibling Lung cancer Social History Social History Social History: Surrogate medical decision maker: vinny Loera. Code Status: Full Code Smoking packs per day: 0 Smoking cigarettes per day: 0.0 Years smoked: 30 Smoking pack-years: 0.00 Smoking status: Former smoker Second hand tobacco smoke exposure: No Alcohol intake: never Substance use: never Substance use type: does not use Do You Feel Safe in your Home?: Yes Lack of Transportation: No Lack of Food: Never True Current Housing: I Have Housing Concerned About Future Housing: No Difficulty Paying Gas/Electric Bills: No Difficulty Paying for Meds: No Currently Unemployed: No Education: Associate Degree Difficulty w/ Childcare or Family Care: No Living arrangements: with family Additional living arrangements comments: Lives with children. 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: No Exam 2 Narrative: GENERAL: Well-appearing, well-nourished, and in no acute distress. HEAD: Normocephalic, atraumatic. EYES: PERRLA and EOMI. ENT: Nares clear, no rhinorrhea or epistaxis. Mucous membranes moist. NECK: Supple. CHEST: Clear to auscultation. No respiratory distress. HEART: Regular rate and rhythm. No murmur heard. Normal peripheral pulses. ABDOMEN: Soft, nontender, nondistended, normal active bowel sounds. EXTREMITIES: Normal range of motion. 1+ non-pitting edema SKIN: Warm, dry, no rash. NEURO: No focal deficits. Alert and oriented x3. PSYCH: Normal mood and affect. Cardio: Rate: regular rate Rhythm: abnormal rhythm (paced) Course Course Emergency Course: Will check labs, EKG, vital signs Vital Signs Vital signs: Vital Signs Temperature 36.7 C 12/29/24 17:24 Pulse Rate 77 12/29/24 17:24 Respiratory Rate 14 12/29/24 17:24 Blood Pressure 157/97 H 12/29/24 17:24 Pulse Oximetry 95 12/29/24 17:24 Oxygen Delivery Room Air 12/29/24 17:24 Temperature 36.7 C 12/29/24 17:24 Pulse Rate 77 12/29/24 17:24 Respiratory Rate 14 12/29/24 17:24 Blood Pressure 157/97 H 12/29/24 17:24 Pulse Oximetry 95 12/29/24 17:24 Oxygen Delivery Room Air 12/29/24 17:24 Medical Decision Making MDM Narrative Medical decision making narrative: Patient's labs at her baseline. Patient is concerned with swelling to her legs but states he got better after extra Lasix. Will have patient take 20 mg of Lasix at night and follow-up with supervisor cigar making machine on Tuesday Differential Diagnosis Differential Diagnosis: CHF exacerbation vs lower extremity edema vs electrolyte abnormality Vital Signs Vital Signs: Vital Signs Temperature 36.7 C 12/29/24 17:24 Pulse Rate 77 12/29/24 17:24 Respiratory Rate 14 12/29/24 17:24 Blood Pressure 157/97 H 12/29/24 17:24 Pulse Oximetry 95 12/29/24 17:24 Oxygen Delivery Room Air 12/29/24 17:24 Temperature 36.7 C 12/29/24 17:24 Pulse Rate 77 12/29/24 17:24 Respiratory Rate 14 12/29/24 17:24 Blood Pressure 157/97 H 12/29/24 17:24 Pulse Oximetry 95 12/29/24 17:24 Oxygen Delivery Room Air 12/29/24 17:24 Lab Data 12/29/24 17:43 12/29/24 17:43 Labs: Lab Results 12/29/24 Range/Units 17:43 WBC 7.4 (4.5-10.0) K/mm3 RBC 4.21 (4.2-5.4) M/mm3 Hgb 12.2 (12.0-15.0) g/dL Hct 38.7 (37.0-47.0) % MCV 91.9 (80-100) fl MCH 29.0 (26-34) pg MCHC 31.5 L (32-36) g/dl RDW 14.1 (11.5-14.5) % Plt Count 230 (150-375) k/mm3 MPV 11.6 H (7.4-10.4) fl Immature Gran % (Auto) 0.1 (0-0.5) % Neut % (Auto) 67.9 (45.5-73.1) % Lymph % (Auto) 24.6 (18.3-44.2) % [place] % (Auto) 5.4 (2.6-8.5) % Eos % (Auto) 1.6 (0-4.4) % Baso % (Auto) 0.4 (0.2-1.2) % Lymph # (Auto) 1.83 (0.9-3.2) K/mm3 [place] # (Auto) 0.4 (0.1-0.6) K/mm3 Eos # (Auto) 0.1 (0-0.3) K/mm3 Baso # (Auto) 0.0 (0.0-0.1) K/mm3 Abs Immat Gran (auto) 0.01 (0.00-0.031) K/mm3 Absolute Neuts (auto) 5.1 (1.3-6.7) K/mm3 Absolute Nucleated RBC 0.000 (0.0-0.012) K/mm3 Band Neutrophils % Not Reportable Nucleated RBC % 0.0 (0.0-0.2) % Smudge Cells Few Platelet Estimate Adequate (Adequate) Schistocytes None seen Sodium 137 (137-145) mmol/L Potassium 3.9 (3.4-5.0) mmol/L Chloride 105 (98-107) mmol/L Carbon Dioxide 24 (22-30) mmol/L Anion Gap 8 (4-12) mmol/L BUN 15 (7-17) mg/dL Creatinine 1.04 H (0.7-1.0) mg/dL Estim Creat Clear Calc 37 ml/min Estimated GFR 51 L (59 - ) Glucose 121 H (65-110) mg/dL Calcium 9.2 (8.4-10.2) mg/dL Magnesium 2.0 (1.6-2.3) mg/dL Total Bilirubin 0.3 (0.2-1.3) mg/dL AST 22 (14-36) U/L ALT 13 (6-35) U/L Alkaline Phosphatase 58 (38-126) U/L Troponin I 0.017 (0.000-0.034) ng/mL NT-Pro-B Natriuret Pep 2080 H (19.9-100) pg/mL Total Protein 7.1 (6.3-8.2) g/dL Albumin 4.1 (3.5-5.1) g/dL ECG Data EKG #1: Attestation: I personally reviewed and interpreted this ECG as follows: (Dr. Hernandez) ECG completion date: 12/29/24 ECG completion time: 17:42 Prior ECG tracings: available for review Interpretation: Ventricular paced, 73 beats per minute, 151 ms pr interval Discharge Plan Discharge Clinical Impression: Bilateral edema of lower extremity Patient Disposition: Home Condition: Improved Instructions: Antibiotic Form Additional Instructions: Take 20 mg of Lasix at night starting tomorrow Contact supervisor cigar making machine on Tuesday Return for chest pain, shortness of breath, or any other concerning symptom Patient Language: Scottish Prescriptions: New furosemide [Lasix] 20 mg tablet 20 mg PO QPM Qty: 30 0RF No Action potassium chloride 20 mEq tablet extended release 20 meq PO DAILY Qty: 135 2RF Xarelto 20 mg tablet 20 mg PO QPM Qty: 100 2RF gabapentin 100 mg capsule 100 mg PO BID Qty: 60 2RF ondansetron 4 mg tablet,disintegrating 4 mg PO Q6H PRN (Reason: nausea and vomiting) Qty: 10 0RF acetaminophen [Tylenol Extra Strength] 500 mg Tablet 500 mg PO Q6H PRN (Reason: Pain (Scale Score 1-3)) Entresto 49-51 mg tablet 1 tablet PO BID amiodarone [Pacerone] 200 mg Tablet 200 mg PO DAILY@0800 Qty: 30 1RF spironolactone 25 mg tablet 25 mg PO QPM Qty: 90 1RF furosemide 40 mg tablet 40 mg PO DAILY Qty: 90 1RF carvedilol 3.125 mg tablet 3.125 mg PO BID Qty: 60 2RF omeprazole 40 mg capsule,delayed release(DR/EC) 40 mg PO DAILY Qty: 90 1RF Follow-up/Referrals: Rik Bennett MD [Primary Care Provider, Family Practice] Time of Disposition: 18:27
[2024-12-29 17:51] LABS: Hematocrit 38.7 % (37.0-47.0); Hemoglobin 12.2 g/dL (12.0-15.0); Immature Granulocyte Percent A 0.1 % (0-0.5); Lymphocytes Absolute Auto 1.83 K/mm3 (0.9-3.2); Mean Corpuscular HGB Conc 31.5 g/dl (32-36); Mean Corpuscular Hemoglobin 29.0 pg (26-34); Mean Corpuscular Volume 91.9 fl (80-100); Nucleated Red Blood Cells Absolute Auto 0.000 K/mm3 (0.0-0.012); Nucleated Red Blood Cells Perc 0.0 % (0.0-0.2); Platelet Count Result 230 k/mm3 (150-375); Red Blood Count 4.21 M/mm3 (4.2-5.4); White Blood Count 7.4 K/mm3 (4.5-10.0)
[2024-12-29 18:01] LABS: Alanine Aminotransferase 13 U/L (6-35); Albumin Level 4.1 g/dL (3.5-5.1); Alkaline Phosphatase 58 U/L (38-126); Anion Gap 8 mmol/L (4-12); Aspartate Amino Transferase 22 U/L (14-36); Bilirubin,Total 0.3 mg/dL (0.2-1.3); Blood Urea Nitrogen 15 mg/dL (7-17); Calcium 9.2 mg/dL (8.4-10.2); Carbon Dioxide 24 mmol/L (22-30); Chloride 105 mmol/L (98-107); Estimated CRCL calculation 37 ml/min; Estimated Glomerular Filt Rate 51; Glucose 121 mg/dL (65-110); Magnesium 2.0 mg/dL (1.6-2.3); Potassium 3.9 mmol/L (3.4-5.0); Sodium 137 mmol/L (137-145); Total Protein 7.1 g/dL (6.3-8.2)
[2024-12-29 18:05] LABS: Schistocytes None Seen; Smudge Cells FEW
[2024-12-29 18:13] LABS: NT Pro B Type Natriuretic Pept 2080 pg/mL (19.9-100); Troponin I 0.017 ng/mL (0.000-0.034)
== END 2024-12-29 18:50 | disposition home or self-care (01) ==
PROVIDERS: Emergency Provider Nurse Practitioner Family; PCP Family Medicine
DX: R60.0 Localized edema (principal); I11.0 Hypertensive heart disease with heart failure; I50.40 Unspecified combined systolic (congestive) and diastolic (congestive) heart failure; I48.0 Paroxysmal atrial fibrillation; K21.9 Gastro-esophageal reflux disease without esophagitis; G31.84 Mild cognitive impairment of uncertain or unknown etiology; G47.33 Obstructive sleep apnea (adult) (pediatric); Z95.0 Presence of cardiac pacemaker; Z86.0100 Personal history of colon polyps, unspecified; Z86.718 Personal history of other venous thrombosis and embolism; Z90.710 Acquired absence of both cervix and uterus; Z79.01 Long term (current) use of anticoagulants; Z79.899 Other long term (current) drug therapy
CPT/HCPCS: 36415; 80053; 83735; 83880; 84484; 85025; 93005; 99284